=== PATIENT | female | born 1955 | race Caucasian/White ===

== ENCOUNTER → 2017-03-17 | Outpatient (CLI) | payer MEDICARE, OTHER ==
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
[2017-03-17 09:22] LABS: Anisocytosis Slight; Basophils # (A) 0.1 k/uL (0-0.2); Basophils % (A) 1 %; CH 19.3; CHCM 28.2; Eosinophils # (A) 0.1 k/uL (0-0.7); Eosinophils % (A) 2 %; HCT 33.2 % (34.0-46.0); HGB 9.3 gm/dL (11.4-16.0); Hypochromasia Marked; Luc # (Auto) 0.11; Luc % (Auto) 2; Lymphocytes # (A) 1.3 k/uL (1.0-4.8); Lymphocytes % (A) 22 %; MCH 19.2 pg (25.0-35.0); MCV 68.9 fL (80.0-100.0); Mean Platelet Volume 6.2; Microcytosis Marked; Monocytes # (A) 0.2 k/uL (0-1.0); Monocytes % (A) 4 %; Neutrophils # (A) 3.8 k/uL (1.3-7.7); Neutrophils % (A) 68 %; Poikilocytosis Slight; RBC 4.82 m/uL (3.80-5.40); RDW 17.9 % (11.5-15.5); WBC 5.6 k/uL (3.8-10.6); WBC (Perox) 5.96
[2017-03-17 09:33] LABS: MCHC 27.8 g/dL (31.0-37.0)
[2017-03-17 10:23] LABS: ALT 35 U/L (9-52); AST 24 U/L (14-36); Alkaline Phosphatase 91 U/L (38-126); Anion Gap 10 mmol/L; Blood Urea Nitrogen 25 mg/dL (7-17); Calcium 9.4 mg/dL (8.4-10.2); Carbon Dioxide 28 mmol/L (22-30); Chloride 103 mmol/L (98-107); Cholesterol 229 mg/dL (<200); Glucose 145 mg/dL (74-99); HDL Cholesterol 56 mg/dL (40-60); Non-African American GFR(MDRD) >60 (>60 ml/min/1.73 sqM); Potassium 4.2 mmol/L (3.5-5.1); Sodium 141 mmol/L (137-145); Total Bilirubin 0.6 mg/dL (0.2-1.3); Total Protein 7.5 g/dL (6.3-8.2); Triglycerides 254 mg/dL (<150)
[2017-03-17 11:11] LABS: Hepatitis C Virus IgG Index 0.11
[2017-03-17 11:20] LABS: Hepatitis C Virus IgG Ab Negative (Negative)
[2017-03-20 22:28] LABS: % Iron Saturation 4.9 % (20-50)
== END | disposition home or self-care (01) ==
LOC: RADXRMAIN 08:26
PROVIDERS: ATTEND Internal Medicine
DX: Z12.31 Encounter for screening mammogram for malignant neoplasm of breast (principal); R07.81 Pleurodynia; E55.9 Vitamin D deficiency, unspecified; Z13.9 Encounter for screening, unspecified
CPT/HCPCS: 80053; 80061; 82306; 83540; 83550; 84443; 85025; 86803

== ENCOUNTER → 2017-04-10 | Outpatient (CLI) | payer MEDICARE, OTHER ==
--- NOTE | 2017-04-14 11:47 | MM ---
Reason for exam: screening (asymptomatic). Last mammogram was performed 2 years and 2 months ago. History: Patient is postmenopausal. Benign excisional biopsy of the left breast. Physical Findings: A clinical breast exam by your physician is recommended on an annual basis and results should be correlated with mammographic findings. MG Screening Mammo w CAD Bilateral CC and MLO view(s) were taken. Prior study comparison: January 29, 2015, bilateral MG screening mammo w CAD. January 11, 2014, bilateral digital screening mammo w/CAD. October 13, 2012, bilateral digital screening mammo w/CAD. There are scattered fibroglandular densities. Finding: There are typically benign vascular, round calcifications in the left breast. There is a chronic nodularity in the left breast. There is no discrete abnormality. Left axillary pacemaker. ASSESSMENT: Benign, BI-RAD 2 RECOMMENDATION: Routine screening mammogram of both breasts in 1 year. Manage on a clinical basis with regard to itching symptoms.
== END | disposition home or self-care (01) ==
LOC: RADMAMWWP 08:52
PROVIDERS: ATTEND Internal Medicine
DX: Z12.31 Encounter for screening mammogram for malignant neoplasm of breast (principal)

== ENCOUNTER → 2017-09-24 | Outpatient (CLI) | payer MEDICARE, OTHER ==
[2017-09-24 16:10] LABS: Calcium 9.7 mg/dL (8.4-10.2); Digoxin 0.9 ng/mL; Potassium 4.3 mmol/L (3.5-5.1)
== END ==
LOC: LABWHC1 15:34
PROVIDERS: ATTEND Internal Medicine Interventional Cardiology
DX: I42.9 Cardiomyopathy, unspecified (principal)
CPT/HCPCS: 36415; 80048; 80162

== ENCOUNTER → 2018-06-07 | Outpatient (CLI) | payer MEDICARE, OTHER ==
[2018-06-07 10:16] LABS: Appearance,Urine Clear (Clear); Bilirubin,Urine Negative (Negative); Blood,Urine Negative (Negative); Color,Urine Light Yellow; Glucose,Urine (UA) Negative (Negative); Ketones,Urine Negative (Negative); Leukocyte Esterase,Urine Negative (Negative); Nitrite,Urine Negative (Negative); PH, Urine 6.5 (5.0-8.0); Protein,Urine Negative (Negative); Specific Gravity,Urine 1.006 (1.001-1.035); Urobilinogen,Urine <2.0 mg/dL (<2.0)
[2018-06-07 10:28] LABS: Anisocytosis Slight; Basophils % (A) 1 %; Eosinophils # (A) 0.2 k/uL (0-0.7); Eosinophils % (A) 3 %; Hypochromasia Marked; Lymphocytes # (A) 1.5 k/uL (1.0-4.8); Lymphocytes % (A) 24 %; MCH 20.6 pg (25.0-35.0); MCHC 30.4 g/dL (31.0-37.0); MCV 67.6 fL (80.0-100.0); Mean Platelet Volume 6.6; Microcytosis Marked; Monocytes # (A) 0.3 k/uL (0-1.0); Monocytes % (A) 5 %; Neutrophils # (A) 4.2 k/uL (1.3-7.7); Neutrophils % (A) 66 %; Platelet Count 312 k/uL (150-450); Poikilocytosis Slight; RBC 4.88 m/uL (3.80-5.40); RDW 17.6 % (11.5-15.5); WBC 6.3 k/uL (3.8-10.6)
[2018-06-07 10:30] LABS: ALT 27 U/L (9-52); AST 23 U/L (14-36); Alkaline Phosphatase 112 U/L (38-126); Anion Gap 8 mmol/L; Blood Urea Nitrogen 26 mg/dL (7-17); Calcium 10.2 mg/dL (8.4-10.2); Carbon Dioxide 33 mmol/L (22-30); Chloride 98 mmol/L (98-107); Cholesterol 156 mg/dL (<200); Glucose 91 mg/dL (74-99); HDL Cholesterol 53 mg/dL (40-60); LDL Cholesterol,Calculated 72 mg/dL (0-99); Potassium 3.7 mmol/L (3.5-5.1); Sodium 139 mmol/L (137-145); Total Bilirubin 0.3 mg/dL (0.2-1.3); Total Protein 7.1 g/dL (6.3-8.2); Triglycerides 153 mg/dL (<150)
[2018-06-07 10:45] LABS: T4, Free (Free Thyroxine) 1.87 ng/dL (0.78-2.19)
== END | disposition home or self-care (01) ==
LOC: LABWHC1 09:21
PROVIDERS: ATTEND Internal Medicine
DX: E03.9 Hypothyroidism, unspecified (principal); I10 Essential (primary) hypertension
CPT/HCPCS: 36415; 80053; 80061; 81003; 84439; 84443; 84481; 85025

== ENCOUNTER 2018-06-11 17:14 | Emergency (ER) | payer OTHER, MEDICARE ==
[2018-06-11] MEDS ORDERED: SODIUM CHLORIDE 0.9% 1,000 ML IV STA ×2 (17:45)
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
[2018-06-11 18:20] LABS: Anisocytosis Slight; Basophils % (A) 0 %; Eosinophils # (A) 0.1 k/uL (0-0.7); Eosinophils % (A) 1 %; HCT 32.4 % (34.0-46.0); HGB 9.4 gm/dL (11.4-16.0); Hypochromasia Marked; Lymphocytes # (A) 1.1 k/uL (1.0-4.8); Lymphocytes % (A) 15 %; MCH 19.3 pg (25.0-35.0); MCV 66.4 fL (80.0-100.0); Microcytosis Marked; Monocytes # (A) 0.3 k/uL (0-1.0); Monocytes % (A) 4 %; Neutrophils # (A) 5.5 k/uL (1.3-7.7); Neutrophils % (A) 77 %; Platelet Count 299 k/uL (150-450); Poikilocytosis Slight; RBC 4.89 m/uL (3.80-5.40); RDW 17.3 % (11.5-15.5); WBC 7.1 k/uL (3.8-10.6)
[2018-06-11 18:22] LABS: ALT 26 U/L (9-52); AST 24 U/L (14-36); Albumin 3.8 g/dL (3.5-5.0); Alcohol <10 mg/dL; Alkaline Phosphatase 108 U/L (38-126); Anion Gap 11 mmol/L; Blood Urea Nitrogen 24 mg/dL (7-17); Calcium 9.6 mg/dL (8.4-10.2); Carbon Dioxide 27 mmol/L (22-30); Chloride 96 mmol/L (98-107); Glucose 192 mg/dL (74-99); Potassium 3.3 mmol/L (3.5-5.1); Sodium 134 mmol/L (137-145); Total Bilirubin 0.3 mg/dL (0.2-1.3); Total Protein 6.8 g/dL (6.3-8.2)
--- NOTE | 2018-06-11 18:22 | XR ---
EXAMINATION TYPE: XR chest 1V portable DATE OF EXAM: 06/11/2018 COMPARISON: 03/17/2017 HISTORY: Chest pain TECHNIQUE: Single frontal view of the chest is obtained. FINDINGS: Heart and mediastinum are normal. Lungs are clear. Costophrenic angles are clear. There is left axillary pacemaker with the lead tips in the right ventricle. Bony thorax is intact. IMPRESSION: No active cardiopulmonary disease. No definite change compared to old exam.
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
[2018-06-11 18:26] LABS: Creatine Kinase 56 U/L (30-135)
[2018-06-11 18:32] LABS: INR 1.8 (<1.2); Partial Thromboplastin Time 23.9 sec (22.0-30.0); Prothrombin Time 16.2 sec (9.0-12.0)
[2018-06-11 18:39] LABS: Creatine Kinase MB 0.5 ng/mL (0.0-2.4); Troponin I <0.012 ng/mL (0.000-0.034)
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
[2018-06-11 19:51] VITALS: BP 110/55; PULSE 90; RESP 18; TEMP 98
== END 2018-06-11 19:25 | disposition home or self-care (01) ==
LOC: EC 17:14
DX: R07.9 Chest pain, unspecified (principal); I48.91 Unspecified atrial fibrillation; E11.40 Type 2 diabetes mellitus with diabetic neuropathy, unspecified; F32.9 Major depressive disorder, single episode, unspecified; F17.200 Nicotine dependence, unspecified, uncomplicated; Z79.4 Long term (current) use of insulin; Z79.82 Long term (current) use of aspirin; Z79.01 Long term (current) use of anticoagulants; Z79.899 Other long term (current) drug therapy; Z88.0 Allergy status to penicillin; Z95.818 Presence of other cardiac implants and grafts; Z95.810 Presence of automatic (implantable) cardiac defibrillator; V43.52XA Car driver injured in collision with other type car in traffic accident, initial encounter; Y92.410 Unspecified street and highway as the place of occurrence of the external cause
CPT/HCPCS: 36415; 93005; 86900; 86901; 80053; 82550; 82553; 84484; 85025; 85610; 85730; 86850; 80320; 72170; 71045; 72125; 70450; 71260; 74177; 99285; 96360; Q9967

== ENCOUNTER 2018-06-17 11:36 | Emergency (ER) | payer MEDICARE, OTHER ==
[2018-06-17 11:42] VITALS: TEMP 97.9
[2018-06-17] MEDS ORDERED: LIDOCAINE 5% PATCH TOPICAL STA (12:00)
[2018-06-17 12:37] LABS: ALT 25 U/L (9-52); AST 17 U/L (14-36); Albumin 3.7 g/dL (3.5-5.0); Alkaline Phosphatase 95 U/L (38-126); Anion Gap 9 mmol/L; Blood Urea Nitrogen 16 mg/dL (7-17); Calcium 9.9 mg/dL (8.4-10.2); Carbon Dioxide 30 mmol/L (22-30); Chloride 99 mmol/L (98-107); Glucose 111 mg/dL (74-99); Sodium 138 mmol/L (137-145); Total Bilirubin 0.3 mg/dL (0.2-1.3); Total Protein 6.5 g/dL (6.3-8.2)
[2018-06-17 12:39] LABS: Partial Thromboplastin Time 30.9 sec (22.0-30.0); Prothrombin Time 17.7 sec (9.0-12.0)
[2018-06-17 12:42] LABS: Anisocytosis Slight; Basophils % (A) 0 %; Eosinophils # (A) 0.1 k/uL (0-0.7); Eosinophils % (A) 3 %; HGB 9.3 gm/dL (11.4-16.0); Hypochromasia Marked; Lymphocytes # (A) 1.4 k/uL (1.0-4.8); Lymphocytes % (A) 25 %; MCH 20.6 pg (25.0-35.0); MCHC 30.1 g/dL (31.0-37.0); MCV 68.3 fL (80.0-100.0); Mean Platelet Volume 6.3; Microcytosis Marked; Monocytes # (A) 0.2 k/uL (0-1.0); Monocytes % (A) 4 %; Neutrophils # (A) 3.7 k/uL (1.3-7.7); Neutrophils % (A) 67 %; Platelet Count 283 k/uL (150-450); Poikilocytosis Slight; RBC 4.54 m/uL (3.80-5.40); RDW 17.2 % (11.5-15.5); WBC 5.6 k/uL (3.8-10.6)
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
[2018-06-17 14:25] LABS: Amorphous Sediment,Urine Rare /hpf; Appearance,Urine Clear (Clear); Bacteria,Urine Few /hpf; Bilirubin,Urine Negative (Negative); Blood,Urine Negative (Negative); Color,Urine Yellow; Glucose,Urine (UA) Negative (Negative); Ketones,Urine Negative (Negative); Leukocyte Esterase,Urine Small (Negative); Mucus,Urine Rare /hpf; Nitrite,Urine Negative (Negative); PH, Urine 6.5 (5.0-8.0); Protein,Urine Negative (Negative); RBC,Urine <1 /hpf (0-5); Specific Gravity,Urine 1.043 (1.001-1.035); Squamous Epithelial Cell,Urine 1 /hpf (0-4); Urobilinogen,Urine <2.0 mg/dL (<2.0); WBC,Urine 5 /hpf (0-5)
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
[2018-06-17 15:25] VITALS: BP 142/74; PULSE 78; RESP 18
== END 2018-06-17 15:24 | disposition home or self-care (01) ==
LOC: EC 11:36
DX: S22.32XA Fracture of one rib, left side, initial encounter for closed fracture (principal); D35.01 Benign neoplasm of right adrenal gland; I48.91 Unspecified atrial fibrillation; E11.40 Type 2 diabetes mellitus with diabetic neuropathy, unspecified; F17.200 Nicotine dependence, unspecified, uncomplicated; Z79.01 Long term (current) use of anticoagulants; Z79.4 Long term (current) use of insulin; Z79.82 Long term (current) use of aspirin; Z79.899 Other long term (current) drug therapy; Z88.0 Allergy status to penicillin; Z95.0 Presence of cardiac pacemaker; V49.60XA Unspecified car occupant injured in collision with unspecified motor vehicles in traffic accident, initial encounter; Y92.410 Unspecified street and highway as the place of occurrence of the external cause
CPT/HCPCS: 36415; 80053; 85025; 85610; 85730; 81001; 72170; 71260; 74177; 99285; Q9967

== ENCOUNTER 2018-12-24 11:35 | Emergency (ER) | payer MEDICARE, OTHER ==
[2018-12-24 11:41] VITALS: TEMP 97.6
--- NOTE | 2018-12-24 11:48 | ED ---
Chest Pain HPI - General Chief Complaint: Chest Pain Stated Complaint: Chest pressure Time Seen by Provider: 12/24/18 11:46 Source: patient Mode of arrival: ambulatory Limitations: no limitations - History of Present Illness MD Complaint: chest pain (pressure) -: days(s) Onset: during rest Pain Location: substernal, left chest Pain Radiation: none Severity: mild Severity scale (1-10): 3 Quality: heaviness Consistency: constant Improves With: nothing Worsens With: nothing Treatments Prior to Arrival: none - Related Data Home Medications Medication Instructions Recorded Confirmed Aspirin EC [Ecotrin] 81 mg PO HS 05/15/15 12/24/18 Furosemide [Lasix] 80 mg PO PC-SUPPER PRN 05/15/15 12/24/18 Levothyroxine Sodium [Synthroid] 25 mcg PO HS 05/15/15 12/24/18 Omeprazole [PriLOSEC] 40 mg PO HS 05/15/15 12/24/18 Simvastatin [Zocor] 40 mg PO HS 05/15/15 12/24/18 Spironolactone 50 mg PO HS 05/15/15 12/24/18 metFORMIN HCL [Glucophage] 500 mg PO BID 05/15/15 12/24/18 Insulin Lispro [humaLOG Kwikpen] 40 unit SQ AC-TID 06/05/16 12/24/18 Montelukast [Singulair] 10 mg PO DAILY 06/05/16 12/24/18 Warfarin [Coumadin] 7.5 mg PO MOTUWETHFRSA 06/05/16 12/24/18 Ergocalciferol (Vitamin D2) 50,000 unit PO Q7D 06/11/18 12/24/18 [Vitamin D2] Insulin Degludec [Tresiba 40 unit SQ BID 06/11/18 12/24/18 Flextouch U-100] Lisinopril [Prinivil] 10 mg PO DAILY 06/11/18 12/24/18 Metolazone [Zaroxolyn] 2.5 mg PO MOWEFR 06/11/18 12/24/18 Metoprolol Tartrate [Lopressor] 100 mg PO BID 06/11/18 12/24/18 Potassium Chloride ER [K-Dur 20] 20 meq PO MOWEFR 06/11/18 12/24/18 Warfarin Sodium [Coumadin] 5 mg PO GARZA 06/11/18 12/24/18 Allergies Allergy/AdvReac Type Severity Reaction Status Date / Time Penicillins Allergy Unknown Dyspnea Verified 12/24/18 12:05 Review of Systems ROS Statement: Those systems with pertinent positive or pertinent negative responses have been documented in the HPI. ROS Other: All systems not noted in ROS Statement are negative. 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 History of Any Multi-Drug Resistant Organisms: None Reported Past Surgical History: AICD, Heart Catheterization, Tonsillectomy Additional Past Surgical History / Comment(s): KIDNEY SURG A CHILD(X-TRA URETERS), D & C, DEFIBRILLATOR 2004 AND REPLACED 12/2011. Past Anesthesia/Blood Transfusion Reactions: No Reported Reaction Type of Cardiac Device: AICD Device Placement Date:: 12/2011 Past Psychological History: Depression Smoking Status: Current every day smoker Past Alcohol Use History: None Reported Past Drug Use History: None Reported - Past Family History Sister(s) Family Medical History: Cancer Mother Family Medical History: No Reported History General Exam Limitations: no limitations General appearance: alert, in no apparent distress Head exam: Present: atraumatic, normocephalic, normal inspection Eye exam: Present: normal appearance, PERRL, EOMI. Absent: scleral icterus, conjunctival injection, periorbital swelling ENT exam: Present: normal exam, mucous membranes moist Neck exam: Present: normal inspection. Absent: tenderness, meningismus, lymphadenopathy Respiratory exam: Present: normal lung sounds bilaterally. Absent: respiratory distress, wheezes, rales, rhonchi, stridor Cardiovascular Exam: Present: regular rate, normal rhythm, normal heart sounds. Absent: systolic murmur, diastolic murmur, rubs, gallop, clicks GI/Abdominal exam: Present: soft, normal bowel sounds. Absent: distended, tenderness, guarding, rebound, rigid Extremities exam: Present: normal inspection, full ROM, normal capillary refill. Absent: tenderness, pedal edema, joint swelling, calf tenderness Back exam: Present: normal inspection Neurological exam: Present: alert, oriented X3, CN II-XII intact Psychiatric exam: Present: normal affect, normal mood Skin exam: Present: warm, dry, intact, normal color. Absent: rash Course Vital Signs 12/24/18 11:38 Temperature 97.6 F Pulse Rate 80 Respiratory 20 Rate Blood Pressure 115/69 O2 Sat by Pulse 99 Oximetry Disposition Clinical Impression: Chest pain, Atypical chest pain, Anxiety Disposition: HOME SELF-CARE Condition: Good Instructions (If sedation given, give patient instructions): Chest Pain (ED) Is patient prescribed a controlled substance at d/c from ED?: No Referrals: Julio Cesar Vasquez MD [Primary Care Provider] - 1-2 days
[2018-12-24 12:43] LABS: Anisocytosis Slight; Basophils % (A) 0 %; Eosinophils # (A) 0.2 k/uL (0-0.7); Eosinophils % (A) 2 %; HCT 31.6 % (34.0-46.0); HGB 9.3 gm/dL (11.4-16.0); Hypochromasia Marked; Lymphocytes % (A) 14 %; MCH 18.7 pg (25.0-35.0); MCHC 29.5 g/dL (31.0-37.0); MCV 63.5 fL (80.0-100.0); Mean Platelet Volume 6.9; Microcytosis Marked; Monocytes # (A) 0.3 k/uL (0-1.0); Monocytes % (A) 5 %; Neutrophils # (A) 5.7 k/uL (1.3-7.7); Neutrophils % (A) 78 %; Platelet Count 321 k/uL (150-450); Poikilocytosis Slight; RBC 4.98 m/uL (3.80-5.40); RDW 18.7 % (11.5-15.5); WBC 7.3 k/uL (3.8-10.6)
--- NOTE | 2018-12-24 12:50 | XR ---
EXAMINATION TYPE: XR chest 2V DATE OF EXAM: 12/24/2018 COMPARISON: Chest x-ray June 11, 2018 HISTORY: Chest pain. TECHNIQUE: Frontal and lateral views of the chest are obtained. FINDINGS: There is lateral right basilar linear atelectasis. Left lung is clear. No pleural effusion or pneumothorax is seen bilaterally. The cardiac silhouette size remains mildly enlarged with dual l ead pacemaker/AICD. The osseous structures are intact. IMPRESSION: New lateral right basilar linear atelectasis. Stable mild cardiomegaly.
[2018-12-24 12:52] LABS: Partial Thromboplastin Time 39.9 sec (22.0-30.0); Prothrombin Time 29.3 sec (9.0-12.0)
[2018-12-24 12:56] LABS: Albumin 4.4 g/dL (3.5-5.0); Calcium 9.9 mg/dL (8.4-10.2); Magnesium 1.9 mg/dL (1.6-2.3); Potassium 3.4 mmol/L (3.5-5.1); Total Bilirubin 0.5 mg/dL (0.2-1.3); Total Protein 7.8 g/dL (6.3-8.2)
[2018-12-24 13:06] LABS: Creatine Kinase 60 U/L (30-135)
[2018-12-24 13:18] LABS: Creatine Kinase MB 0.5 ng/mL (0.0-2.4); Troponin I <0.012 ng/mL (0.000-0.034)
[2018-12-24 14:01] VITALS: BP 126/60; PULSE 74; RESP 18
== END 2018-12-24 14:25 | disposition home or self-care (01) ==
LOC: EC 11:35
DX: F41.9 Anxiety disorder, unspecified (principal); R07.89 Other chest pain; I48.91 Unspecified atrial fibrillation; E11.40 Type 2 diabetes mellitus with diabetic neuropathy, unspecified; F17.200 Nicotine dependence, unspecified, uncomplicated; Z88.0 Allergy status to penicillin; Z79.01 Long term (current) use of anticoagulants; Z79.4 Long term (current) use of insulin; Z79.82 Long term (current) use of aspirin; Z79.890 Hormone replacement therapy; Z79.899 Other long term (current) drug therapy; Z87.39 Personal history of other diseases of the musculoskeletal system and connective tissue; Z95.810 Presence of automatic (implantable) cardiac defibrillator; Z95.818 Presence of other cardiac implants and grafts
CPT/HCPCS: 36415; 71046; 80053; 82550; 82553; 83690; 83735; 83880; 84484; 85025; 85610; 85730; 93005; 99285

== ENCOUNTER → 2020-07-20 | Outpatient (CLI) | payer MEDICARE, OTHER ==
[2020-07-20 12:10] LABS: Anisocytosis Moderate; HCT 43.9 % (34.0-46.0); HGB 13.8 gm/dL (11.4-16.0); Hypochromasia Slight; MCH 25.2 pg (25.0-35.0); MCHC 31.5 g/dL (31.0-37.0); MCV 79.9 fL (80.0-100.0); Mean Platelet Volume 6.9; Microcytosis Moderate; Platelet Count 248 k/uL (150-450); RDW 23.5 % (11.5-15.5); WBC 5.1 k/uL (3.8-10.6)
[2020-07-20 12:21] LABS: Prothrombin Time 78.3 sec (9.0-12.0)
[2020-07-20 12:30] LABS: African American GFR (CKD) 58 (>60 ml/min/1.73 sqM); Anion Gap 11 mmol/L; Blood Urea Nitrogen 30 mg/dL (7-17); Calcium 10.2 mg/dL (8.4-10.2); Carbon Dioxide 32 mmol/L (22-30); Chloride 95 mmol/L (98-107); Glucose 146 mg/dL (74-99); Magnesium 1.7 mg/dL (1.6-2.3); Non-African American GFR(CKD) 50 (>60 ml/min/1.73 sqM); Potassium 3.1 mmol/L (3.5-5.1); Sodium 138 mmol/L (137-145)
[2020-07-20 12:33] LABS: INR 7.6 (<1.2)
== END | disposition home or self-care (01) ==
LOC: LABWHC1 10:10
PROVIDERS: ATTEND Nurse Practitioner
DX: R79.1 Abnormal coagulation profile (principal)
CPT/HCPCS: 36415; 80048; 83735; 85027; 85610

== ENCOUNTER 2021-06-25 08:30 | Inpatient (IN) | payer MEDICARE, OTHER ==
[2021-06-25] MEDS ORDERED: ACETAMINOPHEN TAB 500 MG TAB PO STA (08:52)
[2021-06-25] MEDS ORDERED: SODIUM CHLORIDE 0.9% 500 ML 500 ML IV STA (08:53)
--- NOTE | 2021-06-25 09:03 | ED ---
SOB HPI - General Chief Complaint: Shortness of Breath Stated Complaint: weakness, diarrhea Time Seen by Provider: 06/25/21 08:34 Source: patient, EMS Mode of arrival: EMS Limitations: no limitations - History of Present Illness Initial Comments: Patient is a 66-year-old female, with history of A. fib on Coumadin, presenting to the emergency department via EMS for increased shortness of breath and diarrhea that started 3 days ago. She states starting on Thursday started developing a sore throat, headache, body aches and a slight cough. Over the pa st few days as progressed to continue with body aches, diarrhea which has been improving. She admits to increasing shortness of breath especially with exertion. She does admit to history of COPD, no O2. She denies any chest pain or abdominal pain. She does have some nausea spells. She did try to take her medications this morning but shortly after, threw them up. She was having night sweats, was unaware if she had a fever or not. She does admit to a mild headache, mild sore throat but states those have been improving. She denies any dizziness or lightheadedness, her appetite has been lower than usual. She has not had a cold vaccine. She has no further complaints. Upon arrival to the ER, she is febrile 100.1, rest of vitals within normal limits. - Related Data Home Medications Medication Instructions Recorded Confirmed Aspirin EC [Ecotrin] 81 mg PO HS 05/15/15 12/24/18 Furosemide [Lasix] 80 mg PO PC-SUPPER PRN 05/15/15 12/24/18 Levothyroxine Sodium [Synthroid] 25 mcg PO HS 05/15/15 12/24/18 Omeprazole [PriLOSEC] 40 mg PO HS 05/15/15 12/24/18 Simvastatin [Zocor] 40 mg PO HS 05/15/15 12/24/18 Spironolactone 50 mg PO HS 05/15/15 12/24/18 metFORMIN HCL [Glucophage] 500 mg PO BID 05/15/15 12/24/18 Insulin Lispro [humaLOG Kwikpen] 40 unit SQ AC-TID 06/05/16 12/24/18 Montelukast [Singulair] 10 mg PO DAILY 06/05/16 12/24/18 Warfarin [Coumadin] 7.5 mg PO MOTUWETHFRSA 06/05/16 12/24/18 Ergocalciferol (Vitamin D2) 50,000 unit PO Q7D 06/11/18 12/24/18 [Vitamin D2] Insulin Degludec [Tresiba 40 unit SQ BID 06/11/18 12/24/18 Flextouch U-100] Lisinopril [Prinivil] 10 mg PO DAILY 06/11/18 12/24/18 Metoprolol Tartrate [Lopressor] 100 mg PO BID 06/11/18 12/24/18 Potassium Chloride ER [K-Dur 20] 20 meq PO MOWEFR 06/11/18 12/24/18 Warfarin Sodium [Coumadin] 5 mg PO GARZA 06/11/18 12/24/18 metOLazone [Zaroxolyn] 2.5 mg PO MOWEFR 06/11/18 12/24/18 Allergies Allergy/AdvReac Type Severity Reaction Status Date / Time Penicillins Allergy Unknown Dyspnea Verified 06/25/21 11:29 Review of Systems ROS Statement: Those systems with pertinent positive or pertinent negative responses have been documented in the HPI. ROS Other: All systems not noted in ROS Statement are negative. 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 History of Any Multi-Drug Resistant Organisms: None Reported Past Surgical History: AICD, Heart Catheterization, Tonsillectomy Additional Past Surgical History / Comment(s): KIDNEY SURG A CHILD(X-TRA URETERS), D & C, DEFIBRILLATOR 2004 AND REPLACED 12/2011. Past Anesthesia/Blood Transfusion Reactions: No Reported Reaction Type of Cardiac Device: AICD Device Placement Date:: 12/2011 Past Psychological History: Depression Past Alcohol Use History: None Reported Past Drug Use History: None Reported - Past Family History Sister(s) Family Medical History: Cancer Mother Family Medical History: No Reported History General Exam - General Exam Comments Initial Comments: GENERAL: Patient is well-developed and well-nourished. Patient is nontoxic and in no acute distress. HEAD: Atraumatic, normocephalic. EYES: Pupils equal round and reactive to light, extraocular movements intact, sclera anicteric, conjunctiva are normal. Eyelids were unremarkable. ENT: TMs normal, nares patent, oropharynx clear without exudates. Moist mucous membranes. NECK: Normal range of motion, supple without lymphadenopathy or JVD. LUNGS: Mildly labored respirations, increases when she moves around. Breath sounds clear to auscultation bilaterally and equal. No wheezes rales or rhonchi. HEART: Regular rate and rhythm without murmurs, rubs or gallops. ABDOMEN: Soft, nontender, normoactive bowel sounds. No guarding, no rebound. No masses appreciated. : Deferred MUSCULOSKELETAL: Normal extremities with adequate strength and normal range of motion, no pitting or edema. No clubbing or cyanosis. NEUROLOGICAL: Patient is alert and oriented x 3. Motor and sensory are also intact. Cranial nerves II through XII grossly intact. Symmetrical smile. Normal speech, normal gait. PSYCH: Normal mood, normal affect. SKIN: Warm, Dry, normal turgor, no rashes or lesions noted. Limitations: no limitations Course Vital Signs 06/25/21 06/25/21 06/25/21 08:32 09:45 10:03 Temperature 100.1 F H 101.5 F H Pulse Rate 74 66 Respiratory 22 22 20 Rate Blood Pressure 127/72 116/50 O2 Sat by Pulse 95 95 Oximetry Medical Decision Making - Medical Decision Making Patient is a 66-year-old female with history of A. fib, on Coumadin, presenting via EMS for increased shortness of breath over the past 3 days. She's had body aches, headaches, nausea, vomiting and diarrhea as well as shortness of breath and a cough over the past 3 days. No covid vaccine. Arrived febrile to 100.1, rest of vitals within normal limits. Denies Chest pain or abdominal pain today. Labs show a normal white count, creatinine is slightly elevated from baseline at 1.29 with BUN 32, lactic acid is 1.4. CRP is elevated, BNP is 7600. Urine is showing bacteria, WBC clumps, consistent with UTI. Chest x-ray showing right lower lobe pneumonia. Covid is negative. Blood cultures, urine culture, Legionella antigen are all pending at this time. Patient will be admitted for pneumonia, UTI. The patient started by Dr. Garcia. Patient will be started on Rocephin and azithromycin. Case discussed with Dr. Doyle. - Lab Data Result diagrams: 06/25/21 09:08 06/25/21 09:08 Lab Results 06/25/21 06/25/21 06/25/21 Range/Units 09:08 09:08 09:08 WBC 9.4 (3.8-10.6) k/uL RBC 4.06 (3.80-5.40) m/uL Hgb 13.7 (11.4-16.0) gm/dL Hct 38.9 (34.0-46.0) % MCV 95.8 (80.0-100.0) fL MCH 33.7 (25.0-35.0) pg MCHC 35.2 (31.0-37.0) g/dL RDW 13.4 (11.5-15.5) % Plt Count 144 L (150-450) k/uL MPV 7.9 Neutrophils % 90 % Lymphocytes % 4 % Monocytes % 5 % Eosinophils % 0 % Basophils % 0 % Neutrophils # 8.4 H (1.3-7.7) k/uL Lymphocytes # 0.4 L (1.0-4.8) k/uL Monocytes # 0.5 (0-1.0) k/uL Eosinophils # 0.0 (0-0.7) k/uL Basophils # 0.0 (0-0.2) k/uL PT 12.0 (9.0-12.0) sec INR 1.2 H (<1.2) APTT 24.1 (22.0-30.0) sec Sodium 136 L (137-145) mmol/L Potassium 3.8 (3.5-5.1) mmol/L Chloride 102 (98-107) mmol/L Carbon Dioxide 26 (22-30) mmol/L Anion Gap 8 mmol/L BUN 32 H (7-17) mg/dL Creatinine 1.29 H (0.52-1.04) mg/dL Est GFR (CKD-EPI)AfAm 49 (>60 ml/min/1.73 sqM) Est GFR (CKD-EPI)NonAf 43 (>60 ml/min/1.73 sqM) Glucose 148 H (74-99) mg/dL Plasma Lactic Acid Sunny (0.7-2.0) mmol/L Calcium 9.3 (8.4-10.2) mg/dL Magnesium 2.0 (1.6-2.3) mg/dL Total Bilirubin 1.1 (0.2-1.3) mg/dL AST 20 (14-36) U/L ALT 14 (4-34) U/L Alkaline Phosphatase 124 (38-126) U/L Lactate Dehydrogenase 580 (313-618) U/L Troponin I (0.000-0.034) ng/mL C-Reactive Protein 26.4 H (<1.0) mg/dL NT-Pro-B Natriuret Pep pg/mL Total Protein 6.2 L (6.3-8.2) g/dL Albumin 3.4 L (3.5-5.0) g/dL Urine Color Urine Appearance (Clear) Urine pH (5.0-8.0) Ur Specific Lillian (1.001-1.035) Urine Protein (Negative) Urine Glucose (UA) (Negative) Urine Ketones (Negative) Urine Blood (Negative) Urine Nitrite (Negative) Urine Bilirubin (Negative) Urine Urobilinogen (<2.0) mg/dL Ur Leukocyte Esterase (Negative) Urine RBC (0-5) /hpf Urine WBC (0-5) /hpf Urine WBC Clumps (None) /hpf Ur Squamous Epith Cells (0-4) /hpf Urine Bacteria (None) /hpf Urine Mucus (None) /hpf Coronavirus (PCR) (Not Detectd) 06/25/21 06/25/21 06/25/21 Range/Units 09:08 09:08 09:08 WBC (3.8-10.6) k/uL RBC (3.80-5.40) m/uL Hgb (11.4-16.0) gm/dL Hct (34.0-46.0) % MCV (80.0-100.0) fL MCH (25.0-35.0) pg MCHC (31.0-37.0) g/dL RDW (11.5-15.5) % Plt Count (150-450) k/uL MPV Neutrophils % % Lymphocytes % % Monocytes % % Eosinophils % % Basophils % % Neutrophils # (1.3-7.7) k/uL Lymphocytes # (1.0-4.8) k/uL Monocytes # (0-1.0) k/uL Eosinophils # (0-0.7) k/uL Basophils # (0-0.2) k/uL PT (9.0-12.0) sec INR (<1.2) APTT (22.0-30.0) sec Sodium (137-145) mmol/L Potassium (3.5-5.1) mmol/L Chloride (98-107) mmol/L Carbon Dioxide (22-30) mmol/L Anion Gap mmol/L BUN (7-17) mg/dL Creatinine (0.52-1.04) mg/dL Est GFR (CKD-EPI)AfAm (>60 ml/min/1.73 sqM) Est GFR (CKD-EPI)NonAf (>60 ml/min/1.73 sqM) Glucose (74-99) mg/dL Plasma Lactic Acid Sunny 1.4 (0.7-2.0) mmol/L Calcium (8.4-10.2) mg/dL Magnesium (1.6-2.3) mg/dL Total Bilirubin (0.2-1.3) mg/dL AST (14-36) U/L ALT (4-34) U/L Alkaline Phosphatase (38-126) U/L Lactate Dehydrogenase (313-618) U/L Troponin I 0.021 (0.000-0.034) ng/mL C-Reactive Protein (<1.0) mg/dL NT-Pro-B Natriuret Pep 7620 pg/mL Total Protein (6.3-8.2) g/dL Albumin (3.5-5.0) g/dL Urine Color Urine Appearance (Clear) Urine pH (5.0-8.0) Ur Specific Lillian (1.001-1.035) Urine Protein (Negative) Urine Glucose (UA) (Negative) Urine Ketones (Negative) Urine Blood (Negative) Urine Nitrite (Negative) Urine Bilirubin (Negative) Urine Urobilinogen (<2.0) mg/dL Ur Leukocyte Esterase (Negative) Urine RBC (0-5) /hpf Urine WBC (0-5) /hpf Urine WBC Clumps (None) /hpf Ur Squamous Epith Cells (0-4) /hpf Urine Bacteria (None) /hpf Urine Mucus (None) /hpf Coronavirus (PCR) (Not Detectd) 06/25/21 06/25/21 Range/Units 09:08 10:10 WBC (3.8-10.6) k/uL RBC (3.80-5.40) m/uL Hgb (11.4-16.0) gm/dL Hct (34.0-46.0) % MCV (80.0-100.0) fL MCH (25.0-35.0) pg MCHC (31.0-37.0) g/dL RDW (11.5-15.5) % Plt Count (150-450) k/uL MPV Neutrophils % % Lymphocytes % % Monocytes % % Eosinophils % % Basophils % % Neutrophils # (1.3-7.7) k/uL Lymphocytes # (1.0-4.8) k/uL Monocytes # (0-1.0) k/uL Eosinophils # (0-0.7) k/uL Basophils # (0-0.2) k/uL PT (9.0-12.0) sec INR (<1.2) APTT (22.0-30.0) sec Sodium (137-145) mmol/L Potassium (3.5-5.1) mmol/L Chloride (98-107) mmol/L Carbon Dioxide (22-30) mmol/L Anion Gap mmol/L BUN (7-17) mg/dL Creatinine (0.52-1.04) mg/dL Est GFR (CKD-EPI)AfAm (>60 ml/min/1.73 sqM) Est GFR (CKD-EPI)NonAf (>60 ml/min/1.73 sqM) Glucose (74-99) mg/dL Plasma Lactic Acid Sunny (0.7-2.0) mmol/L Calcium (8.4-10.2) mg/dL Magnesium (1.6-2.3) mg/dL Total Bilirubin (0.2-1.3) mg/dL AST (14-36) U/L ALT (4-34) U/L Alkaline Phosphatase (38-126) U/L Lactate Dehydrogenase (313-618) U/L Troponin I (0.000-0.034) ng/mL C-Reactive Protein (<1.0) mg/dL NT-Pro-B Natriuret Pep pg/mL Total Protein (6.3-8.2) g/dL Albumin (3.5-5.0) g/dL Urine Color Yellow Urine Appearance Turbid H (Clear) Urine pH 5.5 (5.0-8.0) Ur Specific Lillian 1.013 (1.001-1.035) Urine Protein 2+ H (Negative) Urine Glucose (UA) Negative (Negative) Urine Ketones Negative (Negative) Urine Blood Large H (Negative) Urine Nitrite Negative (Negative) Urine Bilirubin Negative (Negative) Urine Urobilinogen <2.0 (<2.0) mg/dL Ur Leukocyte Esterase Large H (Negative) Urine RBC 64 H (0-5) /hpf Urine WBC >182 H (0-5) /hpf Urine WBC Clumps Many H (None) /hpf Ur Squamous Epith Cells 4 (0-4) /hpf Urine Bacteria Many H (None) /hpf Urine Mucus Rare H (None) /hpf Coronavirus (PCR) Not Detected (Not Detectd) - EKG Data EKG Comments: Normal sinus rhythm, incomplete left BP, no signs of acute ST segment elevation. This is similar to her previous on 12/24/2018. Ventricular rate 72, MO interval 186, QT 446. Disposition Clinical Impression: Fever, UTI (urinary tract infection), Pneumonia, Dyspnea Disposition: ADMITTED IP TO THIS [facility] Condition: Stable Referrals: Jennifer Mendez MD [Primary Care Provider] - 1-2 days Decision Date: 06/25/21 Decision Time: 11:32
[2021-06-25 09:35] LABS: Basophils % (A) 0 %; Eosinophils % (A) 0 %; HCT 38.9 % (34.0-46.0); HGB 13.7 gm/dL (11.4-16.0); Lymphocytes # (A) 0.4 k/uL (1.0-4.8); Lymphocytes % (A) 4 %; MCH 33.7 pg (25.0-35.0); MCHC 35.2 g/dL (31.0-37.0); MCV 95.8 fL (80.0-100.0); Mean Platelet Volume 7.9; Monocytes # (A) 0.5 k/uL (0-1.0); Monocytes % (A) 5 %; Neutrophils # (A) 8.4 k/uL (1.3-7.7); Neutrophils % (A) 90 %; Platelet Count 144 k/uL (150-450); RBC 4.06 m/uL (3.80-5.40); RDW 13.4 % (11.5-15.5); WBC 9.4 k/uL (3.8-10.6)
[2021-06-25 09:41] LABS: INR 1.2 (<1.2); Partial Thromboplastin Time 24.1 sec (22.0-30.0)
--- NOTE | 2021-06-25 09:53 | XR ---
EXAMINATION TYPE: XR chest 1V portable DATE OF EXAM: 06/25/2021 COMPARISON: 12/24/2018 INDICATION: Suspected Covid TECHNIQUE: Single frontal view of the chest is obtained. FINDINGS: The heart size is enlarged. The pulmonary vasculature is normal. Mild diffuse right lower lobe infiltrate is present. This is nonspecific. Atypical pneumonia could be considered within the differential. Pacemaker overlies left chest IMPRESSION: 1. Mild right lower lobe infiltrate. This is nonspecific. Pneumonia and atypical pneumonia could be c onsidered.
[2021-06-25 10:26] LABS: Albumin 3.4 g/dL (3.5-5.0); Calcium 9.3 mg/dL (8.4-10.2); Potassium 3.8 mmol/L (3.5-5.1); Total Bilirubin 1.1 mg/dL (0.2-1.3); Total Protein 6.2 g/dL (6.3-8.2)
[2021-06-25 10:35] LABS: Appearance,Urine Turbid (Clear); Bacteria,Urine Many /hpf; Bilirubin,Urine Negative (Negative); Blood,Urine Large (Negative); Color,Urine Yellow; Glucose,Urine (UA) Negative (Negative); Ketones,Urine Negative (Negative); Leukocyte Esterase,Urine Large (Negative); Mucus,Urine Rare /hpf; Nitrite,Urine Negative (Negative); PH, Urine 5.5 (5.0-8.0); Protein,Urine 2+ (Negative); RBC,Urine 64 /hpf (0-5); Specific Gravity,Urine 1.013 (1.001-1.035); Squamous Epithelial Cell,Urine 4 /hpf (0-4); Urobilinogen,Urine <2.0 mg/dL (<2.0); WBC,Urine >182 /hpf (0-5)
[2021-06-25 10:37] LABS: C Reactive Protein 26.4 mg/dL (<1.0)
[2021-06-25] MEDS ORDERED: PNEUMONIA PROTOCOL UTILIZED 1 EACH MISC PO PRN (11:29)
[2021-06-25] MEDS ORDERED: ONDANSETRON 4 MG/2 ML VIAL IVP PRN (11:35)
[2021-06-25] MEDS ORDERED: NALOXONE 0.4 MG/ML 1 ML VIAL IV PRN ×2 (11:35→12:23)
[2021-06-25] MEDS ORDERED: IBUPROFEN 400 MG TAB PO PRN (11:35)
[2021-06-25] MEDS: SODIUM CHLORIDE 0.9% 1,000 ML IV SCH ×2 (11:56→22:14)
[2021-06-25] MEDS ORDERED: WARFARIN 5 MG TAB PO SCH (12:30)
[2021-06-25 12:58] LABS: Glucose,Whole Blood 152 mg/dL (75-99)
[2021-06-25] MEDS: INSULIN ASPART (NovoLOG) 100 UNIT/ML VIAL SQ SCH ×5 (13:01→21:51)
[2021-06-25 14:17] LABS: Glucose,Whole Blood 134 mg/dL (75-99)
--- NOTE | 2021-06-25 15:04 | P.HPIM ---
History of Present Illness H&P Date: 06/25/21 Chief Complaint: Dyspnea, weakness 66-year-old woman with medical history of nonischemic cardiomyopathy with reduced ejection fraction, atrial fibrillation, hypothyroidism, diabetes type 2, hypertension, asthma presented for fevers, weakness. Patient says that starting Thursday she started to feel generally weak and unsettled. Over the weekend, she started to develop increasing shortness of breath. She also noticed fevers and chills. Overall, she is noticed weight gain despite her diuretic use. She denies any symptoms of nausea, vomiting, chest pain, palpitations, syncope, presyncope, cough, abdominal pain, constipation. She has noticed diarrhea, up to 8 times per day, completely watery, no blood. She denies numbness/weakness of extremities, dysuria, hesitancy, nocturia, foul-smelling urine. In the emergency room, patient was febrile to 101.5, otherwise hemodynamically stable with a 2 L oxygen requirement to saturate 97%. Lab work was remarkable for acute kidney injury to 1.3 from baseline of 0.6. CRP was elevated to 26.4, BNP was elevated to 7620. UA was borderline contaminated, however, showed large blood, large leukocyte esterase, 64 red blood cells, greater than 182 white blood cells with many bacteria. Chest x-ray demonstrated right lower lobe pneumonia with overall increased pulmonary vascular congestion. EKG demonstrated normal sinus rhythm with incomplete left bundle block. Review of Systems All Systems reviewed and pertinent positives and negatives noted in HPI, all other symptoms are negative 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 History of Any Multi-Drug Resistant Organisms: None Reported Past Surgical History: AICD, Heart Catheterization, Tonsillectomy Additional Past Surgical History / Comment(s): KIDNEY SURG A CHILD(X-TRA UR ETERS), D & C, DEFIBRILLATOR 2004 AND REPLACED 12/2011. Past Anesthesia/Blood Transfusion Reactions: No Reported Reaction Type of Cardiac Device: AICD Device Placement Date:: 12/2011 Past Psychological History: Depression Past Alcohol Use History: None Reported Past Drug Use History: None Reported - Past Family History Sister(s) Family Medical History: Cancer Mother Family Medical History: No Reported History Medications and Allergies Home Medications Medication Instructions Recorded Confirmed Type Aspirin EC [Ecotrin] 81 mg PO HS 05/15/15 06/25/21 History Omeprazole [PriLOSEC] 40 mg PO HS 05/15/15 06/25/21 History Montelukast [Singulair] 10 mg PO DAILY 06/05/16 06/25/21 History Warfarin [Coumadin] 7.5 mg PO DIRECTED 06/05/16 06/25/21 History Insulin Degludec [Tresiba 30 unit SQ DAILY 06/11/18 06/25/21 History Flextouch U-100] Albuterol Inhaler [Ventolin Hfa 1 - 2 puff INHALATION RT-QID PRN 06/25/21 06/25/21 History Inhaler] Amiodarone [Cordarone] 200 mg PO DAILY 06/25/21 06/25/21 History Cetirizine HCl [Zyrtec] 10 mg PO DAILY 06/25/21 06/25/21 History Ferrous Sulfate [Slow Fe] 142 mg PO DAILY 06/25/21 06/25/21 History Fluticasone Nasal [place] [Flonase 1 spr EA NOSTRIL DAILY 06/25/21 06/25/21 History Nasal [place]] Fluticasone/Vilanterol [Breo 1 puff INHALATION RT-DAILY 06/25/21 06/25/21 History Ellipta 200-25 Mcg INH] HYDROcodone/APAP 7.5-325MG [[place] 1 tab PO Q6HR PRN 06/25/21 06/25/21 History 7.5-325] Insulin Aspart [NovoLOG Flexpen] 15 units SQ AC-TID 06/25/21 06/25/21 History Insulin Aspart [NovoLOG Flexpen] See Protocol SQ ACHS 06/25/21 06/25/21 History Levothyroxine Sodium [Synthroid] 50 mcg PO DAILY 06/25/21 06/25/21 History Metoprolol Tartrate [Lopressor] 50 mg PO TID 06/25/21 06/25/21 History Potassium Chloride 10 meq PO DAILY 06/25/21 06/25/21 History Allergies Allergy/AdvReac Type Severity Reaction Status Date / Time Penicillins Allergy Unknown Dyspnea Verified 06/25/21 11:29 Physical Exam Osteopathic Statement: *. No significant issues noted on an osteopathic structural exam other than those noted in the History and Physical/Consult. Vitals: Vital Signs Temp Pulse Resp BP Pulse Ox 06/25/21 13:10 59 L 18 121/69 99 06/25/21 12:01 98.7 F 58 L 18 110/52 97 06/25/21 10:03 101.5 F H 66 20 116/50 95 06/25/21 09:45 22 06/25/21 08:32 100.1 F H 74 22 127/72 95 Intake and Output 06/24/21 06/25/21 06/25/21 22:59 06:59 14:59 Other: Weight 103.873 kg Gen: awake, alert HEENT: normocephalic, atraumatic, good hearing acuity, moist mucous membranes Resp: good air exchange, breathing comfortably with no accessory muscle use, right lower lobe crackles, no wheezing CVS: good distal perfusion x 4, regular rhythm, regular rate, holosystolic murmur GI: soft, NTTP, ND, appropriate bowel sounds : Mild SPT, no CVAT, espinosa catheter not present MSK: no pitting edema, no clubbing Neuro: non-focal, moving all extremities Psych: cooperative, euthymic mood Results CBC & Chem 7: 06/25/21 09:08 06/25/21 09:08 Labs: Abnormal Lab Results - Last 24 Hours (Table) 06/25/21 06/25/21 06/25/21 Range/Units 09:08 09:08 09:08 Plt Count 144 L (150-450) k/uL Neutrophils # 8.4 H (1.3-7.7) k/uL Lymphocytes # 0.4 L (1.0-4.8) k/uL INR 1.2 H (<1.2) Sodium 136 L (137-145) mmol/L BUN 32 H (7-17) mg/dL Creatinine 1.29 H (0.52-1.04) mg/dL Glucose 148 H (74-99) mg/dL POC Glucose (mg/dL) (75-99) mg/dL C-Reactive Protein 26.4 H (<1.0) mg/dL Total Protein 6.2 L (6.3-8.2) g/dL Albumin 3.4 L (3.5-5.0) g/dL Urine Appearance (Clear) Urine Protein (Negative) Urine Blood (Negative) Ur Leukocyte Esterase (Negative) Urine RBC (0-5) /hpf Urine WBC (0-5) /hpf Urine WBC Clumps (None) /hpf Urine Bacteria (None) /hpf Urine Mucus (None) /hpf 06/25/21 06/25/21 06/25/21 Range/Units 10:10 12:56 14:16 Plt Count (150-450) k/uL Neutrophils # (1.3-7.7) k/uL Lymphocytes # (1.0-4.8) k/uL INR (<1.2) Sodium (137-145) mmol/L BUN (7-17) mg/dL Creatinine (0.52-1.04) mg/dL Glucose (74-99) mg/dL POC Glucose (mg/dL) 152 H 134 H (75-99) mg/dL C-Reactive Protein (<1.0) mg/dL Total Protein (6.3-8.2) g/dL Albumin (3.5-5.0) g/dL Urine Appearance Turbid H (Clear) Urine Protein 2+ H (Negative) Urine Blood Large H (Negative) Ur Leukocyte Esterase Large H (Negative) Urine RBC 64 H (0-5) /hpf Urine WBC >182 H (0-5) /hpf Urine WBC Clumps Many H (None) /hpf Urine Bacteria Many H (None) /hpf Urine Mucus Rare H (None) /hpf Assessment and Plan Assessment: Sepsis Community acquired pneumonia Complicated urinary tract infection -Admit inpatient, telemetry -Ceftriaxone, azithromycin -Follow up urine culture -Follow blood culture Acute kidney injury -Conservative fluid management by oral intake -Follow up BMP, magnesium daily Nonischemic cardiomyopathy with unknown ejection fraction, patient reported 20- 25% from years ago Paroxysmal atrial fibrillation, rate controlled -Strict I/os -Repeat echocardiogram -Conservative by mouth management of fluids -Continue amiodarone, metoprolol -Pharmacy dose Coumadin Hypertension Type 2 diabetes Asthma Iron deficiency -Home medications reviewed and reconciled -Continue metoprolol -Continue home long-acting insulin, pre-meal aspart, sliding scale aspart -Continue ferrous sulfate -Continue home cetirizine, montelukast, fluticasone, Breo DVT prophylaxis covered with Coumadin Patient is a full code
[2021-06-25] MEDS: ALBUTEROL HFA INHALER INHALATION PRN (15:45)
[2021-06-25] MEDS ORDERED: HEPARIN SODIUM,PORCINE/PF 5,000 UNIT/0.5 ML SYRINGE SQ SCH (16:00)
[2021-06-25 17:15] LABS: Glucose,Whole Blood 108 mg/dL (75-99)
[2021-06-25] MEDS: METOPROLOL TARTRATE 50 MG TAB PO SCH ×2 (17:38→21:50)
[2021-06-25] MEDS: ACETAMINOPHEN TAB 325 MG TAB PO PRN (17:38)
[2021-06-25] MEDS ORDERED: WARFARIN 7.5 MG TAB PO ONE (18:00)
[2021-06-25 21:20] LABS: Glucose,Whole Blood 271 mg/dL (75-99)
[2021-06-25] MEDS: PANTOPRAZOLE 40 MG TABLET PO SCH (21:50)
[2021-06-25] MEDS: ASPIRIN 81 MG PO SCH (21:51)
[2021-06-25] MEDS: HYDROcodone/APAP 7.5-325MG 1 EACH TAB PO PRN (22:14)
[2021-06-26] MEDS: ACETAMINOPHEN TAB 325 MG TAB PO PRN ×2 (01:58→16:59)
[2021-06-26] MEDS: LEVOTHYROXINE 50 MCG TAB PO SCH (05:48)
[2021-06-26] MEDS: HYDROcodone/APAP 7.5-325MG 1 EACH TAB PO PRN ×2 (05:50→21:25)
[2021-06-26 06:42] LABS: Glucose,Whole Blood 147 mg/dL (75-99)
[2021-06-26 06:51] LABS: Basophils % (A) 0 %; Eosinophils % (A) 0 %; HCT 36.3 % (34.0-46.0); HGB 12.1 gm/dL (11.4-16.0); Lymphocytes # (A) 0.5 k/uL (1.0-4.8); Lymphocytes % (A) 7 %; MCH 32.4 pg (25.0-35.0); MCHC 33.3 g/dL (31.0-37.0); MCV 97.5 fL (80.0-100.0); Mean Platelet Volume 8.3; Monocytes # (A) 0.4 k/uL (0-1.0); Monocytes % (A) 5 %; Neutrophils # (A) 7.1 k/uL (1.3-7.7); Neutrophils % (A) 86 %; Platelet Count 145 k/uL (150-450); RBC 3.72 m/uL (3.80-5.40); RDW 13.7 % (11.5-15.5); WBC 8.2 k/uL (3.8-10.6)
[2021-06-26 06:59] LABS: INR 1.2 (<1.2); Prothrombin Time 12.5 sec (9.0-12.0)
[2021-06-26 07:01] LABS: African American GFR (CKD) 36 (>60 ml/min/1.73 sqM); Anion Gap 9 mmol/L; Blood Urea Nitrogen 37 mg/dL (7-17); Carbon Dioxide 25 mmol/L (22-30); Chloride 100 mmol/L (98-107); Glucose 142 mg/dL (74-99); Magnesium 2.2 mg/dL (1.6-2.3); Non-African American GFR(CKD) 31 (>60 ml/min/1.73 sqM); Potassium 3.7 mmol/L (3.5-5.1); Sodium 134 mmol/L (137-145)
[2021-06-26] MEDS: INSULIN ASPART (NovoLOG) 100 UNIT/ML VIAL SQ SCH ×7 (07:53→21:26)
[2021-06-26] MEDS: SODIUM CHLORIDE 0.9% 1,000 ML IV SCH ×2 (07:53→10:25)
[2021-06-26] MEDS: METOPROLOL TARTRATE 50 MG TAB PO SCH ×3 (07:54→20:19)
[2021-06-26] MEDS: LORATADINE 10 MG TAB PO SCH (07:54)
[2021-06-26] MEDS: POTASSIUM CHLORIDE ER 10 MEQ TAB.ER.PRT PO SCH (07:54)
[2021-06-26] MEDS: FLUTICASONE 50MCG/SPRAY NASAL 16GM EA NOSTRIL SCH (07:54)
[2021-06-26] MEDS: AMIODARONE 200 MG TAB PO SCH (07:54)
[2021-06-26] MEDS: FERROUS SULFATE 325 MG TAB PO SCH (07:55)
[2021-06-26] MEDS: MONTELUKAST 10 MG TAB PO SCH (07:55)
--- NOTE | 2021-06-26 08:47 | XR ---
EXAMINATION TYPE: XR chest 2V DATE OF EXAM: 06/26/2021 COMPARISON: Chest x-ray 06/25/2021 HISTORY: Pneumonia TECHNIQUE: Frontal and lateral views of the chest are obtained. FINDINGS: Generator is present in the left pectoral region, there are leads in the right atrium and ventricle. Cardiac mediastinal silhouette shows a similar appearance. The aorta is dense. There is a bandlike area of increased attenuation at the right lung base. No evident pneumothorax. Patient is ro tated. IMPRESSION: Probable subsegmental basilar atelectatic change.
[2021-06-26] MEDS: ALBUTEROL HFA INHALER INHALATION PRN (08:53)
[2021-06-26] MEDS: SYMBICORT 160-4.5 MCG INHALER INHALATION SCH ×2 (08:53→20:59)
--- NOTE | 2021-06-26 08:53 | US ---
EXAMINATION TYPE: US renals and bladder DATE OF EXAM: 06/26/2021 COMPARISON: US 08/09/2020 CLINICAL HISTORY: MAYA, hydro. EXAM MEASUREMENTS: Right Kidney: 14.9 x 5.3 x 5.4 cm Left Kidney: 15.1 x 5.1 x 5.5 cm Right Kidney: No hydronephrosis or masses seen Left Kidney: No hydronephrosis or masses seen cortical medullary differentiation is maintained. Dupl icated systems are noted bilaterally. No evident mass or pathologic calcification. Bladder: Not distended, patient had just voided IMPRESSION: Renal sizes as described. No evident hydronephrosis.
[2021-06-26] MEDS ORDERED: INSULIN DETEMIR (LEVEMIR) 100 UNIT/ML SYR SQ SCH (09:00)
[2021-06-26] MEDS ORDERED: AZITHROMYCIN 500 MG TAB PO SCH (09:00)
[2021-06-26 11:39] LABS: Glucose,Whole Blood 92 mg/dL (75-99)
--- NOTE | 2021-06-26 13:31 | ECHOF ---
Referral Reason:NICM, unknown EF MEASUREMENTS -------- HEIGHT: 160.0 cm WEIGHT: 103.9 kg BP: 108/61 RVIDd: 3.4 cm (< 3.3) IVSd: 1.5 cm (0.6 - 1.1) LVIDd: 4.9 cm (3.9 - 5.3) LVPWd: 1.5 cm (0.6 - 1.1) IVSs: 1.6 cm LVIDs: 4.4 cm LVPWs: 2.0 cm LA Diam: 4.4 cm (2.7 - 3.8) LAESV Index (A-L): 30.52 ml/m Ao Diam: 3.5 cm (2.0 - 3.7) AV Cusp: 1.8 cm (1.5 - 2.6) MV EXCURSION: 13.275 mm (> 18.000) MV EF SLOPE: 125 mm/s (70 - 150) EPSS: 1.5 cm RAP: 15.00 mmHg RVSP: 45.66 mmHg FINDINGS -------- AICD This was a technically adequate study. The left ventricular size is normal. There is moderate concentric left ventricular hypertrophy. O verall left ventricular systolic function is severely impaired with, an EF < 20%. The right ventricle is mildly enlarged. LA is midly dilated 29-33ml/m2. The right atrium is normal in size. Aneurysmal Interatrial septum. Aortic valve is trileaflet and is mildly thickened. Mild mitral annular calcification present. Mild mitral regurgitation is present. Mild tricuspid regurgitation present. There is mild to moderate pulmonary hypertension. The right ventricular systolic pressure, as measured by Doppler, is 45.66mmHg. There is no pulmonic regurgitation present. The aortic root size is normal. The inferior vena cava is dilated with no significant inspiratory collapse which is consistent estima casie right atrial pressure of >15 mmHg. There is no pericardial effusion. CONCLUSIONS -------- 1. AICD 2. The left ventricular size is normal. 3. There is moderate concentric left ventricular hypertrophy. 4. Overall left ventricular systolic function is severely impaired with, an EF < 20%. 5. The right ventricle is mildly enlarged. 6. LA is midly dilated 29-33ml/m2. 7. Aneurysmal Interatrial septum. 8. Aortic valve is trileaflet and is mildly thickened. 9. Mild mitral annular calcification present. 10. Mild mitral regurgitation is present. 11. Mild tricuspid regurgitation present. 12. There is mild to moderate pulmonary hypertension. 13. The right ventricular systolic pressure, as measured by Doppler, is 45.66mmHg. 14. There is no pulmonic regurgitation present. 15. The inferior vena cava is dilated with no significant inspiratory collapse which is consistent es timated right atrial pressure of >15 mmHg. 16. There is no pericardial effusion. SURGICAL GARMENT FITTER: Ai Cox RDCS
--- NOTE | 2021-06-26 15:01 | CONS ---
CONSULTATION The patient is seen for renal failure. HISTORY OF PRESENT ILLNESS: Patient is a 66-year-old female with a past history of hypertension, hypothyroidism, diabetes. The patient was admitted to the hospital with increased weakness, fatigue. She also had nausea, vomiting and diarrhea and abdominal pain. The patient states that she has been told her kidney function has been weak, borderline but has not seen a mattress spring encaser previously. She has underlying history of cardiomyopathy and congestive heart failure as well. Currently the blood cultures are growing Escherichia coli. Urine culture is pending. Patient's blood pressure has been on the lower side with systolic around 108 mmHg. Patient is maintained on antibiotics. Serum creatinine was 1.29 mg/dL on June 25 and today it is 1.6. Previous creatinine as low as 1.3 and 1.4 in 2018 and 2019. Patient denies use of any nonsteroidal anti- inflammatory agents. She was not on any BESSIE inhibitors prior to admission. No trouble voiding. Currently maintained on IV fluids and antibiotics. PAST MEDICAL HISTORY: Type 2 diabetes, hypertension, neuropathy, CHF. PAST SURGICAL HISTORY: Surgery during childhood for extra ureters, according to the patient, details not available. Defibrillator placement and removal in the past. SOCIAL HISTORY: Positive for depression. No history of drug abuse or alcohol abuse. MEDICATIONS: Medications prior to admission included aspirin, Prilosec, Singulair, Coumadin, Cordarone, Zyrtec, iron, insulin, Synthroid, Lopressor, potassium. ALLERGIES: ALLERGIES include PENICILLIN, which causes shortness of breath. REVIEW OF SYSTEMS: As per HPI. Other systems negative. EXAMINATION: The patient is comfortable, awake, alert, oriented x3, not in any acute distress. Blood pressure was 114/67, heart rate 110 per minute. She is afebrile. Examination of the heart S1, S2. Examination of the lungs, bilateral breath sounds are heard. Abdomen is soft, obese, nontender. Examination of lower extremities shows trace edema bilaterally. [employer]OR [employer] exam grossly intact. LAB: Show sodium 134, potassium 3.7, chloride 100, BUN 27, creatinine 1.6, hemoglobin 12.1 g/dL. UA showed 2+ protein, WBCs more than 182, large blood. ASSESSMENT: 1. Acute kidney injury secondary to underlying infection and hypotension. The patient has not received any IV contrast. I do see Motrin on her current med list, which I will discontinue. We need to be cautious with fluids given her history of congestive heart failure. I will decrease it to 70 mL an hour and monitor her volume status closely. 2. Chronic kidney disease. Baseline creatinine appears to be around 1.3-1.1 mg/dL. Etiology likely nephrosclerosis versus diabetic kidney disease. Current UA has protein, but patient has underlying urinary tract infection as well. Previous UA was negative for protein in 2018, but has had on and off 1+ to trace proteinuria. We will check our office records. It is not clear if the patient sees us as outpatient. 3. Escherichia coli bacteremia from most likely urinary tract infection, maintained on antibiotics, currently receiving Rocephin. 4. Hypothyroidism. 5. Type 2 diabetes. 6. History of atrial fibrillation. PLAN: DC Motrin. Decrease IV fluids. Avoid any other nephrotoxic medications. Repeat labs in a.m. Will check our office records. Thank you for the consultation. Will continue to follow the patient with you during her hospitalization. MMODL / IJN: [id number] /
[2021-06-26 16:17] LABS: Glucose,Whole Blood 155 mg/dL (75-99)
--- NOTE | 2021-06-26 16:41 | P.PN ---
Subjective Progress Note Date: 06/26/21 (delayed charting seen at 0900) Principal diagnosis: weakness Patient is a 66-year-old female with a history of A. fib, diabetes, chronic kidney disease who presented to the emergency department with complaints of fevers and weakness. In the ER she underwent an extensive evaluation. She was febrile to a temperature of 101.5, lab work was remarkable for acute kidney injury a baseline of 1.3 up from 0.6, urinalysis appeared consistent with urinary tract infection. Chest x-ray demonstrated possible right lower lobe infiltrate with increased pulmonary vascular congestion. Patient seen and examined at bedside. She states she still feels terrible, weak. Denies any chest pain, shortness breath, cough. Her diarrhea has eased up. Just feeling drained overall. She states that she does not want cardiac resuscitation. General: Ill-appearing, moderate distress, appears at stated age Derm: warm, dry Head: atraumatic, normocephalic, symmetric Eyes: EOMI, no lid lag, anicteric sclera Mouth: no lip lesion, mucus membranes moist Cardiovascular: S1S2 reg, no murmur, positive posterior tibial pulse bilateral, Lungs: Decreased breath sounds bilateral, no rhonchi, no rales , no accessory muscle use Abdominal: soft, nontender to palpation, no guarding, no appreciable organomegaly Ext: no gross muscle atrophy, no edema, no contractures Neuro: CN II-XI grossly intact, no focal neuro deficits Psych: Alert, oriented, appropriate affect E. coli UTI with bacteremia with sepsis -Continue with ceftriaxone -Await final blood/urine cultures -Limit IV fluids with history of depressed ejection fraction Nonischemic cardiomyopathy, ejection fraction less than 20% Paroxysmal atrial fibrillation Moderate pulmonary hypertension -Continue with amiodarone, metoprolol -Patient continues to be on Coumadin and pharmacy will dose -Obtain records from cardiology associates to see if this EF is new vs old Diabetes mellitus type 2 -Continue with fixed dose, long-acting, and sliding scale insulin Acute kidney injury on chronic kidney disease -Suspect baseline creatinine 1.14 -Check renal ultrasound -Consult nephro recs appreciated, IV fluids decreased Pneumonia ruled out Chronic: Sinusitis COPD without exacerbation Anemia Hypothyroidism Objective - Vital Signs Vital signs: Vital Signs Temp 99.0 F 06/26/21 14:00 Pulse 63 06/26/21 14:00 Resp 20 06/26/21 14:00 BP 113/74 06/26/21 14:00 Pulse Ox 99 06/26/21 14:00 Intake & Output 06/25/21 06/26/21 06/26/21 18:59 06:59 18:59 Intake Total 1050 Balance 1050 Weight 103.873 kg Intake: Intake, IV Titration 1050 Amount Sodium Chloride 0.9% 1, 1000 000 ml @ 100 mls/hr IV . Q10H JEFF Rx#:[id number] cefTRIAXone 1 gm In 50 Sodium Chloride 0.9% 50 ml @ 100 mls/hr IVPB Q24HR JEFF Rx#:[id number] Other: Voiding Method Toilet Toilet # Voids 2 # Bowel Movements 0 0 - Labs CBC & Chem 7: 06/26/21 05:44 06/26/21 05:44 Labs: Abnormal Lab Results - Last 24 Hours (Table) 06/25/21 06/25/21 06/26/21 Range/Units 17:13 21:17 05:44 RBC 3.72 L (3.80-5.40) m/uL Plt Count 145 L (150-450) k/uL Lymphocytes # 0.5 L (1.0-4.8) k/uL PT (9.0-12.0) sec INR (<1.2) Sodium (137-145) mmol/L BUN (7-17) mg/dL Creatinine (0.52-1.04) mg/dL Glucose (74-99) mg/dL POC Glucose (mg/dL) 108 H 271 H (75-99) mg/dL 06/26/21 06/26/21 06/26/21 Range/Units 05:44 05:44 06:41 RBC (3.80-5.40) m/uL Plt Count (150-450) k/uL Lymphocytes # (1.0-4.8) k/uL PT 12.5 H (9.0-12.0) sec INR 1.2 H (<1.2) Sodium 134 L (137-145) mmol/L BUN 37 H (7-17) mg/dL Creatinine 1.66 H (0.52-1.04) mg/dL Glucose 142 H (74-99) mg/dL POC Glucose (mg/dL) 147 H (75-99) mg/dL 06/26/21 Range/Units 16:13 RBC (3.80-5.40) m/uL Plt Count (150-450) k/uL Lymphocytes # (1.0-4.8) k/uL PT (9.0-12.0) sec INR (<1.2) Sodium (137-145) mmol/L BUN (7-17) mg/dL Creatinine (0.52-1.04) mg/dL Glucose (74-99) mg/dL POC Glucose (mg/dL) 155 H (75-99) mg/dL Microbiology - Last 24 Hours (Table) 06/25/21 09:08 Blood Culture Gram Stain - Preliminary Blood Blood Culture - Preliminary Escherichia coli 06/25/21 09:20 Blood Culture Gram Stain - Preliminary Blood 06/25/21 09:20 Blood Culture - Final Blood 06/25/21 09:08 Blood Culture - Final Blood 06/25/21 10:10 Urine Culture - Preliminary Urine,Voided
[2021-06-26] MEDS ORDERED: WARFARIN 3 MG TAB PO ONE (18:00)
[2021-06-26 20:20] LABS: Glucose,Whole Blood 158 mg/dL (75-99)
[2021-06-26] MEDS: ASPIRIN 81 MG PO SCH (20:20)
[2021-06-26] MEDS: PANTOPRAZOLE 40 MG TABLET PO SCH (20:20)
[2021-06-27 05:32] LABS: HCT 34.3 % (34.0-46.0); HGB 11.7 gm/dL (11.4-16.0); MCH 33.1 pg (25.0-35.0); MCHC 34.1 g/dL (31.0-37.0); MCV 97.1 fL (80.0-100.0); Mean Platelet Volume 8.1; Platelet Count 147 k/uL (150-450); RBC 3.53 m/uL (3.80-5.40); RDW 13.6 % (11.5-15.5); WBC 6.5 k/uL (3.8-10.6)
[2021-06-27] MEDS: LEVOTHYROXINE 50 MCG TAB PO SCH (05:34)
[2021-06-27 05:37] LABS: INR 1.5 (<1.2); Prothrombin Time 14.7 sec (9.0-12.0)
[2021-06-27 05:43] LABS: African American GFR (CKD) 40 (>60 ml/min/1.73 sqM); Anion Gap 6 mmol/L; Blood Urea Nitrogen 39 mg/dL (7-17); Calcium 9.2 mg/dL (8.4-10.2); Carbon Dioxide 26 mmol/L (22-30); Chloride 100 mmol/L (98-107); Glucose 103 mg/dL (74-99); Non-African American GFR(CKD) 35 (>60 ml/min/1.73 sqM); Potassium 3.8 mmol/L (3.5-5.1); Sodium 132 mmol/L (137-145)
[2021-06-27] MEDS ORDERED: INSULIN DETEMIR (LEVEMIR) 100 UNIT/ML SYR SQ SCH (07:00)
[2021-06-27 07:19] LABS: Glucose,Whole Blood 103 mg/dL (75-99)
[2021-06-27] MEDS: INSULIN ASPART (NovoLOG) 100 UNIT/ML VIAL SQ SCH ×7 (07:21→20:51)
[2021-06-27] MEDS: SYMBICORT 160-4.5 MCG INHALER INHALATION SCH ×2 (07:26→20:13)
[2021-06-27] MEDS: LORATADINE 10 MG TAB PO SCH (07:32)
[2021-06-27] MEDS: HYDROcodone/APAP 7.5-325MG 1 EACH TAB PO PRN ×2 (07:32→21:25)
[2021-06-27] MEDS: BENZONATATE 100 MG CAP PO PRN (07:32)
[2021-06-27] MEDS: MONTELUKAST 10 MG TAB PO SCH (07:33)
[2021-06-27] MEDS: METOPROLOL TARTRATE 50 MG TAB PO SCH ×3 (07:33→21:26)
[2021-06-27] MEDS: POTASSIUM CHLORIDE ER 10 MEQ TAB.ER.PRT PO SCH (07:33)
[2021-06-27] MEDS: FERROUS SULFATE 325 MG TAB PO SCH (07:33)
[2021-06-27] MEDS: AMIODARONE 200 MG TAB PO SCH (07:33)
[2021-06-27] MEDS: FLUTICASONE 50MCG/SPRAY NASAL 16GM EA NOSTRIL SCH (07:35)
[2021-06-27] MEDS: SODIUM CHLORIDE 0.9% 1,000 ML IV SCH (07:36)
--- NOTE | 2021-06-27 11:23 | XR ---
EXAMINATION TYPE: XR chest 1V portable DATE OF EXAM: 06/27/2021 COMPARISON: 06/26/2021 HISTORY: Redness of breath TECHNIQUE: Single frontal view of the chest is obtained. FINDINGS: Heart size normal and there is a cardiac device with atherosclerotic change aorta. Diffuse osteopenia with arthropathy of the shoulders. Patchy right midlung and right upper lobe area of infi ltrate. IMPRESSION: 1. Patchy area of infiltrate right upper lobe and right midlung. There is improvement in the intersti tium suggestive of improving interstitial congestion or pneumonitis. Consolidative areas may be on th e basis of atelectasis, residual edema or developing infiltrate.
[2021-06-27 11:31] LABS: Glucose,Whole Blood 95 mg/dL (75-99)
--- NOTE | 2021-06-27 12:43 | CDI ---
Documentation Clarification Form Date: 06/27/2021 12:33:07 PM From: Betzy Verdin RN, CCDS Admit Date: 06/25/2021 10:59:00 AM Patient Name: Evelia Noel Visit Number: [id number] ATTENTION: The Clinical Documentation Specialists (CDI) and [facility] Coding Staff appreciate your assistance in clarifying documentation. Please respond to the clarification below the line at the bottom and electronically sign. The CDI & [facility] Coding staff will review the response and follow-up if needed. Please note: Queries are made part of the Legal Health Record. If you have any questions, please contact the author of this message via ITS. Dr. Faith Teixeira Your patient has the documented diagnosis of unspecified CHF in the 06/26 Nephrology Consult. Additional information regarding the type & acuity of CHF is requested. History/Risk Factors: CHF, Atrial Fib, MAYA on CKD, E.coli UTI with Sepsis, Nonischemic Cardiomyopathy, DM2, COPD Clinical Indicators: 06/26 Nephrology Consult: "HISTORY OF PRESENT ILLNESS: She has underlying history of cardiomyopathy and congestive heart failure as well. ASSESSMENT: We need to be cautious with fluids given her history of congestive heart failure." 06/25 08 Admission VS/Pulse OX: Temp 100.1, HR 74, RR 22, B/P 127/72, Spo2 95% RA 06/25 BNP: 7620 06/26 Echocardiogram Results: EF <20%, moderate concentric LVH, moderate pulmonary HTN 06/27 Chest X Ray: 1.Patchy area of infiltrate right upper lobe and right midlung. There is improvement in the interstitium, suggestive of improving interstitial congestion or pneumonitis. Consolidative areas may be on the basis of atelectasis, residual edema or developing infiltrate." Treatment: Lopressor 50 mg Po TID 06/25 1L 0.9% NS IVF Bolus followed by 100 cc/hr. then decreased to 70 cc/hr., D/C's 06/27 0736 In your professional opinion, can you please clarify the [acuity and type] of CHF if known? [ ] Acute Systolic Heart Failure (reduced EF) [ ] Chronic Systolic Heart Failure (reduced EF) [ ] Acute Systolic & Diastolic Heart Failure [ ] Chronic Systolic & Diastolic Heart Failure [ ] Acute on Chronic Heart Failure Systolic & Diastolic Heart Failure [ ] Other, please specify [ ] Unable to determine (Template Last Revised: December 2020) [ ] Chronic Systolic Heart Failure (reduced EF) MTDD
--- NOTE | 2021-06-27 12:48 | CDI ---
Documentation Clarification Form Date: 06/27/2021 12:08:00 PM From: Betzy Verdin RN, CCDS Admit Date: 06/25/2021 10:59:00 AM Patient Name: Evelia Noel Visit Number: [id number] ATTENTION: The Clinical Documentation Specialists (CDI) and [facility] Coding Staff appreciate your assistance in clarifying documentation. Please respond to the clarification below the line at the bottom and electronically sign. The CDI & [facility] Coding staff will review the response and follow-up if needed. Please note: Queries are made part of the Legal Health Record. If you have any questions, please contact the author of this message via ITS. Dr. Bueno Unspecified CKD is documented in the 06/26 Nephrology Consult, H&P and progress notes and requires additional clarification regarding the stage of CKD is requested. History/Risk Factors: Chronic Renal Failure, CHF, Atrial Fib, DM2, Neuropathy, Heart Cath, AICD, nonischemic Cardiomyopathy 07/20/20 Patients Historical BUN/CR/GFR: 30/1.14/50 Clinical Indicators: 06/26 Nephrology Consult: "2.Chronic kidney disease. Baseline creatinine appears to be around 1.3-1.1 mg/dL. Etiology likely nephrosclerosis versus diabetic kidney disease. Current UA has protein, but patient has underlying urinary tract infection as well." 06/26 Attending Progress Note: "Acute kidney injury on chronic kidney disease - Suspect baseline creatinine 1.14 -Check renal ultrasound -Consult nephro recs appreciated, IV fluids decreased." 06/25-06/27 Current BUN: 32/37/39 CR: 1.29/1.66/1.52 GFR:43/31/35 Treatment: Consults: Nephrology- see above Feosol 325 mg Po Daily Lopressor 50 mg Po TID 06/25 0.9% NS IVF bolus 1L followed by 100 cc/hr. then decreased to 70 cc/hr.- D/C's today at 0736 Please clarify the stage of the CKD, if known: [ ] CKD Stage 1 (GFR > 90) [ ] CKD Stage 2 (GFR 60-89) [ ] CKD Stage 3 (GFR 30-59) [ ] CKD Stage 3a (GFR 45-59) [ ] CKD Stage 3b (GFR 30-44) [ ] CKD Stage 4 (GFR 15-29) [ ] CKD Stage 5 (GFR <15) [ ] ESRD [ ] Other, please specify [ ] Unable to determine (Template Last revised: December 2020) CKD stage 3a MTDD
--- NOTE | 2021-06-27 13:20 | P.CRDCN ---
History of Present Illness Consult date: 06/27/21 History of present illness: HISTORY OF PRESENT ILLNESS: This is a 66-year-old female with a past medical history significant for nonischemic cardiomyopathy, nonobstructive coronary artery disease, diabetes, hypertension, hyperlipidemia, and previous AICD implantation. Patient follows in the office with Dr. Terrazas. We have been asked to see the patient in consultation for worsening ejection fraction. Patient examined at the bedside. Patient pre sented to the ER with a chief complaint of weakness. She was not eating for 2-3 days. Family member attempted to give her medications which she threw up so she came to the hospital for further evaluation. Patient states she still feels very weak. She denies chest pain or pressure. She reports shortness of breath when she tries to lay flat. Patient reports she has been taking her diuretics at home as prescribed. Patient is prescribed Lasix 120 mg in the morning and 80 mg in the evening. She is also prescribed spironolactone 50 mg daily. EKG reveals sinus mechanism with incomplete left bundle branch block Chest xray mild right lower lobe infiltrate. This is nonspecific. Pneumonia and atypical pneumonia could be considered. Laboratory data: WBC 6.5. Hemoglobin 11.7. Platelet count 147. INR 1.5. Sodium 132. Potassium 3.8. BUN 39. Creatinine 1.52. ProBNP 7620. Troponin 0.021. Current home cardiac medications include metoprolol tartrate 50mg 3 times a day, aspirin 81 mg daily, amiodarone 200 mg daily, and warfarin 7.5 mg daily Echocardiogram completed revealed ejection fraction less than 20%. Mild mitral regurgitation. Mild tricuspid regurgitation. [id number] pulmonary hypertension with RVSP of 45.66mmHg Previous echocardiogram completed in December 2018 reveals ejection fraction 35%. Akinesis in the basal and mid inferior wall septum is hypokinetic. Grade 3 reversible restrictive diastolic dysfunction. Echocardiogram in October 2016 revealed ejection fraction 40% Patient underwent stress test in September 2013 which revealed no clear-cut ischemia but revealed a dilated cardiomyopathy type picture with an ejection fraction 25-30% Patient underwent cardiac catheterization in July 2005 revealing ejection fraction 30-35%. No evidence of significant obstructive coronary artery disease. Nonischemic cardiomyopathy with elevated filling pressures. REVIEW OF SYSTEMS: At the time of my exam: CONSTITUTIONAL: Denies fever or chills. HEENT: Denies blurred vision, vision changes, or eye pain. Denies hemoptysis CARDIOVASCULAR: Denies chest pain. Denies orthopnea. Denies PND. Denies palpitations RESPIRATORY: Reports shortness of breath. GASTROINTESTINAL: Denies abdominal pain. Denies nausea or vomiting. HEMATOLOGIC: Denies bleeding disorders. GENITOURINARY: Denies any blood in urine. SKIN: Denies pruitis. Denies rash. PHYSICAL EXAM: VITAL SIGNS: Reviewed. GENERAL: Well-developed in no acute distress. HEENT: Head is normocephalic. Pupils are equal, round. Sclerae anicteric. Mucous membranes of the mouth are moist. Neck supple. No JVD or thyromegaly LUNGS: Respirations even and unlabored. Lungs diminished to auscultation bilaterally. HEART: Regular rate and rhythm. S1 and S2 heard. ABDOMEN: Soft. Nondistended. Nontender. EXTREMITIES: Normal range of motion. No clubbing or cyanosis. Peripheral pulses intact. 1+ bilateral lower extremity edema NEUROLOGIC: Awake and alert. Oriented x 3. ASSESSMENT: Urinary tract infection E coli bacteremia with sepsis Acute on chronic kidney disease History of nonischemic cardiomyopathy with previous AICD implantation Nonobstructive coronary artery disease per cardiac catheterization in 2004 Paroxysmal atrial fibrillation, on anticoagulation with Coumadin Diabetes COPD Hypothyroidism PLAN: 2D echo obtained and reviewed Continue anticoagulation with Coumadin. Monitor INR Continue current cardiac medications including aspirin 81 mg daily, amiodarone 200 mg daily, metoprolol tartrate 50 mg 3 times a day Patient may benefit from ACE1/ARB when acute kidney injury resolves Will begin hydralazine 25 mg 3 times a day and Isordil 10 mg 3 times a day. Pending patient's kidney function, may begin diuretic therapy tomorrow. Further recommendations pending patient course Patient to follow up outpatient with Dr. Terrazas Nurse practitioner note has been reviewed by physician. Signing provider agrees with the documented findings, assessment, and plan of care. 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 History of Any Multi-Drug Resistant Organisms: None Reported Past Surgical History: AICD, Heart Catheterization, Tonsillectomy Additional Past Surgical History / Comment(s): KIDNEY SURG A CHILD(X-TRA URETERS), D & C, DEFIBRILLATOR 2004 AND REPLACED 12/2011. Past Anesthesia/Blood Transfusion Reactions: No Reported Reaction Type of Cardiac Device: AICD Device Placement Date:: 12/2011 Past Psychological History: Depression Past Alcohol Use History: None Reported Past Drug Use History: None Reported - Past Family History Sister(s) Family Medical History: Cancer Mother Family Medical History: No Reported History Medications and Allergies Home Medications Medication Instructions Recorded Confirmed Type Aspirin EC [Ecotrin] 81 mg PO HS 05/15/15 06/25/21 History Omeprazole [PriLOSEC] 40 mg PO HS 05/15/15 06/25/21 History Montelukast [Singulair] 10 mg PO DAILY 06/05/16 06/25/21 History Warfarin [Coumadin] 7.5 mg PO DIRECTED 06/05/16 06/25/21 History Insulin Degludec [Tresiba 30 unit SQ DAILY 06/11/18 06/25/21 History Flextouch U-100] Albuterol Inhaler [Ventolin Hfa 1 - 2 puff INHALATION RT-QID PRN 06/25/21 06/25/21 History Inhaler] Amiodarone [Cordarone] 200 mg PO DAILY 06/25/21 06/25/21 History Cetirizine HCl [Zyrtec] 10 mg PO DAILY 06/25/21 06/25/21 History Ferrous Sulfate [Slow Fe] 142 mg PO DAILY 06/25/21 06/25/21 History Fluticasone Nasal [place] [Flonase 1 spr EA NOSTRIL DAILY 06/25/21 06/25/21 History Nasal [place]] Fluticasone/Vilanterol [Breo 1 puff INHALATION RT-DAILY 06/25/21 06/25/21 History Ellipta 200-25 Mcg INH] HYDROcodone/APAP 7.5-325MG [[place] 1 tab PO Q6HR PRN 06/25/21 06/25/21 History 7.5-325] Insulin Aspart [NovoLOG Flexpen] 15 units SQ AC-TID 06/25/21 06/25/21 History Insulin Aspart [NovoLOG Flexpen] See Protocol SQ ACHS 06/25/21 06/25/21 History Levothyroxine Sodium [Synthroid] 50 mcg PO DAILY 06/25/21 06/25/21 History Metoprolol Tartrate [Lopressor] 50 mg PO TID 06/25/21 06/25/21 History Potassium Chloride 10 meq PO DAILY 06/25/21 06/25/21 History Allergies Allergy/AdvReac Type Severity Reaction Status Date / Time Penicillins Allergy Unknown Dyspnea Verified 06/25/21 11:29 Physical Exam Vitals: Vital Signs Temp Pulse Resp BP Pulse Ox 06/27/21 07:52 98.6 F 60 18 136/62 92 L 06/27/21 07:15 18 06/27/21 02:35 98.6 F 51 L 18 124/74 94 L 06/26/21 20:00 50 L 18 06/26/21 19:33 98.2 F 50 L 18 121/72 92 L 06/26/21 14:00 99.0 F 63 20 113/74 99 Intake and Output 06/26/21 06/27/21 06/27/21 22:59 06:59 14:59 Intake Total 840 Balance 840 Intake: Intake, IV Titration 840 Amount Sodium Chloride 0.9% 1, 840 000 ml @ 70 mls/hr IV . [id number] [facility] Rx#:[id number] Other: Voiding Method Toilet Toilet # Voids 3 # Bowel Movements 0 Results 06/27/21 05:15 06/27/21 05:15 Coagulation 06/27/21 Range/Units 05:15 PT 14.7 H (9.0-12.0) sec CBC 06/27/21 Range/Units 05:15 WBC 6.5 (3.8-10.6) k/uL RBC 3.53 L (3.80-5.40) m/uL Hgb 11.7 (11.4-16.0) gm/dL Hct 34.3 (34.0-46.0) % Plt Count 147 L (150-450) k/uL Comprehensive Metabolic Panel 06/27/21 Range/Units 05:15 Sodium 132 L (137-145) mmol/L Potassium 3.8 (3.5-5.1) mmol/L Chloride 100 (98-107) mmol/L Carbon Dioxide 26 (22-30) mmol/L BUN 39 H (7-17) mg/dL Creatinine 1.52 H (0.52-1.04) mg/dL Glucose 103 H (74-99) mg/dL Calcium 9.2 (8.4-10.2) mg/dL Current Medications Generic Name Dose Route Start Last Admin Trade Name Freq PRN Reason Stop Dose Admin Acetaminophen 650 mg 06/25/21 11:35 06/26/21 16:59 Acetaminophen Tab 325 Mg Tab PO 650 mg Q6HR PRN Administration Mild Pain or Fever > 100.5 Hydrocodone Bitart/Acetaminophen 1 each 06/25/21 12:24 06/27/21 07:32 Hydrocodone/Apap 7.5-325mg 1 Each Tab PO 1 each Q6HR PRN Administration Pain Albuterol Sulfate 2 puff 06/25/21 12:24 06/26/21 08:53 Albuterol Hfa Inhaler INHALATION 2 puff RT-QID PRN Administration Shortness Of Breath Amiodarone HCl 200 mg 06/26/21 09:00 06/27/21 07:33 Amiodarone 200 Mg Tab PO 200 mg DAILY JEFF Administration Aspirin 81 mg 06/25/21 21:00 06/26/21 20:20 Aspirin 81 Mg PO 81 mg HS JEFF Administration Benzonatate 100 mg 06/26/21 18:11 06/27/21 07:32 Benzonatate 100 Mg Cap PO 100 mg TID PRN Administration Cough Budesonide/Formoterol Fumarate 2 puff 06/26/21 08:00 06/27/21 07:26 Symbicort 160-4.5 Mcg Inhaler INHALATION Not Given RT-BID JEFF Ferrous Sulfate 325 mg 06/26/21 09:00 06/27/21 07:33 Ferrous Sulfate 325 Mg Tab PO 325 mg DAILY JEFF Administration Fluticasone Propionate 1 spray 06/26/21 09:00 06/27/21 07:35 Fluticasone 50mcg/[place] Nasal 16gm EA NOSTRIL 1 spray DAILY JEFF Administration Ceftriaxone Sodium 1 gm/ 50 mls @ 100 mls/hr 06/26/21 09:00 06/27/21 07:35 Sodium Chloride IVPB 100 mls/hr Q24HR JEFF Administration Insulin Aspart 0 unit 06/25/21 21:45 06/27/21 07:21 Insulin Aspart (Novolog) 100 Unit/Ml Vial SQ Not Given ACHS [facility] Protocol Insulin Aspart 10 unit 06/26/21 17:30 06/27/21 07:31 Insulin Aspart (Novolog) 100 Unit/Ml Vial SQ Not Given AC-TID JEFF Insulin Detemir 25 unit 06/27/21 07:00 06/27/21 07:34 Insulin Detemir (Levemir) 100 Unit/Ml Syr SQ 25 unit DAILY@0700 JEFF Administration Levothyroxine Sodium 50 mcg 06/26/21 06:30 06/27/21 05:34 Levothyroxine 50 Mcg Tab PO 50 mcg DAILY@0630 JEFF Administration Loratadine 10 mg 06/26/21 09:00 06/27/21 07:32 Loratadine 10 Mg Tab PO 10 mg DAILY JEFF Administration Metoprolol Tartrate 50 mg 06/25/21 16:00 06/27/21 07:33 Metoprolol Tartrate 50 Mg Tab PO 50 mg TID JEFF Administration Miscellaneous Information 1 each 06/25/21 11:29 Pneumonia Protocol Utilized 1 Each Misc PO ONCE PRN Per Protocol Miscellaneous Information 1 each 06/25/21 12:26 Warfarin Per Pharmacy MISCELLANE DIRECTED PRN Per Protocol Protocol Montelukast Sodium 10 mg 06/26/21 09:00 06/27/21 07:33 Montelukast 10 Mg Tab PO 10 mg DAILY JEFF Administration Naloxone HCl 0.2 mg 06/25/21 12:23 Naloxone 0.4 Mg/Ml 1 Ml Vial IV Q2M PRN Opioid Reversal Ondansetron HCl 4 mg 06/25/21 11:35 06/25/21 17:37 Ondansetron 4 Mg/2 Ml Vial IVP 4 mg Q8HR PRN Administration Nausea And Vomiting Pantoprazole Sodium 40 mg 06/25/21 21:00 06/26/21 20:20 Pantoprazole 40 Mg Tablet PO 40 mg HS JEFF Administration Potassium Chloride 10 meq 06/26/21 09:00 06/27/21 07:33 Potassium Chloride Er 10 Meq Tab.Er.Prt PO 10 meq DAILY JEFF Administration Warfarin Sodium 9 mg 06/27/21 18:00 Warfarin 3 Mg Tab PO 06/27/21 18:01 ONCE@1800 ONE Intake and Output 06/26/21 06/27/21 06/27/21 22:59 06:59 14:59 Intake Total 840 Balance 840 Intake: Intake, IV Titration 840 Amount Sodium Chloride 0.9% 1, 840 000 ml @ 70 mls/hr IV . [id number] [facility] Rx#:[id number] Other: Voiding Method Toilet Toilet # Voids 3 # Bowel Movements 0 06/27/21 05:15 06/27/21 05:15
--- NOTE | 2021-06-27 14:01 | PN ---
PROGRESS NOTE Patient is seen for followup for acute kidney injury. Renal function is slightly better with creatinine down to 1.5 from 1.6 mg/dL the day before yesterday. The patient has E coli bacteremia and E coli urinary tract infection. She is maintained on antibiotics. She was maintained on IV fluids as well. Patient has underlying history of congestive heart failure and fluids were held last night as patient had some shortness of breath. PHYSICAL EXAMINATION: On examination today, blood pressure 136/62, heart rate 60 per minute, she is afebrile. Examination of the heart S1, S2. Examination of the lungs, bilateral breath sounds are heard. Abdomen is soft, nontender. Examination of lower extremities shows chronic skin changes trace edema bilaterally. [employer] exam grossly intact. LAB: Show sodium 132, potassium 3.8, chloride 100, BUN 39, creatinine 1.52, hemoglobin 11.7 g/dL. ASSESSMENT: 1. Acute kidney injury associated with underlying sepsis, currently improved. Check a bladder scan, rule out urine retention. The patient's blood pressure was also low. Motrin was present on her med list which is now discontinued. I am not sure if she has received any doses. 2. Chronic kidney disease. stage 3a. Previous creatinine 1.3-1.1. Etiology nephrosclerosis versus diabetic kidney disease. Current UA shows protein but patient has underlying urinary tract infection. 3. Escherichia coli bacteremia, most likely from underlying urinary tract infection. Urine culture is growing Gram-negative bacilli. 4. History of congestive heart failure. IV fluids will be decreased. Check chest x- ray. 5. Type 2 diabetes. PLAN: Decrease IV fluids. Check chest x-ray. Continue antibiotics. Repeat labs in a.m. No evidence of obstruction noted on ultrasound. MMODL / IJN: [id number] / AARON
[2021-06-27] MEDS: ISOSORBIDE DINITRATE 10 MG TAB PO SCH ×2 (15:24→21:27)
[2021-06-27] MEDS: hydrALAZINE HCL 25 MG TAB PO SCH ×2 (15:24→21:25)
[2021-06-27] MEDS: ALBUTEROL HFA INHALER INHALATION PRN (16:21)
[2021-06-27 16:31] LABS: Glucose,Whole Blood 172 mg/dL (75-99)
[2021-06-27] MEDS ORDERED: WARFARIN 3 MG TAB PO ONE (18:00)
--- NOTE | 2021-06-27 20:29 | P.PN ---
Subjective Progress Note Date: 06/27/21 (delayed charting seen at 1120) Principal diagnosis: weakness Patient is a 66-year-old female with a history of A. fib, diabetes, chronic kidney disease who presented to the emergency department with complaints of fevers and weakness. In the ER she underwent an extensive evaluation. She was febrile to a temperature of 101.5, lab work was remarkable for acute kidney injury a baseline of 1.3 up from 0.6, urinalysis appeared consistent with urinary tract infection. Chest x-ray demonstrated possible right lower lobe infiltrate with increased pulmonary vascular congestion. She was started on empiric antibiotics. Blood cultures came back positive for E. coli. She was seen by nephrology secondary to acute kidney injury and her IV fluids were decreased. Her diuretics have been held. She had a repeat echocardiogram obtained which showed an ejection fraction of less than 20% which is significantly worsened from patient's previous echocardiogram. Renal ultra sounds of no evidence of hydronephrosis. Cardiology was consulted and added Imdur and hydralazine. Patient seen and examined at bedside. Still feeling very tired and with back and abdominal pain. Feels better than yesterday. Hoping to go home soon. General: Ill-appearing, no acute distress, appears at stated age Derm: warm, dry Head: atraumatic, normocephalic, symmetric Eyes: EOMI, no lid lag, anicteric sclera Mouth: no lip lesion, mucus membranes moist Cardiovascular: S1S2 reg without murmur, positive posterior tibial pulse bilateral, Lungs: Decreased breath sounds bilateral, no rhonchi, no rales , no accessory muscle use Abdominal: soft, nontender to palpation, no guarding, no appreciable organomegaly Ext: no gross muscle atrophy, no edema, no contractures Neuro: CN II-XI grossly intact, no focal neuro deficits Psych: Alert, oriented, appropriate affect E. coli UTI with bacteremia with sepsis -Continue with ceftriaxone -Await final urine cultures. , IV fluids completed Nonischemic cardiomyopathy, ejection fraction less than 20% Paroxysmal atrial fibrillation Moderate pulmonary hypertension -Continue with amiodarone, metoprolol -Patient continues to be on Coumadin and pharmacy will dose -Cardiology recommendations appreciated: Imdur and hydralazine as patient is un able to have BESSIE inhibitor at this time Thrombocytopenia -Suspect reactive -No indication for transfusion at this time -Follow CBC Diabetes mellitus type 2 -Ambulatory slightly decreased and long-acting insulin decreased as well -Continue with fixed dose, long-acting, and sliding scale insulin Acute kidney injury on chronic kidney disease -Suspect baseline creatinine 1.14 -Check renal ultrasound -Consult nephro recs appreciated, IV fluids decreased Pneumonia ruled out Chronic: Sinusitis COPD without exacerbation Anemia Hypothyroidism Objective - Vital Signs Vital signs: Vital Signs Temp 98.1 F 06/27/21 19:19 Pulse 50 L 06/27/21 19:19 Resp 18 06/27/21 19:19 BP 137/63 06/27/21 19:19 Pulse Ox 97 06/27/21 19:19 Intake & Output 06/27/21 06/27/21 06/28/21 06:59 18:59 06:59 Intake Total 840 Balance 840 Intake: Intake, IV Titration 840 Amount Sodium Chloride 0.9% 1, 840 000 ml @ 70 mls/hr IV . [id number] [facility] Rx#:[id number] Other: Voiding Method Toilet Toilet Toilet # Voids 3 3 # Bowel Movements 0 - Labs CBC & Chem 7: 06/27/21 05:15 06/27/21 05:15 Labs: Abnormal Lab Results - Last 24 Hours (Table) 06/27/21 06/27/21 06/27/21 Range/Units 05:15 05:15 05:15 RBC 3.53 L (3.80-5.40) m/uL Plt Count 147 L (150-450) k/uL PT 14.7 H (9.0-12.0) sec INR 1.5 H (<1.2) Sodium 132 L (137-145) mmol/L BUN 39 H (7-17) mg/dL Creatinine 1.52 H (0.52-1.04) mg/dL Glucose 103 H (74-99) mg/dL POC Glucose (mg/dL) (75-99) mg/dL 06/27/21 06/27/21 Range/Units 07:15 16:29 RBC (3.80-5.40) m/uL Plt Count (150-450) k/uL PT (9.0-12.0) sec INR (<1.2) Sodium (137-145) mmol/L BUN (7-17) mg/dL Creatinine (0.52-1.04) mg/dL Glucose (74-99) mg/dL POC Glucose (mg/dL) 103 H 172 H (75-99) mg/dL Microbiology - Last 24 Hours (Table) 06/25/21 09:08 Blood Culture Gram Stain - Final Blood Blood Culture - Final Escherichia coli 06/25/21 10:10 Urine Culture - Preliminary Urine,Voided Gram Neg Bacilli
[2021-06-27 20:42] LABS: Glucose,Whole Blood 114 mg/dL (75-99)
[2021-06-27] MEDS: PANTOPRAZOLE 40 MG TABLET PO SCH (21:25)
[2021-06-27] MEDS: ASPIRIN 81 MG PO SCH (21:25)
[2021-06-28] MEDS: LEVOTHYROXINE 50 MCG TAB PO SCH (05:14)
[2021-06-28 05:28] LABS: HGB 10.9 gm/dL (11.4-16.0); MCH 32.7 pg (25.0-35.0); MCHC 33.9 g/dL (31.0-37.0); MCV 96.3 fL (80.0-100.0); Mean Platelet Volume 7.4; Platelet Count 163 k/uL (150-450); RBC 3.32 m/uL (3.80-5.40); RDW 13.9 % (11.5-15.5); WBC 4.3 k/uL (3.8-10.6)
[2021-06-28 05:32] LABS: Prothrombin Time 19.5 sec (9.0-12.0)
[2021-06-28 05:36] LABS: African American GFR (CKD) 55 (>60 ml/min/1.73 sqM); Anion Gap 5 mmol/L; Blood Urea Nitrogen 31 mg/dL (7-17); Calcium 9.2 mg/dL (8.4-10.2); Carbon Dioxide 26 mmol/L (22-30); Chloride 104 mmol/L (98-107); Glucose 80 mg/dL (74-99); Non-African American GFR(CKD) 48 (>60 ml/min/1.73 sqM); Potassium 3.8 mmol/L (3.5-5.1); Sodium 135 mmol/L (137-145)
[2021-06-28 07:07] LABS: Glucose,Whole Blood 88 mg/dL (75-99)
[2021-06-28] MEDS: MONTELUKAST 10 MG TAB PO SCH (07:15)
[2021-06-28] MEDS: LORATADINE 10 MG TAB PO SCH (07:16)
[2021-06-28] MEDS: POTASSIUM CHLORIDE ER 10 MEQ TAB.ER.PRT PO SCH (07:16)
[2021-06-28] MEDS: BENZONATATE 100 MG CAP PO PRN (07:16)
[2021-06-28] MEDS: METOPROLOL TARTRATE 50 MG TAB PO SCH ×3 (07:16→21:23)
[2021-06-28] MEDS: HYDROcodone/APAP 7.5-325MG 1 EACH TAB PO PRN ×2 (07:16→21:30)
[2021-06-28] MEDS: SYMBICORT 160-4.5 MCG INHALER INHALATION SCH ×2 (07:17→19:34)
[2021-06-28] MEDS: hydrALAZINE HCL 25 MG TAB PO SCH ×3 (07:17→21:23)
[2021-06-28] MEDS: FERROUS SULFATE 325 MG TAB PO SCH (07:17)
[2021-06-28] MEDS: AMIODARONE 200 MG TAB PO SCH (07:17)
[2021-06-28] MEDS: ALBUTEROL HFA INHALER INHALATION PRN ×4 (07:17→19:35)
[2021-06-28] MEDS: INSULIN ASPART (NovoLOG) 100 UNIT/ML VIAL SQ SCH ×5 (07:17→22:26)
[2021-06-28] MEDS: ISOSORBIDE DINITRATE 10 MG TAB PO SCH ×3 (07:18→21:23)
[2021-06-28] MEDS: FLUTICASONE 50MCG/SPRAY NASAL 16GM EA NOSTRIL SCH (07:19)
[2021-06-28] MEDS: INSULIN DETEMIR (LEVEMIR) 100 UNIT/ML SYR SQ SCH (07:19)
[2021-06-28] MEDS ORDERED: FUROSEMIDE 10 MG/ML 4 ML VIAL IV STA (10:04)
[2021-06-28 11:27] LABS: Glucose,Whole Blood 107 mg/dL (75-99)
--- NOTE | 2021-06-28 13:33 | P.PN ---
Subjective Progress Note Date: 06/28/21 HISTORY OF PRESENT ILLNESS: This is a 66-year-old female with a past medical history significant for nonischemic cardiomyopathy, nonobstructive coronary artery disease, diabetes, hypertension, hyperlipidemia, and previous AICD implantation. Patient follows in the office with Dr. Terrazas. We have been asked to see the patient in consultation for worsening ejection fraction. Patient examined at the bedside. Patient presented to the ER with a chief complaint of weakness. She was not eating for 2-3 days. Family member attempted to give her medications which she threw up so she came to the hospital for further evaluation. Patient states she still feels very weak. She denies chest pain or pressure. She reports shortness of breath when she tries to lay flat. Patient reports she has been taking her diuretics at home as prescribed. Patient is prescribed Lasix 120 mg in the morning and 80 mg in the evening. She is also prescribed spironolactone 50 mg daily. EKG reveals sinus mechanism with incomplete left bundle branch block Chest xray mild right lower lobe infiltrate. This is nonspecific. Pneumonia and atypical pneumonia could be considered. Laboratory data: WBC 6.5. Hemoglobin 11.7. Platelet count 147. INR 1.5. Sodium 132. Potassium 3.8. BUN 39. Creatinine 1.52. ProBNP 7620. Troponin 0.021. Current home cardiac medications include metoprolol tartrate 50mg 3 times a day, aspirin 81 mg daily, amiodarone 200 mg daily, and warfarin 7.5 mg daily Echocardiogram completed revealed ejection fraction less than 20%. Mild mitral regurgitation. Mild tricuspid regurgitation. [id number] pulmonary hypertension with RVSP of 45.66mmHg Previous echocardiogram completed in December 2018 reveals ejection fraction 35%. Akinesis in the basal and mid inferior wall septum is hypokinetic. Grade 3 reversible restrictive diastolic dysfunction. Echocardiogram in October 2016 revealed ejection fraction 40% Patient underwent stress test in September 2013 which revealed no clear-cut ischemia but revealed a dilated cardiomyopathy type picture with an ejection fr action 25-30% Patient underwent cardiac catheterization in July 2005 revealing ejection fraction 30-35%. No evidence of significant obstructive coronary artery disease. Nonischemic cardiomyopathy with elevated filling pressures. 06/28/2021 Patient examined at the bedside. Patient denies chest pain or pressure. She reports continued shortness of breath at times. She states that she was given an inhaler overnight which helped her breathing. She reports feeling more fatigue and weak today. Creatinine today 1.18, down from 1.52. INR 2.0. Blood pressure 135/74. Heart rate in the 50s. Patient has been started on IV Lasix per nephrology. PHYSICAL EXAM: VITAL SIGNS: Reviewed. GENERAL: Well-developed in no acute distress. HEENT: Head is normocephalic. Pupils are equal, round. Sclerae anicteric. Mucous membranes of the mouth are moist. Neck supple. No JVD or thyromegaly LUNGS: Respirations even and unlabored. Lungs diminished to auscultation bilaterally with a few crackles at the bilateral bases. HEART: Regular rate and rhythm. S1 and S2 heard. ABDOMEN: Soft. Nondistended. Nontender. EXTREMITIES: Normal range of motion. No clubbing or cyanosis. Peripheral pulses intact. 1+ bilateral lower extremity edema NEUROLOGIC: Awake and alert. Oriented x 3. ASSESSMENT: Urinary tract infection E coli bacteremia with sepsis Acute on chronic kidney disease History of nonischemic cardiomyopathy with previous AICD implantation Nonobstructive coronary artery disease per cardiac catheterization in 2004 Paroxysmal atrial fibrillation, on anticoagulation with Coumadin Diabetes COPD Hypothyroidism PLAN: Continue anticoagulation with Coumadin. Monitor INR Continue current cardiac medications including aspirin 81 mg daily, amiodarone 200 mg daily, metoprolol tartrate 50 mg 3 times a day Continue hydralazine and Isordil. Increase hydralazine back to 25 mg 3 times a day per Dr. Puentes Lisinopril started per internal medicine Further recommendations pending patient course Patient to follow up outpatient with Dr. Terrazas Nurse practitioner note has been reviewed by physician. Signing provider agrees with the documented findings, assessment, and plan of care. Objective - Vital Signs Vital signs: Vital Signs Temp 97.8 F 06/28/21 08:00 Pulse 54 L 06/28/21 08:00 Resp 22 06/28/21 08:00 BP 135/74 06/28/21 08:00 Pulse Ox 98 06/28/21 08:00 Intake & Output 06/27/21 06/28/21 06/28/21 18:59 06:59 18:59 Other: Voiding Method Toilet Toilet Toilet # Voids 3 1 - Labs CBC & Chem 7: 06/28/21 04:54 06/28/21 04:54 Labs: Abnormal Lab Results - Last 24 Hours (Table) 06/27/21 06/27/21 06/28/21 Range/Units 16:29 20:40 04:54 RBC 3.32 L (3.80-5.40) m/uL Hgb 10.9 L (11.4-16.0) gm/dL Hct 32.0 L (34.0-46.0) % PT (9.0-12.0) sec INR (<1.2) Sodium (137-145) mmol/L BUN (7-17) mg/dL Creatinine (0.52-1.04) mg/dL POC Glucose (mg/dL) 172 H 114 H (75-99) mg/dL 06/28/21 06/28/21 Range/Units 04:54 04:54 RBC (3.80-5.40) m/uL Hgb (11.4-16.0) gm/dL Hct (34.0-46.0) % PT 19.5 H (9.0-12.0) sec INR 2.0 H (<1.2) Sodium 135 L (137-145) mmol/L BUN 31 H (7-17) mg/dL Creatinine 1.18 H (0.52-1.04) mg/dL POC Glucose (mg/dL) (75-99) mg/dL Microbiology - Last 24 Hours (Table) 06/25/21 10:10 Urine Culture - Final Urine,Voided Escherichia coli 06/25/21 09:20 Blood Culture Gram Stain - Preliminary Blood Blood Culture - Preliminary Escherichia coli 06/25/21 09:08 Blood Culture Gram Stain - Final Blood Blood Culture - Final Escherichia coli
--- NOTE | 2021-06-28 14:37 | PN ---
PROGRESS NOTE Patient is seen for followup for acute kidney injury. Her renal function has improved, with creatinine down from 1.6 to 1.18 now. However, patient is complaining of shortness of breath. She has underlying history of CHF. PHYSICAL EXAMINATION: On examination today, blood pressure is 135/74, heart rate 54 per minute. She is afebrile. EXAMINATION OF THE HEART: S1 and S2. EXAMINATION OF LUNGS: Bilateral breath sounds are heard. Crackles are heard in the bases of the lungs. ABDOMEN: Soft, nontender. Abdomen is obese. LOWER EXTREMITIES: Examination of lower extremities shows edema 2+ bilaterally. 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 LABS: Labs show sodium 135, potassium 3.8, chloride 104, BUN 31, creatinine 1.18, hemoglobin 10.9 g/dL. ASSESSMENT: 1. Acute kidney injury ATN currently improved. 2. Volume overload. Will give one dose of IV Lasix. Repeat another dose today prior to discharge. 3. Chronic kidney disease, stage IIIA, with baseline creatinine about 1.3 to 1.1 secondary to nephrosclerosis and possible underlying diabetic kidney disease. 4. Escherichia coli bacteremia from urinary tract infection which is also growing Gram- negative bacilli, maintained on antibiotics. 5. History of congestive heart failure. Apparently patient was not taking her Lasix at home. We can resume about 60 mg b.i.d. at the time of discharge. 6. Type 2 diabetes. PLAN: Diurese patient, and she can go home on 60 mg of Lasix p.o. b.i.d. Follow up with Nephrology in 1-2 weeks. MMODL / IJN: [id number] /
--- NOTE | 2021-06-28 14:38 | P.PN ---
Subjective Progress Note Date: 06/28/21 Principal diagnosis: weakness Patient is a 66-year-old female with a history of A. fib, diabetes, chronic kidney disease who presented to the emergency department with complaints of fevers and weakness. In the ER she underwent an extensive evaluation. She was febrile to a temperature of 101.5, lab work was remarkable for acute kidney injury a baseline of 1.3 up from 0.6, urinalysis appeared consistent with urinary tract infection. Chest x-ray demonstrated possible right lower lobe infiltrate with increased pulmonary vascular congestion. She was started on empiric antibiotics. Blood cultures came back positive for E. coli. She was seen by nephrology secondary to acute kidney injury and her IV fluids were decreased. Her diuretics have been held. She had a repeat echocardiogram obtained which showed an ejection fraction of less than 20% which is signifi cantly worsened from patient's previous echocardiogram. Renal ultrasounds of no evidence of hydronephrosis. Cardiology was consulted and added Imdur and hydralazine. Patient seen and examined at bedside. She was significantly short of breath this morning and it improved somewhat with a breathing treatment. She still feels very fatigued and does not feel comfortable going home. She denies any overt nausea, vomiting, or diarrhea. She just feels very tired and slightly more short of breath today. General: Ill-appearing, no acute distress, appears at stated age Derm: warm, dry Head: atraumatic, normocephalic, symmetric Eyes: EOMI, no lid lag, anicteric sclera Mouth: no lip lesion, mucus membranes moist Cardiovascular: S1S2 reg without murmur, positive posterior tibial pulse bilateral, Lungs: Rhonchi bilateral bases, no accessory muscle use Abdominal: soft, nontender to palpation, no guarding, no appreciable organomegaly Ext: no gross muscle atrophy, trace edema, no contractures Neuro: CN II-XI grossly intact, no focal neuro deficits Psych: Alert, oriented, appropriate affect E. coli UTI with bacteremia with sepsis -Continue with ceftriaxone - Anticipate home to complete a two-week course of antibiotics, susceptible to all cephalosporins. Nonischemic cardiomyopathy, ejection fraction less than 20% Paroxysmal atrial fibrillation Moderate pulmonary hypertension -Mild fluid overload secondary to IV fluids necessary for sepsis. Lasix IV twice a day. Case discussed with nephrology. It appears patient has not had her oral Lasix filled spent March 2021 after her pharmacy was called. Plan on discharging home in a.m. on Lasix 60 twice a day with nephrology follow-up. -Continue with amiodarone, metoprolol -Patient continues to be on Coumadin and pharmacy will dose -Cardiology recommendations appreciated: Imdur - stop hydralazine, start lisinopril Thrombocytopenia -Suspect reactive -No indication for transfusion at this time -Follow CBC Diabetes mellitus type 2 -Continue with fixed long-acting, and sliding scale insulin - follow bs Acute kidney injury on chronic kidney disease -Suspect baseline creatinine 1.14 -renal US without hydrao -Consult nephro recs appreciated - lasix IV BID Pneumonia ruled out Chronic: Sinusitis COPD without exacerbation Anemia Hypothyroidism Objective - Vital Signs Vital signs: Vital Signs Temp 97.7 F 06/28/21 13:57 Pulse 53 L 06/28/21 13:57 Resp 20 06/28/21 13:57 BP 124/57 06/28/21 13:57 Pulse Ox 95 06/28/21 13:57 Intake & Output 06/27/21 06/28/21 06/28/21 18:59 06:59 18:59 Other: Voiding Method Toilet Toilet Toilet # Voids 3 1 - Labs CBC & Chem 7: 06/28/21 04:54 06/28/21 04:54 Labs: Abnormal Lab Results - Last 24 Hours (Table) 06/27/21 06/27/21 06/28/21 Range/Units 16:29 20:40 04:54 RBC 3.32 L (3.80-5.40) m/uL Hgb 10.9 L (11.4-16.0) gm/dL Hct 32.0 L (34.0-46.0) % PT (9.0-12.0) sec INR (<1.2) Sodium (137-145) mmol/L BUN (7-17) mg/dL Creatinine (0.52-1.04) mg/dL POC Glucose (mg/dL) 172 H 114 H (75-99) mg/dL 06/28/21 06/28/21 06/28/21 Range/Units 04:54 04:54 11:18 RBC (3.80-5.40) m/uL Hgb (11.4-16.0) gm/dL Hct (34.0-46.0) % PT 19.5 H (9.0-12.0) sec INR 2.0 H (<1.2) Sodium 135 L (137-145) mmol/L BUN 31 H (7-17) mg/dL Creatinine 1.18 H (0.52-1.04) mg/dL POC Glucose (mg/dL) 107 H (75-99) mg/dL Microbiology - Last 24 Hours (Table) 06/25/21 10:10 Urine Culture - Final Urine,Voided Escherichia coli 06/25/21 09:20 Blood Culture Gram Stain - Preliminary Blood Blood Culture - Preliminary Escherichia coli 06/25/21 09:08 Blood Culture Gram Stain - Final Blood Blood Culture - Final Escherichia coli
[2021-06-28] MEDS ORDERED: hydrALAZINE HCL 25 MG TAB PO SCH (16:00)
[2021-06-28 16:22] LABS: Glucose,Whole Blood 182 mg/dL (75-99)
[2021-06-28] MEDS ORDERED: WARFARIN 7.5 MG TAB PO ONE (18:00)
[2021-06-28] MEDS: ASPIRIN 81 MG PO SCH (21:23)
[2021-06-28] MEDS: PANTOPRAZOLE 40 MG TABLET PO SCH (21:23)
[2021-06-28] MEDS: FUROSEMIDE 10 MG/ML 4 ML VIAL IV SCH (21:23)
[2021-06-28 21:38] LABS: Glucose,Whole Blood 199 mg/dL (75-99)
[2021-06-29 05:50] LABS: INR 2.7 (<1.2); Prothrombin Time 26.2 sec (9.0-12.0)
[2021-06-29] MEDS: LEVOTHYROXINE 50 MCG TAB PO SCH (06:03)
[2021-06-29 06:58] LABS: Glucose,Whole Blood 99 mg/dL (75-99)
[2021-06-29 07:47] VITALS: BP 139/68; RESP 18; TEMP 97.9
[2021-06-29] MEDS: INSULIN ASPART (NovoLOG) 100 UNIT/ML VIAL SQ SCH ×2 (07:49→12:08)
[2021-06-29] MEDS: ALBUTEROL HFA INHALER INHALATION PRN ×2 (07:51→11:16)
[2021-06-29] MEDS: SYMBICORT 160-4.5 MCG INHALER INHALATION SCH (07:52)
[2021-06-29] MEDS: FERROUS SULFATE 325 MG TAB PO SCH (08:16)
[2021-06-29] MEDS: FUROSEMIDE 10 MG/ML 4 ML VIAL IV SCH (08:16)
[2021-06-29] MEDS: LORATADINE 10 MG TAB PO SCH (08:16)
[2021-06-29] MEDS: MONTELUKAST 10 MG TAB PO SCH (08:16)
[2021-06-29] MEDS: AMIODARONE 200 MG TAB PO SCH (08:16)
[2021-06-29] MEDS: hydrALAZINE HCL 25 MG TAB PO SCH (08:16)
[2021-06-29] MEDS: ISOSORBIDE DINITRATE 10 MG TAB PO SCH (08:16)
[2021-06-29] MEDS: METOPROLOL TARTRATE 50 MG TAB PO SCH (08:17)
[2021-06-29] MEDS: POTASSIUM CHLORIDE ER 10 MEQ TAB.ER.PRT PO SCH (08:17)
[2021-06-29] MEDS: INSULIN DETEMIR (LEVEMIR) 100 UNIT/ML SYR SQ SCH (08:17)
[2021-06-29] MEDS: FLUTICASONE 50MCG/SPRAY NASAL 16GM EA NOSTRIL SCH (08:19)
[2021-06-29 09:09] LABS: HCT 33.8 % (37.2-46.3); HGB 10.7 g/dL (12.0-15.0); MCH 31.2 pg (27.0-32.0); MCHC 31.7 g/dL (32.0-37.0); MCV 98.5 fL (80.0-97.0); Mean Platelet Volume 10.4 fL (9.5-12.2); Platelet Count 186 X 10*3/uL (140-440); RBC 3.43 X 10*6/uL (4.10-5.20); RDW 13.7 % (11.5-14.5); WBC 3.92 X 10*3/uL (4.50-10.00)
[2021-06-29 09:23] VITALS: PULSE 56
[2021-06-29 09:52] LABS: African American GFR (CKD) 53.8 (60.0-200.0); BUN/Creat Ratio 20.83 Ratio (12.00-20.00); Calcium 8.5 mg/dL (8.7-10.3); Magnesium 1.9 mg/dL (1.5-2.4); Non-African American GFR(CKD) 46.4 (60.0-200.0); Potassium 3.5 mmol/L (3.5-5.5)
[2021-06-29] MEDS ORDERED: POTASSIUM CHLORIDE ER 20 MEQ TAB.ER PO STA (10:08)
--- NOTE | 2021-06-29 10:09 | P.PN ---
Subjective Patient is seen in follow-up for acute kidney injury. Renal function is stable. On IV Lasix. Good urine output. No chest pain or shortness of breath. Vital signs are stable. General: The patient appeared well nourished and normally developed. HEENT: Head exam is unremarkable. Neck is without jugular venous distension. LUNGS: Breath sounds decreased. HEART: Rate and Rhythm are regular. ABDOMEN: Soft, no distention. EXTREMITITES: Trace edema. Objective - Vital Signs Vital signs: Vital Signs Temp 97.9 F 06/29/21 07:46 Pulse 56 L 06/29/21 09:22 Resp 18 06/29/21 07:46 BP 139/68 06/29/21 07:46 Pulse Ox 96 06/29/21 09:22 Intake & Output 06/28/21 06/29/21 06/29/21 18:59 06:59 18:59 Other: Voiding Method Toilet Toilet # Voids 2 1 # Bowel Movements 0 - Labs CBC & Chem 7: 06/29/21 05:25 06/29/21 05:25 Labs: Abnormal Lab Results - Last 24 Hours (Table) 06/28/21 06/28/21 06/28/21 Range/Units 11:18 16:20 21:18 WBC (4.50-10.00) X 10*3/uL RBC (4.10-5.20) X 10*6/uL Hgb (12.0-15.0) g/dL Hct (37.2-46.3) % MCV (80.0-97.0) fL MCHC (32.0-37.0) g/dL PT (9.0-12.0) sec INR (<1.2) Est GFR (CKD-EPI)AfAm (60.0-200.0) Est GFR (CKD-EPI)NonAf (60.0-200.0) BUN/Creatinine Ratio (12.00-20.00) Ratio POC Glucose (mg/dL) 107 H 182 H 199 H (75-99) mg/dL Calcium (8.7-10.3) mg/dL 06/29/21 06/29/21 06/29/21 Range/Units 05:25 05:25 05:25 WBC 3.92 L (4.50-10.00) X 10*3/uL RBC 3.43 L (4.10-5.20) X 10*6/uL Hgb 10.7 L (12.0-15.0) g/dL Hct 33.8 L (37.2-46.3) % MCV 98.5 H (80.0-97.0) fL MCHC 31.7 L (32.0-37.0) g/dL PT 26.2 H (9.0-12.0) sec INR 2.7 H (<1.2) Est GFR (CKD-EPI)AfAm 53.8 L (60.0-200.0) Est GFR (CKD-EPI)NonAf 46.4 L (60.0-200.0) BUN/Creatinine Ratio 20.83 H (12.00-20.00) Ratio POC Glucose (mg/dL) (75-99) mg/dL Calcium 8.5 L (8.7-10.3) mg/dL Microbiology - Last 24 Hours (Table) 06/25/21 10:10 Urine Culture - Final Urine,Voided Escherichia coli 06/25/21 09:20 Blood Culture Gram Stain - Preliminary Blood Blood Culture - Preliminary Escherichia coli Assessment and Plan Plan: Assessment: 1. Acute kidney injury mostly prerenal improved with IV duration. Now on IV Lasix. Creatinine stable at 1.2 today. 2. Chronic systolic CHF with ejection fraction of less than 20%. 3. E. coli bacteremia and UTI on antibiotics. 4. Volume overload. 5. Chronic kidney disease stage IIIa with baseline creatinine 1.1-1.3 secondary to nephrosclerosis and diabetic kidney disease. Plan: Maintain IV Lasix. Change to oral Lasix 60 mg twice a day upon discharge. Replace potassium and add maintenance potassium supplementation. Advised low salt diet and 1500 mL fluid restriction per day. Repeat BMP and magnesium level 2-3 days post discharge. Follow-up outpatient in 1 week.
--- NOTE | 2021-06-29 11:20 | P.DS ---
Providers Date of admission: 06/25/21 10:59 Expected date of discharge: 06/29/21 Attending physician: Kalani Garcia Consults: 06/26/21 08:01 Consult Physician Routine Consulting Provider: Maxime Henry Consult Reason/Comments: MAYA Do you want consulting provider notified?: Yes 06/26/21 18:15 Consult Physician Routine Consulting Provider: Anaya Terrazas Consult Reason/Comments: worsened EF Do you want consulting provider notified?: Yes Primary care physician: Jennifer Mendez MD Hospital Course: Discharge Diagnosis: E. coli UTI with bacteremia and sepsis Nonischemic cardiomyopathy with an ejection fraction of 20% Paroxysmal atrial fibrillation Moderate pulmonary hypertension Thrombocytopenia Diabetes mellitus type 2 Acute kidney injury on chronic kidney injury Pneumonia ruled out COPD without exacerbation Anemia hypothyroidism Hospital Course: Patient is a 66-year-old female with a history of A. fib, diabetes, chronic kidney disease who presented to the emergency department with complaints of fevers and weakness. In the ER she underwent an extensive evaluation. She was febrile to a temperature of 101.5, lab work was remarkable for acute kidney injury a baseline of 1.3 up from 0.6, urinalysis appeared consistent with urinary tract infection. Chest x-ray demonstrated possible right lower lobe infiltrate with increased pulmonary vascular congestion. She was started on empiric antibiotics. Blood cultures came back positive for E. coli. She was seen by nephrology secondary to acute kidney injury and her IV fluids were decreased. Her diuretics have been held. She had a repeat echocardiogram obtained which showed an ejection fraction of less than 20% which is significantly worsened from patient's previous echocardiogram. Renal ultrasounds of no evidence of hydronephrosis. Cardiology was consulted and added Imdur and hydralazine. Patient's Lasix was also restarted. Patient states that she was compliant with the Lasix at home. She states that she was taking one 20 mg in the daytime and 80 mg at bedtime. Patient was seen by nephrology who recommended 60 mg twice a day at discharge. Patient also seen by cardiology who recommended the same dose. Patient instructed to get a BMP and magnesium in 2-3 days post discharge and to follow cardiology in 1 week and also with nephrology. At the time of discharge patient reported that she was feeling better and she is looking for to going home. Patient started on hydralazine, Imdur, lisinopril and was given a prescription for Keflex for 10 more days to complete a 14 day antibiotic course. Patient's Lasix was decreased to 60 mg twice a day. Vital signs reviewed and stable. General: [non toxic], [no distress], [appears at stated age], appears chronically debilitated Derm: [warm], [dry] Head: [atraumatic], [normocephalic], [symmetric] Eyes: [EOMI], [no lid lag], [anicteric sclera] Mouth: [no lip lesion], [mucus membranes moist] Cardiovascular: [S1S2 reg], [no murmur], [positive posterior tibial pulse bilateral], Lungs: [CTA bilateral], [no rhonchi, no rales] , [no accessory muscle use] Abdominal: [soft], [ nontender to palpation], [no guarding], [no appreciable organomegaly] Ext: [no gross muscle atrophy], [no edema], [no contractures] Neuro: [ CN II-XI grossly intact], [no focal neuro deficits] Psych: [Alert], [oriented], [appropriate affect] A total of [32] minutes of time were spent preparing this complex discharge summary Patient Condition at Discharge: Stable Plan - Discharge Summary Discharge Rx Participant: Yes New Discharge Prescriptions: New hydrALAZINE HCL [Apresoline] 25 mg PO TID #90 tab Potassium Chloride ER [K-Dur 20] 20 meq PO DAILY #14 tab.er.prt Cephalexin [Keflex] 500 mg PO Q12HR 10 Days #20 cap lisinopriL [Zestril] 2.5 mg PO DAILY #30 tab Isosorbide Dinitrate [Isordil] 10 mg PO TID #90 tab Furosemide [Lasix] 60 mg PO BID 14 Days tab Continue Aspirin EC [Ecotrin Low Dose] 81 mg PO HS Omeprazole [PriLOSEC] 40 mg PO HS Warfarin [Coumadin] 7.5 mg PO DIRECTED Montelukast [Singulair] 10 mg PO DAILY Insulin Degludec [Tresiba Flextouch U-100] 30 unit SQ DAILY Levothyroxine Sodium [Synthroid] 50 mcg PO DAILY Metoprolol Tartrate [Lopressor] 50 mg PO TID Cetirizine HCl [Zyrtec] 10 mg PO DAILY Amiodarone [Cordarone] 200 mg PO DAILY Fluticasone Nasal [place] [Flonase Nasal [place]] 1 spr EA NOSTRIL DAILY Albuterol Inhaler [Ventolin Hfa Inhaler] 1 - 2 puff INHALATION RT-QID PRN PRN Reason: Shortness Of Breath HYDROcodone/APAP 7.5-325MG [[place] 7.5-325] 1 tab PO Q6HR PRN PRN Reason: Pain Ferrous Sulfate [Slow Fe] 142 mg PO DAILY Insulin Aspart [NovoLOG Flexpen] 15 units SQ AC-TID Fluticasone/Vilanterol [Breo Ellipta 200-25 Mcg INH] 1 puff INHALATION RT-DA JULIA Discontinued Furosemide [Lasix] 120 mg PO BID Potassium Chloride 10 meq PO DAILY Insulin Aspart [NovoLOG Flexpen] See Protocol SQ ACHS Discharge Medication List Aspirin EC [Ecotrin Low Dose] 81 mg PO HS 05/15/15 [History] Omeprazole [PriLOSEC] 40 mg PO HS 05/15/15 [History] Montelukast [Singulair] 10 mg PO DAILY 06/05/16 [History] Warfarin [Coumadin] 7.5 mg PO DIRECTED 06/05/16 [History] Insulin Degludec [Tresiba Flextouch U-100] 30 unit SQ DAILY 06/11/18 [History] Albuterol Inhaler [Ventolin Hfa Inhaler] 1 - 2 puff INHALATION RT-QID PRN 06/25/21 [History] Amiodarone [Cordarone] 200 mg PO DAILY 06/25/21 [History] Cetirizine HCl [Zyrtec] 10 mg PO DAILY 06/25/21 [History] Ferrous Sulfate [Slow Fe] 142 mg PO DAILY 06/25/21 [History] Fluticasone Nasal [place] [Flonase Nasal [place]] 1 spr EA NOSTRIL DAILY 06/25/21 [History] Fluticasone/Vilanterol [Breo Ellipta 200-25 Mcg INH] 1 puff INHALATION RT-DAILY 06/25/21 [History] HYDROcodone/APAP 7.5-325MG [[place] 7.5-325] 1 tab PO Q6HR PRN 06/25/21 [History] Insulin Aspart [NovoLOG Flexpen] 15 units SQ AC-TID 06/25/21 [History] Levothyroxine Sodium [Synthroid] 50 mcg PO DAILY 06/25/21 [History] Metoprolol Tartrate [Lopressor] 50 mg PO TID 06/25/21 [History] Cephalexin [Keflex] 500 mg PO Q12HR 10 Days #20 cap 06/29/21 [Rx] Furosemide [Lasix] 60 mg PO BID 14 Days tab 06/29/21 [Rx] Isosorbide Dinitrate [Isordil] 10 mg PO TID #90 tab 06/29/21 [Rx] Potassium Chloride ER [K-Dur 20] 20 meq PO DAILY #14 tab.er.prt 06/29/21 [Rx] hydrALAZINE HCL [Apresoline] 25 mg PO TID #90 tab 06/29/21 [Rx] lisinopriL [Zestril] 2.5 mg PO DAILY #30 tab 06/29/21 [Rx] Follow up Appointment(s)/Referral(s): Anaya Terrazas MD [STAFF PHYSICIAN] - 1 Week Jennifer Mendez MD [Primary Care Provider] - 1 Week Discharge Disposition: HOME SELF-CARE Plan of Treatment: Please get BMP and Mg in 2-3 days after discharge and follow up with your ux engineer in one week
[2021-06-29 11:27] LABS: Glucose,Whole Blood 109 mg/dL (75-99)
[2021-06-29] MEDS ORDERED: WARFARIN 3 MG TAB PO ONE (18:00)
[2021-06-30] MEDS ORDERED: POTASSIUM CHLORIDE ER 20 MEQ TAB.ER PO SCH (09:00)
== END 2021-06-29 13:48 | disposition home or self-care (01) | DRG 871 ==
LOC: EC 08:30 → 4SSUR 10:59
PROVIDERS: ADMIT Internal Medicine; ATTEND Internal Medicine
DX: A41.51 Sepsis due to Escherichia coli [E. coli] (principal); N17.0 Acute kidney failure with tubular necrosis; I13.0 Hypertensive heart and chronic kidney disease with heart failure and stage 1 through stage 4 chronic kidney disease, or unspecified chronic kidney disease; I42.8 Other cardiomyopathies; I50.22 Chronic systolic (congestive) heart failure; J44.0 Chronic obstructive pulmonary disease with (acute) lower respiratory infection; N39.0 Urinary tract infection, site not specified; I27.20 Pulmonary hypertension, unspecified; D69.6 Thrombocytopenia, unspecified; E11.22 Type 2 diabetes mellitus with diabetic chronic kidney disease; E11.40 Type 2 diabetes mellitus with diabetic neuropathy, unspecified; N18.31 Chronic kidney disease, stage 3a; I48.0 Paroxysmal atrial fibrillation; Z79.4 Long term (current) use of insulin; Z20.822 Contact with and (suspected) exposure to COVID-19; I95.9 Hypotension, unspecified; E61.1 Iron deficiency; D64.9 Anemia, unspecified; E78.5 Hyperlipidemia, unspecified; I25.10 Atherosclerotic heart disease of native coronary artery without angina pectoris; E03.9 Hypothyroidism, unspecified; I44.7 Left bundle-branch block, unspecified; J32.9 Chronic sinusitis, unspecified; I83.90 Asymptomatic varicose veins of unspecified lower extremity; Z95.810 Presence of automatic (implantable) cardiac defibrillator; Z90.89 Acquired absence of other organs; Z86.59 Personal history of other mental and behavioral disorders; Z80.9 Family history of malignant neoplasm, unspecified; Z79.82 Long term (current) use of aspirin; Z79.01 Long term (current) use of anticoagulants; Z79.890 Hormone replacement therapy; Z79.51 Long term (current) use of inhaled steroids; Z79.899 Other long term (current) drug therapy; Z88.0 Allergy status to penicillin
CPT/HCPCS: 36415; 71045; 71046; 76770; 80048; 80053; 81001; 83605; 83615; 83735; 83880; 84484; 85025; 85027; 85610; 85730; 86140; 87040; 87077; 87086; 87186; 87449; 87635; 93005; 93306; 94640; 94760; 96360; 96361; 99285

== ENCOUNTER → 2021-07-03 | Outpatient (CLI) | payer MEDICARE, OTHER ==
[2021-07-04 04:03] LABS: African American GFR (CKD) 48.8 (60.0-200.0); Anion Gap 12.3 mmol/L (4.00-12.00); BUN/Creat Ratio 13.85 Ratio (12.00-20.00); Calcium 9.9 mg/dL (8.7-10.3); Carbon Dioxide 30.7 mmol/L (21.6-31.8); Non-African American GFR(CKD) 42.1 (60.0-200.0); Potassium 3.7 mmol/L (3.5-5.5)
== END | disposition home or self-care (01) ==
LOC: LABWHC1 16:20
PROVIDERS: ATTEND Internal Medicine Interventional Cardiology
DX: I50.9 Heart failure, unspecified (principal)
CPT/HCPCS: 36415; 80048; 83735

== ENCOUNTER 2021-10-30 17:51 | Inpatient (IN) | payer MEDICARE, OTHER ==
[2021-10-30 18:39] LABS: Basophils % (A) 0 %; Eosinophils % (A) 0 %; HCT 46.1 % (34.0-46.0); HGB 15.3 gm/dL (11.4-16.0); Lymphocytes # (A) 0.3 k/uL (1.0-4.8); Lymphocytes % (A) 5 %; MCH 31.5 pg (25.0-35.0); MCHC 33.1 g/dL (31.0-37.0); Mean Platelet Volume 8.7; Monocytes # (A) 0.2 k/uL (0-1.0); Monocytes % (A) 3 %; Neutrophils # (A) 5.1 k/uL (1.3-7.7); Neutrophils % (A) 90 %; Platelet Count 167 k/uL (150-450); Poikilocytosis Slight; RBC 4.85 m/uL (3.80-5.40); RDW 14.1 % (11.5-15.5); WBC 5.7 k/uL (3.8-10.6)
--- NOTE | 2021-10-30 18:49 | XR ---
EXAMINATION TYPE: XR chest 2V DATE OF EXAM: 10/30/2021 COMPARISON: 06/27/2021 HISTORY: Difficulty breathing. TECHNIQUE: Frontal and lateral views of the chest are obtained. FINDINGS: There are bilateral diffuse airspace opacities. No pleural effusion, or pneumothorax seen. The cardiac silhouette size is mildly enlarged. Left AICD seen. The osseous structures are intact . IMPRESSION: Diffuse airspace disease may represent edema with superimposed infiltrates.
[2021-10-30 18:54] LABS: Albumin 3.4 g/dL (3.5-5.0); Calcium 9.4 mg/dL (8.4-10.2); Magnesium 2.3 mg/dL (1.6-2.3); Potassium 4.7 mmol/L (3.5-5.1); Total Bilirubin 0.8 mg/dL (0.2-1.3); Total Protein 6.8 g/dL (6.3-8.2)
[2021-10-30 19:07] LABS: Prothrombin Time 129.6 sec (9.0-12.0)
[2021-10-30 19:21] LABS: INR >10.0 (<1.2); Partial Thromboplastin Time 68.2 sec (22.0-30.0)
--- NOTE | 2021-10-30 19:34 | ED ---
SOB HPI - General Chief Complaint: Shortness of Breath Stated Complaint: SOB Source: EMS Mode of arrival: EMS Limitations: physical limitation - History of Present Illness Initial Comments: Patient is a 66-year-old female past medical history of A. fib on Coumadin, COPD, diabetes, congestive heart failure with AICD placement and an EF of 20% who presents to emergency room with shortness of breath. States that for the past week she has been short of breath. She's her primary care doctor who placed her on antibiotics. She has currently taken 7 days worth of the medication and has 1 day left to take. She hasn't had any improvement in her symptoms. Denies that she is on any steroids. Normally does not wear any oxygen at home. Admits to mild chest pain. No history of coronary artery disease. Denies any sick contacts. She hasn't had any fevers. Denies productive cough. Patient was struggling to breathe today and therefore her granddaughter called EMS. They were unable to obtain and oxygenation on her. She was placed into room 8 and original oxygenation was 56%. She is not vaccinated against Covid. States that she has been unable to eat or drink anything today due to feeling bad. No other alleviating, precipitating modifying factors - Related Data Home Medications Medication Instructions Recorded Confirmed Aspirin EC [Ecotrin Low Dose] 81 mg PO HS 05/15/15 10/30/21 Omeprazole [PriLOSEC] 40 mg PO HS 05/15/15 10/30/21 Montelukast [Singulair] 10 mg PO DAILY 06/05/16 10/30/21 Warfarin [Coumadin] 2.5 - 5 mg PO DIRECTED 06/05/16 10/31/21 Insulin Degludec [Tresiba 25 unit SQ DAILY 06/11/18 10/30/21 Flextouch U-100 Pen] Albuterol Inhaler [Ventolin Hfa 1 - 2 puff INHALATION RT-QID PRN 06/25/21 Inhaler] Amiodarone [Cordarone] 200 mg PO DAILY 06/25/21 10/30/21 Cetirizine HCl [Zyrtec] 10 mg PO DAILY 06/25/21 10/30/21 Ferrous Sulfate [Slow Fe] 142 mg PO DAILY 06/25/21 10/30/21 Fluticasone Nasal [place] [Flonase 1 spr EA NOSTRIL DAILY PRN 06/25/21 10/30/21 Nasal [place]] Fluticasone/Vilanterol [Breo 1 puff INHALATION RT-DAILY 06/25/21 10/30/21 Ellipta 200-25 Mcg Inhaler] HYDROcodone/APAP 7.5-325MG [[place] 1 tab PO Q6HR PRN 06/25/21 10/30/21 7.5-325] Insulin Aspart [NovoLOG Flexpen] See Protocol SQ AC-TID 06/25/21 10/30/21 Levothyroxine Sodium [Synthroid] 50 mcg PO DAILY 06/25/21 10/30/21 Metoprolol Tartrate [Lopressor] 50 mg PO TID 06/25/21 10/30/21 Ascorbic Acid [Vitamin C] 1,000 mg PO DAILY 10/30/21 10/30/21 Cholecalciferol (Vitamin D3) 125 mcg PO DAILY 10/30/21 10/30/21 [Vitamin D3 (125 MCG = 5,000 IU)] Furosemide [Lasix] 80 mg PO TID 10/30/21 10/30/21 Ipratropium-Albuterol Nebulize 3 ml INHALATION RT-QID PRN 10/30/21 10/30/21 [Duoneb 0.5 mg-3 mg/3 ml Soln] Levofloxacin [Levaquin] 750 mg PO DAILY 10/30/21 10/30/21 Potassium Chloride ER [K-Dur 10] 10 meq PO DAILY 10/30/21 10/30/21 Vitamin B Complex 1 tab PO DAILY 10/30/21 10/30/21 Vitamin E 400 unit PO DAILY 10/30/21 10/30/21 hydrALAZINE HCL [Apresoline] 25 mg PO TID PRN 10/30/21 10/30/21 Allergies Allergy/AdvReac Type Severity Reaction Status Date / Time Penicillins Allergy Unknown Dyspnea Verified 10/30/21 20:43 Review of Systems ROS Statement: Those systems with pertinent positive or pertinent negative responses have been documented in the HPI. ROS Other: All systems not noted in ROS Statement are negative. 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 History of Any Multi-Drug Resistant Organisms: None Reported Past Surgical History: AICD, Heart Catheterization, Tonsillectomy Additional Past Surgical History / Comment(s): KIDNEY SURG A CHILD(X-TRA URETERS), D & C, DEFIBRILLATOR 2004 AND REPLACED 12/2011. Past Anesthesia/Blood Transfusion Reactions: No Reported Reaction Type of Cardiac Device: AICD Device Placement Date:: 12/2011 Past Psychological History: Depression Smoking Status: Former smoker Past Alcohol Use History: None Reported Past Drug Use History: None Reported - Past Family History Sister(s) Family Medical History: Cancer Mother Family Medical History: No Reported History Father History Unknown: Yes General Exam Limitations: physical limitation General appearance: alert, in distress Head exam: Present: atraumatic, normocephalic, normal inspection Eye exam: Present: normal appearance, PERRL, EOMI. Absent: scleral icterus, conjunctival injection, periorbital swelling ENT exam: Present: normal exam, mucous membranes dry Neck exam: Present: normal inspection. Absent: tenderness, meningismus, l ymphadenopathy Respiratory exam: Present: respiratory distress, accessory muscle use, decreased breath sounds, other (tachypnia). Absent: wheezes, rales, rhonchi, stridor Cardiovascular Exam: Present: regular rate, normal rhythm, normal heart sounds. Absent: systolic murmur, diastolic murmur, rubs, gallop, clicks GI/Abdominal exam: Present: soft, normal bowel sounds. Absent: distended, tenderness, guarding, rebound, rigid Extremities exam: Present: normal inspection, full ROM, normal capillary refill. Absent: tenderness, pedal edema, joint swelling, calf tenderness Back exam: Present: normal inspection Neurological exam: Present: alert, oriented X3, CN II-XII intact Psychiatric exam: Present: normal affect, normal mood Skin exam: Present: warm, dry, intact, normal color. Absent: rash Course Vital Signs 10/30/21 10/30/21 10/30/21 17:53 18:07 19:33 Temperature 97.8 F Pulse Rate 65 60 94 Respiratory 28 H 28 H 24 Rate Blood Pressure 122/99 91/55 O2 Sat by Pulse 54 L 89 L 90 L Oximetry 1210/30/21 10/30/21 20:00 20:15 20:48 Temperature Pulse Rate 72 62 Respiratory 26 H 24 26 H Rate Blood Pressure 79/47 92/60 125/76 O2 Sat by Pulse 91 L 91 L 88 L Oximetry 10/30/21 10/30/21 10/30/21 21:31 22:17 23:14 Temperature 97.7 F Pulse Rate 88 66 74 Respiratory 24 28 H 40 H Rate Blood Pressure 138/80 126/77 143/89 O2 Sat by Pulse 89 L 88 L 84 L Oximetry 10/30/21 10/30/21 10/31/21 23:37 23:40 00:17 Temperature Pulse Rate 68 Respiratory 28 H Rate Blood Pressure 130/85 O2 Sat by Pulse 87 L 90 L 90 L Oximetry 10/31/21 10/31/21 10/31/21 01:24 02:18 03:43 Temperature Pulse Rate 68 69 76 Respiratory 38 H 32 H 38 H Rate Blood Pressure 122/77 130/98 146/111 O2 Sat by Pulse 90 L 93 L 90 L Oximetry 10/31/21 10/31/21 10/31/21 05:00 05:49 06:02 Temperature Pulse Rate 106 H 69 69 Respiratory 42 H 30 H 30 H Rate Blood Pressure 161/89 145/90 140/96 O2 Sat by Pulse 77 L 94 L 95 Oximetry 10/31/21 10/31/21 10/31/21 07:32 08:57 09:55 Temperature Pulse Rate 66 72 57 L Respiratory 32 H 18 18 Rate Blood Pressure 143/78 140/84 116/88 O2 Sat by Pulse 95 94 L 95 Oximetry 10/31/21 10/31/21 10/31/21 11:15 12:54 13:43 Temperature Pulse Rate 56 L 56 L 52 L Respiratory 32 H 34 H 18 Rate Blood Pressure 136/76 124/79 116/84 O2 Sat by Pulse 97 97 97 Oximetry 10/31/21 10/31/21 10/31/21 15:00 16:24 17:00 Temperature Pulse Rate 54 L 55 L 55 L Respiratory 28 H 31 H 18 Rate Blood Pressure 135/71 134/76 132/77 O2 Sat by Pulse 98 94 L 95 Oximetry 10/31/21 10/31/21 10/31/21 18:00 18:10 18:20 Temperature Pulse Rate 53 L 56 L 55 L Respiratory 28 H 32 H 25 H Rate Blood Pressure 132/77 130/78 130/78 O2 Sat by Pulse 97 96 97 Oximetry 10/31/21 10/31/21 10/31/21 18:30 18:40 18:50 Temperature Pulse Rate 55 L 54 L 55 L Respiratory 35 H 32 H 32 H Rate Blood Pressure 130/78 130/78 130/78 O2 Sat by Pulse 96 98 97 Oximetry 10/31/21 10/31/21 10/31/21 19:00 19:03 19:10 Temperature 98.1 F 97.5 F L Pulse Rate 55 L 56 L 55 L Respiratory 29 H 30 H 30 H Rate Blood Pressure 130/78 130/85 130/85 O2 Sat by Pulse 98 96 98 Oximetry 10/31/21 10/31/21 10/31/21 19:20 19:30 19:40 Temperature Pulse Rate 57 L 55 L 56 L Respiratory 31 H 31 H 27 H Rate Blood Pressure 130/85 130/85 130/85 O2 Sat by Pulse 96 96 98 Oximetry 10/31/21 10/31/21 10/31/21 19:50 20:00 20:10 Temperature 98.1 F Pulse Rate 68 57 L 56 L Respiratory 17 32 H 30 H Rate Blood Pressure 130/85 130/85 140/81 O2 Sat by Pulse 91 L 94 L 95 Oximetry 10/31/21 10/31/21 10/31/21 20:20 20:30 20:40 Temperature Pulse Rate 56 L 56 L 56 L Respiratory 26 H 35 H 38 H Rate Blood Pressure 140/81 140/81 140/81 O2 Sat by Pulse 95 95 96 Oximetry 10/31/21 10/31/21 10/31/21 20:50 21:00 21:10 Temperature Pulse Rate 55 L 56 L 60 Respiratory 33 H 30 H 35 H Rate Blood Pressure 140/81 140/81 136/80 O2 Sat by Pulse 96 96 96 Oximetry 10/31/21 10/31/21 10/31/21 21:20 21:30 21:40 Temperature Pulse Rate 59 L 56 L 57 L Respiratory 33 H 35 H 31 H Rate Blood Pressure 136/80 136/80 136/80 O2 Sat by Pulse 98 97 98 Oximetry 10/31/21 10/31/21 10/31/21 21:50 22:00 22:10 Temperature Pulse Rate 57 L 57 L 57 L Respiratory 31 H 32 H 30 H Rate Blood Pressure 136/80 136/80 138/81 O2 Sat by Pulse 99 98 97 Oximetry 10/31/21 10/31/21 10/31/21 22:20 22:30 22:40 Temperature Pulse Rate 72 67 73 Respiratory 35 H 18 31 H Rate Blood Pressure 138/81 138/81 138/81 O2 Sat by Pulse 82 L Oximetry 10/31/21 10/31/21 10/31/21 22:50 23:00 23:05 Temperature 97.9 F Pulse Rate 76 66 67 Respiratory 41 H 36 H 36 H Rate Blood Pressure 138/81 138/81 146/89 O2 Sat by Pulse 83 L 94 L 95 Oximetry 10/31/21 10/31/21 10/31/21 23:10 23:20 23:30 Temperature Pulse Rate 63 64 63 Respiratory 36 H 33 H 21 Rate Blood Pressure 146/89 146/89 146/89 O2 Sat by Pulse 96 95 96 Oximetry 10/31/21 10/31/21 11/01/21 23:40 23:50 00:00 Temperature 97.9 F Pulse Rate 64 63 61 Respiratory 31 H 37 H 45 H Rate Blood Pressure 146/89 146/89 146/89 O2 Sat by Pulse 95 95 96 Oximetry 11/01/21 11/01/21 11/01/21 00:10 00:20 00:30 Temperature Pulse Rate 58 L 55 L 56 L Respiratory 23 14 19 Rate Blood Pressure 136/78 136/78 136/78 O2 Sat by Pulse 96 96 96 Oximetry 11/01/21 11/01/21 11/01/21 00:40 00:50 01:00 Temperature Pulse Rate 55 L 63 64 Respiratory 22 19 37 H Rate Blood Pressure 136/78 136/78 136/78 O2 Sat by Pulse 97 98 97 Oximetry 11/01/21 11/01/21 11/01/21 01:08 01:10 01:20 Temperature 98.1 F Pulse Rate 63 61 60 Respiratory 28 H 34 H 27 H Rate Blood Pressure 136/82 136/82 136/82 O2 Sat by Pulse 97 97 97 Oximetry 11/01/21 01:30 Temperature Pulse Rate Respiratory Rate Blood Pressure 136/82 O2 Sat by Pulse Oximetry Medical Decision Making - Medical Decision Making Upon arrival patient is placed into room 8. She is placed on a nonrebreather does have improvement of her oxygenation up to 92%. IV is established and laboratory studies were conducted. Patient has multiple lab abnormality is to include an INR greater than 10. Patient is given 5 mg of oral vitamin K. Creatinine is 2.3. Patient's normal baseline sits around 1.3-1.5. She is started on very gentle fluid hydration. Leukocyst 540. Insulin drip initiated as we are unable to use fluids. Lactic acid 4.8. Troponin 0.052. Covid is detected. Chest x-ray demonstrates diffuse airspace disease. Results are discussed the patient. She does maintain oxidation 92% with decreased work of breathing on a nonrebreather. Informed her that she needs to be admitted to the hospital to the intensive care unit at this time. Patient agreed to this. Updated family. She would like to remain a full code at this time. I spoke with Dr. Craven and Dr. Costa in regards to the patient's ICU admission. Patient remained in stable condition with a guarded prognosis awaiting a bed on the floor - Lab Data Result diagrams: 11/06/21 04:40 11/06/21 06:00 Lab Results 10/30/21 10/30/21 10/30/21 Range/Units 18:21 18:21 18:21 WBC 5.7 (3.8-10.6) k/uL RBC 4.85 (3.80-5.40) m/uL Hgb 15.3 (11.4-16.0) gm/dL Hct 46.1 H (34.0-46.0) % MCV 95.0 (80.0-100.0) fL MCH 31.5 (25.0-35.0) pg MCHC 33.1 (31.0-37.0) g/dL RDW 14.1 (11.5-15.5) % Plt Count 167 (150-450) k/uL MPV 8.7 Neutrophils % 90 % Lymphocytes % 5 % Monocytes % 3 % Eosinophils % 0 % Basophils % 0 % Neutrophils # 5.1 (1.3-7.7) k/uL Lymphocytes # 0.3 L (1.0-4.8) k/uL Monocytes # 0.2 (0-1.0) k/uL Eosinophils # 0.0 (0-0.7) k/uL Basophils # 0.0 (0-0.2) k/uL Poikilocytosis Slight PT 129.6 H (9.0-12.0) sec INR >10.0 H* (<1.2) APTT 68.2 H (22.0-30.0) sec Sodium 129 L (137-145) mmol/L Potassium 4.7 (3.5-5.1) mmol/L Chloride 92 L (98-107) mmol/L Carbon Dioxide 19 L (22-30) mmol/L Anion Gap 18 mmol/L BUN 81 H (7-17) mg/dL Creatinine 2.37 H (0.52-1.04) mg/dL Est GFR (CKD-EPI)AfAm 24 (>60 ml/min/1.73 sqM) Est GFR (CKD-EPI)NonAf 20 (>60 ml/min/1.73 sqM) Glucose 540 H* (74-99) mg/dL Lactic Ac Sepsis Rflx Plasma Lactic Acid Sunny (0.7-2.0) mmol/L Calcium 9.4 (8.4-10.2) mg/dL Magnesium 2.3 (1.6-2.3) mg/dL Total Bilirubin 0.8 (0.2-1.3) mg/dL AST 71 H (14-36) U/L ALT 22 (4-34) U/L Alkaline Phosphatase 109 (38-126) U/L Troponin I (0.000-0.034) ng/mL NT-Pro-B Natriuret Pep pg/mL Total Protein 6.8 (6.3-8.2) g/dL Albumin 3.4 L (3.5-5.0) g/dL Coronavirus (PCR) (Not Detectd) 10/30/21 10/30/21 10/30/21 Range/Units 18:21 18:21 18:21 WBC (3.8-10.6) k/uL RBC (3.80-5.40) m/uL Hgb (11.4-16.0) gm/dL Hct (34.0-46.0) % MCV (80.0-100.0) fL MCH (25.0-35.0) pg MCHC (31.0-37.0) g/dL RDW (11.5-15.5) % Plt Count (150-450) k/uL MPV Neutrophils % % Lymphocytes % % Monocytes % % Eosinophils % % Basophils % % Neutrophils # (1.3-7.7) k/uL Lymphocytes # (1.0-4.8) k/uL Monocytes # (0-1.0) k/uL Eosinophils # (0-0.7) k/uL Basophils # (0-0.2) k/uL Poikilocytosis PT (9.0-12.0) sec INR (<1.2) APTT (22.0-30.0) sec Sodium (137-145) mmol/L Potassium (3.5-5.1) mmol/L Chloride (98-107) mmol/L Carbon Dioxide (22-30) mmol/L Anion Gap mmol/L BUN (7-17) mg/dL Creatinine (0.52-1.04) mg/dL Est GFR (CKD-EPI)AfAm (>60 ml/min/1.73 sqM) Est GFR (CKD-EPI)NonAf (>60 ml/min/1.73 sqM) Glucose (74-99) mg/dL Lactic Ac Sepsis Rflx Plasma Lactic Acid Sunny 4.8 H* (0.7-2.0) mmol/L Calcium (8.4-10.2) mg/dL Magnesium (1.6-2.3) mg/dL Total Bilirubin (0.2-1.3) mg/dL AST (14-36) U/L ALT (4-34) U/L Alkaline Phosphatase (38-126) U/L Troponin I 0.052 H* (0.000-0.034) ng/mL NT-Pro-B Natriuret Pep 8540 pg/mL Total Protein (6.3-8.2) g/dL Albumin (3.5-5.0) g/dL Coronavirus (PCR) (Not Detectd) 10/30/21 10/30/21 Range/Units 18:21 19:22 WBC (3.8-10.6) k/uL RBC (3.80-5.40) m/uL Hgb (11.4-16.0) gm/dL Hct (34.0-46.0) % MCV (80.0-100.0) fL MCH (25.0-35.0) pg MCHC (31.0-37.0) g/dL RDW (11.5-15.5) % Plt Count (150-450) k/uL MPV Neutrophils % % Lymphocytes % % Monocytes % % Eosinophils % % Basophils % % Neutrophils # (1.3-7.7) k/uL Lymphocytes # (1.0-4.8) k/uL Monocytes # (0-1.0) k/uL Eosinophils # (0-0.7) k/uL Basophils # (0-0.2) k/uL Poikilocytosis PT (9.0-12.0) sec INR (<1.2) APTT (22.0-30.0) sec Sodium (137-145) mmol/L Potassium (3.5-5.1) mmol/L Chloride (98-107) mmol/L Carbon Dioxide (22-30) mmol/L Anion Gap mmol/L BUN (7-17) mg/dL Creatinine (0.52-1.04) mg/dL Est GFR (CKD-EPI)AfAm (>60 ml/min/1.73 sqM) Est GFR (CKD-EPI)NonAf (>60 ml/min/1.73 sqM) Glucose (74-99) mg/dL Lactic Ac Sepsis Rflx Y Plasma Lactic Acid Sunny (0.7-2.0) mmol/L Calcium (8.4-10.2) mg/dL Magnesium (1.6-2.3) mg/dL Total Bilirubin (0.2-1.3) mg/dL AST (14-36) U/L ALT (4-34) U/L Alkaline Phosphatase (38-126) U/L Troponin I (0.000-0.034) ng/mL NT-Pro-B Natriuret Pep pg/mL Total Protein (6.3-8.2) g/dL Albumin (3.5-5.0) g/dL Coronavirus (PCR) Detected A (Not Detectd) - EKG Data EKG Comments: EKG demonstrates significant baseline artifact. A flutter with a slow ventricular rate of 59. WI interval 206 QRS 128. QTC of 512. Critical Care Time Critical Care Time: Yes Critical Care Time: 35 minutes Disposition Clinical Impression: Supratherapeutic INR, Hypoxia, COVID-19, Lactic acidosis, Hyperglycemia, MAYA (acute kidney injury) Disposition: ADMITTED IP TO THIS HOSP Is patient prescribed a controlled substance at d/c from ED?: No Decision to Admit Reason: Admit from EC Decision Date: 10/30/21 Decision Time: 20:02
[2021-10-30] MEDS ORDERED: PHYTONADIONE ORAL 5 MG/5 ML ORAL.SYRG PO STA (19:49)
[2021-10-30] MEDS: DEXAMETHASONE SOD PHOSPHATE 10 MG/ML 1 ML VIAL IVP SCH (20:04)
[2021-10-30] MEDS ORDERED: ACETAMINOPHEN TAB 325 MG TAB PO PRN (20:04)
[2021-10-30] MEDS ORDERED: NALOXONE 0.4 MG/ML 1 ML VIAL IV PRN (20:04)
[2021-10-30] MEDS: SODIUM CHLORIDE 0.9% 1,000 ML IV SCH (20:04)
[2021-10-30 20:06] LABS: Glucose,Whole Blood 555 mg/dL (75-99)
[2021-10-30] MEDS: INSULIN REGULAR 100 UNIT in SODIUM CHLORIDE 0.9% 100 ML IV SCH (20:13)
[2021-10-30 20:49] LABS: Appearance,Urine Cloudy (Clear); Bilirubin,Urine Negative (Negative); Blood,Urine Trace (Negative); Color,Urine Yellow; Glucose,Urine (UA) 1+ (Negative); Hyaline Casts,Urine 3 /lpf (0-2); Ketones,Urine Negative (Negative); Leukocyte Esterase,Urine Negative (Negative); Nitrite,Urine Negative (Negative); Protein,Urine 2+ (Negative); RBC,Urine 1 /hpf (0-5); Specific Gravity,Urine 1.018 (1.001-1.035); Squamous Epithelial Cell,Urine <1 /hpf (0-4); WBC,Urine 3 /hpf (0-5)
[2021-10-30 21:01] LABS: Glucose,Whole Blood 515 mg/dL (75-99)
[2021-10-30 21:49] LABS: Glucose,Whole Blood 477 mg/dL (75-99)
[2021-10-30 22:30] LABS: Glucose,Whole Blood 304 mg/dL (75-99)
[2021-10-30 23:40] LABS: Glucose,Whole Blood 193 mg/dL (75-99)
[2021-10-31 00:13] LABS: Glucose,Whole Blood 178 mg/dL (75-99)
[2021-10-31] MEDS ORDERED: MELATONIN 5 MG TABLET PO PRN (00:27)
[2021-10-31] MEDS ORDERED: hydrALAZINE HCL 25 MG TAB PO PRN (00:28)
[2021-10-31] MEDS ORDERED: ALBUTEROL HFA INHALER INHALATION PRN (00:28)
--- NOTE | 2021-10-31 00:32 | P.HPIM ---
History of Present Illness H&P Date: 10/30/21 Patient is a 66-year-old female with an extensive PMH including systolic CHF, A. fib on Coumadin, type II DM, hypertension, hyperlipidemia, COPD who presents to the emergency room with complaints of shortness of breath. The patient notes that over the past 1 week, she has noticed a new nonproductive cough along with myalgias and gradually worsening shortness of breath. She denied decrease oral intake, urinary complaints, chest pain, abdominal pain, nausea, vomiting, focal weakness, headaches, numbness, tingling. She reports checking her blood glucose daily and states that it has been running in the 400-500s over the past few days. In the emergency room, the patient was severely hypoxic upon presentation with SpO2 of 54% on room air with respiratory rate 28, BP 122/99, and temperature 97.8F. Chest x-ray revealed findings consistent with edema superimposed with infiltrates. Endotracheal evaluation was remarkable for COVID 19 PCR positive, INR greater than 10, BUN 81, creatinine 2.37, glucose 540, anion gap 18, lactic acid 4.8, and troponin 0.052. EKG revealed sinus bradycardia at 59 bpm with poor R-wave progression and a poor baseline. Review of systems: Pertinent positives and negatives as discussed in HPI, a complete review of systems was performed and all other systems are negative. Physical examination: General: non toxic, no distress, appears at stated age, obese Derm: no unusual rashes/lesions no unusual ecchymoses, warm, dry Head: atraumatic, normocephalic, symmetric Eyes: EOMI, no lid lag, anicteric sclera, pupils equal round reactive to light ENT: Nose and ears atraumatic, no thrush, no pharyngeal erythema Neck: No thyromegaly, no cervical lymphadenopathy, trachea midline, supple Mouth: no lip lesion, mucus membranes moist Cardiovascular: S1S2 reg, no murmur, positive posterior tibial pulse bilateral, no edema, capillary refill less than 2 seconds Lungs: Diffuse rhonchi and rales, no wheezing, no accessory muscle use Abdominal: soft, nontender to palpation, no guarding, no appreciable organomegaly, normal bowel sounds Ext: no gross muscle atrophy, muscle strength 4 out of 5 in all 4 extremities grossly, no contractures, Neuro: CN II-XI grossly intact, light touch intact all 4 extremities, finger to nose within normal limits, Psych: Alert, oriented, appropriate affect Assessment/plan COVID-19 pneumonia with acute hypoxic respiratory failure -Continue Decadron -Zinc, vitamin C, vitamin D, melatonin -Pulmonary consult -Obtain pro-calcitonin level Diabetic ketoacidosis -Continue with insulin infusion for now -Monitor blood glucose q 30 minutes -Monitor electrolytes -Check A1C -Judicious use of IVFs due to significant hx of CHF Acute on chronic kidney disease -Likely due to ongoing DKA and COVID Pneumonia -Judicious use of IV fluids Troponin elevation, likely demand ischemia -Trend troponin -Cardiac monitoring Supratherapeutic INR -S/p 5 mg PO Vit K -Monitor for now Chronic conditions: COPD, HTN, HLD -C/w home meds DVT prophylaxis -Coumadin The patient is admitted with an anticipated greater than 2 midnight stay for ev aluation of COVID CODE STATUS: Full Code (Discussed the patient's goals of care. 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 History of Any Multi-Drug Resistant Organisms: None Reported Past Surgical History: AICD, Heart Catheterization, Tonsillectomy Additional Past Surgical History / Comment(s): KIDNEY SURG A CHILD(X-TRA URETERS), D & C, DEFIBRILLATOR 2004 AND REPLACED 12/2011. Past Anesthesia/Blood Transfusion Reactions: No Reported Reaction Type of Cardiac Device: AICD Device Placement Date:: 12/2011 Past Psychological History: Depression Smoking Status: Former smoker Past Alcohol Use History: None Reported Past Drug Use History: None Reported - Past Family History Sister(s) Family Medical History: Cancer Mother Family Medical History: COPD Medications and Allergies Home Medications Medication Instructions Recorded Confirmed Type Aspirin EC [Ecotrin Low Dose] 81 mg PO HS 05/15/15 10/30/21 History Omeprazole [PriLOSEC] 40 mg PO HS 05/15/15 10/30/21 History Montelukast [Singulair] 10 mg PO DAILY 06/05/16 10/30/21 History Warfarin [Coumadin] 7.5 mg PO DIRECTED 06/05/16 10/30/21 History Insulin Degludec [Tresiba 25 unit SQ DAILY 06/11/18 10/30/21 History Flextouch U-100 Pen] Albuterol Inhaler [Ventolin Hfa 1 - 2 puff INHALATION RT-QID PRN 06/25/21 10/30/21 History Inhaler] Amiodarone [Cordarone] 200 mg PO DAILY 06/25/21 10/30/21 History Cetirizine HCl [Zyrtec] 10 mg PO DAILY 06/25/21 10/30/21 History Ferrous Sulfate [Slow Fe] 142 mg PO DAILY 06/25/21 10/30/21 History Fluticasone Nasal [place] [Flonase 1 spr EA NOSTRIL DAILY PRN 06/25/21 10/30/21 History Nasal [place]] Fluticasone/Vilanterol [Breo 1 puff INHALATION RT-DAILY 06/25/21 10/30/21 History Ellipta 200-25 Mcg Inhaler] HYDROcodone/APAP 7.5-325MG [[place] 1 tab PO Q6HR PRN 06/25/21 10/30/21 History 7.5-325] Insulin Aspart [NovoLOG Flexpen] See Protocol SQ AC-TID 06/25/21 10/30/21 History Levothyroxine Sodium [Synthroid] 50 mcg PO DAILY 06/25/21 10/30/21 History Metoprolol Tartrate [Lopressor] 50 mg PO TID 06/25/21 10/30/21 History Ascorbic Acid [Vitamin C] 1,000 mg PO DAILY 10/30/21 10/30/21 History Cholecalciferol (Vitamin D3) 125 mcg PO DAILY 10/30/21 10/30/21 History [Vitamin D3 (125 MCG = 5,000 IU)] Furosemide [Lasix] 80 mg PO TID 10/30/21 10/30/21 History Ipratropium-Albuterol Nebulize 3 ml INHALATION RT-QID PRN 10/30/21 10/30/21 History [Duoneb 0.5 mg-3 mg/3 ml Soln] Levofloxacin [Levaquin] 750 mg PO DAILY 10/30/21 10/30/21 History Potassium Chloride ER [K-Dur 10] 10 meq PO DAILY 10/30/21 10/30/21 History Vitamin B Complex 1 tab PO DAILY 10/30/21 10/30/21 History Vitamin E 400 unit PO DAILY 10/30/21 10/30/21 History hydrALAZINE HCL [Apresoline] 25 mg PO TID PRN 10/30/21 10/30/21 History Allergies Allergy/AdvReac Type Severity Reaction Status Date / Time Penicillins Allergy Unknown Dyspnea Verified 10/30/21 20:43 Physical Exam Vitals: Vital Signs Temp Pulse Resp BP Pulse Ox 10/30/21 20:15 24 92/60 91 L 10/30/21 20:00 72 26 H 79/47 91 L 10/30/21 19:33 94 24 91/55 90 L 10/30/21 18:07 60 28 H 89 L 10/30/21 17:53 97.8 F 65 28 H 122/99 54 L Intake and Output 10/30/21 10/30/21 10/30/21 06:59 14:59 22:59 Other: Weight 90.718 kg Results CBC & Chem 7: 10/30/21 18:21 10/31/21 00:34 Labs: Abnormal Lab Results - Last 24 Hours (Table) 10/30/21 10/30/21 10/30/21 Range/Units 18:21 18:21 18:21 Hct 46.1 H (34.0-46.0) % Lymphocytes # 0.3 L (1.0-4.8) k/uL PT 129.6 H (9.0-12.0) sec INR >10.0 H* (<1.2) APTT 68.2 H (22.0-30.0) sec Sodium 129 L (137-145) mmol/L Chloride 92 L (98-107) mmol/L Carbon Dioxide 19 L (22-30) mmol/L BUN 81 H (7-17) mg/dL Creatinine 2.37 H (0.52-1.04) mg/dL Glucose 540 H* (74-99) mg/dL POC Glucose (mg/dL) (75-99) mg/dL Plasma Lactic Acid Sunny (0.7-2.0) mmol/L AST 71 H (14-36) U/L Troponin I (0.000-0.034) ng/mL Albumin 3.4 L (3.5-5.0) g/dL Coronavirus (PCR) (Not Detectd) 10/30/21 10/30/21 10/30/21 Range/Units 18:21 18:21 18:21 Hct (34.0-46.0) % Lymphocytes # (1.0-4.8) k/uL PT (9.0-12.0) sec INR (<1.2) APTT (22.0-30.0) sec Sodium (137-145) mmol/L Chloride (98-107) mmol/L Carbon Dioxide (22-30) mmol/L BUN (7-17) mg/dL Creatinine (0.52-1.04) mg/dL Glucose (74-99) mg/dL POC Glucose (mg/dL) (75-99) mg/dL Plasma Lactic Acid Sunny 4.8 H* (0.7-2.0) mmol/L AST (14-36) U/L Troponin I 0.052 H* (0.000-0.034) ng/mL Albumin (3.5-5.0) g/dL Coronavirus (PCR) Detected A (Not Detectd) 10/30/21 Range/Units 20:04 Hct (34.0-46.0) % Lymphocytes # (1.0-4.8) k/uL PT (9.0-12.0) sec INR (<1.2) APTT (22.0-30.0) sec Sodium (137-145) mmol/L Chloride (98-107) mmol/L Carbon Dioxide (22-30) mmol/L BUN (7-17) mg/dL Creatinine (0.52-1.04) mg/dL Glucose (74-99) mg/dL POC Glucose (mg/dL) 555 H (75-99) mg/dL Plasma Lactic Acid Sunny (0.7-2.0) mmol/L AST (14-36) U/L Troponin I (0.000-0.034) ng/mL Albumin (3.5-5.0) g/dL Coronavirus (PCR) (Not Detectd)
[2021-10-31 01:17] LABS: Calcium 9.5 mg/dL (8.4-10.2); Potassium 4.7 mmol/L (3.5-5.1)
[2021-10-31 01:24] LABS: Glucose,Whole Blood 211 mg/dL (75-99)
[2021-10-31] MEDS ORDERED: INSULIN DETEMIR (LEVEMIR) 100 UNIT/ML SYR SQ SCH ×2 (01:42→07:00)
[2021-10-31] MEDS: HYDROcodone/APAP 7.5-325MG 1 EACH TAB PO PRN ×2 (03:10→11:10)
[2021-10-31 04:17] LABS: Basophils % (A) 0 %; Eosinophils % (A) 0 %; HCT 42.1 % (34.0-46.0); HGB 14.1 gm/dL (11.4-16.0); Lymphocytes # (A) 0.2 k/uL (1.0-4.8); Lymphocytes % (A) 3 %; MCH 31.6 pg (25.0-35.0); MCHC 33.5 g/dL (31.0-37.0); MCV 94.4 fL (80.0-100.0); Mean Platelet Volume 8.4; Monocytes # (A) 0.2 k/uL (0-1.0); Monocytes % (A) 3 %; Neutrophils # (A) 6.1 k/uL (1.3-7.7); Neutrophils % (A) 92 %; Platelet Count 179 k/uL (150-450); Poikilocytosis Slight; RBC 4.46 m/uL (3.80-5.40); WBC 6.6 k/uL (3.8-10.6)
[2021-10-31 04:35] LABS: Calcium 9.3 mg/dL (8.4-10.2); Potassium 4.9 mmol/L (3.5-5.1)
[2021-10-31 04:39] LABS: Prothrombin Time 94.2 sec (9.0-12.0)
[2021-10-31 05:05] LABS: INR 9.6 (<1.2)
[2021-10-31] MEDS ORDERED: INSULIN ASPART (NovoLOG) 100 UNIT/ML VIAL SQ SCH (07:30)
[2021-10-31 07:40] LABS: Glucose,Whole Blood 355 mg/dL (75-99)
[2021-10-31] MEDS: CHOLECALCIFEROL 25 MCG (1000 IU) TABLET PO SCH (08:45)
[2021-10-31] MEDS: POTASSIUM CHLORIDE ER 10 MEQ TAB.ER.PRT PO SCH (08:45)
[2021-10-31] MEDS: ZINC SULFATE 220 MG CAP PO SCH (08:45)
[2021-10-31] MEDS: MONTELUKAST 10 MG TAB PO SCH (08:45)
[2021-10-31] MEDS: METOPROLOL TARTRATE 50 MG TAB PO SCH ×3 (08:46→22:16)
[2021-10-31] MEDS: AMIODARONE 200 MG TAB PO SCH (08:46)
[2021-10-31] MEDS: ASCORBIC ACID 500 MG TAB PO SCH (08:46)
[2021-10-31] MEDS: LEVOTHYROXINE 50 MCG TAB PO SCH (08:46)
[2021-10-31 09:02] LABS: Glucose,Whole Blood 373 mg/dL (75-99)
--- NOTE | 2021-10-31 09:06 | P.CNPUL ---
History of Present Illness Consult date: 10/31/21 Requesting physician: Eunice Craven Reason for consult: dyspnea, COPD, hypoxemia, pneumonia, abnormal CXR/CT Chief complaint: Shortness of breath. History of present illness: Pulmonary/critical care consultation dated 10/31/2021. 66-year-old female, seen down in the emergency room, room 8. Currently, she is on BiPAP at 12/6 and 100%. She's getting saline at 50 mL an hour. We are resuming the insulin drip because of elevated blood sugars. This is a 66 yo unvaccinated female who comes into the emergency department complaining of at least a week and maybe longer complaints of shortness of breath. She is also very weak. Poor oral intake. Not a very good historian. The patient apparent ly has a history of atrial fibrillation, CHF, diabetes, COPD, status post AICD placement, and cardiomyopathy with an ejection fraction of about 20%. White count is 6.6, he will been 14.1, hematocrit 42.1, platelet count is 179,000. PTT was 94.2 with a INR of 9.6. Sodium 133, potassium 4.9, chlorides 98, CO2 24, anion gap 11, BUN 84, with a creatinine of 2.18. Troponin was 0.031. Lactic acid 1.6. Chest x-ray shows diffuse bilateral infiltrates, which might be consistent with coronavirus associated pneumonia and/or fluid overload. Review of Systems REVIEW OF SYSTEMS: CONSTITUTIONAL: Weakness and fatigue. NEUROLOGIC: [ Negative.] HEENT: [ Negative.] CARDIAC: [Negative.] PULMONARY: Shortness of breath. GI: Poor oral intake and dehydration. : [Negative.] RHEUMATOLOGIC: [ Negative.] IMMUNOLOGIC: [ Negative.] ENDOCRINE: [Negative. 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 History of Any Multi-Drug Resistant Organisms: None Reported Past Surgical History: AICD, Heart Catheterization, Tonsillectomy Additional Past Surgical History / Comment(s): KIDNEY SURG A CHILD(X-TRA URETERS), D & C, DEFIBRILLATOR 2004 AND REPLACED 12/2011. Past Anesthesia/Blood Transfusion Reactions: No Reported Reaction Type of Cardiac Device: AICD Device Placement Date:: 12/2011 Past Psychological History: Depression Smoking Status: Former smoker Past Alcohol Use History: None Reported Past Drug Use History: None Reported - Past Family History Sister(s) Family Medical History: Cancer Mother Family Medical History: COPD Medications and Allergies Home Medications Medication Instructions Recorded Confirmed Type Aspirin EC [Ecotrin Low Dose] 81 mg PO HS 05/15/15 10/30/21 History Omeprazole [PriLOSEC] 40 mg PO HS 05/15/15 10/30/21 History Montelukast [Singulair] 10 mg PO DAILY 06/05/16 10/30/21 History Warfarin [Coumadin] 7.5 mg PO DIRECTED 06/05/16 10/30/21 History Insulin Degludec [Tresiba 25 unit SQ DAILY 06/11/18 10/30/21 History Flextouch U-100 Pen] Albuterol Inhaler [Ventolin Hfa 1 - 2 puff INHALATION RT-QID PRN 06/25/21 10/30/21 History Inhaler] Amiodarone [Cordarone] 200 mg PO DAILY 06/25/21 10/30/21 History Cetirizine HCl [Zyrtec] 10 mg PO DAILY 06/25/21 10/30/21 History Ferrous Sulfate [Slow Fe] 142 mg PO DAILY 06/25/21 10/30/21 History Fluticasone Nasal [place] [Flonase 1 spr EA NOSTRIL DAILY PRN 06/25/21 10/30/21 History Nasal [place]] Fluticasone/Vilanterol [Breo 1 puff INHALATION RT-DAILY 06/25/21 10/30/21 History Ellipta 200-25 Mcg Inhaler] HYDROcodone/APAP 7.5-325MG [[place] 1 tab PO Q6HR PRN 06/25/21 10/30/21 History 7.5-325] Insulin Aspart [NovoLOG Flexpen] See Protocol SQ AC-TID 06/25/21 10/30/21 History Levothyroxine Sodium [Synthroid] 50 mcg PO DAILY 06/25/21 10/30/21 History Metoprolol Tartrate [Lopressor] 50 mg PO TID 06/25/21 10/30/21 History Ascorbic Acid [Vitamin C] 1,000 mg PO DAILY 10/30/21 10/30/21 History Cholecalciferol (Vitamin D3) 125 mcg PO DAILY 10/30/21 10/30/21 History [Vitamin D3 (125 MCG = 5,000 IU)] Furosemide [Lasix] 80 mg PO TID 10/30/21 10/30/21 History Ipratropium-Albuterol Nebulize 3 ml INHALATION RT-QID PRN 10/30/21 10/30/21 History [Duoneb 0.5 mg-3 mg/3 ml Soln] Levofloxacin [Levaquin] 750 mg PO DAILY 10/30/21 10/30/21 History Potassium Chloride ER [K-Dur 10] 10 meq PO DAILY 10/30/21 10/30/21 History Vitamin B Complex 1 tab PO DAILY 10/30/21 10/30/21 History Vitamin E 400 unit PO DAILY 10/30/21 10/30/21 History hydrALAZINE HCL [Apresoline] 25 mg PO TID PRN 10/30/21 10/30/21 History Allergies Allergy/AdvReac Type Severity Reaction Status Date / Time Penicillins Allergy Unknown Dyspnea Verified 10/30/21 20:43 Physical Exam Osteopathic Statement: *. No significant issues noted on an osteopathic structural exam other than those noted in the History and Physical/Consult. Vitals: Vital Signs Temp Pulse Resp BP Pulse Ox 10/31/21 07:32 66 32 H 143/78 95 10/31/21 06:02 69 30 H 140/96 95 10/31/21 05:49 69 30 H 145/90 94 L 10/31/21 05:00 106 H 42 H 161/89 77 L 10/31/21 03:43 76 38 H 146/111 90 L 10/31/21 02:18 69 32 H 130/98 93 L 10/31/21 01:24 68 38 H 122/77 90 L 10/31/21 00:17 68 28 H 130/85 90 L 10/30/21 23:40 90 L 10/30/21 23:37 87 L 10/30/21 23:14 97.7 F 74 40 H 143/89 84 L 10/30/21 22:17 66 28 H 126/77 88 L 10/30/21 21:31 88 24 138/80 89 L 12/15/21 20:48 62 26 H 125/76 88 L 10/30/21 20:15 24 92/60 91 L 10/30/21 20:00 72 26 H 79/47 91 L 10/30/21 19:33 94 24 91/55 90 L 10/30/21 18:07 60 28 H 89 L 10/30/21 17:53 97.8 F 65 28 H 122/99 54 L Intake and Output 10/30/21 10/31/21 10/31/21 22:59 06:59 14:59 Intake Total 22.5 8.55 15.567 Balance 22.5 8.55 15.567 Intake: Intake, IV Titration 22.5 8.55 15.567 Amount Insulin Regular 100 unit 22.5 8.55 15.567 In Sodium Chloride 0.9% 100 ml @ Per Protocol IV .Q0M [facility], [facility]–1983 Rx#:[id number] Other: Weight 90.718 kg A bit somnolent, does arouse, BiPAP mask in place. The patient is a very poor historian. Saturations are 94%. HEENT examination is grossly unremarkable. Neck supple. Full range of motion. No adenopathy thyromegaly or neck vein distention. Cardiovascular examination reveals regular rhythm rate. S1-S2 normal. No S3 or S4. No discernible murmur noted. Heart rate 72 bpm. Lungs reveal scattered bilateral rhonchi. No wheezes or crackles. Breath soun ds equal bilaterally. She does not deep breaths. Abdomen soft bowel sounds are heard. No masses or tenderness. Extremities are intact. No cyanosis clubbing or edema. Skin is without rash or lesion. Neurologic examination is brief but nonfocal. Results - Laboratory Findings CBC and BMP: 10/31/21 03:56 10/31/21 03:56 PT/INR, D-dimer PT 94.2 sec (9.0-12.0) H 10/31/21 03:56 INR 9.6 (<1.2) H* 10/31/21 03:56 Abnormal lab findings: Abnormal Labs 10/30/21 10/30/21 10/30/21 18:21 18:21 18:21 Hct 46.1 H Lymphocytes # 0.3 L PT 129.6 H INR >10.0 H* APTT 68.2 H Sodium 129 L Chloride 92 L Carbon Dioxide 19 L BUN 81 H Creatinine 2.37 H Glucose 540 H* POC Glucose (mg/dL) Plasma Lactic Acid Sunny AST 71 H Troponin I Albumin 3.4 L Urine Appearance Urine Protein Urine Glucose (UA) Urine Blood Hyaline Casts Coronavirus (PCR) 10/30/21 10/30/21 10/30/21 18:21 18:21 18:21 Hct Lymphocytes # PT INR APTT Sodium Chloride Carbon Dioxide BUN Creatinine Glucose POC Glucose (mg/dL) Plasma Lactic Acid Sunny 4.8 H* AST Troponin I 0.052 H* Albumin Urine Appearance Urine Protein Urine Glucose (UA) Urine Blood Hyaline Casts Coronavirus (PCR) Detected A 10/30/21 10/30/21 10/30/21 20:04 20:29 20:49 Hct Lymphocytes # PT INR APTT Sodium Chloride Carbon Dioxide BUN Creatinine Glucose POC Glucose (mg/dL) 555 H 515 H Plasma Lactic Acid Sunny AST Troponin I Albumin Urine Appearance Cloudy H Urine Protein 2+ H Urine Glucose (UA) 1+ H Urine Blood Trace H Hyaline Casts 3 H Coronavirus (PCR) 10/30/21 10/30/21 10/30/21 21:29 21:49 22:20 Hct Lymphocytes # PT INR APTT Sodium Chloride Carbon Dioxide BUN Creatinine Glucose POC Glucose (mg/dL) 477 H 304 H Plasma Lactic Acid Sunny 2.5 H* AST Troponin I Albumin Urine Appearance Urine Protein Urine Glucose (UA) Urine Blood Hyaline Casts Coronavirus (PCR) 10/30/21 10/31/21 10/31/21 23:22 00:10 00:34 Hct Lymphocytes # PT INR APTT Sodium 132 L Chloride 97 L Carbon Dioxide BUN 87 H Creatinine 2.24 H Glucose 172 H POC Glucose (mg/dL) 193 H 178 H Plasma Lactic Acid Sunny AST Troponin I Albumin Urine Appearance Urine Protein Urine Glucose (UA) Urine Blood Hyaline Casts Coronavirus (PCR) 10/31/21 10/31/21 10/31/21 01:22 03:56 03:56 Hct Lymphocytes # 0.2 L PT INR APTT Sodium 133 L Chloride Carbon Dioxide BUN 84 H Creatinine 2.18 H Glucose 305 H POC Glucose (mg/dL) 211 H Plasma Lactic Acid Sunny AST Troponin I Albumin Urine Appearance Urine Protein Urine Glucose (UA) Urine Blood Hyaline Casts Coronavirus (PCR) 10/31/21 10/31/21 03:56 07:30 Hct Lymphocytes # PT 94.2 H INR 9.6 H* APTT Sodium Chloride Carbon Dioxide BUN Creatinine Glucose POC Glucose (mg/dL) 355 H Plasma Lactic Acid Sunny AST Troponin I Albumin Urine Appearance Urine Protein Urine Glucose (UA) Urine Blood Hyaline Casts Coronavirus (PCR) - Diagnostic Findings Chest x-ray: image reviewed Assessment and Plan Assessment: Acute hypoxemic respiratory failure, likely on the basis of coronavirus associated pneumonia. There may also be a component of fluid overload. History of atrial fibrillation. History of CHF. History of cardiomyopathy with an ejection fraction 20%. History of COPD from heavy tobacco use. Status post AICD. History of diabetes with diabetic neuropathy. Plan: Plan dated 10/31/2021. The patient's N-terminal proBNP was elevated 8540. The patient will have a pro- calcitonin level done as well. Currently, the patient is an albuterol inhaler, Decadron, and should be on vitamin C, vitamin D3, and zinc. The patient's also getting Symbicort. We will continue to follow make recommendations were appropriate. Prognosis is guarded. Initially, I did give the patient a bed in the intensive care unit. She may be down in the emergency room long enough, that she may not need an ICU bed after all. We will continue to follow. Prognosis is very guarded. Chest x-ray shows diffuse infiltrates. Insulin drip is resumed because of hyperglycemia. The patient has been seen by the primary service. Time with Patient: Greater than 30
[2021-10-31] MEDS: ALBUTEROL HFA INHALER INHALATION SCH ×4 (09:43→19:11)
[2021-10-31] MEDS: SYMBICORT 160-4.5 MCG INHALER INHALATION SCH ×2 (09:43→19:11)
[2021-10-31 10:01] LABS: Glucose,Whole Blood 323 mg/dL (75-99)
[2021-10-31] MEDS: DEXAMETHASONE SOD PHOSPHATE 10 MG/ML 1 ML VIAL IVP SCH (10:21)
[2021-10-31] MEDS: SODIUM CHLORIDE 0.9% 1,000 ML IV SCH ×2 (10:21→19:05)
[2021-10-31 11:03] LABS: Glucose,Whole Blood 260 mg/dL (75-99)
--- NOTE | 2021-10-31 11:03 | P.PN ---
Subjective Progress Note Date: 10/31/21 Patient is still on BiPAP no much history has been able to get Patient appears to have episodes of tachypnea Sleepy No much history Psych sleepy Chest no respiratory message apparent usage as this time although episodes of tachypnea Abdomen no upper and distention Generalized weakness mostly skeletal Heart Neuro generalized weakness OVID-19 pneumonia with acute hypoxic respiratory failure -Continue Decadron -Zinc, vitamin C, vitamin D, melatonin -Pulmonary consult -Obtain pro-calcitonin level Diabetic ketoacidosis -Continue with insulin infusion for now -Monitor blood glucose q 30 minutes -Monitor electrolytes -Check A1C -Judicious use of IVFs due to significant hx of CHF Acute on chronic kidney disease -Likely due to ongoing DKA and COVID Pneumonia -Judicious use of IV fluids Troponin elevation, likely demand ischemia -Trend troponin -Cardiac monitoring Supratherapeutic INR -S/p 5 mg PO Vit K -Monitor for now Patient continued to be tachypneic and having hypoxia continue patient on BiPAP awaiting ICU bed Chronic conditions: COPD, HTN, HLD -C/w home meds DVT prophylaxis Objective - Vital Signs Vital signs: Vital Signs Temp 97.7 F 10/30/21 23:14 Pulse 57 L 10/31/21 09:55 Resp 18 10/31/21 09:55 BP 116/88 10/31/21 09:55 Pulse Ox 95 10/31/21 09:55 Intake & Output 10/30/21 10/31/21 10/31/21 18:59 06:59 18:59 Intake Total 31.05 26.784 Output Total 350 Balance 31.05 -323.216 Weight 90.718 kg Intake: Intake, IV Titration 31.05 26.784 Amount Insulin Regular 100 unit 31.05 26.784 In Sodium Chloride 0.9% 100 ml @ Per Protocol IV .Q0M [facility] Rx#:[id number] Output: Urine 350 - Labs CBC & Chem 7: 10/31/21 03:56 10/31/21 03:56 Labs: Abnormal Lab Results - Last 24 Hours (Table) 10/30/21 10/30/21 10/30/21 Range/Units 18:21 18:21 18:21 Hct 46.1 H (34.0-46.0) % Lymphocytes # 0.3 L (1.0-4.8) k/uL PT 129.6 H (9.0-12.0) sec INR >10.0 H* (<1.2) APTT 68.2 H (22.0-30.0) sec Sodium 129 L (137-145) mmol/L Chloride 92 L (98-107) mmol/L Carbon Dioxide 19 L (22-30) mmol/L BUN 81 H (7-17) mg/dL Creatinine 2.37 H (0.52-1.04) mg/dL Glucose 540 H* (74-99) mg/dL POC Glucose (mg/dL) (75-99) mg/dL Plasma Lactic Acid Sunny (0.7-2.0) mmol/L AST 71 H (14-36) U/L Troponin I (0.000-0.034) ng/mL Albumin 3.4 L (3.5-5.0) g/dL Urine Appearance (Clear) Urine Protein (Negative) Urine Glucose (UA) (Negative) Urine Blood (Negative) Hyaline Casts (0-2) /lpf Coronavirus (PCR) (Not Detectd) 10/30/21 10/30/21 10/30/21 Range/Units 18:21 18:21 18:21 Hct (34.0-46.0) % Lymphocytes # (1.0-4.8) k/uL PT (9.0-12.0) sec INR (<1.2) APTT (22.0-30.0) sec Sodium (137-145) mmol/L Chloride (98-107) mmol/L Carbon Dioxide (22-30) mmol/L BUN (7-17) mg/dL Creatinine (0.52-1.04) mg/dL Glucose (74-99) mg/dL POC Glucose (mg/dL) (75-99) mg/dL Plasma Lactic Acid Sunny 4.8 H* (0.7-2.0) mmol/L AST (14-36) U/L Troponin I 0.052 H* (0.000-0.034) ng/mL Albumin (3.5-5.0) g/dL Urine Appearance (Clear) Urine Protein (Negative) Urine Glucose (UA) (Negative) Urine Blood (Negative) Hyaline Casts (0-2) /lpf Coronavirus (PCR) Detected A (Not Detectd) 10/30/21 10/30/21 10/30/21 Range/Units 20:04 20:29 20:49 Hct (34.0-46.0) % Lymphocytes # (1.0-4.8) k/uL PT (9.0-12.0) sec INR (<1.2) APTT (22.0-30.0) sec Sodium (137-145) mmol/L Chloride (98-107) mmol/L Carbon Dioxide (22-30) mmol/L BUN (7-17) mg/dL Creatinine (0.52-1.04) mg/dL Glucose (74-99) mg/dL POC Glucose (mg/dL) 555 H 515 H (75-99) mg/dL Plasma Lactic Acid Sunny (0.7-2.0) mmol/L AST (14-36) U/L Troponin I (0.000-0.034) ng/mL Albumin (3.5-5.0) g/dL Urine Appearance Cloudy H (Clear) Urine Protein 2+ H (Negative) Urine Glucose (UA) 1+ H (Negative) Urine Blood Trace H (Negative) Hyaline Casts 3 H (0-2) /lpf Coronavirus (PCR) (Not Detectd) 10/30/21 10/30/21 10/30/21 Range/Units 21:29 21:49 22:20 Hct (34.0-46.0) % Lymphocytes # (1.0-4.8) k/uL PT (9.0-12.0) sec INR (<1.2) APTT (22.0-30.0) sec Sodium (137-145) mmol/L Chloride (98-107) mmol/L Carbon Dioxide (22-30) mmol/L BUN (7-17) mg/dL Creatinine (0.52-1.04) mg/dL Glucose (74-99) mg/dL POC Glucose (mg/dL) 477 H 304 H (75-99) mg/dL Plasma Lactic Acid Sunny 2.5 H* (0.7-2.0) mmol/L AST (14-36) U/L Troponin I (0.000-0.034) ng/mL Albumin (3.5-5.0) g/dL Urine Appearance (Clear) Urine Protein (Negative) Urine Glucose (UA) (Negative) Urine Blood (Negative) Hyaline Casts (0-2) /lpf Coronavirus (PCR) (Not Detectd) 10/30/21 10/31/21 10/31/21 Range/Units 23:22 00:10 00:34 Hct (34.0-46.0) % Lymphocytes # (1.0-4.8) k/uL PT (9.0-12.0) sec INR (<1.2) APTT (22.0-30.0) sec Sodium 132 L (137-145) mmol/L Chloride 97 L (98-107) mmol/L Carbon Dioxide (22-30) mmol/L BUN 87 H (7-17) mg/dL Creatinine 2.24 H (0.52-1.04) mg/dL Glucose 172 H (74-99) mg/dL POC Glucose (mg/dL) 193 H 178 H (75-99) mg/dL Plasma Lactic Acid Sunny (0.7-2.0) mmol/L AST (14-36) U/L Troponin I (0.000-0.034) ng/mL Albumin (3.5-5.0) g/dL Urine Appearance (Clear) Urine Protein (Negative) Urine Glucose (UA) (Negative) Urine Blood (Negative) Hyaline Casts (0-2) /lpf Coronavirus (PCR) (Not Detectd) 10/31/21 10/31/21 10/31/21 Range/Units 01:22 03:56 03:56 Hct (34.0-46.0) % Lymphocytes # 0.2 L (1.0-4.8) k/uL PT (9.0-12.0) sec INR (<1.2) APTT (22.0-30.0) sec Sodium 133 L (137-145) mmol/L Chloride (98-107) mmol/L Carbon Dioxide (22-30) mmol/L BUN 84 H (7-17) mg/dL Creatinine 2.18 H (0.52-1.04) mg/dL Glucose 305 H (74-99) mg/dL POC Glucose (mg/dL) 211 H (75-99) mg/dL Plasma Lactic Acid Sunny (0.7-2.0) mmol/L AST (14-36) U/L Troponin I (0.000-0.034) ng/mL Albumin (3.5-5.0) g/dL Urine Appearance (Clear) Urine Protein (Negative) Urine Glucose (UA) (Negative) Urine Blood (Negative) Hyaline Casts (0-2) /lpf Coronavirus (PCR) (Not Detectd) 10/31/21 10/31/21 10/31/21 Range/Units 03:56 07:30 09:01 Hct (34.0-46.0) % Lymphocytes # (1.0-4.8) k/uL PT 94.2 H (9.0-12.0) sec INR 9.6 H* (<1.2) APTT (22.0-30.0) sec Sodium (137-145) mmol/L Chloride (98-107) mmol/L Carbon Dioxide (22-30) mmol/L BUN (7-17) mg/dL Creatinine (0.52-1.04) mg/dL Glucose (74-99) mg/dL POC Glucose (mg/dL) 355 H 373 H (75-99) mg/dL Plasma Lactic Acid Sunny (0.7-2.0) mmol/L AST (14-36) U/L Troponin I (0.000-0.034) ng/mL Albumin (3.5-5.0) g/dL Urine Appearance (Clear) Urine Protein (Negative) Urine Glucose (UA) (Negative) Urine Blood (Negative) Hyaline Casts (0-2) /lpf Coronavirus (PCR) (Not Detectd) 10/31/21 Range/Units 09:53 Hct (34.0-46.0) % Lymphocytes # (1.0-4.8) k/uL PT (9.0-12.0) sec INR (<1.2) APTT (22.0-30.0) sec Sodium (137-145) mmol/L Chloride (98-107) mmol/L Carbon Dioxide (22-30) mmol/L BUN (7-17) mg/dL Creatinine (0.52-1.04) mg/dL Glucose (74-99) mg/dL POC Glucose (mg/dL) 323 H (75-99) mg/dL Plasma Lactic Acid Sunny (0.7-2.0) mmol/L AST (14-36) U/L Troponin I (0.000-0.034) ng/mL Albumin (3.5-5.0) g/dL Urine Appearance (Clear) Urine Protein (Negative) Urine Glucose (UA) (Negative) Urine Blood (Negative) Hyaline Casts (0-2) /lpf Coronavirus (PCR) (Not Detectd)
[2021-10-31 12:00] LABS: Glucose,Whole Blood 199 mg/dL (75-99)
[2021-10-31 12:57] LABS: Glucose,Whole Blood 166 mg/dL (75-99)
[2021-10-31 14:22] LABS: Glucose,Whole Blood 158 mg/dL (75-99)
[2021-10-31 15:12] LABS: Glucose,Whole Blood 173 mg/dL (75-99)
[2021-10-31 16:23] LABS: Glucose,Whole Blood 180 mg/dL (75-99)
[2021-10-31 17:11] LABS: Glucose,Whole Blood 213 mg/dL (75-99)
[2021-10-31 18:32] LABS: Glucose,Whole Blood 162 mg/dL (75-99)
[2021-10-31 19:09] LABS: Glucose,Whole Blood 169 mg/dL (75-99)
[2021-10-31 20:24] LABS: Glucose,Whole Blood 187 mg/dL (75-99)
[2021-10-31 21:30] LABS: Glucose,Whole Blood 196 mg/dL (75-99)
[2021-10-31] MEDS: INSULIN REGULAR 100 UNIT in SODIUM CHLORIDE 0.9% 100 ML IV SCH (22:13)
[2021-10-31] MEDS: ASPIRIN 81 MG PO SCH (22:16)
[2021-10-31 22:22] LABS: Glucose,Whole Blood 202 mg/dL (75-99)
[2021-10-31 23:20] LABS: Glucose,Whole Blood 188 mg/dL (75-99)
[2021-11-01 00:31] LABS: Glucose,Whole Blood 163 mg/dL (75-99)
[2021-11-01 01:05] LABS: Glucose,Whole Blood 143 mg/dL (75-99)
[2021-11-01 01:54] LABS: Glucose,Whole Blood 135 mg/dL (75-99)
[2021-11-01 03:02] LABS: Glucose,Whole Blood 144 mg/dL (75-99)
[2021-11-01 03:56] LABS: Basophils # (A) 0.1 k/uL (0-0.2); Basophils % (A) 1 %; Eosinophils % (A) 0 %; HCT 42.3 % (34.0-46.0); HGB 13.8 gm/dL (11.4-16.0); Lymphocytes # (A) 0.2 k/uL (1.0-4.8); Lymphocytes % (A) 3 %; MCH 31.4 pg (25.0-35.0); MCHC 32.7 g/dL (31.0-37.0); MCV 95.9 fL (80.0-100.0); Mean Platelet Volume 8.3; Monocytes # (A) 0.2 k/uL (0-1.0); Monocytes % (A) 2 %; Neutrophils # (A) 6.6 k/uL (1.3-7.7); Neutrophils % (A) 92 %; Platelet Count 183 k/uL (150-450); RBC 4.41 m/uL (3.80-5.40); RDW 14.2 % (11.5-15.5); WBC 7.2 k/uL (3.8-10.6)
[2021-11-01 04:04] LABS: Glucose,Whole Blood 158 mg/dL (75-99)
[2021-11-01 04:14] LABS: INR 3.3 (<1.2); Prothrombin Time 31.6 sec (9.0-12.0)
[2021-11-01 04:26] LABS: Calcium 9.6 mg/dL (8.4-10.2); Potassium 4.7 mmol/L (3.5-5.1); Total Bilirubin 0.6 mg/dL (0.2-1.3); Total Protein 6.3 g/dL (6.3-8.2)
[2021-11-01 05:14] LABS: Glucose,Whole Blood 154 mg/dL (75-99)
[2021-11-01 05:14] LABS: Glucose,Whole Blood 54 mg/dL (75-99)
[2021-11-01 06:01] LABS: Glucose,Whole Blood 161 mg/dL (75-99)
[2021-11-01] MEDS: LEVOTHYROXINE 50 MCG TAB PO SCH (06:09)
[2021-11-01] MEDS: HYDROcodone/APAP 7.5-325MG 1 EACH TAB PO PRN ×2 (06:09→16:45)
--- NOTE | 2021-11-01 06:14 | XR ---
EXAMINATION TYPE: XR chest 1V DATE OF EXAM: 11/01/2021 CLINICAL HISTORY: Difficulty breathing progress study. TECHNIQUE: Single AP portable upright view of the chest is obtained. COMPARISON: Chest x-ray from 2 days earlier and older studies. FINDINGS: Bilateral multifocal increased opacities more prominent in the right lung redemonstrated. Stable cardiomegaly with dual-lead pacemaker/defibrillator. Osseous structures are intact. IMPRESSION: Right greater than left bilateral multifocal opacities consistent with covid-19 infection are redemonstrated. No significant change from most recent x-ray.
[2021-11-01 07:03] LABS: Glucose,Whole Blood 177 mg/dL (75-99)
[2021-11-01] MEDS: ALBUTEROL HFA INHALER INHALATION SCH ×4 (07:45→19:27)
[2021-11-01] MEDS: SYMBICORT 160-4.5 MCG INHALER INHALATION SCH ×2 (07:46→19:27)
[2021-11-01 08:23] LABS: Glucose,Whole Blood 165 mg/dL (75-99)
[2021-11-01 09:14] LABS: Glucose,Whole Blood 172 mg/dL (75-99)
[2021-11-01] MEDS: ASCORBIC ACID 500 MG TAB PO SCH (09:32)
[2021-11-01] MEDS: CHOLECALCIFEROL 25 MCG (1000 IU) TABLET PO SCH (09:32)
[2021-11-01] MEDS: AMIODARONE 200 MG TAB PO SCH (09:32)
[2021-11-01] MEDS: ZINC SULFATE 220 MG CAP PO SCH (09:32)
[2021-11-01] MEDS: METOPROLOL TARTRATE 50 MG TAB PO SCH ×3 (09:32→21:07)
[2021-11-01] MEDS: POTASSIUM CHLORIDE ER 10 MEQ TAB.ER.PRT PO SCH (09:33)
[2021-11-01] MEDS: DEXAMETHASONE SOD PHOSPHATE 10 MG/ML 1 ML VIAL IVP SCH (09:33)
[2021-11-01] MEDS: MONTELUKAST 10 MG TAB PO SCH (09:33)
--- NOTE | 2021-11-01 10:06 | P.PN ---
Subjective Progress Note Date: 11/01/21 Principal diagnosis: Respiratory failure. Pulmonary/critical care consultation dated 10/31/2021. 66-year-old female, seen down in the emergency room, room 8. Currently, she is on BiPAP at 12/6 and 100%. She's getting saline at 50 mL an hour. We are resuming the insulin drip because of elevated blood sugars. This is a 66 yo unvaccinated female who comes into the emergency department complaining of at least a week and maybe longer complaints of shortness of breath. She is also very weak. Poor oral intake. Not a very good historian. The patient apparently has a history of atrial fibrillation, CHF, diabetes, COPD, status post AICD placement, and cardiomyopathy with an ejection fraction of about 20%. White count is 6.6, he will been 14.1, hematocrit 42.1, platelet count is 179,000. PTT was 94.2 with a INR of 9.6. Sodium 133, potassium 4.9, chlorides 98, CO2 24, anion gap 11, BUN 84, with a creatinine of 2.18. Troponin was 0.031. Lactic acid 1.6. Chest x-ray shows diffuse bilateral infiltrates, which might be consistent with coronavirus associated pneumonia and/or fluid overload. Progress note dated 11/01/2021. 66-year-old female, seen yesterday in consultation, in the emergency room. Currently, the patient is in the intensive care unit, in room 265. She remains on BiPAP, with settings of IPAP 12, EPAP 6, and 90% FiO2. The patient's getting saline at 50 mL an hour, and she is on an insulin drip at 1.5 units an hour, for hyperglycemia. White count of 7.2, hemoglobin 13.8, hematocrit 42.3, and platelet count 183,000. The patient's PTT is 31.6 with an INR 3.3. Sodium 139, potassium 4.7, chlorides 15, CO2 24, anion gap 10, BUN 84, and creatinine 1.55. Chest x-ray shows bilateral, right greater than left, multifocal opacities consistent with coronavirus associated pneumonia. The patient is on albuterol inhaler, Symbicort, vitamin C, vitamin D3, zinc, Decadron, and was previously on Coumadin. Objective - Vital Signs Vital signs: Vital Signs Temp 98.1 F 11/01/21 08:00 Pulse 57 L 11/01/21 09:00 Resp 25 H 11/01/21 09:00 BP 115/76 11/01/21 09:00 Pulse Ox 95 11/01/21 09:00 Intake & Output 10/31/21 11/01/21 11/01/21 18:59 06:59 18:59 Intake Total 54.584 474.458 58.358 Output Total 550 2025 125 Balance -495.416 -1550.542 -66.642 Weight 90.718 kg 112.2 kg Intake: IV 250 50 Sodium Chloride 0.9% 1, 250 50 000 ml @ 50 mls/hr IV . Q20H JEFF Rx#:[id number] Intake, IV Titration 54.584 24.458 8.358 Amount Insulin Regular 100 unit 54.584 24.458 8.358 In Sodium Chloride 0.9% 100 ml @ Per Protocol IV .Q0M JEFF Rx#:[id number] Oral 200 Output: Urine 550 2025 125 Other: Voiding Method Indwelling Catheter Indwelling Catheter - Exam The patient is much more awake today, and is able to respond appropriately. She remains on BiPAP as mentioned above. She appears not to have much in the way of respiratory distress. HEENT examination is grossly unremarkable. Neck supple. Full range of motion. No adenopathy thyromegaly or neck vein distention. Cardiovascular examination reveals regular rhythm rate. S1-S2 normal. No S3 or S4. No discernible murmur noted. Heart rate 57 bpm. Lungs reveal scattered bilateral rhonchi. No wheezes or crackles. Breath sounds equal bilaterally. She does not deep breaths. Saturations are 95%. Abdomen soft bowel sounds are heard. No masses or tenderness. Extremities are intact. No cyanosis clubbing or edema. Skin is without rash or lesion. Neurologic examination is brief but nonfocal. - Labs CBC & Chem 7: 11/01/21 03:27 11/01/21 03:27 Labs: Abnormal Lab Results - Last 24 Hours (Table) 10/31/21 10/31/21 10/31/21 Range/Units 00:34 09:53 11:01 Lymphocytes # (1.0-4.8) k/uL PT (9.0-12.0) sec INR (<1.2) BUN (7-17) mg/dL Creatinine (0.52-1.04) mg/dL Glucose (74-99) mg/dL POC Glucose (mg/dL) 323 H 260 H (75-99) mg/dL AST (14-36) U/L Alkaline Phosphatase (38-126) U/L Albumin (3.5-5.0) g/dL Procalcitonin 0.38 H (0.02-0.09) ng/mL 10/31/21 10/31/21 10/31/21 Range/Units 11:54 12:53 14:15 Lymphocytes # (1.0-4.8) k/uL PT (9.0-12.0) sec INR (<1.2) BUN (7-17) mg/dL Creatinine (0.52-1.04) mg/dL Glucose (74-99) mg/dL POC Glucose (mg/dL) 199 H 166 H 158 H (75-99) mg/dL AST (14-36) U/L Alkaline Phosphatase (38-126) U/L Albumin (3.5-5.0) g/dL Procalcitonin (0.02-0.09) ng/mL 10/31/21 10/31/21 10/31/21 Range/Units 15:02 16:18 17:02 Lymphocytes # (1.0-4.8) k/uL PT (9.0-12.0) sec INR (<1.2) BUN (7-17) mg/dL Creatinine (0.52-1.04) mg/dL Glucose (74-99) mg/dL POC Glucose (mg/dL) 173 H 180 H 213 H (75-99) mg/dL AST (14-36) U/L Alkaline Phosphatase (38-126) U/L Albumin (3.5-5.0) g/dL Procalcitonin (0.02-0.09) ng/mL 10/31/21 10/31/21 10/31/21 Range/Units 18:22 18:58 20:22 Lymphocytes # (1.0-4.8) k/uL PT (9.0-12.0) sec INR (<1.2) BUN (7-17) mg/dL Creatinine (0.52-1.04) mg/dL Glucose (74-99) mg/dL POC Glucose (mg/dL) 162 H 169 H 187 H (75-99) mg/dL AST (14-36) U/L Alkaline Phosphatase (38-126) U/L Albumin (3.5-5.0) g/dL Procalcitonin (0.02-0.09) ng/mL 10/31/21 10/31/21 10/31/21 Range/Units 21:18 22:11 23:00 Lymphocytes # (1.0-4.8) k/uL PT (9.0-12.0) sec INR (<1.2) BUN (7-17) mg/dL Creatinine (0.52-1.04) mg/dL Glucose (74-99) mg/dL POC Glucose (mg/dL) 196 H 202 H 188 H (75-99) mg/dL AST (14-36) U/L Alkaline Phosphatase (38-126) U/L Albumin (3.5-5.0) g/dL Procalcitonin (0.02-0.09) ng/mL 11/01/21 11/01/21 11/01/21 Range/Units 00:20 01:03 01:52 Lymphocytes # (1.0-4.8) k/uL PT (9.0-12.0) sec INR (<1.2) BUN (7-17) mg/dL Creatinine (0.52-1.04) mg/dL Glucose (74-99) mg/dL POC Glucose (mg/dL) 163 H 143 H 135 H (75-99) mg/dL AST (14-36) U/L Alkaline Phosphatase (38-126) U/L Albumin (3.5-5.0) g/dL Procalcitonin (0.02-0.09) ng/mL 11/01/21 11/01/21 11/01/21 Range/Units 03:00 03:27 03:27 Lymphocytes # 0.2 L (1.0-4.8) k/uL PT (9.0-12.0) sec INR (<1.2) BUN 84 H (7-17) mg/dL Creatinine 1.55 H (0.52-1.04) mg/dL Glucose 148 H (74-99) mg/dL POC Glucose (mg/dL) 144 H (75-99) mg/dL AST 115 H (14-36) U/L Alkaline Phosphatase 130 H (38-126) U/L Albumin 3.0 L (3.5-5.0) g/dL Procalcitonin (0.02-0.09) ng/mL 11/01/21 11/01/21 11/01/21 Range/Units 03:27 04:01 05:00 Lymphocytes # (1.0-4.8) k/uL PT 31.6 H (9.0-12.0) sec INR 3.3 H (<1.2) BUN (7-17) mg/dL Creatinine (0.52-1.04) mg/dL Glucose (74-99) mg/dL POC Glucose (mg/dL) 158 H 54 L (75-99) mg/dL AST (14-36) U/L Alkaline Phosphatase (38-126) U/L Albumin (3.5-5.0) g/dL Procalcitonin (0.02-0.09) ng/mL 11/01/21 11/01/21 11/01/21 Range/Units 05:03 06:00 07:01 Lymphocytes # (1.0-4.8) k/uL PT (9.0-12.0) sec INR (<1.2) BUN (7-17) mg/dL Creatinine (0.52-1.04) mg/dL Glucose (74-99) mg/dL POC Glucose (mg/dL) 154 H 161 H 177 H (75-99) mg/dL AST (14-36) U/L Alkaline Phosphatase (38-126) U/L Albumin (3.5-5.0) g/dL Procalcitonin (0.02-0.09) ng/mL 11/01/21 11/01/21 Range/Units 08:20 09:13 Lymphocytes # (1.0-4.8) k/uL PT (9.0-12.0) sec INR (<1.2) BUN (7-17) mg/dL Creatinine (0.52-1.04) mg/dL Glucose (74-99) mg/dL POC Glucose (mg/dL) 165 H 172 H (75-99) mg/dL AST (14-36) U/L Alkaline Phosphatase (38-126) U/L Albumin (3.5-5.0) g/dL Procalcitonin (0.02-0.09) ng/mL Assessment and Plan Assessment: Acute hypoxemic respiratory failure, likely on the basis of coronavirus associated pneumonia. There may also be a component of fluid overload. History of atrial fibrillation. Coumadin induced coagulopathy, improved. History of CHF. History of cardiomyopathy with an ejection fraction 20%. History of COPD from heavy tobacco use. Status post AICD. History of diabetes with diabetic neuropathy. Plan: Plan dated 10/31/2021. The patient's N-terminal proBNP was elevated 8540. The patient will have a pro- calcitonin level done as well. Currently, the patient is an albuterol inhaler, Decadron, and should be on vitamin C, vitamin D3, and zinc. The patient's also getting Symbicort. We will continue to follow make recommendations were appropriate. Prognosis is guarded. Initially, I did give the patient a bed in the intensive care unit. She may be down in the emergency room long enough, that she may not need an ICU bed after all. We will continue to follow. Prognosis is very guarded. Chest x-ray shows diffuse infiltrates. Insulin drip is resumed because of hyperglycemia. The patient has been seen by the primary service. Plan dated 11/01/2021. The patient is currently on Decadron, and vitamins. The patient's also on albuterol, and Symbicort. We will continue to follow make recommendations where appropriate. The patient has not been dosed with Coumadin, because she came in with the Coumadin induced coagulopathy. She is almost therapeutic at this time. We will continue to follow make recommendations where appropriate. The patient was finally transferred up to the ICU. She remains on BiPAP at 12/6 and 90%. She's also getting insulin at 1.5 units an hour. Additional recommendations and suggestions are forthcoming. Prognosis is guarded. Time with Patient: Greater than 30
[2021-11-01 10:12] LABS: Glucose,Whole Blood 161 mg/dL (75-99)
--- NOTE | 2021-11-01 10:36 | P.PN ---
Subjective Progress Note Date: 11/01/21 Principal diagnosis: Patient is still on BiPAP no much history has been able to get Overall appears to be better less episodes of tachypnea More awake today no shortness of breath No much history Psych sleepy Chest no respiratory message apparent usage as this time although episodes of tachypnea Abdomen no upper and distention Generalized weakness mostly skeletal Heart Neuro generalized weakness OVID-19 pneumonia with acute hypoxic respiratory failure -Continue Decadron -Zinc, vitamin C, vitamin D, melatonin -Pulmonary consult -Obtain pro-calcitonin level Diabetic ketoacidosis -Continue with insulin infusion for now -Monitor blood glucose q 30 minutes -Monitor electrolytes -Check A1C -Judicious use of IVFs due to significant hx of CHF Acute on chronic kidney disease -Likely due to ongoing DKA and COVID Pneumonia -Judicious use of IV fluids Troponin elevation, likely demand ischemia -Trend troponin -Cardiac monitoring Supratherapeutic INR -S/p 5 mg PO Vit K -Monitor for now Patient continued to be tachypneic and having hypoxia continue patient on BiPAP awaiting ICU bed Chronic conditions: COPD, HTN, HLD -C/w home meds Overall improving continue a shunt on BiPAP continue management as per ICU team DVT prophylaxis Objective - Vital Signs Vital signs: Vital Signs Temp 98.1 F 11/01/21 08:00 Pulse 57 L 11/01/21 09:00 Resp 25 H 11/01/21 09:00 BP 115/76 11/01/21 09:00 Pulse Ox 95 11/01/21 09:00 Intake & Output 10/31/21 11/01/21 11/01/21 18:59 06:59 18:59 Intake Total 54.584 474.458 58.358 Output Total 550 2024 125 Balance -495.416 -1550.542 -66.642 Weight 90.718 kg 112.2 kg Intake: IV 250 50 Sodium Chloride 0.9% 1, 250 50 000 ml @ 50 mls/hr IV . Q20H [facility] Rx#:[id number] Intake, IV Titration 54.584 24.458 8.358 Amount Insulin Regular 100 unit 54.584 24.458 8.358 In Sodium Chloride 0.9% 100 ml @ Per Protocol IV .Q0M JEFF Rx#:[id number] Oral 200 Output: Urine 550 2024 125 Other: Voiding Method Indwelling Catheter Indwelling Catheter - Labs CBC & Chem 7: 11/01/21 03:27 11/01/21 03:27 Labs: Abnormal Lab Results - Last 24 Hours (Table) 10/31/21 10/31/21 10/31/21 Range/Units 00:34 11:01 11:54 Lymphocytes # (1.0-4.8) k/uL PT (9.0-12.0) sec INR (<1.2) BUN (7-17) mg/dL Creatinine (0.52-1.04) mg/dL Glucose (74-99) mg/dL POC Glucose (mg/dL) 260 H 199 H (75-99) mg/dL AST (14-36) U/L Alkaline Phosphatase (38-126) U/L Albumin (3.5-5.0) g/dL Procalcitonin 0.38 H (0.02-0.09) ng/mL 10/31/21 10/31/21 10/31/21 Range/Units 12:53 14:15 15:02 Lymphocytes # (1.0-4.8) k/uL PT (9.0-12.0) sec INR (<1.2) BUN (7-17) mg/dL Creatinine (0.52-1.04) mg/dL Glucose (74-99) mg/dL POC Glucose (mg/dL) 166 H 158 H 173 H (75-99) mg/dL AST (14-36) U/L Alkaline Phosphatase (38-126) U/L Albumin (3.5-5.0) g/dL Procalcitonin (0.02-0.09) ng/mL 10/31/21 10/31/21 10/31/21 Range/Units 16:18 17:02 18:22 Lymphocytes # (1.0-4.8) k/uL PT (9.0-12.0) sec INR (<1.2) BUN (7-17) mg/dL Creatinine (0.52-1.04) mg/dL Glucose (74-99) mg/dL POC Glucose (mg/dL) 180 H 213 H 162 H (75-99) mg/dL AST (14-36) U/L Alkaline Phosphatase (38-126) U/L Albumin (3.5-5.0) g/dL Procalcitonin (0.02-0.09) ng/mL 10/31/21 10/31/21 10/31/21 Range/Units 18:58 20:22 21:18 Lymphocytes # (1.0-4.8) k/uL PT (9.0-12.0) sec INR (<1.2) BUN (7-17) mg/dL Creatinine (0.52-1.04) mg/dL Glucose (74-99) mg/dL POC Glucose (mg/dL) 169 H 187 H 196 H (75-99) mg/dL AST (14-36) U/L Alkaline Phosphatase (38-126) U/L Albumin (3.5-5.0) g/dL Procalcitonin (0.02-0.09) ng/mL 10/31/21 10/31/21 11/01/21 Range/Units 22:11 23:00 00:20 Lymphocytes # (1.0-4.8) k/uL PT (9.0-12.0) sec INR (<1.2) BUN (7-17) mg/dL Creatinine (0.52-1.04) mg/dL Glucose (74-99) mg/dL POC Glucose (mg/dL) 202 H 188 H 163 H (75-99) mg/dL AST (14-36) U/L Alkaline Phosphatase (38-126) U/L Albumin (3.5-5.0) g/dL Procalcitonin (0.02-0.09) ng/mL 11/01/21 11/01/21 11/01/21 Range/Units 01:03 01:52 03:00 Lymphocytes # (1.0-4.8) k/uL PT (9.0-12.0) sec INR (<1.2) BUN (7-17) mg/dL Creatinine (0.52-1.04) mg/dL Glucose (74-99) mg/dL POC Glucose (mg/dL) 143 H 135 H 144 H (75-99) mg/dL AST (14-36) U/L Alkaline Phosphatase (38-126) U/L Albumin (3.5-5.0) g/dL Procalcitonin (0.02-0.09) ng/mL 11/01/21 11/01/2121 Range/Units 03:27 03:27 03:27 Lymphocytes # 0.2 L (1.0-4.8) k/uL PT 31.6 H (9.0-12.0) sec INR 3.3 H (<1.2) BUN 84 H (7-17) mg/dL Creatinine 1.55 H (0.52-1.04) mg/dL Glucose 148 H (74-99) mg/dL POC Glucose (mg/dL) (75-99) mg/dL AST 115 H (14-36) U/L Alkaline Phosphatase 130 H (38-126) U/L Albumin 3.0 L (3.5-5.0) g/dL Procalcitonin (0.02-0.09) ng/mL 11/01/21 11/01/21 11/01/21 Range/Units 04:01 05:00 05:03 Lymphocytes # (1.0-4.8) k/uL PT (9.0-12.0) sec INR (<1.2) BUN (7-17) mg/dL Creatinine (0.52-1.04) mg/dL Glucose (74-99) mg/dL POC Glucose (mg/dL) 158 H 54 L 154 H (75-99) mg/dL AST (14-36) U/L Alkaline Phosphatase (38-126) U/L Albumin (3.5-5.0) g/dL Procalcitonin (0.02-0.09) ng/mL 11/01/21 11/01/21 11/01/21 Range/Units 06:00 07:01 08:20 Lymphocytes # (1.0-4.8) k/uL PT (9.0-12.0) sec INR (<1.2) BUN (7-17) mg/dL Creatinine (0.52-1.04) mg/dL Glucose (74-99) mg/dL POC Glucose (mg/dL) 161 H 177 H 165 H (75-99) mg/dL AST (14-36) U/L Alkaline Phosphatase (38-126) U/L Albumin (3.5-5.0) g/dL Procalcitonin (0.02-0.09) ng/mL 11/01/21 11/01/21 Range/Units 09:13 10:10 Lymphocytes # (1.0-4.8) k/uL PT (9.0-12.0) sec INR (<1.2) BUN (7-17) mg/dL Creatinine (0.52-1.04) mg/dL Glucose (74-99) mg/dL POC Glucose (mg/dL) 172 H 161 H (75-99) mg/dL AST (14-36) U/L Alkaline Phosphatase (38-126) U/L Albumin (3.5-5.0) g/dL Procalcitonin (0.02-0.09) ng/mL
[2021-11-01 11:13] LABS: Glucose,Whole Blood 167 mg/dL (75-99)
[2021-11-01 12:10] LABS: Glucose,Whole Blood 189 mg/dL (75-99)
[2021-11-01 13:12] LABS: Glucose,Whole Blood 175 mg/dL (75-99)
[2021-11-01 14:08] LABS: Glucose,Whole Blood 185 mg/dL (75-99)
[2021-11-01 15:00] LABS: Glucose,Whole Blood 180 mg/dL (75-99)
[2021-11-01 16:18] LABS: Glucose,Whole Blood 160 mg/dL (75-99)
[2021-11-01 17:03] LABS: Glucose,Whole Blood 167 mg/dL (75-99)
[2021-11-01 18:16] LABS: Glucose,Whole Blood 172 mg/dL (75-99)
[2021-11-01 18:58] LABS: Glucose,Whole Blood 177 mg/dL (75-99)
[2021-11-01 20:00] LABS: Glucose,Whole Blood 164 mg/dL (75-99)
[2021-11-01 20:58] LABS: Glucose,Whole Blood 171 mg/dL (75-99)
[2021-11-01] MEDS: ASPIRIN 81 MG PO SCH (21:07)
[2021-11-01 22:01] LABS: Glucose,Whole Blood 157 mg/dL (75-99)
[2021-11-01 22:58] LABS: Glucose,Whole Blood 150 mg/dL (75-99)
[2021-11-02 00:01] LABS: Glucose,Whole Blood 141 mg/dL (75-99)
[2021-11-02 01:00] LABS: Glucose,Whole Blood 161 mg/dL (75-99)
[2021-11-02] MEDS: SODIUM CHLORIDE 0.9% 1,000 ML IV SCH (01:25)
[2021-11-02 02:11] LABS: Glucose,Whole Blood 163 mg/dL (75-99)
[2021-11-02 02:59] LABS: Glucose,Whole Blood 150 mg/dL (75-99)
[2021-11-02] MEDS: HYDROcodone/APAP 7.5-325MG 1 EACH TAB PO PRN (03:27)
[2021-11-02 03:44] LABS: Basophils # (A) 0.1 k/uL (0-0.2); Basophils % (A) 1 %; Eosinophils % (A) 0 %; HCT 44.7 % (34.0-46.0); HGB 14.7 gm/dL (11.4-16.0); Lymphocytes # (A) 0.1 k/uL (1.0-4.8); Lymphocytes % (A) 2 %; MCH 31.9 pg (25.0-35.0); MCHC 32.9 g/dL (31.0-37.0); Mean Platelet Volume 7.7; Monocytes # (A) 0.2 k/uL (0-1.0); Monocytes % (A) 2 %; Neutrophils # (A) 8.7 k/uL (1.3-7.7); Neutrophils % (A) 93 %; Platelet Count 128 k/uL (150-450); RBC 4.61 m/uL (3.80-5.40); RDW 14.9 % (11.5-15.5); WBC 9.3 k/uL (3.8-10.6)
[2021-11-02 04:08] LABS: Calcium 10.1 mg/dL (8.4-10.2); Magnesium 2.9 mg/dL (1.6-2.3); Potassium 4.9 mmol/L (3.5-5.1); Total Bilirubin 1.1 mg/dL (0.2-1.3); Total Protein 6.4 g/dL (6.3-8.2)
[2021-11-02 04:56] LABS: Glucose,Whole Blood 156 mg/dL (75-99)
[2021-11-02 06:02] LABS: Glucose,Whole Blood 148 mg/dL (75-99)
[2021-11-02] MEDS: LEVOTHYROXINE 50 MCG TAB PO SCH (06:23)
[2021-11-02 06:58] LABS: Glucose,Whole Blood 152 mg/dL (75-99)
[2021-11-02 08:02] LABS: Glucose,Whole Blood 173 mg/dL (75-99)
[2021-11-02 08:53] LABS: ABG Base Excess 3.5 mmol/L; ABG HCO3 29 mmol/L (21-25); ABG Oxygen Saturation 87.5 % (94-97); ABG PCO2 51 mmHg (35-45); ABG PH 7.36 (7.35-7.45); ABG TCO2 31 mmol/L (19-24); Allen Test Performed? Yes
--- NOTE | 2021-11-02 08:53 | P.PN ---
Subjective Progress Note Date: 11/02/21 atezra is still on BiPAP Patient complains of more shortness of breath this morning also does have episod es of tachypnea Overall appears to be better less episodes of tachypnea More awake today no shortness of breath No much history Psych (10 3 Alert oriented 3 Extremities edema bilaterally Chest no respiratory message apparent usage as this time although episodes of tachypnea Abdomen no upper and distention Generalized weakness mostly skeletal Heart Neuro generalized weakness OVID-19 pneumonia with acute hypoxic respiratory failure -Continue Decadron -Zinc, vitamin C, vitamin D, melatonin -Pulmonary consult -Obtain pro-calcitonin level Diabetic ketoacidosis -Continue with insulin infusion for now -Monitor blood glucose q 30 minutes -Monitor electrolytes -Check A1C -Judicious use of IVFs due to significant hx of CHF Acute on chronic kidney disease -Likely due to ongoing DKA and COVID Pneumonia -Judicious use of IV fluids Troponin elevation, likely demand ischemia -Trend troponin -Cardiac monitoring Supratherapeutic INR -S/p 5 mg PO Vit K -Monitor for now Patient continued to be tachypneic and having hypoxia continue patient on BiPAP awaiting ICU bed Chronic conditions: COPD, HTN, HLD -C/w home meds Patient appears to be more tachypneic today on BiPAP continue management as be tter ICU team DVT prophylaxis Objective - Vital Signs Vital signs: Vital Signs Temp 98.2 F 11/02/21 04:00 Pulse 65 11/02/21 07:00 Resp 35 H 11/02/21 07:00 BP 132/68 11/02/21 07:00 Pulse Ox 93 L 11/02/21 07:00 Intake & Output 11/01/21 11/02/21 11/02/21 18:59 06:59 18:59 Intake Total 929.242 781.058 Output Total 1250 725 Balance -320.758 56.058 Weight 112.2 kg 113 kg Intake: IV 600 650 Sodium Chloride 0.9% 1, 600 650 000 ml @ 50 mls/hr IV . Q20H JE[facility] Rx#:[id number] Intake, IV Titration 29.242 31.058 Amount Insulin Regular 100 unit 29.242 31.058 In Sodium Chloride 0.9% 100 ml @ Per Protocol IV .Q0M JEFF Rx#:[id number] Oral 300 100 Output: Urine 1250 725 Other: Voiding Method Indwelling Catheter Indwelling Catheter - Labs CBC & Chem 7: 11/02/21 03:18 11/02/21 03:18 Labs: Abnormal Lab Results - Last 24 Hours (Table) 11/01/21 11/01/21 11/01/21 Range/Units 09:13 10:10 11:12 Plt Count (150-450) k/uL Neutrophils # (1.3-7.7) k/uL Lymphocytes # (1.0-4.8) k/uL Sodium (137-145) mmol/L Chloride (98-107) mmol/L BUN (7-17) mg/dL Creatinine (0.52-1.04) mg/dL Glucose (74-99) mg/dL POC Glucose (mg/dL) 172 H 161 H 167 H (75-99) mg/dL Magnesium (1.6-2.3) mg/dL AST (14-36) U/L Alkaline Phosphatase (38-126) U/L Albumin (3.5-5.0) g/dL 11/01/21 11/01/21 11/01/21 Range/Units 12:09 13:10 14:06 Plt Count (150-450) k/uL Neutrophils # (1.3-7.7) k/uL Lymphocytes # (1.0-4.8) k/uL Sodium (137-145) mmol/L Chloride (98-107) mmol/L BUN (7-17) mg/dL Creatinine (0.52-1.04) mg/dL Glucose (74-99) mg/dL POC Glucose (mg/dL) 189 H 175 H 185 H (75-99) mg/dL Magnesium (1.6-2.3) mg/dL AST (14-36) U/L Alkaline Phosphatase (38-126) U/L Albumin (3.5-5.0) g/dL 11/01/21 11/01/21 11/01/21 Range/Units 14:58 16:17 17:01 Plt Count (150-450) k/uL Neutrophils # (1.3-7.7) k/uL Lymphocytes # (1.0-4.8) k/uL Sodium (137-145) mmol/L Chloride (98-107) mmol/L BUN (7-17) mg/dL Creatinine (0.52-1.04) mg/dL Glucose (74-99) mg/dL POC Glucose (mg/dL) 180 H 160 H 167 H (75-99) mg/dL Magnesium (1.6-2.3) mg/dL AST (14-36) U/L Alkaline Phosphatase (38-126) U/L Albumin (3.5-5.0) g/dL 11/01/21 11/01/21 11/01/21 Range/Units 18:14 18:56 19:58 Plt Count (150-450) k/uL Neutrophils # (1.3-7.7) k/uL Lymphocytes # (1.0-4.8) k/uL Sodium (137-145) mmol/L Chloride (98-107) mmol/L BUN (7-17) mg/dL Creatinine (0.52-1.04) mg/dL Glucose (74-99) mg/dL POC Glucose (mg/dL) 172 H 177 H 164 H (75-99) mg/dL Magnesium (1.6-2.3) mg/dL AST (14-36) U/L Alkaline Phosphatase (38-126) U/L Albumin (3.5-5.0) g/dL 11/01/21 11/01/21 11/01/21 Range/Units 20:56 22:00 22:56 Plt Count (150-450) k/uL Neutrophils # (1.3-7.7) k/uL Lymphocytes # (1.0-4.8) k/uL Sodium (137-145) mmol/L Chloride (98-107) mmol/L BUN (7-17) mg/dL Creatinine (0.52-1.04) mg/dL Glucose (74-99) mg/dL POC Glucose (mg/dL) 171 H 157 H 150 H (75-99) mg/dL Magnesium (1.6-2.3) mg/dL AST (14-36) U/L Alkaline Phosphatase (38-126) U/L Albumin (3.5-5.0) g/dL 11/01/21 11/02/21 11/02/21 Range/Units 23:59 00:57 02:09 Plt Count (150-450) k/uL Neutrophils # (1.3-7.7) k/uL Lymphocytes # (1.0-4.8) k/uL Sodium (137-145) mmol/L Chloride (98-107) mmol/L BUN (7-17) mg/dL Creatinine (0.52-1.04) mg/dL Glucose (74-99) mg/dL POC Glucose (mg/dL) 141 H 161 H 163 H (75-99) mg/dL Magnesium (1.6-2.3) mg/dL AST (14-36) U/L Alkaline Phosphatase (38-126) U/L Albumin (3.5-5.0) g/dL 11/02/21 11/02/21 11/02/21 Range/Units 02:57 03:18 03:18 Plt Count 128 L (150-450) k/uL Neutrophils # 8.7 H (1.3-7.7) k/uL Lymphocytes # 0.1 L (1.0-4.8) k/uL Sodium 146 H (137-145) mmol/L Chloride 112 H (98-107) mmol/L BUN 71 H (7-17) mg/dL Creatinine 1.25 H (0.52-1.04) mg/dL Glucose 150 H (74-99) mg/dL POC Glucose (mg/dL) 150 H (75-99) mg/dL Magnesium 2.9 H (1.6-2.3) mg/dL AST 116 H (14-36) U/L Alkaline Phosphatase 159 H (38-126) U/L Albumin 3.0 L (3.5-5.0) g/dL 11/02/21 11/02/21 11/02/21 Range/Units 04:54 06:00 06:56 Plt Count (150-450) k/uL Neutrophils # (1.3-7.7) k/uL Lymphocytes # (1.0-4.8) k/uL Sodium (137-145) mmol/L Chloride (98-107) mmol/L BUN (7-17) mg/dL Creatinine (0.52-1.04) mg/dL Glucose (74-99) mg/dL POC Glucose (mg/dL) 156 H 148 H 152 H (75-99) mg/dL Magnesium (1.6-2.3) mg/dL AST (14-36) U/L Alkaline Phosphatase (38-126) U/L Albumin (3.5-5.0) g/dL 11/02/21 Range/Units 08:00 Plt Count (150-450) k/uL Neutrophils # (1.3-7.7) k/uL Lymphocytes # (1.0-4.8) k/uL Sodium (137-145) mmol/L Chloride (98-107) mmol/L BUN (7-17) mg/dL Creatinine (0.52-1.04) mg/dL Glucose (74-99) mg/dL POC Glucose (mg/dL) 173 H (75-99) mg/dL Magnesium (1.6-2.3) mg/dL AST (14-36) U/L Alkaline Phosphatase (38-126) U/L Albumin (3.5-5.0) g/dL
[2021-11-02 08:59] LABS: ABG PO2 54 mmHg (83-108)
[2021-11-02] MEDS: AMIODARONE 200 MG TAB PO SCH ×2 (09:21→09:36)
[2021-11-02] MEDS: METOPROLOL TARTRATE 50 MG TAB PO SCH ×4 (09:21→17:10)
[2021-11-02] MEDS: MONTELUKAST 10 MG TAB PO SCH (09:22)
[2021-11-02] MEDS: ASCORBIC ACID 500 MG TAB PO SCH (09:22)
[2021-11-02] MEDS: CHOLECALCIFEROL 25 MCG (1000 IU) TABLET PO SCH (09:22)
[2021-11-02] MEDS: POTASSIUM CHLORIDE ER 10 MEQ TAB.ER.PRT PO SCH (09:22)
[2021-11-02] MEDS: ZINC SULFATE 220 MG CAP PO SCH (09:23)
[2021-11-02] MEDS: DEXAMETHASONE SOD PHOSPHATE 10 MG/ML 1 ML VIAL IVP SCH (09:23)
[2021-11-02] MEDS: ALBUTEROL HFA INHALER INHALATION SCH ×4 (09:41→22:03)
[2021-11-02] MEDS: SYMBICORT 160-4.5 MCG INHALER INHALATION SCH ×2 (09:41→22:03)
[2021-11-02 10:06] LABS: Glucose,Whole Blood 191 mg/dL (75-99)
--- NOTE | 2021-11-02 10:12 | P.PN ---
Subjective Progress Note Date: 11/02/21 Principal diagnosis: Acute hypoxemic respiratory failure secondary to COVID-19 pneumonia 66-year-old female, seen down in the emergency room, room 8. Currently, she is on BiPAP at 12/6 and 100%. She's getting saline at 50 mL an hour. We are resuming the insulin drip because of elevated blood sugars. This is a 66 yo unvaccinated female who comes into the emergency department complaining of at least a week and maybe longer complaints of shortness of breath. She is also v frantz weak. Poor oral intake. Not a very good historian. The patient apparently has a history of atrial fibrillation, CHF, diabetes, COPD, status post AICD placement, and cardiomyopathy with an ejection fraction of about 20%. White count is 6.6, he will been 14.1, hematocrit 42.1, platelet count is 179,000. PTT was 94.2 with a INR of 9.6. Sodium 133, potassium 4.9, chlorides 98, CO2 24, anion gap 11, BUN 84, with a creatinine of 2.18. Troponin was 0.031. Lactic acid 1.6. Chest x-ray shows diffuse bilateral infiltrates, which might be consistent with coronavirus associated pneumonia and/or fluid overload. Progress note dated 11/01/2021. 66-year-old female, seen yesterday in consultation, in the emergency room. Currently, the patient is in the intensive care unit, in room 265. She remains on BiPAP, with settings of IPAP 12, EPAP 6, and 90% FiO2. The patient's getting saline at 50 mL an hour, and she is on an insulin drip at 1.5 units an hour, for hyperglycemia. White count of 7.2, hemoglobin 13.8, hematocrit 42.3, and platelet count 183,000. The patient's PTT is 31.6 with an INR 3.3. Sodium 139, potassium 4.7, chlorides 15, CO2 24, anion gap 10, BUN 84, and creatinine 1.55. Chest x-ray shows bilateral, right greater than left, multifocal opacities consistent with coronavirus associated pneumonia. The patient is on albuterol inhaler, Symbicort, vitamin C, vitamin D3, zinc, Decadron, and was previously on Coumadin. The patient is seen today 11/02/2021 in follow-up in the intensive care unit. She remains on BiPAP 12/6 and 75% FiO2. She is quite restless. Pulling at her mask. Arterial blood gases revealed a pO2 of 54, pCO2 51, pH 7.36 on 75% FiO2. White count 9.3. Hemoglobin 14.7. Platelets 128,000. Sodium 146. Potassium 4.9. Creatinine 1.25. Glucose 173. AST 116. ALT 27. Alk phos 159. FiO2 was increased to 100%. She's on a insulin drip at 2 units per hour. 9 normal saline at 50 MLS per hour. Continued on Symbicort, albuterol, Decadron. Warfarin currently on hold. Objective - Vital Signs Vital signs: Vital Signs Temp 98.2 F 11/02/21 04:00 Pulse 65 11/02/21 07:00 Resp 35 H 11/02/21 07:00 BP 132/68 11/02/21 07:00 Pulse Ox 93 L 11/02/21 07:00 Intake & Output 11/01/21 11/02/21 11/02/21 18:59 06:59 18:59 Intake Total 929.242 781.058 Output Total 1250 725 Balance -320.758 56.058 Weight 112.2 kg 113 kg Intake: IV 600 650 Sodium Chloride 0.9% 1, 600 650 000 ml @ 50 mls/hr IV . Q20H [facility] Rx#:[id number] Intake, IV Titration 29.242 31.058 Amount Insulin Regular 100 unit 29.242 31.058 In Sodium Chloride 0.9% 100 ml @ Per Protocol IV .Q0M [facility] Rx#:[id number] Oral 300 100 Output: Urine 1250 725 Other: Voiding Method Indwelling Catheter Indwelling Catheter - Exam GENERAL EXAM: Alert, restless, 66-year-old female, on BiPAP 12/6 and 100% FiO2 comfortable in no apparent distress. HEAD: Normocephalic. EYES: Normal reaction of pupils, equal size. NOSE: Clear with pink turbinates. THROAT: No erythema or exudates. NECK: No masses, no JVD. CHEST: No chest wall deformity. LUNGS: Equal air entry with crackles in the bilateral posterior bases. CVS: S1 and S2 normal with no audible murmur, regular rhythm. ABDOMEN: No hepatosplenomegaly, normal bowel sounds, no guarding or rigidity. SPINE: No scoliosis or deformity SKIN: No rashes CENTRAL NERVOUS SYSTEM: No focal deficits, tone is normal in all 4 extremities. EXTREMITIES: There is no peripheral edema. No clubbing, no cyanosis. Peripheral pulses are intact. - Labs CBC & Chem 7: 11/02/21 03:18 11/02/21 03:18 Labs: Abnormal Lab Results - Last 24 Hours (Table) 11/01/21 11/01/21 11/01/21 Range/Units 10:10 11:12 12:09 Plt Count (150-450) k/uL Neutrophils # (1.3-7.7) k/uL Lymphocytes # (1.0-4.8) k/uL ABG pCO2 (35-45) mmHg ABG pO2 (83-108) mmHg ABG HCO3 (21-25) mmol/L ABG Total CO2 (19-24) mmol/L ABG O2 Saturation (94-97) % Sodium (137-145) mmol/L Chloride (98-107) mmol/L BUN (7-17) mg/dL Creatinine (0.52-1.04) mg/dL Glucose (74-99) mg/dL POC Glucose (mg/dL) 161 H 167 H 189 H (75-99) mg/dL Magnesium (1.6-2.3) mg/dL AST (14-36) U/L Alkaline Phosphatase (38-126) U/L Albumin (3.5-5.0) g/dL 11/01/21 11/01/21 11/01/21 Range/Units 13:10 14:06 14:58 Plt Count (150-450) k/uL Neutrophils # (1.3-7.7) k/uL Lymphocytes # (1.0-4.8) k/uL ABG pCO2 (35-45) mmHg ABG pO2 (83-108) mmHg ABG HCO3 (21-25) mmol/L ABG Total CO2 (19-24) mmol/L ABG O2 Saturation (94-97) % Sodium (137-145) mmol/L Chloride (98-107) mmol/L BUN (7-17) mg/dL Creatinine (0.52-1.04) mg/dL Glucose (74-99) mg/dL POC Glucose (mg/dL) 175 H 185 H 180 H (75-99) mg/dL Magnesium (1.6-2.3) mg/dL AST (14-36) U/L Alkaline Phosphatase (38-126) U/L Albumin (3.5-5.0) g/dL 11/01/21 11/01/21 11/01/21 Range/Units 16:17 17:01 18:14 Plt Count (150-450) k/uL Neutrophils # (1.3-7.7) k/uL Lymphocytes # (1.0-4.8) k/uL ABG pCO2 (35-45) mmHg ABG pO2 (83-108) mmHg ABG HCO3 (21-25) mmol/L ABG Total CO2 (19-24) mmol/L ABG O2 Saturation (94-97) % Sodium (137-145) mmol/L Chloride (98-107) mmol/L BUN (7-17) mg/dL Creatinine (0.52-1.04) mg/dL Glucose (74-99) mg/dL POC Glucose (mg/dL) 160 H 167 H 172 H (75-99) mg/dL Magnesium (1.6-2.3) mg/dL AST (14-36) U/L Alkaline Phosphatase (38-126) U/L Albumin (3.5-5.0) g/dL 11/01/21 11/01/21 11/01/21 Range/Units 18:56 19:58 20:56 Plt Count (150-450) k/uL Neutrophils # (1.3-7.7) k/uL Lymphocytes # (1.0-4.8) k/uL ABG pCO2 (35-45) mmHg ABG pO2 (83-108) mmHg ABG HCO3 (21-25) mmol/L ABG Total CO2 (19-24) mmol/L ABG O2 Saturation (94-97) % Sodium (137-145) mmol/L Chloride (98-107) mmol/L BUN (7-17) mg/dL Creatinine (0.52-1.04) mg/dL Glucose (74-99) mg/dL POC Glucose (mg/dL) 177 H 164 H 171 H (75-99) mg/dL Magnesium (1.6-2.3) mg/dL AST (14-36) U/L Alkaline Phosphatase (38-126) U/L Albumin (3.5-5.0) g/dL 11/01/21 11/01/21 11/01/21 Range/Units 22:00 22:56 23:59 Plt Count (150-450) k/uL Neutrophils # (1.3-7.7) k/uL Lymphocytes # (1.0-4.8) k/uL ABG pCO2 (35-45) mmHg ABG pO2 (83-108) mmHg ABG HCO3 (21-25) mmol/L ABG Total CO2 (19-24) mmol/L ABG O2 Saturation (94-97) % Sodium (137-145) mmol/L Chloride (98-107) mmol/L BUN (7-17) mg/dL Creatinine (0.52-1.04) mg/dL Glucose (74-99) mg/dL POC Glucose (mg/dL) 157 H 150 H 141 H (75-99) mg/dL Magnesium (1.6-2.3) mg/dL AST (14-36) U/L Alkaline Phosphatase (38-126) U/L Albumin (3.5-5.0) g/dL 11/02/21 11/02/21 11/02/21 Range/Units 00:57 02:09 02:57 Plt Count (150-450) k/uL Neutrophils # (1.3-7.7) k/uL Lymphocytes # (1.0-4.8) k/uL ABG pCO2 (35-45) mmHg ABG pO2 (83-108) mmHg ABG HCO3 (21-25) mmol/L ABG Total CO2 (19-24) mmol/L ABG O2 Saturation (94-97) % Sodium (137-145) mmol/L Chloride (98-107) mmol/L BUN (7-17) mg/dL Creatinine (0.52-1.04) mg/dL Glucose (74-99) mg/dL POC Glucose (mg/dL) 161 H 163 H 150 H (75-99) mg/dL Magnesium (1.6-2.3) mg/dL AST (14-36) U/L Alkaline Phosphatase (38-126) U/L Albumin (3.5-5.0) g/dL 11/02/21 11/02/21 11/02/21 Range/Units 03:18 03:18 04:54 Plt Count 128 L (150-450) k/uL Neutrophils # 8.7 H (1.3-7.7) k/uL Lymphocytes # 0.1 L (1.0-4.8) k/uL ABG pCO2 (35-45) mmHg ABG pO2 (83-108) mmHg ABG HCO3 (21-25) mmol/L ABG Total CO2 (19-24) mmol/L ABG O2 Saturation (94-97) % Sodium 146 H (137-145) mmol/L Chloride 112 H (98-107) mmol/L BUN 71 H (7-17) mg/dL Creatinine 1.25 H (0.52-1.04) mg/dL Glucose 150 H (74-99) mg/dL POC Glucose (mg/dL) 156 H (75-99) mg/dL Magnesium 2.9 H (1.6-2.3) mg/dL AST 116 H (14-36) U/L Alkaline Phosphatase 159 H (38-126) U/L Albumin 3.0 L (3.5-5.0) g/dL 11/02/21 11/02/21 11/02/21 Range/Units 06:00 06:56 08:00 Plt Count (150-450) k/uL Neutrophils # (1.3-7.7) k/uL Lymphocytes # (1.0-4.8) k/uL ABG pCO2 (35-45) mmHg ABG pO2 (83-108) mmHg ABG HCO3 (21-25) mmol/L ABG Total CO2 (19-24) mmol/L ABG O2 Saturation (94-97) % Sodium (137-145) mmol/L Chloride (98-107) mmol/L BUN (7-17) mg/dL Creatinine (0.52-1.04) mg/dL Glucose (74-99) mg/dL POC Glucose (mg/dL) 148 H 152 H 173 H (75-99) mg/dL Magnesium (1.6-2.3) mg/dL AST (14-36) U/L Alkaline Phosphatase (38-126) U/L Albumin (3.5-5.0) g/dL 11/02/21 Range/Units 08:46 Plt Count (150-450) k/uL Neutrophils # (1.3-7.7) k/uL Lymphocytes # (1.0-4.8) k/uL ABG pCO2 51 H (35-45) mmHg ABG pO2 54 L* (83-108) mmHg ABG HCO3 29 H (21-25) mmol/L ABG Total CO2 31 H (19-24) mmol/L ABG O2 Saturation 87.5 L (94-97) % Sodium (137-145) mmol/L Chloride (98-107) mmol/L BUN (7-17) mg/dL Creatinine (0.52-1.04) mg/dL Glucose (74-99) mg/dL POC Glucose (mg/dL) (75-99) mg/dL Magnesium (1.6-2.3) mg/dL AST (14-36) U/L Alkaline Phosphatase (38-126) U/L Albumin (3.5-5.0) g/dL Assessment and Plan Assessment: 1 Acute hypoxemic respiratory failure, likely on the basis of coronavirus associated pneumonia. There may also be a component of fluid overload. Currently on BiPAP 12/6 and 100% FiO2. Baricitinib initiated today 11/02/2021 2 History of atrial fibrillation. 3 Coumadin induced coagulopathy, improved. 4 History of CHF. 5 History of cardiomyopathy with an ejection fraction 20%. 6 History of COPD from heavy tobacco use. 7 Status post AICD. 8 History of diabetes with diabetic neuropathy. Currently on insulin drip at 2 units per hour 9 Acute renal failure improving with current creatinine 1.25 Plan: The patient was seen and evaluated Labs and ABGs reviewed Currently on BiPAP 12/6 and 100% FiO2 She is quite restless and anxious We will initiate Precedex Started on Baricitinib Continue bronchodilators, Decadron, vitamin supplements INR pending today Prognosis is guarded May end up requiring intubation and mechanical ventilatory support Critical care time 36 minutes I, the cosigning physician, performed a history & physical examination of the patient. Lungs sounds with coarse crackles in the bilateral bases. Maintaining O2 saturations in the 90s on BiPAP 12/6 and 100% FiO2. I discussed the assessment and plan of care with my nurse practitioner, Steph Joseph. I attest to the above note as dictated by her.
[2021-11-02] MEDS: DEXMEDETOMIDINE/0.9% NACL(PMX) 400 MCG in EMPTY BAG 1 BAG IV SCH ×2 (10:53→23:35)
[2021-11-02] MEDS ORDERED: BARICITINIB 2 MG TABLET PO SCH (11:00)
[2021-11-02 11:56] LABS: Glucose,Whole Blood 211 mg/dL (75-99)
[2021-11-02 14:40] LABS: Glucose,Whole Blood 196 mg/dL (75-99)
[2021-11-02 14:50] LABS: Prothrombin Time 55.2 sec (9.0-12.0)
[2021-11-02 14:57] LABS: INR 5.7 (<1.2)
[2021-11-02 15:45] LABS: Glucose,Whole Blood 162 mg/dL (75-99)
[2021-11-02] MEDS: INSULIN REGULAR 100 UNIT in SODIUM CHLORIDE 0.9% 100 ML IV SCH (15:58)
[2021-11-02] MEDS: BARICITINIB 2 MG TABLET PO SCH ×2 (16:57→17:10)
[2021-11-02 17:30] LABS: Glucose,Whole Blood 142 mg/dL (75-99)
--- NOTE | 2021-11-02 18:15 | US ---
EXAMINATION TYPE: US venous doppler duplex LE DATE OF EXAM: 11/02/2021 5:22 PM COMPARISON: NONE CLINICAL HISTORY: elevated d-dimer, r/o DVT . SIDE PERFORMED: Bilateral TECHNIQUE: The lower extremity deep venous system is examined utilizing real time linear array sonog radha with graded compression, doppler sonography and color-flow sonography. VESSELS IMAGED: Common Femoral Vein Deep Femoral Vein Greater Saphenous Vein * Femoral Vein Popliteal Vein Small Saphenous Vein * Proximal Calf Veins (* superficial vessels) Right Leg: Appears negative for DVT Left Leg: Appears negative for DVT IMPRESSION: No evidence of deep vein thrombosis in both legs.
[2021-11-02 18:16] LABS: Glucose,Whole Blood 142 mg/dL (75-99)
[2021-11-02 19:03] LABS: Glucose,Whole Blood 132 mg/dL (75-99)
[2021-11-02 22:15] LABS: Glucose,Whole Blood 213 mg/dL (75-99)
[2021-11-03] MEDS: DEXMEDETOMIDINE/0.9% NACL(PMX) 400 MCG in EMPTY BAG 1 BAG IV SCH (00:45)
[2021-11-03 01:43] LABS: Glucose,Whole Blood 262 mg/dL (75-99)
[2021-11-03] MEDS: INSULIN ASPART (NovoLOG) 100 UNIT/ML VIAL SQ SCH ×4 (01:52→21:34)
--- NOTE | 2021-11-03 04:36 | XR ---
EXAMINATION TYPE: XR chest 1V portable DATE OF EXAM: 11/03/2021 COMPARISON: 11/01/2021 HISTORY: Tube placement TECHNIQUE: Single view FINDINGS: Endotracheal tube is 3.5 cm from the corona. There is nasogastric tube in the stomach. Ther e is pulmonary patchy airspace edema. There is left axillary pacemaker. There is no pneumothorax. IMPRESSION: Pulmonary edema that is not significantly different than exam 2 days ago. Tubing in good position.
[2021-11-03 05:02] LABS: ABG Base Excess -1.4 mmol/L; ABG HCO3 26 mmol/L (21-25); ABG Oxygen Saturation 99.2 % (94-97); ABG PCO2 62 mmHg (35-45); ABG PH 7.23 (7.35-7.45); ABG PO2 167 mmHg (83-108); ABG TCO2 28 mmol/L (19-24); Allen Test Performed? Yes
[2021-11-03] MEDS: METOPROLOL TARTRATE 50 MG TAB PO SCH ×3 (05:40→16:06)
[2021-11-03] MEDS: SODIUM CHLORIDE 0.9% 1,000 ML IV SCH ×2 (05:42→17:37)
[2021-11-03] MEDS ORDERED: SODIUM CHLORIDE 0.9% 2,000 ML IV ONE (06:06)
[2021-11-03] MEDS: LEVOTHYROXINE 50 MCG TAB PO SCH (07:32)
[2021-11-03] MEDS: ASPIRIN 81 MG PO SCH ×2 (07:32→21:16)
[2021-11-03 07:42] VITALS: RESP 30
[2021-11-03 07:57] LABS: Glucose,Whole Blood 208 mg/dL (75-99)
[2021-11-03] MEDS ORDERED: HYDROmorphone 1 MG/ML 1 ML SYRINGE IVP PRN (09:08)
[2021-11-03] MEDS: ALBUTEROL HFA INHALER INHALATION SCH ×4 (09:14→19:32)
[2021-11-03] MEDS: SYMBICORT 160-4.5 MCG INHALER INHALATION SCH ×2 (09:14→19:32)
[2021-11-03] MEDS ORDERED: DEXTROSE 5% IN WATER 100 ML with AMIODARONE 150 MG IV ONE (09:15)
[2021-11-03] MEDS: NOREPINEPHRINE 8 MG in SODIUM CHLORIDE 0.9% 250 ML IV SCH ×2 (09:20→13:40)
[2021-11-03] MEDS ORDERED: SODIUM CHLORIDE 0.9% 1,000 ML IV ONE (09:30)
[2021-11-03] MEDS ORDERED: AMIODARONE 360 MG in DEXTROSE 5% IN WATER 200 ML IV ONE ×2 (09:30)
[2021-11-03] MEDS ORDERED: CISATRACURIUM 2 MG/ML 5 ML VIAL IV ONE ×2 (09:31→09:32)
--- NOTE | 2021-11-03 10:04 | P.PN ---
Subjective Progress Note Date: 11/03/21 Patient is intubated Constitutional: No acute distress, conversant, pleasant Eyes: Anicteric sclerae, moist conjunctiva, no lid-lag PERRLA ENMT: Neck: Sedated intubated Lungs: C, no accessory muscle use Cardiovascular: Heart regular in rate and rhythm, No murmurs, gallops, or rubs No peripheral edema Abdominal: No o distention Skin: N Extremities: No digital cyanosis No clubbing Pedal pulses intact and symmetrical Radial pulses intact and symmetrical Normal gait and station No calf tenderness Psychiatric sedated intubated Neuro: Generalized weakness pneumonia with acute hypoxic respiratory failure -Patient went into more respiratory distress last night and has to be to Diabetic ketoacidosis - Acute on chronic kidney disease -Likely due to ongoing DKA and COVID Pneumonia -Judicious use of IV fluids Troponin elevation, likely demand ischemia -Trend troponin -Cardiac monitoring Supratherapeutic INR -S/p 5 mg PO Vit K -Monitor for now Chronic conditions: COPD, HTN, HLD -C/w home meds Patient was intubated Multiple attempts to contact family Overall management as per ICU team Objective - Vital Signs Vital signs: Vital Signs Temp 97.9 F 11/03/21 04:00 Pulse 114 H 11/03/21 07:40 Resp 30 H 11/03/21 07:40 BP 78/52 11/03/21 07:40 Pulse Ox 95 11/03/21 07:40 Intake & Output 11/02/21 11/03/21 11/03/21 18:59 06:59 18:59 Intake Total 585.467 626.166 7846 Output Total 435 670 10 Balance 150.467 41.381 1989 Intake: IV 630 902 0082 Sodium Chloride 0.9% 1, 550 600 000 ml @ 50 mls/hr IV . Q20H [facility] Rx#:[id number] Sodium Chloride 0.9% 2, 2000 000 ml @ 999 mls/hr IV . Q2H1M [facility] Rx#:[id number] Intake, IV Titration 35.467 111.381 Amount Dexmedetomidine/0.9% NaCl 86.257 (Pmx) 400 mcg In Empty Bag 1 bag @ 0.2 MCG/KG/HR 5.65 mls/hr IV .[id number] [facility] Rx#:[id number] Insulin Regular 100 unit 35.467 4.783 In Sodium Chloride 0.9% 100 ml @ Per Protocol IV .Q0M [facility] Rx#:[id number] propofoL 1,000 mg In 20.341 Empty Bag 1 bag @ Titrate IV .Q0M [facility] Rx#: [id number] Output: Urine 435 670 10 Other: Voiding Method Indwelling Catheter Indwelling Catheter - Labs CBC & Chem 7: 11/02/21 03:18 11/02/21 03:18 Labs: Abnormal Lab Results - Last 24 Hours (Table) 11/02/21 11/02/21 11/02/21 Range/Units 10:05 11:54 14:07 PT 55.2 H (9.0-12.0) sec INR 5.7 H* (<1.2) D-Dimer >34.10 H (<0.60) mg/L FEU ABG pH (7.35-7.45) ABG pCO2 (35-45) mmHg ABG pO2 (83-108) mmHg ABG HCO3 (21-25) mmol/L ABG Total CO2 (19-24) mmol/L ABG O2 Saturation (94-97) % POC Glucose (mg/dL) 191 H 211 H (75-99) mg/dL 11/02/21 11/02/21 11/02/21 Range/Units 14:28 15:44 17:29 PT (9.0-12.0) sec INR (<1.2) D-Dimer (<0.60) mg/L FEU ABG pH (7.35-7.45) ABG pCO2 (35-45) mmHg ABG pO2 (83-108) mmHg ABG HCO3 (21-25) mmol/L ABG Total CO2 (19-24) mmol/L ABG O2 Saturation (94-97) % POC Glucose (mg/dL) 196 H 162 H 142 H (75-99) mg/dL 11/02/21 11/02/21 11/02/21 Range/Units 18:15 19:01 22:11 PT (9.0-12.0) sec INR (<1.2) D-Dimer (<0.60) mg/L FEU ABG pH (7.35-7.45) ABG pCO2 (35-45) mmHg ABG pO2 (83-108) mmHg ABG HCO3 (21-25) mmol/L ABG Total CO2 (19-24) mmol/L ABG O2 Saturation (94-97) % POC Glucose (mg/dL) 142 H 132 H 213 H (75-99) mg/dL 11/03/21 11/03/21 11/03/21 Range/Units 01:41 04:52 07:54 PT (9.0-12.0) sec INR (<1.2) D-Dimer (<0.60) mg/L FEU ABG pH 7.23 L (7.35-7.45) ABG pCO2 62 H (35-45) mmHg ABG pO2 167 H (83-108) mmHg ABG HCO3 26 H (21-25) mmol/L ABG Total CO2 28 H (19-24) mmol/L ABG O2 Saturation 99.2 H (94-97) % POC Glucose (mg/dL) 262 H 208 H (75-99) mg/dL
[2021-11-03] MEDS: MONTELUKAST 10 MG TAB PO SCH (10:13)
[2021-11-03] MEDS: CHLORHEXIDINE GLUCONATE 15 ML CUP MUCOUS MEM SCH ×2 (10:13→21:16)
[2021-11-03] MEDS: CHOLECALCIFEROL 25 MCG (1000 IU) TABLET PO SCH (10:13)
[2021-11-03] MEDS: ASCORBIC ACID 500 MG TAB PO SCH (10:14)
[2021-11-03] MEDS: DEXAMETHASONE SOD PHOSPHATE 10 MG/ML 1 ML VIAL IVP SCH (10:14)
[2021-11-03] MEDS: ZINC SULFATE 220 MG CAP PO SCH (10:14)
[2021-11-03 10:15] LABS: ABG Base Excess -3.3 mmol/L; ABG HCO3 25 mmol/L (21-25); ABG Oxygen Saturation 95.2 % (94-97); ABG PCO2 63 mmHg (35-45); ABG PO2 83 mmHg (83-108); ABG TCO2 27 mmol/L (19-24)
[2021-11-03] MEDS ORDERED: AMIODARONE IN DEXTROSE,ISO-OSM 360 MG/200 ML PLAST..BAG IV ONE ×2 (10:15→13:00)
[2021-11-03] MEDS ORDERED: AMIODARONE IN DEXTROSE,ISO-OSM 150 MG/100 ML PLAST..BAG IV ONE (10:15)
[2021-11-03] MEDS: CISATRACURIUM 200 MG in SODIUM CHLORIDE 0.9% 180 ML IV SCH (10:25)
--- NOTE | 2021-11-03 10:29 | XR ---
EXAMINATION TYPE: XR chest 1V confirm line [facility] DATE OF EXAM: 11/03/2021 10:03 AM COMPARISON:Chest radiograph same day. CLINICAL INDICATION:Female, 66 years old with history of line placement ; TECHNIQUE: Frontal view of the chest. FINDINGS: Lungs/Pleura: Improved aeration of the right lung with persistent multifocal airspace opacities. No e vidence of pneumothorax a small left pleural effusion. Pulmonary vascularity: Unremarkable. Heart/mediastinum: Cardiomediastinal silhouette is unremarkable. Musculoskeletal: No acute osseous pathology. Other findings: Two lead cardiac conduction device overlying the left hemithorax with lead tips projecting over the r ight ventricle and right atrium. Lines/Tubes: Endotracheal tube with distal tip 5.0 cm above the corona Nasogastric tube with its distal tip and side-port projecting under the diaphragm. Left internal jugular central venous catheter with distal tip at the cavoatrial junction. IMPRESSION: 1. Interval placement of left central venous catheter with tip at the superior cavoatrial junction. 2. Improved aeration of the right lung opacities with persistent multifocal pneumonia. 3. Stable support lines and tubes.
--- NOTE | 2021-11-03 11:24 | CONS ---
CONSULTATION Mrs. Noel is a 66-year-old female who presented to the hospital on 10/30 with symptoms of progressive dyspnea, was diagnosed was COVID-19 pneumonia. Cardiology consultation was requested because of atrial fibrillation. Patient has a known history of severe nonischemic cardiomyopathy with an ejection fraction of less than 20%, status post ICD implantation, followed on a regular basis by Dr. Terrazas, and has a history of paroxysmal atrial fibrillation. She has deteriorated and required mechanical ventilation earlier this morning and converted to atrial fibrillation with rapid ventricular response. She is intubated and sedated at this point. Patient is unvaccinated. Reviewing the old records, she had a prior ICD implantation and underwent cardiac catheterization in 2004. She underwent echocardiogram in June of this year that revealed a severely impaired left ventricular systolic function. Patient also has a history of chronic kidney disease. On presentation, her NT proBNP was elevated, but she had a prior elevation of the NT proBNP in June. She had elevation in one troponin sample, subsequently came back normal. Patient has a history of diabetes and has been maintained at home on Cordarone 200 mg daily, Coumadin, Lasix 80 mg 3 times a day, metoprolol tartrate 50 mg 3 times a day, insulin. Review of systems could not be obtained. Her blood pressure at this time is running in the 70s to 100s with a heart rate in the 120s to 130s. No physical examination was done to limit the exposure. Her lab data from yesterday revealed BUN and creatinine of 71 and 1.25, her potassium 4.9. Her INR is 5.7. Her pH is 7.23, pCO2 of 62, and PO2 of 167. Her chest x-ray is consistent with bilateral infiltrate and evidence of COVID-19 pneumonia. Her initial EKG on presentation revealed sinus mechanism, rate of 59 with borderline intraventricular conduction delay. IMPRESSION: 1. COVID-19 pneumonia with respiratory failure requiring mechanical ventilation. 2. Atrial fibrillation, paroxysmal. Patient is in atrial fibrillation at this time; most likely went into atrial fibrillation with the stress of her respiratory status. 3. Severe nonischemic cardiomyopathy. 4. Status post ICD implantation. 5. Coagulopathy. Patient has been on Coumadin. 6. Acute renal injury. 7. History of diabetes. 8. History of chronic obstructive lung disease. RECOMMENDATIONS: From the cardiac standpoint, I agree with your plan of initiating IV amiodarone treatment. Will continue on her beta odette to help control her ventricular response. Her Coumadin is on hold at this time. The prognosis remains poor at this time. There is no indication to repeat the echocardiogram. Will follow her renal function and her ventricular response and depending on that, further recommendations will be made. Thank you for this consult. Will follow with you. KENNY / MACKN: [id number] /
--- NOTE | 2021-11-03 11:39 | PCN ---
PROCEDURE NOTE FIRST PROCEDURE: PLACEMENT OF RIGHT RADIAL ARTERIAL LINE: PREOPERATIVE DIAGNOSIS: Frequent blood draws and blood gas monitoring. POSTOPERATIVE DIAGNOSIS: Frequent blood draws and blood gas monitoring. OPERATORS: 1. Dr. Costa. 2. Dr. Asif. PROCEDURE DESCRIPTION: There was informed consent and universal timeout was completed verifying correct patient, procedure, site, positioning, and implant(s) or special equipment if applicable. Crow's test was performed to ensure adequate perfusion. The patient's right wrist was prepped and draped in sterile fashion. 1% Lidocaine was used to anesthetize the area. An 18G Arrow arterial line was introduced into the right radial artery. The catheter was threaded over the guide wire and the needle was removed with appropriate pulsatile blood return. There was good blood return and waveform. Blood loss was minimal. The catheter was then sutured in place to the skin and a sterile dressing applied by the nurse. Perfusion to the extremity distal to the point of catheter insertion was checked and found to be adequate. The patient tolerated the procedure well and there were no immediate complications. SECOND PROCEDURE: PLACEMENT OF LEFT INTERNAL JUGULAR TRIPLE-LUMEN CATHETER: PREOPERATIVE DIAGNOSIS: Administration of fluids and pressors. POSTOPERATIVE DIAGNOSIS: Administration of fluids and pressors. OPERATORS: 1. Dr. Costa. 2. Dr. Asif. PROCEDURE DESCRIPTION: There was informed consent and universal time-out was completed verifying correct patient, procedure, site, positioning, and implant(s) or special equipment if applicable. The patient was placed in a dependent position appropriate for triple lumen catheter placement based on the vein to be cannulated. The patient's left neck was prepped and draped in sterile fashion for posterior approach. The 1% Lidocaine was used to anesthetize the surrounding skin area. A triple lumen 9F Cordis catheter was introduced into the left internal jugular vein using Seldinger technique. The catheter was threaded smoothly over the guide wire and appropriate blood return was obtained. There was good blood return from all 3 ports. Each lumen of the catheter was evacuated of air and flushed with sterile saline. The catheter was then sutured in place to the skin and a sterile dressing applied by the nurse. Perfusion to the extremity distal to the point of catheter insertion was checked and found to be adequate. The patient tolerated the procedure well. A chest x-ray was ordered to check placement and rule out pneumothorax. There was no immediate complication. MMODL / IJN: [id number] /
[2021-11-03 11:41] LABS: Glucose,Whole Blood 253 mg/dL (75-99)
--- NOTE | 2021-11-03 12:42 | P.PN ---
Subjective Progress Note Date: 11/03/21 Principal diagnosis: COVID-19 pneumonia On 11/03/2021 patient seen in follow-up in the intensive care unit, patient was admitted to the hospital on 10/30/2021 with a diagnosis of COVID-19 pneumonia and acute hypoxic respiratory failure, she has failed BiPAP support and was itz gently transferred to the intensive care unit and intubated early this morning. She is currently on assist control mode of ventilation with a rate of 36, tidal volume is 400, FiO2 of 80% and PEEP of 10. Her blood gas from 4:00 this morning showed pO2 of 167, pCO2 of 62, and pH of 7.23 and this was done on the 100% FiO2 and FiO2 has been cut back to 80%, she is currently on Diprivan at 40 mics per kilo per minute, 0.9 normal saline at a rate of 150 ML per hour, she received 2 L in the IV fluid boluses, however he urine output is still quite marginal and she is hypotensive with a blood pressure in the 70s over 40s, she is in A. fib with RVR she is normally on oral amiodarone which will be switched over to IV amiodarone. Cardiology has been consulted. She will be given additional liter bolus and norepinephrine drip will be started, lying's were placed with the left IJ central venous catheter, and right radial art line. Her pro-calcitonin level was negative at 0.38. She remains on Decadron 6 mg daily, she is on COVID-19 multivitamins, she was started on Baricitinib yesterday however her daughter is refusing it, and we will discontinue it off tomorrow per family's request. Objective - Vital Signs Vital signs: Vital Signs Temp 97.9 F 11/03/21 04:00 Pulse 125 H 11/03/21 11:40 Resp 30 H 11/03/21 11:40 BP 82/38 11/03/21 09:20 Pulse Ox 95 11/03/21 11:40 Intake & Output 11/02/21 11/03/21 11/03/21 18:59 06:59 18:59 Intake Total 585.467 979.338 6029.659 Output Total 435 670 130 Balance 150.467 41.381 3249.659 Intake: IV 090 045 7698 Sodium Chloride 0.9% 1, 550 600 300 000 ml @ 75 mls/hr IV . [id number] [facility] Rx#:[id number] Sodium Chloride 0.9% 1, 1000 000 ml @ 999 mls/hr IV . Q1H1M [facility] Rx#:[id number] Sodium Chloride 0.9% 2, 2000 000 ml @ 999 mls/hr IV . Q2H1M [facility] Rx#:[id number] Intake, IV Titration 35.467 111.381 79.659 Amount Dexmedetomidine/0.9% NaCl 86.257 (Pmx) 400 mcg In Empty Bag 1 bag @ 0.2 MCG/KG/HR 5.65 mls/hr IV .[id number] [facility] Rx#:[id number] Insulin Regular 100 unit 35.467 4.783 In Sodium Chloride 0.9% 100 ml @ Per Protocol IV .Q0M [facility] Rx#:[id number] propofoL 1,000 mg In 20.341 79.659 Empty Bag 1 bag @ Titrate IV .Q0M [facility] Rx#: [id number] Output: Urine 435 670 130 Other: Voiding Method Indwelling Catheter Indwelling Catheter ABP, PAP, CO, CI - Last Documented Arterial Blood Pressure 86/52 - Exam GENERAL EXAM: Intubated and sedated, 66-year-old obese white female on assist- control mode of ventilation with a rate of 36, tidal volume is 400, FiO2 of 80% and PEEP of 10. comfortable in no apparent distress. HEAD: Normocephalic/atraumatic. EYES: Normal reaction of pupils, equal size. Conjunctiva pink, sclera white. NOSE: Clear with pink turbinates. THROAT: No erythema or exudates. NECK: No masses, no JVD, no thyroid enlargement, no adenopathy. CHEST: No chest wall deformity. Symmetrical expansion. LUNGS: Equal air entry with no crackles, wheeze, rhonchi or dullness. CVS: Irregular rate and rhythm, normal S1 and S2, no gallops, no murmurs, no rubs ABDOMEN: Soft, nontender. No hepatosplenomegaly, normal bowel sounds, no guard ing or rigidity. EXTREMITIES: No clubbing, no edema, no cyanosis, 2+ pulses and upper and lower extremities. MUSCULOSKELETAL: Muscle strength and tone normal. SPINE: No scoliosis or deformity SKIN: No rashes CENTRAL NERVOUS SYSTEM: No focal deficits, tone is normal in all 4 extremities. - Labs CBC & Chem 7: 11/02/21 03:18 11/02/21 03:18 Labs: Abnormal Lab Results - Last 24 Hours (Table) 11/02/21 11/02/21 11/02/21 Range/Units 14:07 14:28 15:44 PT 55.2 H (9.0-12.0) sec INR 5.7 H* (<1.2) D-Dimer >34.10 H (<0.60) mg/L FEU ABG pH (7.35-7.45) ABG pCO2 (35-45) mmHg ABG pO2 (83-108) mmHg ABG HCO3 (21-25) mmol/L ABG Total CO2 (19-24) mmol/L ABG O2 Saturation (94-97) % POC Glucose (mg/dL) 196 H 162 H (75-99) mg/dL 11/02/21 11/02/21 11/02/21 Range/Units 17:29 18:15 19:01 PT (9.0-12.0) sec INR (<1.2) D-Dimer (<0.60) mg/L FEU ABG pH (7.35-7.45) ABG pCO2 (35-45) mmHg ABG pO2 (83-108) mmHg ABG HCO3 (21-25) mmol/L ABG Total CO2 (19-24) mmol/L ABG O2 Saturation (94-97) % POC Glucose (mg/dL) 142 H 142 H 132 H (75-99) mg/dL 11/02/21 11/03/21 11/03/21 Range/Units 22:11 01:41 04:52 PT (9.0-12.0) sec INR (<1.2) D-Dimer (<0.60) mg/L FEU ABG pH 7.23 L (7.35-7.45) ABG pCO2 62 H (35-45) mmHg ABG pO2 167 H (83-108) mmHg ABG HCO3 26 H (21-25) mmol/L ABG Total CO2 28 H (19-24) mmol/L ABG O2 Saturation 99.2 H (94-97) % POC Glucose (mg/dL) 213 H 262 H (75-99) mg/dL 11/03/21 11/03/21 11/03/21 Range/Units 07:54 10:10 11:40 PT (9.0-12.0) sec INR (<1.2) D-Dimer (<0.60) mg/L FEU ABG pH 7.20 L (7.35-7.45) ABG pCO2 63 H (35-45) mmHg ABG pO2 (83-108) mmHg ABG HCO3 (21-25) mmol/L ABG Total CO2 27 H (19-24) mmol/L ABG O2 Saturation (94-97) % POC Glucose (mg/dL) 208 H 253 H (75-99) mg/dL Microbiology - Last 24 Hours (Table) 11/03/21 04:18 Sputum Culture - Preliminary Sputum Assessment and Plan Plan: Assessment: #1. Acute hypoxic respiratory failure related to COVID-19 pneumonia and a component of acute exacerbation of systolic CHF. Patient was admitted on 10/30/2021, she was placed on BiPAP, and she was started on Baricitinib on 11/02/2021, transfer to the intensive care unit on 11/03/2021 and intubated and placed on mechanical ventilator #2. A. fib with RVR, on amiodarone drip, and patient is already on Coumadin, to day's INR is pending, yesterday's INR was 5.7 #3. Acute kidney injury, was improving #4. History of atrial fibrillation on Coumadin and oral amiodarone at home #5. History of severe nonischemic cardiomyopathy with EF of 20%, status post AICD placement #6. History of COPD from heavy tobacco use #7. History of diabetes mellitus with diabetic neuropathy #8. Coumadin induced coagulopathy #9. Hypertension #10. Hyperlipidemia Plan: Repeat blood gas has been obtained, we will increase PEEP up to 12, Fio2 is currently at 80% Weaning FiO2 to maintain O2 saturations at or above 90% We'll switch oral amiodarone to IV amiodarone bolus of 150 mg and drip per protocol Awaiting today's INR Cardiology has been consulted We'll give the patient additional dose of IV fluids 1 L, increased maintenance IV fluids to 75 ML per hour Continue Diprivan and and Nimbex for sedation and paralysis Start norepinephrine to maintain map of 60-65 mmHg Discontinue Baricitinib per patient's daughter's request Continue dexamethasone, continue COVID-19 vitamins Blood sugar checks and glucose control Start nutritional support with tube feedings When more hemodynamically stable and A. fib is better controlled, place the patient in prone position for 12-16 hours Daily labs CBC, CMP daily chest x-ray and blood gases and daily PT/INR Inflammatory markers Overall prognosis is extremely guarded I performed a history & physical examination of the patient and discussed their management with my nurse practitioner, Ami Asif. I reviewed the nurse practitioner's note and agree with the documented findings and plan of care. Lung sounds are positive for dim breath sounds throughout the lung laird. The findings and the impression was discussed with the patient. I attest to the documentation by the nurse practitioner. Time with Patient: Greater than 30
[2021-11-03 12:48] LABS: Prothrombin Time 67.5 sec (9.0-12.0)
[2021-11-03 12:56] LABS: INR 6.9 (<1.2)
[2021-11-03 13:23] LABS: Glucose,Whole Blood 289 mg/dL (75-99)
[2021-11-03 13:24] LABS: Calcium 9.7 mg/dL (8.4-10.2); Magnesium 2.9 mg/dL (1.6-2.3)
[2021-11-03 13:36] LABS: Basophils # (A) 0.3 k/uL (0-0.2); Basophils % (A) 1 %; Eosinophils % (A) 0 %; HCT 46.7 % (34.0-46.0); HGB 14.6 gm/dL (11.4-16.0); Hypochromasia Moderate; Lymphocytes # (A) 0.3 k/uL (1.0-4.8); Lymphocytes % (A) 1 %; MCH 31.2 pg (25.0-35.0); MCHC 31.2 g/dL (31.0-37.0); MCV 100.1 fL (80.0-100.0); Macrocytosis Slight; Mean Platelet Volume 9.1; Monocytes # (A) 0.6 k/uL (0-1.0); Monocytes % (A) 3 %; Neutrophils # (A) 23.2 k/uL (1.3-7.7); Neutrophils % (A) 93 %; Platelet Count 107 k/uL (150-450); Poikilocytosis Slight; RBC 4.66 m/uL (3.80-5.40); RDW 15.7 % (11.5-15.5)
[2021-11-03 13:36] LABS: Potassium 6.5 mmol/L (3.5-5.1)
[2021-11-03] MEDS ORDERED: SODIUM BICARB 8.4% 50 ML SYR (1 MEQ/ML) IV STA ×2 (13:46→18:45)
[2021-11-03] MEDS ORDERED: DEXTROSE 50% SYRINGE 50 ML IVP STA ×2 (13:47→18:46)
[2021-11-03] MEDS ORDERED: CALCIUM GLUCONATE 1 GM in SODIUM CHLORIDE 0.9% 100 ML IVPB ONE ×2 (14:00→19:30)
[2021-11-03] MEDS ORDERED: INSULIN REGULAR 100 UNIT/ML VIAL (IV) IV ONE ×2 (14:00→19:15)
[2021-11-03] MEDS ORDERED: SODIUM ZIRCONIUM CYCLOSILICATE 10 GM PACKET PO ONE (14:30)
[2021-11-03] MEDS ORDERED: AMIODARONE 450 MG in DEXTROSE 5% IN WATER 250 ML IV SCH ×2 (15:30)
[2021-11-03 17:29] LABS: Glucose,Whole Blood 342 mg/dL (75-99)
[2021-11-03] MEDS: AMIODARONE 360 MG in DEXTROSE 5% IN WATER 200 ML IV SCH ×2 (17:38)
[2021-11-03 18:30] LABS: ALT 153 U/L (4-34); AST 495 U/L (14-36); African American GFR (CKD) 19 (>60 ml/min/1.73 sqM); Albumin 2.7 g/dL (3.5-5.0); Alkaline Phosphatase 144 U/L (38-126); Anion Gap 9 mmol/L; Calcium 9.4 mg/dL (8.4-10.2); Carbon Dioxide 23 mmol/L (22-30); Chloride 113 mmol/L (98-107); Glucose 336 mg/dL (74-99); Non-African American GFR(CKD) 17 (>60 ml/min/1.73 sqM); Sodium 145 mmol/L (137-145); Total Protein 6.3 g/dL (6.3-8.2)
[2021-11-03 18:35] LABS: Blood Urea Nitrogen 109 mg/dL (7-17); Potassium 6.2 mmol/L (3.5-5.1)
[2021-11-03] MEDS: AMIODARONE 200 MG TAB PO SCH (20:50)
[2021-11-03] MEDS: POTASSIUM CHLORIDE ER 10 MEQ TAB.ER.PRT PO SCH (20:50)
--- NOTE | 2021-11-03 21:12 | PCN ---
PROCEDURE NOTE PREOPERATIVE DIAGNOSIS: Acute on chronic renal failure, COVID positive, intubated. POSTOPERATIVE DIAGNOSIS: Acute on chronic renal failure, COVID positive, intubated. PROCEDURE PERFORMED: Ultrasound-guided dialysis catheter placement via right femoral approach. PROCEDURE DESCRIPTION: Patient was seen in the intensive care unit. Right groin was prepped and draped in sterile manner. Ultrasound-guided micropuncture was introduced into right femoral vein. Micropuncture guidewire was passed. Then 4-Kyrgyz dilator was passed on the top of the guidewire. Then we passed a regular guidewire without any resistance. The dilator was advanced on top of the guidewire. Then we placed dialysis catheter on the top of the guidewire, flushed with heparin saline and hep-locked, secured with 3-0 nylon. Dressing applied. Patient tolerated the procedure well. MMRAQUEL / MACKN: [id number] /
[2021-11-03 21:28] LABS: Glucose,Whole Blood 245 mg/dL (75-99)
[2021-11-03 23:39] LABS: Glucose,Whole Blood 163 mg/dL (75-99)
[2021-11-04] MEDS: METOPROLOL TARTRATE 50 MG TAB PO SCH ×2 (00:11→10:45)
[2021-11-04] MEDS ORDERED: ARTIFICIAL TEARS-HYPROMELLOSE DROPS 15 ML BTL BOTH EYES PRN (00:13)
[2021-11-04] MEDS: INSULIN ASPART (NovoLOG) 100 UNIT/ML VIAL SQ SCH ×4 (00:22→18:36)
[2021-11-04] MEDS: AMIODARONE 360 MG in DEXTROSE 5% IN WATER 200 ML IV SCH ×8 (00:23→17:27)
[2021-11-04] MEDS: NOREPINEPHRINE 8 MG in SODIUM CHLORIDE 0.9% 250 ML IV SCH ×3 (00:48→19:21)
[2021-11-04 04:32] LABS: Albumin 2.6 g/dL (3.5-5.0); Calcium 8.8 mg/dL (8.4-10.2); Total Bilirubin 1.2 mg/dL (0.2-1.3)
[2021-11-04 04:34] LABS: Basophils # (A) 0.2 k/uL (0-0.2); Basophils % (A) 1 %; Eosinophils % (A) 0 %; HCT 43.1 % (34.0-46.0); HGB 13.9 gm/dL (11.4-16.0); Hypochromasia Slight; Lymphocytes # (A) 0.3 k/uL (1.0-4.8); Lymphocytes % (A) 1 %; MCH 32.3 pg (25.0-35.0); MCHC 32.2 g/dL (31.0-37.0); MCV 100.4 fL (80.0-100.0); Macrocytosis Slight; Mean Platelet Volume 8.7; Monocytes # (A) 0.4 k/uL (0-1.0); Monocytes % (A) 2 %; Neutrophils # (A) 18.8 k/uL (1.3-7.7); Neutrophils % (A) 92 %; Platelet Count 103 k/uL (150-450); Poikilocytosis Slight; RBC 4.29 m/uL (3.80-5.40); RDW 15.9 % (11.5-15.5); WBC 20.4 k/uL (3.8-10.6)
[2021-11-04 04:59] LABS: C Reactive Protein 21.1 mg/dL (<1.0)
[2021-11-04 05:50] LABS: ABG Base Excess -0.5 mmol/L; ABG HCO3 27 mmol/L (21-25); ABG Oxygen Saturation 99.2 % (94-97); ABG PCO2 64 mmHg (35-45); ABG PH 7.24 (7.35-7.45); ABG PO2 132 mmHg (83-108); ABG TCO2 29 mmol/L (19-24); Allen Test Performed? Yes
[2021-11-04 06:07] LABS: Glucose,Whole Blood 187 mg/dL (75-99)
[2021-11-04] MEDS: LEVOTHYROXINE 50 MCG TAB PO SCH (06:33)
[2021-11-04] MEDS: SODIUM CHLORIDE 0.9% 1,000 ML IV SCH ×2 (06:36→22:34)
[2021-11-04] MEDS: AMIODARONE 450 MG in DEXTROSE 5% IN WATER 250 ML IV SCH ×2 (07:09)
[2021-11-04] MEDS: CHOLECALCIFEROL 25 MCG (1000 IU) TABLET PO SCH (08:04)
[2021-11-04] MEDS: ASCORBIC ACID 500 MG TAB PO SCH (08:04)
[2021-11-04] MEDS: ZINC SULFATE 220 MG CAP PO SCH (08:04)
[2021-11-04] MEDS: DEXAMETHASONE SOD PHOSPHATE 10 MG/ML 1 ML VIAL IVP SCH (08:06)
[2021-11-04] MEDS: CHLORHEXIDINE GLUCONATE 15 ML CUP MUCOUS MEM SCH ×2 (08:14→20:30)
[2021-11-04] MEDS: ALBUTEROL HFA INHALER INHALATION SCH ×4 (08:18→20:32)
[2021-11-04] MEDS: SYMBICORT 160-4.5 MCG INHALER INHALATION SCH ×2 (08:18→20:32)
--- NOTE | 2021-11-04 08:52 | P.NPCON ---
History of Present Illness - Reason for Consult acute renal failure, hyperkalemia - History of Present Illness Reason for consultation: Acute kidney injury and hyperkalemia History of present illness: Patient is a 66-year-old female seen in renal consultation for acute kidney injury and hyperkalemia. Patient presented to the hospital on 10/30/2021 with shortness of breath. Patient tested positive for coronavirus. She also wanted A. fib with RVR and is currently maintained on amiodarone drip. She is also on Levophed. Creatinine on admission was 2.37 and it did improve to 1.25 as of 11/02/2021. Renal function is now worsening again and creatinine was 12.8 yesterday and potassium level was 6.5. Hyperkalemia was medically treated and repeat potassium level 6.2. She had to be cardioverted. Patient was urgently dialyzed last night. Potassium level this morning is 5.0. She is oliguric. Cu rrently not receiving tube feeding. She is on normal saline running at 75 mL an hour. Patient does have history of systolic CHF with ejection fraction of 20% and has an AICD. She does have diabetes. Vital signs - in A. fib. On vasopressor support. HEENT: Intubated. LUNGS: Breath sounds decreased. HEART: Irregular rate and rhythm. ABDOMEN: Soft, no distention. EXTREMITITES: 1+ edema. 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 Past Anesthesia/Blood Transfusion Reactions: No Reported Reaction Type of Cardiac Device: AICD Device Placement Date:: 2004 device/gen change 2011 Smoking Status: Current some day smoker - Past Family History Sister(s) Family Medical History: Cancer Father History Unknown: Yes Mother Family Medical History: COPD Medications and Allergies Home Medications Medication Instructions Recorded Confirmed Type Aspirin EC [Ecotrin Low Dose] 81 mg PO HS 05/15/15 10/30/21 History Omeprazole [PriLOSEC] 40 mg PO HS 05/15/15 10/30/21 History Montelukast [Singulair] 10 mg PO DAILY 06/05/16 10/30/21 History Warfarin [Coumadin] 2.5 - 5 mg PO DIRECTED 06/05/16 10/31/21 History Insulin Degludec [Tresiba 25 unit SQ DAILY 06/11/18 10/30/21 History Flextouch U-100 Pen] Albuterol Inhaler [Ventolin Hfa 1 - 2 puff INHALATION RT-QID PRN 06/25/21 10/30/21 History Inhaler] Amiodarone [Cordarone] 200 mg PO DAILY 06/25/21 10/30/21 History Cetirizine HCl [Zyrtec] 10 mg PO DAILY 06/25/21 10/30/21 History Ferrous Sulfate [Slow Fe] 142 mg PO DAILY 06/25/21 10/30/21 History Fluticasone Nasal Nitro [Flonase 1 spr EA NOSTRIL DAILY PRN 06/25/21 10/30/21 History Nasal Nitro] Fluticasone/Vilanterol [Breo 1 puff INHALATION RT-DAILY 06/25/21 10/30/21 History Ellipta 200-25 Mcg Inhaler] HYDROcodone/APAP 7.5-325MG [[place] 1 tab PO Q6HR PRN 06/25/21 10/30/21 History 7.5-325] Insulin Aspart [NovoLOG Flexpen] See Protocol SQ AC-TID 06/25/21 10/30/21 History Levothyroxine Sodium [Synthroid] 50 mcg PO DAILY 06/25/21 10/30/21 History Metoprolol Tartrate [Lopressor] 50 mg PO TID 06/25/21 10/30/21 History Ascorbic Acid [Vitamin C] 1,000 mg PO DAILY 10/30/21 10/30/21 History Cholecalciferol (Vitamin D3) 125 mcg PO DAILY 10/30/21 10/30/21 History [Vitamin D3 (125 MCG = 5,000 IU)] Furosemide [Lasix] 80 mg PO TID 10/30/21 10/30/21 History Ipratropium-Albuterol Nebulize 3 ml INHALATION RT-QID PRN 10/30/21 10/30/21 History [Duoneb 0.5 mg-3 mg/3 ml Soln] Levofloxacin [Levaquin] 750 mg PO DAILY 10/30/21 10/30/21 History Potassium Chloride ER [K-Dur 10] 10 meq PO DAILY 10/30/21 10/30/21 History Vitamin B Complex 1 tab PO DAILY 10/30/21 10/30/21 History Vitamin E 400 unit PO DAILY 10/30/21 10/30/21 History hydrALAZINE HCL [Apresoline] 25 mg PO TID PRN 10/30/21 10/30/21 History Allergies Allergy/AdvReac Type Severity Reaction Status Date / Time Penicillins Allergy Unknown Dyspnea Verified 10/30/21 20:43 Physical Exam Vitals: Vital Signs Temp Pulse Pulse Resp BP BP Pulse Ox 11/04/21 08:30 125 H 30 H 97 11/04/21 08:15 98.7 F 118 H 30 H 98 11/04/21 08:00 124 H 30 H 98 11/04/21 07:45 126 H 30 H 98 11/04/21 07:30 130 H 30 H 98 11/04/21 07:00 123 H 30 H 98 11/04/21 06:45 121 H 30 H 98 11/04/21 06:30 124 H 30 H 98 11/04/21 06:15 122 H 30 H 98 11/04/21 06:00 116 H 30 H 98 11/04/21 05:45 109 H 30 H 98 11/04/21 05:30 125 H 30 H 98 11/04/21 05:15 110 H 30 H 97 11/04/21 05:00 112 H 30 H 96 11/04/21 04:45 130 H 30 H 100 11/04/21 04:30 121 H 30 H 99 11/04/21 04:15 125 H 30 H 100 11/04/21 04:00 99.3 F 121 H 30 H 100 11/04/21 03:45 120 H 30 H 100 11/04/21 03:30 122 H 30 H 99 11/04/21 03:15 120 H 30 H 100 11/04/21 03:00 109 H 30 H 98 11/04/21 02:45 120 H 30 H 100 11/04/21 02:30 112 H 30 H 100 11/04/21 02:15 108 H 30 H 100 11/04/21 02:00 108 H 30 H 100 11/04/21 01:45 130 H 30 H 100 11/04/21 01:30 87 30 H 100 11/04/21 01:15 87 30 H 100 11/04/21 01:00 86 30 H 100 11/04/21 00:45 58 L 30 H 100 11/04/21 00:30 58 L 30 H 99 11/04/21 00:15 58 L 30 H 100 11/04/21 00:00 98.1 F 58 L 30 H 100 11/03/21 23:45 60 30 H 99 11/03/21 23:30 60 30 H 99 11/03/21 23:22 97.8 F 64 30 H 107/68 11/03/21 23:15 63 30 H 99 11/03/21 23:00 63 30 H 100 11/03/21 22:45 64 30 H 100 11/03/21 22:30 65 30 H 100 11/03/21 22:15 65 30 H 100 11/03/21 22:00 63 30 H 100 11/03/21 21:45 61 30 H 100 11/03/21 21:30 60 30 H 100 11/03/21 21:15 60 30 H 100 11/03/21 21:00 60 30 H 98 11/03/21 20:45 61 30 H 99 11/03/21 20:30 61 30 H 99 11/03/21 20:15 62 30 H 98 11/03/21 20:00 61 31 H 100 11/03/21 19:45 63 30 H 99 11/03/21 19:30 63 30 H 99 11/03/21 19:15 56 L 30 H 98 11/03/21 19:00 55 L 30 H 98 11/03/21 18:45 56 L 30 H 98 19 18:30 56 L 30 H 97 11/03/21 18:25 57 L 30 H 97 11/03/21 18:20 57 L 30 H 97 11/03/21 18:15 57 L 30 H 97 11/03/21 18:10 57 L 30 H 97 11/03/21 18:05 57 L 30 H 97 11/03/21 18:00 83 30 H 97 11/03/21 17:55 83 30 H 97 11/03/21 17:50 54 L 30 H 96 11/03/21 17:45 133 H 30 H 96 11/03/21 17:40 133 H 30 H 95 11/03/21 17:35 142 H 30 H 95 11/03/21 17:30 118 H 30 H 95 11/03/21 17:25 135 H 30 H 95 11/03/21 17:20 141 H 30 H 95 11/03/21 17:00 131 H 30 H 95 11/03/21 16:40 133 H 30 H 96 11/03/21 16:20 101.9 F H 129 H 30 H 96 11/03/21 16:00 126 H 30 H 97 11/03/21 15:40 137 H 30 H 96 11/03/21 15:20 137 H 30 H 97 11/03/21 15:00 121 H 30 H 96 11/03/21 14:40 108 H 30 H 95 11/03/21 14:20 123 H 30 H 96 11/03/21 14:00 125 H 30 H 96 11/03/21 13:40 121 H 30 H 96 11/03/21 13:20 123 H 30 H 96 11/03/21 13:00 112 H 30 H 96 11/03/21 12:40 128 H 30 H 95 11/03/21 12:20 120 H 30 H 96 11/03/21 12:00 100.4 F H 107 H 30 H 96 11/03/21 11:40 125 H 30 H 95 11/03/21 11:20 128 H 30 H 95 11/03/21 11:00 117 H 32 H 93 L 11/03/21 10:40 124 H 30 H 93 L 11/03/21 10:20 121 H 30 H 93 L 11/03/21 10:12 30 H 11/03/21 10:00 137 H 33 H 93 L 11/03/21 09:40 122 H 34 H 88 L 11/03/21 09:20 118 H 41 H 82/38 93 L 11/03/21 09:00 114 H 33 H 113/92 93 L Intake and Output 11/03/21 11/04/21 11/04/21 22:59 06:59 14:59 Intake Total 1158.276 772.212 298.332 Output Total 140 125 30 Balance 1018.276 647.212 268.332 Intake: IV 700 600 125 Calcium gluconate 100 Sodium Chloride 0.9% 1, 600 600 125 000 ml @ 75 mls/hr IV . [id number] Rx#:[id number] Intake, IV Titration 458.276 172.212 173.332 Amount Amiodarone 360 mg In 17.222 0 173.332 Dextrose 5% in Water 200 ml @ 1 MG/MIN 33.333 mls/ hr IV .Q6H [facility] Rx#: [id number] Norepinephrine 8 mg In 241.054 Sodium Chloride 0.9% 250 ml @ 0.05 MCG/KG/MIN 10. 933 mls/hr IV .[id number] [facility] Rx#:[id number] propofoL 1,000 mg In 200 172.212 Empty Bag 1 bag @ Titrate IV .Q0M [facility] Rx#: [id number] Hemodialysis 0 Output: Urine 140 125 30 Hemodialysis 0 Other: Voiding Method Indwelling Catheter Indwelling Catheter Weight 112.4 kg ABP, PAP, CO, CI - Last 8 Hours Arterial Blood Pressure 124/65 Arterial Blood Pressure 113/65 Arterial Blood Pressure 131/66 Arterial Blood Pressure 130/62 Arterial Blood Pressure 134/71 Arterial Blood Pressure 115/65 Arterial Blood Pressure 120/68 Arterial Blood Pressure 101/63 Arterial Blood Pressure 111/68 Arterial Blood Pressure 109/67 Arterial Blood Pressure 121/66 Arterial Blood Pressure 115/66 Arterial Blood Pressure 117/65 Arterial Blood Pressure 126/74 Arterial Blood Pressure 115/66 Arterial Blood Pressure 126/67 Arterial Blood Pressure 120/67 Arterial Blood Pressure 135/78 Arterial Blood Pressure 113/70 Arterial Blood Pressure 123/71 Arterial Blood Pressure 119/67 Arterial Blood Pressure 117/70 Arterial Blood Pressure 121/66 Arterial Blood Pressure 121/71 Arterial Blood Pressure 120/71 Arterial Blood Pressure 131/66 Arterial Blood Pressure 124/65 Arterial Blood Pressure 146/57 Arterial Blood Pressure 144/56 Arterial Blood Pressure 145/56 Arterial Blood Pressure 101/52 Results - Lab Results Most recent lab results ABG pH 7.24 (7.35-7.45) L 11/04/21 05:45 ABG pCO2 64 mmHg (35-45) H 11/04/21 05:45 ABG pO2 132 mmHg (83-108) H 11/04/21 05:45 ABG HCO3 27 mmol/L (21-25) H 11/04/21 05:45 ABG O2 Saturation 99.2 % (94-97) H 11/04/21 05:45 Calcium 8.8 mg/dL (8.4-10.2) 11/04/21 03:30 Magnesium 2.9 mg/dL (1.6-2.3) H 11/03/21 12:34 11/04/21 03:30 11/04/21 03:30 Assessment and Plan Plan: Assessment: 1. Acute kidney injury secondary to ATN secondary to septic shock. Creatinine peaked at 2.8 on this admission on 11/03/2021. Oliguric. Started on hemodialysis 11/03/2021. 2. Septic shock secondary to COVID-19 infection. On Levophed. 3. A. fib with RVR maintain on amiodarone drip. 4. Hyperkalemia secondary to acute kidney injury. No significant improvement with medical management. Improved postdialysis. 5. Chronic systolic CHF with ejection fraction of 20% with AICD placement. 6. Coagulopathy. Plan: Decrease rate of normal saline to 50 mL an hour. Wean FiO2 and vasopressors. Second treatment of hemodialysis today. Continue to assess on a daily basis. Check phosphorus level.
[2021-11-04] MEDS ORDERED: AMIODARONE IN DEXTROSE,ISO-OSM 360 MG/200 ML PLAST..BAG IV ONE (09:16)
[2021-11-04] MEDS: CISATRACURIUM 200 MG in SODIUM CHLORIDE 0.9% 180 ML IV SCH (09:18)
--- NOTE | 2021-11-04 09:20 | XR ---
EXAMINATION TYPE: XR chest 1V portable DATE OF EXAM: 11/04/2021 Comparison: 11/03/2021 Clinical History: 66-year-old female Tube placement Findings: ET tube and NG tube satisfactory. Left CVC tip within the right atrium. Heart borderline enlarged. Di ffuse groundglass opacities, right greater than left without significant change. Left anterior chest wall ICD generator with right atrial and right ventricular leads. Impression: Continued right greater than left groundglass opacities.
--- NOTE | 2021-11-04 09:37 | P.PN ---
Subjective Progress Note Date: 11/04/21 This is a 66 yo unvaccinated female who comes into the emergency department complaining of at least a week and maybe longer complaints of shortness of breath. She is also very weak. Poor oral intake. Not a very good historian. The patient apparently has a history of atrial fibrillation, CHF, diabetes, COPD, status post AICD placement, and cardiomyopathy with an ejection fraction of about 20%. Chest x-ray shows diffuse bilateral infiltrates, which might be consistent with coronavirus associated pneumonia and/or fluid overload. The patient's condition progressively decompensated and the patient was transferred to the intensive care unit and intubated early on 11/03/2021. The patient was also noted to develop hypotension, A. fib RVR, acute leukocytosis and acute kidney injury with secondary hyperkalemia. On 11/04/2021, the patient remains intubated on a mechanical ventilator. The patient remains sedated with propofol which is running at 40 mg/kg per minute. She is also on Nimbex at 1 mcg/kg per minute for paralysis. She is quite sensitive to mechanical ventilator. For now, the patient is currently on assist control mode of ventilation with a rate of 30, tidal volume is 400, FiO2 of 80% and PEEP of 12. The peak airway pressure currently is at 36. The chest x-ray from today is showing bilateral pulmonary infiltrates with possibly some interval worsening of the right lower lobe consolidation. There is also upper lobe and perihilar infiltration. The patient has an AICD in place. ET tube is in a good location. The blood gases from today shows a pH of 7.24 with a pCO2 of 64 and pO2 132 and this was on FiO2 of 80%. The patient is currently being treated with Decadron at a dose of 6 mg IV every 24 hours. Apparently, the family was against any other immunosuppressive agents such as Baricitinib and this was honored. The patient currently has inflammatory markers that are showing an LDH level of 4009, CRP level of 21,. Note that the white cell count is currently down to 20.4 with hemoglobin 13.9. Meanwhile, she had developed an acute kidney injury, creatinine is at 2.4 with a BUN of 80 and the rest of the electrodes are normal. She has has been hypotensive and the patient is currently on norepinephrine running at 0.18 mcg/kg per minute. Pro-calcitonin level at time of admission was low at the follow-up levels from 11/03/2021 showed a level of 0.47. She is currently on no antibiotics. Her cardiac rhythm is chronic atrial fibrillation and the rate is tachycardic at this point in time. She remains on a amiodarone drip at 1 mg per minute and her anticoagulation is in the form of warfarin. Note that the Coumadin currently on hold knowing that the patient's INR was 6.9 from yesterday. No signs of any acute bleeding. D-dimer was quite elevated on this patient at about 34. On her blood work also, there is signs of chemical hyperthyroidism with a low TSH and an elevated free T4. The free T4 level was at 3.26 and the TSH level was less than 0.01. Objective - Vital Signs Vital signs: Vital Signs Temp 98.7 F 11/04/21 08:15 Pulse 125 H 11/04/21 08:30 Resp 30 H 11/04/21 08:30 BP 107/68 11/03/21 23:22 Pulse Ox 97 11/04/21 08:30 Intake & Output 11/03/21 11/04/21 11/04/21 18:59 06:59 18:59 Intake Total 4265.100 1513.266 298.332 Output Total 180 225 30 Balance 4085.100 1288.266 268.332 Weight 112.4 kg Intake: IV 3900 1000 125 Calcium gluconate 100 Sodium Chloride 0.9% 1, 825 900 125 000 ml @ 75 mls/hr IV . [id number] [facility] Rx#:[id number] Sodium Chloride 0.9% 1, 1075 000 ml @ 999 mls/hr IV . Q1H1M [facility] Rx#:[id number] Sodium Chloride 0.9% 2, 2000 000 ml @ 999 mls/hr IV . Q2H1M [facility] Rx#:[id number] Intake, IV Titration 365.100 513.266 173.332 Amount Amiodarone 360 mg In 17.222 0 173.332 Dextrose 5% in Water 200 ml @ 1 MG/MIN 33.333 mls/ hr IV .Q6H [facility] Rx#: [id number] Norepinephrine 8 mg In 84.147 241.054 Sodium Chloride 0.9% 250 ml @ 0.05 MCG/KG/MIN 10. 933 mls/hr IV .[id number] [facility] Rx#:[id number] propofoL 1,000 mg In 263.731 272.212 Empty Bag 1 bag @ Titrate IV .Q0M [facility] Rx#: [id number] Hemodialysis 0 Output: Urine 180 225 30 Hemodialysis 0 Other: Voiding Method Indwelling Catheter Indwelling Catheter ABP, PAP, CO, CI - Last Documented Arterial Blood Pressure 124/65 - Exam GENERAL EXAM: Intubated and sedated, 66-year-old obese white female on assist- control mode of ventilation with a rate of 36, tidal volume is 400, FiO2 of 80% and PEEP of 12. comfortable in no apparent distress. HEAD: Normocephalic/atraumatic. EYES: Normal reaction of pupils, equal size. Conjunctiva pink, sclera white. NOSE: Clear with pink turbinates. THROAT: No erythema or exudates. NECK: No masses, no JVD, no thyroid enlargement, no adenopathy. CHEST: No chest wall deformity. Symmetrical expansion. LUNGS: Equal air entry with no crackles, wheeze, rhonchi or dullness. CVS: Irregular rate and rhythm, normal S1 and S2, no gallops, no murmurs, no rubs ABDOMEN: Soft, nontender. No hepatosplenomegaly, normal bowel sounds, no guarding or rigidity. EXTREMITIES: No clubbing, no edema, no cyanosis, 2+ pulses and upper and lower extremities. MUSCULOSKELETAL: Muscle strength and tone normal. SPINE: No scoliosis or deformity SKIN: No rashes CENTRAL NERVOUS SYSTEM: No focal deficits, tone is normal in all 4 extremities. - Labs CBC & Chem 7: 11/04/21 03:30 11/04/21 03:30 Labs: Abnormal Lab Results - Last 24 Hours (Table) 11/03/21 11/03/21 11/03/21 Range/Units 10:10 11:40 12:34 WBC (3.8-10.6) k/uL Hct (34.0-46.0) % MCV (80.0-100.0) fL RDW (11.5-15.5) % Plt Count (150-450) k/uL Neutrophils # (1.3-7.7) k/uL Lymphocytes # (1.0-4.8) k/uL Basophils # (0-0.2) k/uL PT 67.5 H (9.0-12.0) sec INR 6.9 H* (<1.2) ABG pH 7.20 L (7.35-7.45) ABG pCO2 63 H (35-45) mmHg ABG pO2 (83-108) mmHg ABG HCO3 (21-25) mmol/L ABG Total CO2 27 H (19-24) mmol/L ABG O2 Saturation (94-97) % Sodium (137-145) mmol/L Potassium (3.5-5.1) mmol/L Chloride (98-107) mmol/L BUN (7-17) mg/dL Creatinine (0.52-1.04) mg/dL Glucose (74-99) mg/dL POC Glucose (mg/dL) 253 H (75-99) mg/dL Magnesium (1.6-2.3) mg/dL AST (14-36) U/L ALT (4-34) U/L Alkaline Phosphatase (38-126) U/L Lactate Dehydrogenase (313-618) U/L C-Reactive Protein (<1.0) mg/dL Total Protein (6.3-8.2) g/dL Albumin (3.5-5.0) g/dL Procalcitonin (0.02-0.09) ng/mL TSH (0.465-4.680) mIU/L Free T4 (0.78-2.19) ng/dL 11/03/21 11/03/21 11/03/21 Range/Units 12:34 13:01 13:01 WBC 25.0 H (3.8-10.6) k/uL Hct 46.7 H (34.0-46.0) % MCV 100.1 H (80.0-100.0) fL RDW 15.7 H (11.5-15.5) % Plt Count 107 L (150-450) k/uL Neutrophils # 23.2 H (1.3-7.7) k/uL Lymphocytes # 0.3 L (1.0-4.8) k/uL Basophils # 0.3 H (0-0.2) k/uL PT (9.0-12.0) sec INR (<1.2) ABG pH (7.35-7.45) ABG pCO2 (35-45) mmHg ABG pO2 (83-108) mmHg ABG HCO3 (21-25) mmol/L ABG Total CO2 (19-24) mmol/L ABG O2 Saturation (94-97) % Sodium 147 H (137-145) mmol/L Potassium 6.5 H* (3.5-5.1) mmol/L Chloride 117 H (98-107) mmol/L BUN 104 H* (7-17) mg/dL Creatinine 2.52 H (0.52-1.04) mg/dL Glucose 302 H (74-99) mg/dL POC Glucose (mg/dL) (75-99) mg/dL Magnesium 2.9 H (1.6-2.3) mg/dL AST (14-36) U/L ALT (4-34) U/L Alkaline Phosphatase (38-126) U/L Lactate Dehydrogenase (313-618) U/L C-Reactive Protein (<1.0) mg/dL Total Protein (6.3-8.2) g/dL Albumin (3.5-5.0) g/dL Procalcitonin 0.47 H (0.02-0.09) ng/mL TSH (0.465-4.680) mIU/L Free T4 (0.78-2.19) ng/dL 11/03/21 11/03/21 11/03/21 Range/Units 13:21 17:13 17:13 WBC (3.8-10.6) k/uL Hct (34.0-46.0) % MCV (80.0-100.0) fL RDW (11.5-15.5) % Plt Count (150-450) k/uL Neutrophils # (1.3-7.7) k/uL Lymphocytes # (1.0-4.8) k/uL Basophils # (0-0.2) k/uL PT (9.0-12.0) sec INR (<1.2) ABG pH (7.35-7.45) ABG pCO2 (35-45) mmHg ABG pO2 (83-108) mmHg ABG HCO3 (21-25) mmol/L ABG Total CO2 (19-24) mmol/L ABG O2 Saturation (94-97) % Sodium (137-145) mmol/L Potassium 6.2 H* (3.5-5.1) mmol/L Chloride 113 H (98-107) mmol/L BUN 109 H* (7-17) mg/dL Creatinine 2.81 H (0.52-1.04) mg/dL Glucose 336 H (74-99) mg/dL POC Glucose (mg/dL) 289 H (75-99) mg/dL Magnesium (1.6-2.3) mg/dL AST 495 H (14-36) U/L ALT 153 H (4-34) U/L Alkaline Phosphatase 144 H (38-126) U/L Lactate Dehydrogenase (313-618) U/L C-Reactive Protein (<1.0) mg/dL Total Protein (6.3-8.2) g/dL Albumin 2.7 L (3.5-5.0) g/dL Procalcitonin (0.02-0.09) ng/mL TSH <0.015 L (0.465-4.680) mIU/L Free T4 3.26 H (0.78-2.19) ng/dL 11/03/21 11/03/21 11/03/21 Range/Units 17:27 21:26 23:38 WBC (3.8-10.6) k/uL Hct (34.0-46.0) % MCV (80.0-100.0) fL RDW (11.5-15.5) % Plt Count (150-450) k/uL Neutrophils # (1.3-7.7) k/uL Lymphocytes # (1.0-4.8) k/uL Basophils # (0-0.2) k/uL PT (9.0-12.0) sec INR (<1.2) ABG pH (7.35-7.45) ABG pCO2 (35-45) mmHg ABG pO2 (83-108) mmHg ABG HCO3 (21-25) mmol/L ABG Total CO2 (19-24) mmol/L ABG O2 Saturation (94-97) % Sodium (137-145) mmol/L Potassium (3.5-5.1) mmol/L Chloride (98-107) mmol/L BUN (7-17) mg/dL Creatinine (0.52-1.04) mg/dL Glucose (74-99) mg/dL POC Glucose (mg/dL) 342 H 245 H 163 H (75-99) mg/dL Magnesium (1.6-2.3) mg/dL AST (14-36) U/L ALT (4-34) U/L Alkaline Phosphatase (38-126) U/L Lactate Dehydrogenase (313-618) U/L C-Reactive Protein (<1.0) mg/dL Total Protein (6.3-8.2) g/dL Albumin (3.5-5.0) g/dL Procalcitonin (0.02-0.09) ng/mL TSH (0.465-4.680) mIU/L Free T4 (0.78-2.19) ng/dL 11/04/21 11/04/21 11/04/21 Range/Units 03:30 03:30 05:45 WBC 20.4 H (3.8-10.6) k/uL Hct (34.0-46.0) % MCV 100.4 H (80.0-100.0) fL RDW 15.9 H (11.5-15.5) % Plt Count 103 L (150-450) k/uL Neutrophils # 18.8 H (1.3-7.7) k/uL Lymphocytes # 0.3 L (1.0-4.8) k/uL Basophils # (0-0.2) k/uL PT (9.0-12.0) sec INR (<1.2) ABG pH 7.24 L (7.35-7.45) ABG pCO2 64 H (35-45) mmHg ABG pO2 132 H (83-108) mmHg ABG HCO3 27 H (21-25) mmol/L ABG Total CO2 29 H (19-24) mmol/L ABG O2 Saturation 99.2 H (94-97) % Sodium (137-145) mmol/L Potassium (3.5-5.1) mmol/L Chloride (98-107) mmol/L BUN 80 H (7-17) mg/dL Creatinine 2.41 H (0.52-1.04) mg/dL Glucose 190 H (74-99) mg/dL POC Glucose (mg/dL) (75-99) mg/dL Magnesium (1.6-2.3) mg/dL AST 500 H (14-36) U/L ALT 181 H (4-34) U/L Alkaline Phosphatase (38-126) U/L Lactate Dehydrogenase 4009 H (313-618) U/L C-Reactive Protein 21.1 H (<1.0) mg/dL Total Protein 6.0 L (6.3-8.2) g/dL Albumin 2.6 L (3.5-5.0) g/dL Procalcitonin (0.02-0.09) ng/mL TSH (0.465-4.680) mIU/L Free T4 (0.78-2.19) ng/dL 11/04/21 Range/Units 06:06 WBC (3.8-10.6) k/uL Hct (34.0-46.0) % MCV (80.0-100.0) fL RDW (11.5-15.5) % Plt Count (150-450) k/uL Neutrophils # (1.3-7.7) k/uL Lymphocytes # (1.0-4.8) k/uL Basophils # (0-0.2) k/uL PT (9.0-12.0) sec INR (<1.2) ABG pH (7.35-7.45) ABG pCO2 (35-45) mmHg ABG pO2 (83-108) mmHg ABG HCO3 (21-25) mmol/L ABG Total CO2 (19-24) mmol/L ABG O2 Saturation (94-97) % Sodium (137-145) mmol/L Potassium (3.5-5.1) mmol/L Chloride (98-107) mmol/L BUN (7-17) mg/dL Creatinine (0.52-1.04) mg/dL Glucose (74-99) mg/dL POC Glucose (mg/dL) 187 H (75-99) mg/dL Magnesium (1.6-2.3) mg/dL AST (14-36) U/L ALT (4-34) U/L Alkaline Phosphatase (38-126) U/L Lactate Dehydrogenase (313-618) U/L C-Reactive Protein (<1.0) mg/dL Total Protein (6.3-8.2) g/dL Albumin (3.5-5.0) g/dL Procalcitonin (0.02-0.09) ng/mL TSH (0.465-4.680) mIU/L Free T4 (0.78-2.19) ng/dL Microbiology - Last 24 Hours (Table) 11/03/21 12:00 Gram Stain - Preliminary Sputum Sputum Culture - Preliminary 11/03/21 17:13 Urine Culture - Preliminary Urine,Catheterized 11/03/21 04:18 Gram Stain - Preliminary Sputum Sputum Culture - Preliminary Assessment and Plan Plan: #1. Acute hypoxic respiratory failure related to COVID-19 pneumonia and a component of acute exacerbation of systolic CHF. Patient was admitted on 10/30/2021, she was placed on BiPAP, and she was started on Baricitinib on 11/02/2021, transfer to the intensive care unit on 11/03/2021 and intubated and placed on mechanical ventilator this morning, the patient is sedated with propofol and the patient is paralyzed with Nimbex. Chest x-ray showing worsening in the bilateral pulmonary infiltrates. The patient developed some leukocytosis. The patient is currently on Decadron. The blood gas shows adequate oxygenation on the above-mentioned ventilator setting. Note that the patient remains on Decadron. The patient was taken off Baricitinib per family's request. Focused on his level is mildly elevated. Suggest covering this patient with empiric antibiotic coverage also in the form of IV cefepime. The patient is on anticoagulants with warfarin. She was toxic and I her INR and this needs to be rechecked and treated accordingly. No signs of any bleeding at this point in time. Inflammatory markers are elevated including #2. A. fib with RVR, on amiodarone drip, and patient is already on Coumadin, today's INR is pending, yesterday's INR was 6.9 #3. Acute kidney injury, was improving LDH and d-dimer is., Stable and the patient is receiving IV fluids at the rate of 50 mL an hour. She is also on pressors. Unfortunately, the patient's urine output is up considerably, dialysis catheter inserted in preparation for hemodialysis. #4. History of atrial fibrillation on Coumadin and oral amiodarone at home #5. History of severe nonischemic cardiomyopathy with EF of 20%, status post AICD placement #6. History of COPD from heavy tobacco use #7. History of diabetes mellitus with diabetic neuropathy, currently on insulin sliding scale coverage. #8. Coumadin induced coagulopathy #9. Hypertension #10. Hyperlipidemia #11, hypotension, multifactorial. The patient has severe nonischemic cardiomyopathy in addition to that there may be a component of sepsis and the patient is currently on norepinephrine infusion running at 0.18 mcg/kg per minute. #12 chemical hyperthyroidism, currently on Synthroid on outpatient basis. She does have an underlying history of hypothyroidism. Plan: Repeat blood gas has been obtained, we will increase PEEP up to 12, Fio2 can be weaned off to maintain a saturation above 90% Weaning FiO2 to maintain O2 saturations at or above 90% Keep the patient sedated with propofol Keep the patient paralyzed for now Continue Decadron DC Baricitinib Obtain sputum Gram stain and culture and blood culture put the patient IV cefepime Recheck INR and treat accordingly specially there is ongoing toxicity Continue pressors for hemodynamic support Continue IV amiodarone 1 mg per minute per cardiology recommendation as at the lower doses, the patient was going into a A. fib RVR and she had a run of V. tach. Start nutritional support with tube feedings When more hemodynamically stable and A. fib is better controlled, place the patient in prone position for 12-16 hours Inflammatory markers Abdominal the Synthroid dose to 25 g a daily basis as the patient has some chemical hyperthyroidism which probably is contributing to her atrial fibrillation and RVR Possible hemodialysis today Overall prognosis is extremely guarded, very poor prognosis based on the above- mentioned comorbidities. This is a critically care evaluation if was done and morning 30 minutes. CODE STATUS is full for now. Time with Patient: Greater than 30
[2021-11-04 10:09] LABS: Prothrombin Time >130.0 sec (9.0-12.0)
[2021-11-04 10:11] LABS: INR >10.0 (<1.2)
[2021-11-04] MEDS ORDERED: PHYTONADIONE 10 MG in SODIUM CHLORIDE 0.9% 50 ML IVPB STA (10:12)
--- NOTE | 2021-11-04 10:25 | P.PN ---
Subjective Progress Note Date: 11/04/21 Principal diagnosis: Overall is still intubated did have 50 sodium A. fib last night and also V. tach but overall currently stable on vent Patient is intubated Constitutional: No acute distress, conversant, pleasant Eyes: Anicteric sclerae, moist conjunctiva, no lid-lag PERRLA ENMT: Neck: Sedated intubated Lungs: C, no accessory muscle use Cardiovascular: Heart regular in rate and rhythm, No murmurs, gallops, or rubs No peripheral edema Abdominal: No o distention Skin: N Extremities: No digital cyanosis No clubbing Pedal pulses intact and symmetrical Radial pulses intact and symmetrical Normal gait and station No calf tenderness Psychiatric sedated intubated Neuro: Generalized weakness - pneumonia with acute hypoxic respiratory failure -Patient went into more respiratory distress last night and has to be to Diabetic ketoacidosis - Acute on chronic kidney disease -Likely due to ongoing DKA and COVID Pneumonia -Judicious use of IV fluids Troponin elevation, likely demand ischemia -Trend troponin -Cardiac monitoring Supratherapeutic INR -S/p 5 mg PO Vit K -Monitor for now Chronic conditions: COPD, HTN, HLD -C/w home meds Patient was intubated Multiple attempts to contact family Overall management as per ICU team Continue management as per ICU and cardiology Objective - Vital Signs Vital signs: Vital Signs Temp 98.7 F 11/04/21 08:15 Pulse 126 H 11/04/21 09:00 Resp 30 H 11/04/21 09:00 BP 107/68 11/03/21 23:22 Pulse Ox 97 11/04/21 09:00 Intake & Output 11/03/21 11/04/21 11/04/21 18:59 06:59 18:59 Intake Total 4265.100 1513.266 503.481 Output Total 180 225 50 Balance 4085.100 1288.266 453.481 Weight 112.4 kg 112.4 kg Intake: IV 3900 1000 175 Calcium gluconate 100 Sodium Chloride 0.9% 1, 825 900 175 000 ml @ 50 mls/hr IV . Q20H [facility] Rx#:[id number] Sodium Chloride 0.9% 1, 1075 000 ml @ 999 mls/hr IV . Q1H1M [facility] Rx#:[id number] Sodium Chloride 0.9% 2, 2000 000 ml @ 999 mls/hr IV . Q2H1M [facility] Rx#:[id number] Intake, IV Titration 365.100 513.266 328.481 Amount Amiodarone 360 mg In 17.222 0 173.332 Dextrose 5% in Water 200 ml @ 1 MG/MIN 33.333 mls/ hr IV .Q6H [facility] Rx#: [id number] Cisatracurium 200 mg In 155.149 Sodium Chloride 0.9% 180 ml @ 1 MCG/KG/MIN 6.78 mls/hr IV .Q24H [facility] Rx#: [id number] Norepinephrine 8 mg In 84.147 241.054 Sodium Chloride 0.9% 250 ml @ 0.05 MCG/KG/MIN 10. 933 mls/hr IV .[id number] [facility] Rx#:[id number] propofoL 1,000 mg In 263.731 272.212 Empty Bag 1 bag @ Titrate IV .Q0M [facility] Rx#: [id number] Hemodialysis 0 Output: Urine 180 225 50 Hemodialysis 0 Other: Voiding Method Indwelling Catheter Indwelling Catheter Indwelling Catheter ABP, PAP, CO, CI - Last Documented Arterial Blood Pressure 130/68 - Labs CBC & Chem 7: 11/04/21 03:30 11/04/21 03:30 Labs: Abnormal Lab Results - Last 24 Hours (Table) 11/03/21 11/03/21 11/03/21 Range/Units 11:40 12:34 12:34 WBC (3.8-10.6) k/uL Hct (34.0-46.0) % MCV (80.0-100.0) fL RDW (11.5-15.5) % Plt Count (150-450) k/uL Neutrophils # (1.3-7.7) k/uL Lymphocytes # (1.0-4.8) k/uL Basophils # (0-0.2) k/uL PT 67.5 H (9.0-12.0) sec INR 6.9 H* (<1.2) ABG pH (7.35-7.45) ABG pCO2 (35-45) mmHg ABG pO2 (83-108) mmHg ABG HCO3 (21-25) mmol/L ABG Total CO2 (19-24) mmol/L ABG O2 Saturation (94-97) % Sodium 147 H (137-145) mmol/L Potassium 6.5 H* (3.5-5.1) mmol/L Chloride 117 H (98-107) mmol/L BUN 104 H* (7-17) mg/dL Creatinine 2.52 H (0.52-1.04) mg/dL Glucose 302 H (74-99) mg/dL POC Glucose (mg/dL) 253 H (75-99) mg/dL Magnesium 2.9 H (1.6-2.3) mg/dL AST (14-36) U/L ALT (4-34) U/L Alkaline Phosphatase (38-126) U/L Lactate Dehydrogenase (313-618) U/L C-Reactive Protein (<1.0) mg/dL Total Protein (6.3-8.2) g/dL Albumin (3.5-5.0) g/dL Procalcitonin (0.02-0.09) ng/mL TSH (0.465-4.680) mIU/L Free T4 (0.78-2.19) ng/dL 11/03/21 11/03/21 11/03/21 Range/Units 13:01 13:01 13:21 WBC 25.0 H (3.8-10.6) k/uL Hct 46.7 H (34.0-46.0) % MCV 100.1 H (80.0-100.0) fL RDW 15.7 H (11.5-15.5) % Plt Count 107 L (150-450) k/uL Neutrophils # 23.2 H (1.3-7.7) k/uL Lymphocytes # 0.3 L (1.0-4.8) k/uL Basophils # 0.3 H (0-0.2) k/uL PT (9.0-12.0) sec INR (<1.2) ABG pH (7.35-7.45) ABG pCO2 (35-45) mmHg ABG pO2 (83-108) mmHg ABG HCO3 (21-25) mmol/L ABG Total CO2 (19-24) mmol/L ABG O2 Saturation (94-97) % Sodium (137-145) mmol/L Potassium (3.5-5.1) mmol/L Chloride (98-107) mmol/L BUN (7-17) mg/dL Creatinine (0.52-1.04) mg/dL Glucose (74-99) mg/dL POC Glucose (mg/dL) 289 H (75-99) mg/dL Magnesium (1.6-2.3) mg/dL AST (14-36) U/L ALT (4-34) U/L Alkaline Phosphatase (38-126) U/L Lactate Dehydrogenase (313-618) U/L C-Reactive Protein (<1.0) mg/dL Total Protein (6.3-8.2) g/dL Albumin (3.5-5.0) g/dL Procalcitonin 0.47 H (0.02-0.09) ng/mL TSH (0.465-4.680) mIU/L Free T4 (0.78-2.19) ng/dL 11/03/21 11/03/21 11/03/21 Range/Units 17:13 17:13 17:27 WBC (3.8-10.6) k/uL Hct (34.0-46.0) % MCV (80.0-100.0) fL RDW (11.5-15.5) % Plt Count (150-450) k/uL Neutrophils # (1.3-7.7) k/uL Lymphocytes # (1.0-4.8) k/uL Basophils # (0-0.2) k/uL PT (9.0-12.0) sec INR (<1.2) ABG pH (7.35-7.45) ABG pCO2 (35-45) mmHg ABG pO2 (83-108) mmHg ABG HCO3 (21-25) mmol/L ABG Total CO2 (19-24) mmol/L ABG O2 Saturation (94-97) % Sodium (137-145) mmol/L Potassium 6.2 H* (3.5-5.1) mmol/L Chloride 113 H (98-107) mmol/L BUN 109 H* (7-17) mg/dL Creatinine 2.81 H (0.52-1.04) mg/dL Glucose 336 H (74-99) mg/dL POC Glucose (mg/dL) 342 H (75-99) mg/dL Magnesium (1.6-2.3) mg/dL AST 495 H (14-36) U/L ALT 153 H (4-34) U/L Alkaline Phosphatase 144 H (38-126) U/L Lactate Dehydrogenase (313-618) U/L C-Reactive Protein (<1.0) mg/dL Total Protein (6.3-8.2) g/dL Albumin 2.7 L (3.5-5.0) g/dL Procalcitonin (0.02-0.09) ng/mL TSH <0.015 L (0.465-4.680) mIU/L Free T4 3.26 H (0.78-2.19) ng/dL 11/03/21 11/03/21 11/04/21 Range/Units 21:26 23:38 03:30 WBC 20.4 H (3.8-10.6) k/uL Hct (34.0-46.0) % MCV 100.4 H (80.0-100.0) fL RDW 15.9 H (11.5-15.5) % Plt Count 103 L (150-450) k/uL Neutrophils # 18.8 H (1.3-7.7) k/uL Lymphocytes # 0.3 L (1.0-4.8) k/uL Basophils # (0-0.2) k/uL PT (9.0-12.0) sec INR (<1.2) ABG pH (7.35-7.45) ABG pCO2 (35-45) mmHg ABG pO2 (83-108) mmHg ABG HCO3 (21-25) mmol/L ABG Total CO2 (19-24) mmol/L ABG O2 Saturation (94-97) % Sodium (137-145) mmol/L Potassium (3.5-5.1) mmol/L Chloride (98-107) mmol/L BUN (7-17) mg/dL Creatinine (0.52-1.04) mg/dL Glucose (74-99) mg/dL POC Glucose (mg/dL) 245 H 163 H (75-99) mg/dL Magnesium (1.6-2.3) mg/dL AST (14-36) U/L ALT (4-34) U/L Alkaline Phosphatase (38-126) U/L Lactate Dehydrogenase (313-618) U/L C-Reactive Protein (<1.0) mg/dL Total Protein (6.3-8.2) g/dL Albumin (3.5-5.0) g/dL Procalcitonin (0.02-0.09) ng/mL TSH (0.465-4.680) mIU/L Free T4 (0.78-2.19) ng/dL 11/04/21 11/04/21 11/04/21 Range/Units 03:30 05:45 06:06 WBC (3.8-10.6) k/uL Hct (34.0-46.0) % MCV (80.0-100.0) fL RDW (11.5-15.5) % Plt Count (150-450) k/uL Neutrophils # (1.3-7.7) k/uL Lymphocytes # (1.0-4.8) k/uL Basophils # (0-0.2) k/uL PT (9.0-12.0) sec INR (<1.2) ABG pH 7.24 L (7.35-7.45) ABG pCO2 64 H (35-45) mmHg ABG pO2 132 H (83-108) mmHg ABG HCO3 27 H (21-25) mmol/L ABG Total CO2 29 H (19-24) mmol/L ABG O2 Saturation 99.2 H (94-97) % Sodium (137-145) mmol/L Potassium (3.5-5.1) mmol/L Chloride (98-107) mmol/L BUN 80 H (7-17) mg/dL Creatinine 2.41 H (0.52-1.04) mg/dL Glucose 190 H (74-99) mg/dL POC Glucose (mg/dL) 187 H (75-99) mg/dL Magnesium (1.6-2.3) mg/dL AST 500 H (14-36) U/L ALT 181 H (4-34) U/L Alkaline Phosphatase (38-126) U/L Lactate Dehydrogenase 4009 H (313-618) U/L C-Reactive Protein 21.1 H (<1.0) mg/dL Total Protein 6.0 L (6.3-8.2) g/dL Albumin 2.6 L (3.5-5.0) g/dL Procalcitonin (0.02-0.09) ng/mL TSH (0.465-4.680) mIU/L Free T4 (0.78-2.19) ng/dL 11/04/21 Range/Units 09:38 WBC (3.8-10.6) k/uL Hct (34.0-46.0) % MCV (80.0-100.0) fL RDW (11.5-15.5) % Plt Count (150-450) k/uL Neutrophils # (1.3-7.7) k/uL Lymphocytes # (1.0-4.8) k/uL Basophils # (0-0.2) k/uL PT >130.0 H (9.0-12.0) sec INR >10.0 H* (<1.2) ABG pH (7.35-7.45) ABG pCO2 (35-45) mmHg ABG pO2 (83-108) mmHg ABG HCO3 (21-25) mmol/L ABG Total CO2 (19-24) mmol/L ABG O2 Saturation (94-97) % Sodium (137-145) mmol/L Potassium (3.5-5.1) mmol/L Chloride (98-107) mmol/L BUN (7-17) mg/dL Creatinine (0.52-1.04) mg/dL Glucose (74-99) mg/dL POC Glucose (mg/dL) (75-99) mg/dL Magnesium (1.6-2.3) mg/dL AST (14-36) U/L ALT (4-34) U/L Alkaline Phosphatase (38-126) U/L Lactate Dehydrogenase (313-618) U/L C-Reactive Protein (<1.0) mg/dL Total Protein (6.3-8.2) g/dL Albumin (3.5-5.0) g/dL Procalcitonin (0.02-0.09) ng/mL TSH (0.465-4.680) mIU/L Free T4 (0.78-2.19) ng/dL Microbiology - Last 24 Hours (Table) 11/03/21 12:00 Gram Stain - Preliminary Sputum Sputum Culture - Preliminary 11/03/21 17:13 Urine Culture - Preliminary Urine,Catheterized 11/03/21 04:18 Gram Stain - Preliminary Sputum Sputum Culture - Preliminary
[2021-11-04 10:35] LABS: Hepatitis B Surface AB- Quant 3.5 mIU/mL; Hepatitis B Surface Antibody Nonreactive (Nonreactive); Hepatitis B Surface Antigen Nonreactive (Nonreactive)
--- NOTE | 2021-11-04 11:37 | CONS ---
DATE OF CONSULTATION: 11/04/2021 This is a 66-year-old female. I was consulted for placement of dialysis catheter. The patient is COVID positive, on ventilator, and also in acute renal failure. PAST HISTORY: Patient has a history of systolic congestive heart failure, atrial fibrillation, diabetes, type 2, hypertension, hyperlipidemia. Patient had an AICD placed in the past, heart catheterization, tonsillectomy, kidney surgery in childhood. PHYSICAL EXAMINATION: Patient was seen in the intensive care unit. Patient has been intubated. Neck is supple. Chest has crackles and rhonchi. Abdomen is soft, non-tender. VASCULAR EXAMINATION: Brachial and radial pulses are present. Femorals are 1+. Patient has marked swelling of both lower extremities. PLAN: Placement of dialysis catheter, ultrasound-guided. Risks and complications discussed. MMODL / IJN: [id number] / MTDD
[2021-11-04 11:58] LABS: Glucose,Whole Blood 243 mg/dL (75-99)
--- NOTE | 2021-11-04 12:22 | PN ---
PROGRESS NOTE FOLLOW-UP NOTE: Evelia is a 66-year-old lady who is admitted to hospital with COVID pneumonia, intubated on vent. We are involved in her care because of atrial fibrillation. Patient is currently on IV amiodarone. She is not on any anticoagulation, as she has coagulopathy with an INR of 10. We are giving her metoprolol for rate control. On exam this morning, heart rate is 126 beats per minute. Blood pressure is 130/68. Patient is currently on Levophed, metoprolol, amiodarone, aspirin. Labs show that the hemoglobin is 13.9, white cell count is 20, potassium is 5, BUN is 80, creatinine is 2.4. AST and ALT are elevated. ASSESSMENT: 1. Persistent atrial fibrillation with poorly controlled ventricular rate. 2. COVID pneumonia with respiratory failure. PLAN: Patient will continue current therapy. Prognosis guarded. MMODL / IJN: [id number] /
[2021-11-04 14:15] LABS: Prothrombin Time 48.6 sec (9.0-12.0)
[2021-11-04] MEDS: METOPROLOL TARTRATE 25 MG TAB PO SCH ×2 (17:32→22:58)
[2021-11-04 17:53] LABS: Glucose,Whole Blood 191 mg/dL (75-99)
[2021-11-04 18:01] LABS: Glucose,Whole Blood 236 mg/dL (75-99)
[2021-11-04] MEDS: ASPIRIN 81 MG PO SCH (20:30)
[2021-11-04] MEDS: CEFEPIME 1 GM in SODIUM CHLORIDE 0.9% 50 ML IVPB SCH (20:30)
[2021-11-04] MEDS: NOREPINEPHRINE 32 MG in SODIUM CHLORIDE 0.9% 218 ML IV SCH (23:00)
[2021-11-05 00:07] LABS: Glucose,Whole Blood 204 mg/dL (75-99)
[2021-11-05] MEDS: INSULIN ASPART (NovoLOG) 100 UNIT/ML VIAL SQ SCH ×4 (00:20→18:51)
[2021-11-05] MEDS ORDERED: AMIODARONE IN DEXTROSE,ISO-OSM 360 MG/200 ML PLAST..BAG IV ONE (01:00)
[2021-11-05] MEDS: AMIODARONE 360 MG in DEXTROSE 5% IN WATER 200 ML IV SCH ×8 (02:00→18:48)
[2021-11-05 05:50] LABS: Glucose,Whole Blood 238 mg/dL (75-99)
[2021-11-05] MEDS: AMIODARONE 450 MG in DEXTROSE 5% IN WATER 250 ML IV SCH ×2 (05:53)
[2021-11-05] MEDS: LEVOTHYROXINE 25 MCG TAB PO SCH (06:29)
[2021-11-05 06:32] LABS: Basophils # (A) 0.1 k/uL (0-0.2); Basophils % (A) 1 %; Eosinophils % (A) 0 %; HCT 37.7 % (34.0-46.0); HGB 12.6 gm/dL (11.4-16.0); Hypochromasia Slight; Lymphocytes # (A) 0.5 k/uL (1.0-4.8); Lymphocytes % (A) 2 %; MCH 32.6 pg (25.0-35.0); MCHC 33.4 g/dL (31.0-37.0); MCV 97.5 fL (80.0-100.0); Mean Platelet Volume 9.4; Monocytes # (A) 0.5 k/uL (0-1.0); Monocytes % (A) 2 %; Neutrophils # (A) 23.9 k/uL (1.3-7.7); Neutrophils % (A) 94 %; Platelet Count 107 k/uL (150-450); Poikilocytosis Slight; RBC 3.87 m/uL (3.80-5.40); RDW 15.4 % (11.5-15.5); WBC 25.4 k/uL (3.8-10.6)
[2021-11-05 06:49] LABS: INR 2.3 (<1.2); Prothrombin Time 22.4 sec (9.0-12.0)
[2021-11-05 07:25] LABS: HCT 38.8 % (34.0-46.0); Hypochromasia Slight; MCH 32.5 pg (25.0-35.0); MCHC 33.6 g/dL (31.0-37.0); MCV 96.7 fL (80.0-100.0); Mean Platelet Volume 8.8; Platelet Count 120 k/uL (150-450); Poikilocytosis Slight; RBC 4.01 m/uL (3.80-5.40); RDW 15.4 % (11.5-15.5); WBC 27.7 k/uL (3.8-10.6)
[2021-11-05 07:40] LABS: INR 1.7 (<1.2); Prothrombin Time 16.6 sec (9.0-12.0)
[2021-11-05 07:47] LABS: Albumin 2.5 g/dL (3.5-5.0); Calcium 8.8 mg/dL (8.4-10.2); Potassium 5.3 mmol/L (3.5-5.1); Total Bilirubin 1.5 mg/dL (0.2-1.3); Total Protein 5.9 g/dL (6.3-8.2)
[2021-11-05 07:50] LABS: ABG HCO3 26 mmol/L (21-25); ABG Oxygen Saturation 87.6 % (94-97); ABG PCO2 66 mmHg (35-45); ABG TCO2 28 mmol/L (19-24)
[2021-11-05 07:53] LABS: ABG PO2 57 mmHg (83-108); Allen Test Performed? no
[2021-11-05] MEDS: ZINC SULFATE 220 MG CAP PO SCH (08:08)
[2021-11-05] MEDS: CHLORHEXIDINE GLUCONATE 15 ML CUP MUCOUS MEM SCH ×2 (08:08→20:43)
[2021-11-05] MEDS: DEXAMETHASONE SOD PHOSPHATE 10 MG/ML 1 ML VIAL IVP SCH (08:08)
[2021-11-05] MEDS: ASCORBIC ACID 500 MG TAB PO SCH (08:10)
[2021-11-05] MEDS: CHOLECALCIFEROL 25 MCG (1000 IU) TABLET PO SCH (08:10)
[2021-11-05] MEDS: METOPROLOL TARTRATE 25 MG TAB PO SCH ×3 (08:13→22:00)
[2021-11-05] MEDS: SYMBICORT 160-4.5 MCG INHALER INHALATION SCH ×2 (08:18→19:49)
[2021-11-05] MEDS: ALBUTEROL HFA INHALER INHALATION SCH ×4 (08:18→19:49)
--- NOTE | 2021-11-05 08:29 | XR ---
EXAMINATION TYPE: XR chest 1V portable DATE OF EXAM: 11/05/2021 CLINICAL HISTORY: Difficulty breathing progress study. TECHNIQUE: Single AP portable semiupright view of the chest is obtained. COMPARISON: Chest x-ray from one day earlier and older studies. FINDINGS: Stable endotracheal and orogastric tubes. Stable left subclavian central venous catheter. Bilateral multifocal confluent increased opacities redemonstrated. Stable cardiomegaly with dual-marissa d pacemaker/defibrillator. Osseous structures are intact. IMPRESSION: Bilateral multifocal and confluent opacities consistent with covid-19 infection are redem onstrated. No significant change from one day earlier.
--- NOTE | 2021-11-05 08:49 | P.PN ---
Subjective Patient is seen in follow-up for acute kidney injury. Currently hemodialysis dependent. Requiring higher amount of Levophed. Oliguric. Receiving tube feeds. On amiodarone drip for A. fib. Vital signs are stable. On vasopressor support. In A. fib. HEENT: Intubated. LUNGS: Breath sounds decreased. HEART: Irregular rate and rhythm. ABDOMEN: Soft, no distention. EXTREMITITES: Trace edema. Objective - Vital Signs Vital signs: Vital Signs Temp 98.5 F 11/05/21 04:00 Pulse 121 H 11/05/21 04:45 Resp 30 H 11/05/21 04:45 BP 133/80 11/04/21 15:36 Pulse Ox 90 L 11/05/21 04:45 Intake & Output 11/04/21 11/05/21 11/05/21 18:59 06:59 18:59 Intake Total 2155.888 1337.264 315.944 Output Total 165 210 40 Balance 9611.913 6898.264 275.944 Weight 112.4 kg 117 kg Intake: IV 675 633 53 Phytonadione 10 mg In 50 Sodium Chloride 0.9% 50 ml @ 100 mls/hr IVPB ONCE STA Rx#:[id number] Sodium Chloride 0.9% 1, 625 600 50 000 ml @ 50 mls/hr IV . Q20H [facility] Rx#:[id number] pressure bag 33 3 Intake, IV Titration 1280.888 514.264 262.944 Amount Amiodarone 360 mg In 446.107 200 200 Dextrose 5% in Water 200 ml @ 1 MG/MIN 33.333 mls/ hr IV .Q6H [facility] Rx#: [id number] Cisatracurium 200 mg In 155.149 Sodium Chloride 0.9% 180 ml @ 1 MCG/KG/MIN 6.78 mls/hr IV .Q24H [facility] Rx#: [id number] Norepinephrine 32 mg In 3.6 Sodium Chloride 0.9% 218 ml @ 0.05 MCG/KG/MIN 2. 634 mls/hr IV .Q24H [facility] Rx#:[id number] Norepinephrine 8 mg In 405.336 110.664 Sodium Chloride 0.9% 250 ml @ 0.05 MCG/KG/MIN 10. 933 mls/hr IV .[id number] [facility] Rx#:[id number] propofoL 1,000 mg In 274.296 200 62.944 Empty Bag 1 bag @ Titrate IV .Q0M [facility] Rx#: [id number] Tube Feeding 140 190 Other 60 Output: Urine 165 210 40 Hemodialysis 0 Other: Voiding Method Indwelling Catheter Indwelling Catheter ABP, PAP, CO, CI - Last Documented Arterial Blood Pressure 107/63 - Labs CBC & Chem 7: 11/05/21 07:00 11/05/21 07:00 Labs: Abnormal Lab Results - Last 24 Hours (Table) 11/04/21 11/04/21 11/04/21 Range/Units 03:30 09:38 11:55 WBC (3.8-10.6) k/uL Plt Count (150-450) k/uL Neutrophils # (1.3-7.7) k/uL Lymphocytes # (1.0-4.8) k/uL PT >130.0 H (9.0-12.0) sec INR >10.0 H* (<1.2) ABG pH (7.35-7.45) ABG pCO2 (35-45) mmHg ABG pO2 (83-108) mmHg ABG HCO3 (21-25) mmol/L ABG Total CO2 (19-24) mmol/L ABG O2 Saturation (94-97) % Sodium (137-145) mmol/L Potassium (3.5-5.1) mmol/L BUN (7-17) mg/dL Creatinine (0.52-1.04) mg/dL Glucose (74-99) mg/dL POC Glucose (mg/dL) 243 H (75-99) mg/dL Phosphorus 5.0 H (2.5-4.5) mg/dL Total Bilirubin (0.2-1.3) mg/dL AST (14-36) U/L ALT (4-34) U/L Alkaline Phosphatase (38-126) U/L Lactate Dehydrogenase (313-618) U/L Total Protein (6.3-8.2) g/dL Albumin (3.5-5.0) g/dL 11/04/21 11/04/21 11/04/21 Range/Units 13:55 17:52 18:00 WBC (3.8-10.6) k/uL Plt Count (150-450) k/uL Neutrophils # (1.3-7.7) k/uL Lymphocytes # (1.0-4.8) k/uL PT 48.6 H (9.0-12.0) sec INR 5.0 H (<1.2) ABG pH (7.35-7.45) ABG pCO2 (35-45) mmHg ABG pO2 (83-108) mmHg ABG HCO3 (21-25) mmol/L ABG Total CO2 (19-24) mmol/L ABG O2 Saturation (94-97) % Sodium (137-145) mmol/L Potassium (3.5-5.1) mmol/L BUN (7-17) mg/dL Creatinine (0.52-1.04) mg/dL Glucose (74-99) mg/dL POC Glucose (mg/dL) 191 H 236 H (75-99) mg/dL Phosphorus (2.5-4.5) mg/dL Total Bilirubin (0.2-1.3) mg/dL AST (14-36) U/L ALT (4-34) U/L Alkaline Phosphatase (38-126) U/L Lactate Dehydrogenase (313-618) U/L Total Protein (6.3-8.2) g/dL Albumin (3.5-5.0) g/dL 11/05/21 11/05/21 11/05/21 Range/Units 00:05 04:40 04:40 WBC 25.4 H (3.8-10.6) k/uL Plt Count 107 L (150-450) k/uL Neutrophils # 23.9 H (1.3-7.7) k/uL Lymphocytes # 0.5 L (1.0-4.8) k/uL PT 22.4 H (9.0-12.0) sec INR 2.3 H (<1.2) ABG pH (7.35-7.45) ABG pCO2 (35-45) mmHg ABG pO2 (83-108) mmHg ABG HCO3 (21-25) mmol/L ABG Total CO2 (19-24) mmol/L ABG O2 Saturation (94-97) % Sodium (137-145) mmol/L Potassium (3.5-5.1) mmol/L BUN (7-17) mg/dL Creatinine (0.52-1.04) mg/dL Glucose (74-99) mg/dL POC Glucose (mg/dL) 204 H (75-99) mg/dL Phosphorus (2.5-4.5) mg/dL Total Bilirubin (0.2-1.3) mg/dL AST (14-36) U/L ALT (4-34) U/L Alkaline Phosphatase (38-126) U/L Lactate Dehydrogenase (313-618) U/L Total Protein (6.3-8.2) g/dL Albumin (3.5-5.0) g/dL 11/05/21 11/05/21 11/05/21 Range/Units 05:49 07:00 07:00 WBC 27.7 H (3.8-10.6) k/uL Plt Count 120 L (150-450) k/uL Neutrophils # (1.3-7.7) k/uL Lymphocytes # (1.0-4.8) k/uL PT 16.6 H (9.0-12.0) sec INR 1.7 H (<1.2) ABG pH (7.35-7.45) ABG pCO2 (35-45) mmHg ABG pO2 (83-108) mmHg ABG HCO3 (21-25) mmol/L ABG Total CO2 (19-24) mmol/L ABG O2 Saturation (94-97) % Sodium (137-145) mmol/L Potassium (3.5-5.1) mmol/L BUN (7-17) mg/dL Creatinine (0.52-1.04) mg/dL Glucose (74-99) mg/dL POC Glucose (mg/dL) 238 H (75-99) mg/dL Phosphorus (2.5-4.5) mg/dL Total Bilirubin (0.2-1.3) mg/dL AST (14-36) U/L ALT (4-34) U/L Alkaline Phosphatase (38-126) U/L Lactate Dehydrogenase (313-618) U/L Total Protein (6.3-8.2) g/dL Albumin (3.5-5.0) g/dL 11/05/21 11/05/21 Range/Units 07:00 07:48 WBC (3.8-10.6) k/uL Plt Count (150-450) k/uL Neutrophils # (1.3-7.7) k/uL Lymphocytes # (1.0-4.8) k/uL PT (9.0-12.0) sec INR (<1.2) ABG pH 7.20 L (7.35-7.45) ABG pCO2 66 H (35-45) mmHg ABG pO2 57 L* (83-108) mmHg ABG HCO3 26 H (21-25) mmol/L ABG Total CO2 28 H (19-24) mmol/L ABG O2 Saturation 87.6 L (94-97) % Sodium 135 L (137-145) mmol/L Potassium 5.3 H (3.5-5.1) mmol/L BUN 60 H (7-17) mg/dL Creatinine 2.53 H (0.52-1.04) mg/dL Glucose 284 H (74-99) mg/dL POC Glucose (mg/dL) (75-99) mg/dL Phosphorus (2.5-4.5) mg/dL Total Bilirubin 1.5 H (0.2-1.3) mg/dL AST 276 H (14-36) U/L ALT 180 H (4-34) U/L Alkaline Phosphatase 135 H (38-126) U/L Lactate Dehydrogenase 2922 H (313-618) U/L Total Protein 5.9 L (6.3-8.2) g/dL Albumin 2.5 L (3.5-5.0) g/dL Microbiology - Last 24 Hours (Table) 11/03/21 17:13 Urine Culture - Final Urine,Catheterized 11/03/21 13:14 Blood Culture Gram Stain - Preliminary Blood Blood Culture - Preliminary Staphylococcus epidermidis 11/03/21 13:01 Blood Culture - Preliminary Blood No Growth after 24 hours 11/03/21 13:14 Blood Culture - Final Blood 11/03/21 12:00 Gram Stain - Preliminary Sputum Sputum Culture - Preliminary Aspergillus species 11/03/21 04:18 Gram Stain - Preliminary Sputum Sputum Culture - Preliminary Aspergillus species Assessment and Plan Plan: Assessment: 1. Acute kidney injury secondary to ATN secondary to septic shock. Creatinine peaked at 2.8 on this admission on 11/03/2021. Urine output 10-20 mL an hour. Started on hemodialysis 11/03/2021. 2. Septic shock secondary to COVID-19 infection. On Levophed. 3. A. fib with RVR maintain on amiodarone drip. 4. Hyperkalemia secondary to acute kidney injury. No significant improvement with medical management. Improved postdialysis. 5. Chronic systolic CHF with ejection fraction of 20% with AICD placement. 6. Coagulopathy. Improved. Plan: Second treatment of hemodialysis today. Continue to assess on a daily basis. Receiving tube feeds. Hep-Lock IV fluids. Wean FiO2 and vasopressors. Phosphorus 5.0.
[2021-11-05 09:01] LABS: C Reactive Protein 21.8 mg/dL (<1.0)
--- NOTE | 2021-11-05 10:04 | P.PN ---
Subjective Progress Note Date: 11/05/21 This is a 66 yo unvaccinated female who comes into the emergency department complaining of at least a week and maybe longer complaints of shortness of breath. She is also very weak. Poor oral intake. Not a very good historian. The patient apparently has a history of atrial fibrillation, CHF, diabetes, COPD, status post AICD placement, and cardiomyopathy with an ejection fraction of about 20%. Chest x-ray shows diffuse bilateral infiltrates, which might be consistent with coronavirus associated pneumonia and/or fluid overload. The patient's condition progressively decompensated and the patient was transferred to the intensive care unit and intubated early on 11/03/2021. The patient was also noted to develop hypotension, A. fib RVR, acute leukocytosis and acute kidney injury with secondary hyperkalemia. On 11/04/2021, the patient remains intubated on a mechanical ventilator. The patient remains sedated with propofol which is running at 40 mg/kg per minute. She is also on Nimbex at 1 mcg/kg per minute for paralysis. She is quite sensitive to mechanical ventilator. For now, the patient is currently on assist control mode of ventilation with a rate of 30, tidal volume is 400, FiO2 of 80% and PEEP of 12. The peak airway pressure currently is at 36. The chest x-ray from today is showing bilateral pulmonary infiltrates with possibly some interval worsening of the right lower lobe consolidation. There is also upper lobe and perihilar infiltration. The patient has an AICD in place. ET tube is in a good location. The blood gases from today shows a pH of 7.24 with a pCO2 of 64 and pO2 132 and this was on FiO2 of 80%. The patient is currently being treated with Decadron at a dose of 6 mg IV every 24 hours. Apparently, the family was against any other immunosuppressive agents such as Baricitinib and this was honored. The patient currently has inflammatory markers that are showing an LDH level of 4009, CRP level of 21,. Note that the white cell count is currently down to 20.4 with hemoglobin 13.9. Meanwhile, she had developed an acute kidney injury, creatinine is at 2.4 with a BUN of 80 and the rest of the electrodes are normal. She has has been hypotensive and the patient is currently on norepinephrine running at 0.18 mcg/kg per minute. Pro-calcitonin level at time of admission was low at the follow-up levels from 11/03/2021 showed a level of 0.47. She is currently on no antibiotics. Her cardiac rhythm is chronic atrial fibrillation and the rate is tachycardic at this point in time. She remains on a amiodarone drip at 1 mg per minute and her anticoagulation is in the form of warfarin. Note that the Coumadin currently on hold knowing that the patient's INR was 6.9 from yesterday. No signs of any acute bleeding. D-dimer was quite elevated on this patient at about 34. On her blood work also, there is signs of chemical hyperthyroidism with a low TSH and an elevated free T4. The free T4 level was at 3.26 and the TSH level was less than 0.01. on today's evaluation of 11/05/2021 I'm seeing this patient for a follow-up. He is an elderly 66-year-old female patient with multiple medical problems and comorbidities including COPD and cardiomyopathy and she has a pacer/AICD in place and for now the active issue is COVID 19 related pneumonia with respiratory failure. patient also has been in acute kidney injury , A. fib RVR and she has shown signs of multisystem organ failure. she is post intubation for now and the patient is currently on propofol running at 40 mcg/kg per minute and she is also paralyzed with Nimbex at 1 mcg/kg per minute. She is adequately sedated and paralyzed for now. Ventilator is essentially the same and the patient is on assist control mode at the rate of 30 with a tidal volume of 400 and FiO2 of 60% with a PEEP of 12. the chest x-ray findings are essentially unchanged compared to yesterday and the patient has some Limited perihilar and lower lobe pulmonary infiltrates. ET tube is in an excellent location for now. the patient also has a device which is an AICD over the left anterior chest area. the airway pressures showing a peak airway pressure of 35 in the setting of a pressure of around 33. The blood gases from today showing a pH of 7.2 with a pCO2 of 66 and pO2 of 57. this was done and FiO2 of 50% and the pulse ox currently showing a saturation of 93% on a 60% FiO2. the patient is still on Decadron which is running at 6 mg IV every 24 hourss. The patient is not on Baricitinib. there are inflammatory markers from today show an LDH level of 2922 and this is essentially downtrending knowing that the level from yesterday was in the order of 4000. CRP level is 21 which is essentially unchanged compared to yesterday. the patient's rest of the blood work shows her white cell count of 27 with a hemoglobin of 13 and a platelet count of 120. The white cell count is slightly higher compared to yesterday. hemodynamically, the patient was on pressors yesterday for hypotension. The patient remains on pressors and norepinephrine is running at 0.37 mics are as per kilogram per minute. Urine output is in order of 20 he is an hour and the overall fluid balance over the past 24 hours has been in the order of +3.1 L and the patient was Castellanos into another +5.3 L 4 yesterday. IV fluids are currently running at KVO and the patient is covered with antibiotics suspecting sepsis. note that the patient's blood culture was showing gram-positive cocci and this is not to be staph epi dermidis. Urine cultures still pending. sputum analysis showed Aspergillus species. meanwhile, the patient was covered with IV cefepime a dose of 1 g abdomen the 12 hours. the pro-calcitonin level was 0.47. On a separate note, the patient continues to be in atrial fibrillation. She was found to be having some chemical hyperthyroidism. and appropriate adjustments on the thyroid hormone medication placed on was done and the patient is currently on Synthroid 25 g on a daily basis. she remains on amiodarone at 1 mg per minute for rate control. 60-70 somewhat tachycardic and the heart is somewhat between 120 beats per minute up to 1:30 sometimes. the patient was also on warfarin. She was t oxic on her Coumadin. INR was supratherapeutic. The patient was given 10 mg of vitamin K yesterday. INR currently is at 1.7. the patient also developed an acute kidney injury on top of her chronic kidney failure. Creatinine is stable at 2.53. The rest of the electrolytes are stable potassium as high at 5.3 although somewhat improved. she underwent dialysis yesterday and no ultrafiltration was done and she is going to have annother session of hemodialysis today. Objective - Vital Signs Vital signs: Vital Signs Temp 100.1 F H 11/05/21 08:30 Pulse 126 H 11/05/21 09:00 Resp 30 H 11/05/21 09:00 BP 133/80 11/04/21 15:36 Pulse Ox 93 L 11/05/21 09:00 Intake & Output 11/04/21 11/05/21 11/05/21 18:59 06:59 18:59 Intake Total 2155.888 1337.264 459.944 Output Total 165 210 90 Balance 6537.387 8260.264 369.944 Weight 112.4 kg 117 kg Intake: IV 675 633 99 Phytonadione 10 mg In 50 Sodium Chloride 0.9% 50 ml @ 100 mls/hr IVPB ONCE STA Rx#:[id number] Sodium Chloride 0.9% 1, 625 600 90 000 ml @ 50 mls/hr IV . Q20H [facility] Rx#:[id number] pressure bag 33 9 Intake, IV Titration 1280.888 514.264 262.944 Amount Amiodarone 360 mg In 446.107 200 200 Dextrose 5% in Water 200 ml @ 1 MG/MIN 33.333 mls/ hr IV .Q6H [facility] Rx#: [id number] Cisatracurium 200 mg In 155.149 Sodium Chloride 0.9% 180 ml @ 1 MCG/KG/MIN 6.78 mls/hr IV .Q24H [facility] Rx#: [id number] Norepinephrine 32 mg In 3.6 Sodium Chloride 0.9% 218 ml @ 0.05 MCG/KG/MIN 2. 634 mls/hr IV .Q24H [facility] Rx#:[id number] Norepinephrine 8 mg In 405.336 110.664 Sodium Chloride 0.9% 250 ml @ 0.05 MCG/KG/MIN 10. 933 mls/hr IV .[id number] [facility] Rx#:[id number] propofoL 1,000 mg In 274.296 200 62.944 Empty Bag 1 bag @ Titrate IV .Q0M [facility] Rx#: [id number] Tube Feeding 140 190 68 Other 60 30 Output: Urine 165 210 90 Hemodialysis 0 Other: Voiding Method Indwelling Catheter Indwelling Catheter Indwelling Catheter ABP, PAP, CO, CI - Last Documented Arterial Blood Pressure 106/62 - Exam GENERAL EXAM: Intubated and sedated, 66-year-old obese white female on assist- control mode of ventilation with a rate of 36, tidal volume is 400, FiO2 of 60% and PEEP of 12. comfortable in no apparent distress. HEAD: Normocephalic/atraumatic. EYES: Normal reaction of pupils, equal size. Conjunctiva pink, sclera white. NOSE: Clear with pink turbinates. THROAT: No erythema or exudates. NECK: No masses, no JVD, no thyroid enlargement, no adenopathy. CHEST: No chest wall deformity. Symmetrical expansion. LUNGS: Equal air entry with no crackles, wheeze, rhonchi or dullness. CVS: Irregular rate and rhythm, normal S1 and S2, no gallops, no murmurs, no rubs ABDOMEN: Soft, nontender. No hepatosplenomegaly, normal bowel sounds, no guarding or rigidity. EXTREMITIES: No clubbing, no edema, no cyanosis, 2+ pulses and upper and lower extremities. MUSCULOSKELETAL: Muscle strength and tone normal. SPINE: No scoliosis or deformity SKIN: No rashes CENTRAL NERVOUS SYSTEM: No focal deficits, tone is normal in all 4 extremities. - Labs CBC & Chem 7: 11/05/21 07:00 11/05/21 07:00 Labs: Abnormal Lab Results - Last 24 Hours (Table) 11/04/21 11/04/21 11/04/21 Range/Units 03:30 09:38 11:55 WBC (3.8-10.6) k/uL Plt Count (150-450) k/uL Neutrophils # (1.3-7.7) k/uL Lymphocytes # (1.0-4.8) k/uL PT >130.0 H (9.0-12.0) sec INR >10.0 H* (<1.2) ABG pH (7.35-7.45) ABG pCO2 (35-45) mmHg ABG pO2 (83-108) mmHg ABG HCO3 (21-25) mmol/L ABG Total CO2 (19-24) mmol/L ABG O2 Saturation (94-97) % Sodium (137-145) mmol/L Potassium (3.5-5.1) mmol/L BUN (7-17) mg/dL Creatinine (0.52-1.04) mg/dL Glucose (74-99) mg/dL POC Glucose (mg/dL) 243 H (75-99) mg/dL Phosphorus 5.0 H (2.5-4.5) mg/dL Total Bilirubin (0.2-1.3) mg/dL AST (14-36) U/L ALT (4-34) U/L Alkaline Phosphatase (38-126) U/L Lactate Dehydrogenase (313-618) U/L C-Reactive Protein (<1.0) mg/dL Total Protein (6.3-8.2) g/dL Albumin (3.5-5.0) g/dL 11/04/21 11/04/21 11/04/21 Range/Units 13:55 17:52 18:00 WBC (3.8-10.6) k/uL Plt Count (150-450) k/uL Neutrophils # (1.3-7.7) k/uL Lymphocytes # (1.0-4.8) k/uL PT 48.6 H (9.0-12.0) sec INR 5.0 H (<1.2) ABG pH (7.35-7.45) ABG pCO2 (35-45) mmHg ABG pO2 (83-108) mmHg ABG HCO3 (21-25) mmol/L ABG Total CO2 (19-24) mmol/L ABG O2 Saturation (94-97) % Sodium (137-145) mmol/L Potassium (3.5-5.1) mmol/L BUN (7-17) mg/dL Creatinine (0.52-1.04) mg/dL Glucose (74-99) mg/dL POC Glucose (mg/dL) 191 H 236 H (75-99) mg/dL Phosphorus (2.5-4.5) mg/dL Total Bilirubin (0.2-1.3) mg/dL AST (14-36) U/L ALT (4-34) U/L Alkaline Phosphatase (38-126) U/L Lactate Dehydrogenase (313-618) U/L C-Reactive Protein (<1.0) mg/dL Total Protein (6.3-8.2) g/dL Albumin (3.5-5.0) g/dL 11/05/21 11/05/21 11/05/21 Range/Units 00:05 04:40 04:40 WBC 25.4 H (3.8-10.6) k/uL Plt Count 107 L (150-450) k/uL Neutrophils # 23.9 H (1.3-7.7) k/uL Lymphocytes # 0.5 L (1.0-4.8) k/uL PT 22.4 H (9.0-12.0) sec INR 2.3 H (<1.2) ABG pH (7.35-7.45) ABG pCO2 (35-45) mmHg ABG pO2 (83-108) mmHg ABG HCO3 (21-25) mmol/L ABG Total CO2 (19-24) mmol/L ABG O2 Saturation (94-97) % Sodium (137-145) mmol/L Potassium (3.5-5.1) mmol/L BUN (7-17) mg/dL Creatinine (0.52-1.04) mg/dL Glucose (74-99) mg/dL POC Glucose (mg/dL) 204 H (75-99) mg/dL Phosphorus (2.5-4.5) mg/dL Total Bilirubin (0.2-1.3) mg/dL AST (14-36) U/L ALT (4-34) U/L Alkaline Phosphatase (38-126) U/L Lactate Dehydrogenase (313-618) U/L C-Reactive Protein (<1.0) mg/dL Total Protein (6.3-8.2) g/dL Albumin (3.5-5.0) g/dL 11/05/21 11/05/21 11/05/21 Range/Units 05:49 07:00 07:00 WBC 27.7 H (3.8-10.6) k/uL Plt Count 120 L (150-450) k/uL Neutrophils # (1.3-7.7) k/uL Lymphocytes # (1.0-4.8) k/uL PT 16.6 H (9.0-12.0) sec INR 1.7 H (<1.2) ABG pH (7.35-7.45) ABG pCO2 (35-45) mmHg ABG pO2 (83-108) mmHg ABG HCO3 (21-25) mmol/L ABG Total CO2 (19-24) mmol/L ABG O2 Saturation (94-97) % Sodium (137-145) mmol/L Potassium (3.5-5.1) mmol/L BUN (7-17) mg/dL Creatinine (0.52-1.04) mg/dL Glucose (74-99) mg/dL POC Glucose (mg/dL) 238 H (75-99) mg/dL Phosphorus (2.5-4.5) mg/dL Total Bilirubin (0.2-1.3) mg/dL AST (14-36) U/L ALT (4-34) U/L Alkaline Phosphatase (38-126) U/L Lactate Dehydrogenase (313-618) U/L C-Reactive Protein (<1.0) mg/dL Total Protein (6.3-8.2) g/dL Albumin (3.5-5.0) g/dL 11/05/21 11/05/21 Range/Units 07:00 07:48 WBC (3.8-10.6) k/uL Plt Count (150-450) k/uL Neutrophils # (1.3-7.7) k/uL Lymphocytes # (1.0-4.8) k/uL PT (9.0-12.0) sec INR (<1.2) ABG pH 7.20 L (7.35-7.45) ABG pCO2 66 H (35-45) mmHg ABG pO2 57 L* (83-108) mmHg ABG HCO3 26 H (21-25) mmol/L ABG Total CO2 28 H (19-24) mmol/L ABG O2 Saturation 87.6 L (94-97) % Sodium 135 L (137-145) mmol/L Potassium 5.3 H (3.5-5.1) mmol/L BUN 60 H (7-17) mg/dL Creatinine 2.53 H (0.52-1.04) mg/dL Glucose 284 H (74-99) mg/dL POC Glucose (mg/dL) (75-99) mg/dL Phosphorus (2.5-4.5) mg/dL Total Bilirubin 1.5 H (0.2-1.3) mg/dL AST 276 H (14-36) U/L ALT 180 H (4-34) U/L Alkaline Phosphatase 135 H (38-126) U/L Lactate Dehydrogenase 2922 H (313-618) U/L C-Reactive Protein 21.8 H (<1.0) mg/dL Total Protein 5.9 L (6.3-8.2) g/dL Albumin 2.5 L (3.5-5.0) g/dL Microbiology - Last 24 Hours (Table) 11/03/21 17:13 Urine Culture - Final Urine,Catheterized 11/03/21 13:14 Blood Culture Gram Stain - Preliminary Blood Blood Culture - Preliminary Staphylococcus epidermidis 11/03/21 13:01 Blood Culture - Preliminary Blood No Growth after 24 hours 11/03/21 13:14 Blood Culture - Final Blood 11/03/21 12:00 Gram Stain - Preliminary Sputum Sputum Culture - Preliminary Aspergillus species 11/03/21 04:18 Gram Stain - Preliminary Sputum Sputum Culture - Preliminary Aspergillus species Assessment and Plan Plan: #1. Acute hypoxic respiratory failure related to COVID-19 pneumonia and a component of acute exacerbation of systolic CHF. Patient was admitted on 10/30/2021, she was placed on BiPAP, and she was started on Baricitinib on 11/02/2021, transfer to the intensive care unit on 11/03/2021 and intubated and placed on mechanical ventilator this morning, the patient is sedated with propofol and the patient is paralyzed with Nimbex. Chest x-ray showing worsening in the bilateral pulmonary infiltrates. The patient developed some leukocytosis. The patient is currently on Decadron. The blood gas shows adequate oxygenation on the above-mentioned ventilator setting. Note that the patient remains on Decadron. The patient was taken off Baricitinib per family's request. for now, the patient is possibly septic shock. visiting combination with COVID 19 related pneumonia and respiratory failure and acute kidney injury requiring hemodialysis. the patient remains on mechanical ventilator. the patient is on De cadron. chest x-ray was noted. Blood gases was noted. there is no room for any further weaning at this point in time. Her condition is extremely critical. #2. A. fib with RVR, on amiodarone drip, and the patient was taken off the warfarin due to warfarin toxicity and INR is currently down to 1.7. she was also found to have some degree of hyperthyroidism and the appropriate Thyroid hormone medication adjustment was done. #3. Acute kidney injury, currently on hemodialysis and another session of hemodialysis to be done today with possibly some ultrafiltration as long as the patient's blood pressure allows. #4. History of atrial fibrillation #5. History of severe nonischemic cardiomyopathy with EF of 20%, status post AICD placement #6. History of COPD from heavy tobacco use #7. History of diabetes mellitus with diabetic neuropathy, currently on insulin sliding scale coverage. #8. Coumadin induced coagulopathy #9. Hypertension #10. Hyperlipidemia #11, hypotension, multifactorial. The patient has severe nonischemic cardiomyopathy in addition to that there may be a component of sepsis and the patient is currently on norepinephrine infusion running at 0.37 mcg/kg per minute. #12 chemical hyperthyroidism, currently on Synthroid on outpatient basis. She does have an underlying history of hypothyroidism. Plan: Repeat blood gas has been obtained, we will increase PEEP up to 12, Fio2 690% Weaning FiO2 to maintain O2 saturations at or above 90% Keep the patient sedated with propofol Keep the patient paralyzed for now Continue Decadron IV cefepime Recheck INR and treat accordingly specially there is ongoing toxicity Continue pressors for hemodynamic support Continue IV amiodarone 1 mg per minute NE for hemodynamic support nutritional support with tube feedings vital HP Synthroid dose to 25 g a daily basis as the patient has some chemical hyperthyroidism which probably is contributing to her atrial fibrillation and RVR hemodialysis today Overall prognosis is extremely guarded, very poor prognosis based on the above- mentioned comorbidities. This is a critically care evaluation if was done and morning 30 minutes. CODE STATUS is full for now. Time with Patient: Greater than 30
--- NOTE | 2021-11-05 10:38 | P.PN ---
Subjective Progress Note Date: 11/05/21 Still intubated Eyes: Anicteric sclerae, moist conjunctiva, no lid-lag PERRLA ENMT: Neck: Sedated intubated Lungs: C, no accessory muscle use Cardiovascular: Edema bilaterally Abdominal: No o distention Skin: N Extremities: No digital cyanosis No clubbing Pedal pulses intact and symmetrical Radial pulses intact and symmetrical Normal gait and station No calf tenderness Psychiatric sedated intubated Neuro: Generalized weakness OVID-19 pneumonia with acute hypoxic respiratory failure -Patient went into more respiratory distress last night and has to be to Diabetic ketoacidosis - Acute on chronic kidney disease -Likely due to ongoing DKA and COVID Pneumonia -Judicious use of IV fluids Troponin elevation, likely demand ischemia -Trend troponin -Cardiac monitoring Supratherapeutic INR -S/p 5 mg PO Vit K -Monitor for now Chronic conditions: COPD, HTN, HLD -C/w home meds Patient was intubated Multiple attempts to contact family Overall management as per ICU team Continue management as per ICU and cardiology Patient prepared to have dialysis Patient continued to be on vent support Objective - Vital Signs Vital signs: Vital Signs Temp 100.1 F H 11/05/21 08:30 Pulse 116 H 11/05/21 10:00 Resp 30 H 11/05/21 10:00 BP 133/80 11/04/21 15:36 Pulse Ox 93 L 11/05/21 10:00 Intake & Output 11/04/21 11/05/21 11/05/21 18:59 06:59 18:59 Intake Total 2155.888 1337.264 516.944 Output Total 165 210 100 Balance 3493.301 0580.264 416.944 Weight 112.4 kg 117 kg Intake: IV 675 633 122 Phytonadione 10 mg In 50 Sodium Chloride 0.9% 50 ml @ 100 mls/hr IVPB ONCE STA Rx#:[id number] Sodium Chloride 0.9% 1, 625 600 110 000 ml @ 50 mls/hr IV . Q20H [facility] Rx#:[id number] pressure bag 33 12 Intake, IV Titration 1280.888 514.264 262.944 Amount Amiodarone 360 mg In 446.107 200 200 Dextrose 5% in Water 200 ml @ 1 MG/MIN 33.333 mls/ hr IV .Q6H [facility] Rx#: [id number] Cisatracurium 200 mg In 155.149 Sodium Chloride 0.9% 180 ml @ 1 MCG/KG/MIN 6.78 mls/hr IV .Q24H [facility] Rx#: [id number] Norepinephrine 32 mg In 3.6 Sodium Chloride 0.9% 218 ml @ 0.05 MCG/KG/MIN 2. 634 mls/hr IV .Q24H [facility] Rx#:[id number] Norepinephrine 8 mg In 405.336 110.664 Sodium Chloride 0.9% 250 ml @ 0.05 MCG/KG/MIN 10. 933 mls/hr IV .[id number] [facility] Rx#:[id number] propofoL 1,000 mg In 274.296 200 62.944 Empty Bag 1 bag @ Titrate IV .Q0M [facility] Rx#: [id number] Tube Feeding 140 190 102 Other 60 30 Output: Urine 165 210 100 Hemodialysis 0 Other: Voiding Method Indwelling Catheter Indwelling Catheter Indwelling Catheter ABP, PAP, CO, CI - Last Documented Arterial Blood Pressure 116/65 - Labs CBC & Chem 7: 11/05/21 07:00 11/05/21 07:00 Labs: Abnormal Lab Results - Last 24 Hours (Table) 11/04/21 11/04/21 11/04/21 Range/Units 03:30 11:55 13:55 WBC (3.8-10.6) k/uL Plt Count (150-450) k/uL Neutrophils # (1.3-7.7) k/uL Lymphocytes # (1.0-4.8) k/uL PT 48.6 H (9.0-12.0) sec INR 5.0 H (<1.2) ABG pH (7.35-7.45) ABG pCO2 (35-45) mmHg ABG pO2 (83-108) mmHg ABG HCO3 (21-25) mmol/L ABG Total CO2 (19-24) mmol/L ABG O2 Saturation (94-97) % Sodium (137-145) mmol/L Potassium (3.5-5.1) mmol/L BUN (7-17) mg/dL Creatinine (0.52-1.04) mg/dL Glucose (74-99) mg/dL POC Glucose (mg/dL) 243 H (75-99) mg/dL Phosphorus 5.0 H (2.5-4.5) mg/dL Total Bilirubin (0.2-1.3) mg/dL AST (14-36) U/L ALT (4-34) U/L Alkaline Phosphatase (38-126) U/L Lactate Dehydrogenase (313-618) U/L C-Reactive Protein (<1.0) mg/dL Total Protein (6.3-8.2) g/dL Albumin (3.5-5.0) g/dL 11/04/21 11/04/21 11/05/21 Range/Units 17:52 18:00 00:05 WBC (3.8-10.6) k/uL Plt Count (150-450) k/uL Neutrophils # (1.3-7.7) k/uL Lymphocytes # (1.0-4.8) k/uL PT (9.0-12.0) sec INR (<1.2) ABG pH (7.35-7.45) ABG pCO2 (35-45) mmHg ABG pO2 (83-108) mmHg ABG HCO3 (21-25) mmol/L ABG Total CO2 (19-24) mmol/L ABG O2 Saturation (94-97) % Sodium (137-145) mmol/L Potassium (3.5-5.1) mmol/L BUN (7-17) mg/dL Creatinine (0.52-1.04) mg/dL Glucose (74-99) mg/dL POC Glucose (mg/dL) 191 H 236 H 204 H (75-99) mg/dL Phosphorus (2.5-4.5) mg/dL Total Bilirubin (0.2-1.3) mg/dL AST (14-36) U/L ALT (4-34) U/L Alkaline Phosphatase (38-126) U/L Lactate Dehydrogenase (313-618) U/L C-Reactive Protein (<1.0) mg/dL Total Protein (6.3-8.2) g/dL Albumin (3.5-5.0) g/dL 11/05/21 11/05/21 11/05/21 Range/Units 04:40 04:40 05:49 WBC 25.4 H (3.8-10.6) k/uL Plt Count 107 L (150-450) k/uL Neutrophils # 23.9 H (1.3-7.7) k/uL Lymphocytes # 0.5 L (1.0-4.8) k/uL PT 22.4 H (9.0-12.0) sec INR 2.3 H (<1.2) ABG pH (7.35-7.45) ABG pCO2 (35-45) mmHg ABG pO2 (83-108) mmHg ABG HCO3 (21-25) mmol/L ABG Total CO2 (19-24) mmol/L ABG O2 Saturation (94-97) % Sodium (137-145) mmol/L Potassium (3.5-5.1) mmol/L BUN (7-17) mg/dL Creatinine (0.52-1.04) mg/dL Glucose (74-99) mg/dL POC Glucose (mg/dL) 238 H (75-99) mg/dL Phosphorus (2.5-4.5) mg/dL Total Bilirubin (0.2-1.3) mg/dL AST (14-36) U/L ALT (4-34) U/L Alkaline Phosphatase (38-126) U/L Lactate Dehydrogenase (313-618) U/L C-Reactive Protein (<1.0) mg/dL Total Protein (6.3-8.2) g/dL Albumin (3.5-5.0) g/dL 11/05/21 11/05/21 11/05/21 Range/Units 07:00 07:00 07:00 WBC 27.7 H (3.8-10.6) k/uL Plt Count 120 L (150-450) k/uL Neutrophils # (1.3-7.7) k/uL Lymphocytes # (1.0-4.8) k/uL PT 16.6 H (9.0-12.0) sec INR 1.7 H (<1.2) ABG pH (7.35-7.45) ABG pCO2 (35-45) mmHg ABG pO2 (83-108) mmHg ABG HCO3 (21-25) mmol/L ABG Total CO2 (19-24) mmol/L ABG O2 Saturation (94-97) % Sodium 135 L (137-145) mmol/L Potassium 5.3 H (3.5-5.1) mmol/L BUN 60 H (7-17) mg/dL Creatinine 2.53 H (0.52-1.04) mg/dL Glucose 284 H (74-99) mg/dL POC Glucose (mg/dL) (75-99) mg/dL Phosphorus (2.5-4.5) mg/dL Total Bilirubin 1.5 H (0.2-1.3) mg/dL AST 276 H (14-36) U/L ALT 180 H (4-34) U/L Alkaline Phosphatase 135 H (38-126) U/L Lactate Dehydrogenase 2922 H (313-618) U/L C-Reactive Protein 21.8 H (<1.0) mg/dL Total Protein 5.9 L (6.3-8.2) g/dL Albumin 2.5 L (3.5-5.0) g/dL 11/05/21 Range/Units 07:48 WBC (3.8-10.6) k/uL Plt Count (150-450) k/uL Neutrophils # (1.3-7.7) k/uL Lymphocytes # (1.0-4.8) k/uL PT (9.0-12.0) sec INR (<1.2) ABG pH 7.20 L (7.35-7.45) ABG pCO2 66 H (35-45) mmHg ABG pO2 57 L* (83-108) mmHg ABG HCO3 26 H (21-25) mmol/L ABG Total CO2 28 H (19-24) mmol/L ABG O2 Saturation 87.6 L (94-97) % Sodium (137-145) mmol/L Potassium (3.5-5.1) mmol/L BUN (7-17) mg/dL Creatinine (0.52-1.04) mg/dL Glucose (74-99) mg/dL POC Glucose (mg/dL) (75-99) mg/dL Phosphorus (2.5-4.5) mg/dL Total Bilirubin (0.2-1.3) mg/dL AST (14-36) U/L ALT (4-34) U/L Alkaline Phosphatase (38-126) U/L Lactate Dehydrogenase (313-618) U/L C-Reactive Protein (<1.0) mg/dL Total Protein (6.3-8.2) g/dL Albumin (3.5-5.0) g/dL Microbiology - Last 24 Hours (Table) 11/03/21 17:13 Urine Culture - Final Urine,Catheterized 11/03/21 13:14 Blood Culture Gram Stain - Preliminary Blood Blood Culture - Preliminary Staphylococcus epidermidis 11/03/21 13:01 Blood Culture - Preliminary Blood No Growth after 24 hours 11/03/21 13:14 Blood Culture - Final Blood 11/03/21 12:00 Gram Stain - Preliminary Sputum Sputum Culture - Preliminary Aspergillus species 11/03/21 04:18 Gram Stain - Preliminary Sputum Sputum Culture - Preliminary Aspergillus species
[2021-11-05 11:16] LABS: Band Neutrophils % 4 %; Lymphocytes # (M) 1.66 k/uL (1.0-4.8); Neutrophils % (M) 90 %; Nucleated Red Blood Cells 0 /100 WBC (0-0); Total Cells Counted 100
[2021-11-05 11:18] LABS: Toxic Granulation Present
[2021-11-05] MEDS: CEFEPIME 1 GM in SODIUM CHLORIDE 0.9% 50 ML IVPB SCH ×2 (11:18→20:46)
[2021-11-05] MEDS: CISATRACURIUM 200 MG in SODIUM CHLORIDE 0.9% 180 ML IV SCH (11:19)
--- NOTE | 2021-11-05 11:34 | P.PN ---
Subjective Progress Note Date: 11/05/21 Patient is a 66-year-old female who was admitted to the hospital with Covid pneumonia and is mechanically intubated we continue to follow the patient for atrial fibrillation, with known severe nonischemic cardiomyopathy and ejection fraction of 20%. She was continued on levo for hypotension. IV amiodarone as needed for controlling atrial fibrillation. Continue with by mouth Lopressor 25 mg 3 times a day. Patient was started on Eliquis for anticoagulation, INR better controlled today at 1.7. Blood pressure is 116/65, heart rate 116, respirations 30, oxygen saturation 93% on mechanical ventilation. Hemoglobin is 13, INR 1.7 potassium 5.3, creatinine 2.5 to, AST 276, ALP 180. Objective - Vital Signs Vital signs: Vital Signs Temp 100.1 F H 11/05/21 08:30 Pulse 116 H 11/05/21 10:00 Resp 30 H 11/05/21 10:00 BP 133/80 11/04/21 15:36 Pulse Ox 93 L 11/05/21 10:00 Intake & Output 11/04/21 11/05/21 11/05/21 18:59 06:59 18:59 Intake Total 2155.888 1337.264 693.337 Output Total 165 210 100 Balance 9148.604 3746.264 593.337 Weight 112.4 kg 117 kg Intake: IV 675 633 122 Phytonadione 10 mg In 50 Sodium Chloride 0.9% 50 ml @ 100 mls/hr IVPB ONCE STA Rx#:[id number] Sodium Chloride 0.9% 1, 625 600 110 000 ml @ 50 mls/hr IV . Q20H [facility] Rx#:[id number] pressure bag 33 12 Intake, IV Titration 1280.888 514.264 439.337 Amount Amiodarone 360 mg In 446.107 200 200 Dextrose 5% in Water 200 ml @ 1 MG/MIN 33.333 mls/ hr IV .Q6H [facility] Rx#: [id number] Cisatracurium 200 mg In 155.149 176.393 Sodium Chloride 0.9% 180 ml @ 1 MCG/KG/MIN 6.78 mls/hr IV .Q24H [facility] Rx#: [id number] Norepinephrine 32 mg In 3.6 Sodium Chloride 0.9% 218 ml @ 0.05 MCG/KG/MIN 2. 634 mls/hr IV .Q24H [facility] Rx#:[id number] Norepinephrine 8 mg In 405.336 110.664 Sodium Chloride 0.9% 250 ml @ 0.05 MCG/KG/MIN 10. 933 mls/hr IV .[id number] [facility] Rx#:[id number] propofoL 1,000 mg In 274.296 200 62.944 Empty Bag 1 bag @ Titrate IV .Q0M [facility] Rx#: [id number] Tube Feeding 140 190 102 Other 60 30 Output: Urine 165 210 100 Hemodialysis 0 Other: Voiding Method Indwelling Catheter Indwelling Catheter Indwelling Catheter ABP, PAP, CO, CI - Last Documented Arterial Blood Pressure 116/65 - Exam Limited physical exam due to Covid pneumonia PHYSICAL EXAM: VITAL SIGNS: Reviewed. GENERAL: Well-developed in no acute distress. - Labs CBC & Chem 7: 11/05/21 07:00 11/05/21 07:00 Labs: Abnormal Lab Results - Last 24 Hours (Table) 11/04/21 11/04/21 11/04/21 Range/Units 03:30 11:55 13:55 WBC (3.8-10.6) k/uL Plt Count (150-450) k/uL Neutrophils # (1.3-7.7) k/uL Neutrophils # (Manual) (1.3-7.7) k/uL Lymphocytes # (1.0-4.8) k/uL PT 48.6 H (9.0-12.0) sec INR 5.0 H (<1.2) ABG pH (7.35-7.45) ABG pCO2 (35-45) mmHg ABG pO2 (83-108) mmHg ABG HCO3 (21-25) mmol/L ABG Total CO2 (19-24) mmol/L ABG O2 Saturation (94-97) % Sodium (137-145) mmol/L Potassium (3.5-5.1) mmol/L BUN (7-17) mg/dL Creatinine (0.52-1.04) mg/dL Glucose (74-99) mg/dL POC Glucose (mg/dL) 243 H (75-99) mg/dL Phosphorus 5.0 H (2.5-4.5) mg/dL Total Bilirubin (0.2-1.3) mg/dL AST (14-36) U/L ALT (4-34) U/L Alkaline Phosphatase (38-126) U/L Lactate Dehydrogenase (313-618) U/L C-Reactive Protein (<1.0) mg/dL Total Protein (6.3-8.2) g/dL Albumin (3.5-5.0) g/dL 11/04/21 11/04/21 11/05/21 Range/Units 17:52 18:00 00:05 WBC (3.8-10.6) k/uL Plt Count (150-450) k/uL Neutrophils # (1.3-7.7) k/uL Neutrophils # (Manual) (1.3-7.7) k/uL Lymphocytes # (1.0-4.8) k/uL PT (9.0-12.0) sec INR (<1.2) ABG pH (7.35-7.45) ABG pCO2 (35-45) mmHg ABG pO2 (83-108) mmHg ABG HCO3 (21-25) mmol/L ABG Total CO2 (19-24) mmol/L ABG O2 Saturation (94-97) % Sodium (137-145) mmol/L Potassium (3.5-5.1) mmol/L BUN (7-17) mg/dL Creatinine (0.52-1.04) mg/dL Glucose (74-99) mg/dL POC Glucose (mg/dL) 191 H 236 H 204 H (75-99) mg/dL Phosphorus (2.5-4.5) mg/dL Total Bilirubin (0.2-1.3) mg/dL AST (14-36) U/L ALT (4-34) U/L Alkaline Phosphatase (38-126) U/L Lactate Dehydrogenase (313-618) U/L C-Reactive Protein (<1.0) mg/dL Total Protein (6.3-8.2) g/dL Albumin (3.5-5.0) g/dL 11/05/21 11/05/21 11/05/21 Range/Units 04:40 04:40 05:49 WBC 25.4 H (3.8-10.6) k/uL Plt Count 107 L (150-450) k/uL Neutrophils # 23.9 H (1.3-7.7) k/uL Neutrophils # (Manual) (1.3-7.7) k/uL Lymphocytes # 0.5 L (1.0-4.8) k/uL PT 22.4 H (9.0-12.0) sec INR 2.3 H (<1.2) ABG pH (7.35-7.45) ABG pCO2 (35-45) mmHg ABG pO2 (83-108) mmHg ABG HCO3 (21-25) mmol/L ABG Total CO2 (19-24) mmol/L ABG O2 Saturation (94-97) % Sodium (137-145) mmol/L Potassium (3.5-5.1) mmol/L BUN (7-17) mg/dL Creatinine (0.52-1.04) mg/dL Glucose (74-99) mg/dL POC Glucose (mg/dL) 238 H (75-99) mg/dL Phosphorus (2.5-4.5) mg/dL Total Bilirubin (0.2-1.3) mg/dL AST (14-36) U/L ALT (4-34) U/L Alkaline Phosphatase (38-126) U/L Lactate Dehydrogenase (313-618) U/L C-Reactive Protein (<1.0) mg/dL Total Protein (6.3-8.2) g/dL Albumin (3.5-5.0) g/dL 11/05/21 11/05/21 11/05/21 Range/Units 07:00 07:00 07:00 WBC 27.7 H (3.8-10.6) k/uL Plt Count 120 L (150-450) k/uL Neutrophils # (1.3-7.7) k/uL Neutrophils # (Manual) 26.00 H (1.3-7.7) k/uL Lymphocytes # (1.0-4.8) k/uL PT 16.6 H (9.0-12.0) sec INR 1.7 H (<1.2) ABG pH (7.35-7.45) ABG pCO2 (35-45) mmHg ABG pO2 (83-108) mmHg ABG HCO3 (21-25) mmol/L ABG Total CO2 (19-24) mmol/L ABG O2 Saturation (94-97) % Sodium 135 L (137-145) mmol/L Potassium 5.3 H (3.5-5.1) mmol/L BUN 60 H (7-17) mg/dL Creatinine 2.53 H (0.52-1.04) mg/dL Glucose 284 H (74-99) mg/dL POC Glucose (mg/dL) (75-99) mg/dL Phosphorus (2.5-4.5) mg/dL Total Bilirubin 1.5 H (0.2-1.3) mg/dL AST 276 H (14-36) U/L ALT 180 H (4-34) U/L Alkaline Phosphatase 135 H (38-126) U/L Lactate Dehydrogenase 2922 H (313-618) U/L C-Reactive Protein 21.8 H (<1.0) mg/dL Total Protein 5.9 L (6.3-8.2) g/dL Albumin 2.5 L (3.5-5.0) g/dL 11/05/21 Range/Units 07:48 WBC (3.8-10.6) k/uL Plt Count (150-450) k/uL Neutrophils # (1.3-7.7) k/uL Neutrophils # (Manual) (1.3-7.7) k/uL Lymphocytes # (1.0-4.8) k/uL PT (9.0-12.0) sec INR (<1.2) ABG pH 7.20 L (7.35-7.45) ABG pCO2 66 H (35-45) mmHg ABG pO2 57 L* (83-108) mmHg ABG HCO3 26 H (21-25) mmol/L ABG Total CO2 28 H (19-24) mmol/L ABG O2 Saturation 87.6 L (94-97) % Sodium (137-145) mmol/L Potassium (3.5-5.1) mmol/L BUN (7-17) mg/dL Creatinine (0.52-1.04) mg/dL Glucose (74-99) mg/dL POC Glucose (mg/dL) (75-99) mg/dL Phosphorus (2.5-4.5) mg/dL Total Bilirubin (0.2-1.3) mg/dL AST (14-36) U/L ALT (4-34) U/L Alkaline Phosphatase (38-126) U/L Lactate Dehydrogenase (313-618) U/L C-Reactive Protein (<1.0) mg/dL Total Protein (6.3-8.2) g/dL Albumin (3.5-5.0) g/dL Microbiology - Last 24 Hours (Table) 11/03/21 04:18 Gram Stain - Final Sputum Sputum Culture - Final Aspergillus fumigatus 11/03/21 17:13 Urine Culture - Final Urine,Catheterized 11/03/21 13:14 Blood Culture Gram Stain - Preliminary Blood Blood Culture - Preliminary Staphylococcus epidermidis 11/03/21 13:01 Blood Culture - Preliminary Blood No Growth after 24 hours 11/03/21 13:14 Blood Culture - Final Blood 11/03/21 12:00 Gram Stain - Preliminary Sputum Sputum Culture - Preliminary Aspergillus species Assessment and Plan Assessment: Persistent atrial fibrillation with poorly controlled ventricle rate Covid pneumonia with respiratory failure Hypotension Plan: Continue with levo and titrate as tolerated Continue with ELiquis for anticoagulation Continue with Lopressor for rate control Continue with amiodarone is needed Continue with all other current cardiac medications as ordered Will continue to follow
[2021-11-05] MEDS: APIXABAN 2.5 MG TABLET PO SCH ×2 (13:00→20:43)
[2021-11-05] MEDS: ARTIFICIAL TEARS-HYPROMELLOSE DROPS 15 ML BTL BOTH EYES SCH ×3 (13:01→19:52)
[2021-11-05 13:24] LABS: Glucose,Whole Blood 276 mg/dL (75-99)
[2021-11-05] MEDS: NOREPINEPHRINE 32 MG in SODIUM CHLORIDE 0.9% 218 ML IV SCH ×2 (13:44→21:22)
[2021-11-05 17:39] LABS: Glucose,Whole Blood 329 mg/dL (75-99)
[2021-11-05 17:39] LABS: Glucose,Whole Blood 315 mg/dL (75-99)
[2021-11-05] MEDS: SODIUM CHLORIDE 0.9% 1,000 ML IV SCH (18:48)
[2021-11-05] MEDS: ASPIRIN 81 MG PO SCH (20:43)
[2021-11-05 22:55] LABS: Magnesium 2.2 mg/dL (1.6-2.3); Potassium 5.5 mmol/L (3.5-5.1)
[2021-11-05 23:56] LABS: Glucose,Whole Blood 376 mg/dL (75-99)
[2021-11-06] MEDS: AMIODARONE 360 MG in DEXTROSE 5% IN WATER 200 ML IV SCH ×4 (01:00→08:51)
[2021-11-06] MEDS: INSULIN ASPART (NovoLOG) 100 UNIT/ML VIAL SQ SCH ×2 (01:25→06:11)
[2021-11-06] MEDS: ARTIFICIAL TEARS-HYPROMELLOSE DROPS 15 ML BTL BOTH EYES SCH ×4 (01:26→12:29)
[2021-11-06 05:18] LABS: Glucose,Whole Blood 355 mg/dL (75-99)
[2021-11-06] MEDS: NOREPINEPHRINE 32 MG in SODIUM CHLORIDE 0.9% 218 ML IV SCH (05:31)
[2021-11-06] MEDS ORDERED: INSULIN DETEMIR (LEVEMIR) 100 UNIT/ML SYR SQ ONE (06:00)
[2021-11-06] MEDS: LEVOTHYROXINE 25 MCG TAB PO SCH (06:11)
[2021-11-06] MEDS ORDERED: VANCOMYCIN IV PER PHARMACY 1 EACH MISC MISCELLANE PRN (07:15)
[2021-11-06] MEDS ORDERED: SODIUM CHLORIDE 0.9% 50 ML with VASOPRESSIN 20 UNIT IVPB SCH ×2 (07:15)
--- NOTE | 2021-11-06 07:15 | P.PN ---
Subjective Progress Note Date: 11/06/21 This is a 66 yo unvaccinated female who comes into the emergency department complaining of at least a week and maybe longer complaints of shortness of breath. She is also very weak. Poor oral intake. Not a very good historian. The patient apparently has a history of atrial fibrillation, CHF, diabetes, COPD, status post AICD placement, and cardiomyopathy with an ejection fraction of about 20%. Chest x-ray shows diffuse bilateral infiltrates, which might be consistent with coronavirus associated pneumonia and/or fluid overload. The patient's condition progressively decompensated and the patient was transferred to the intensive care unit and intubated early on 11/03/2021. The patient was also noted to develop hypotension, A. fib RVR, acute leukocytosis and acute kidney injury with secondary hyperkalemia. On 11/04/2021, the patient remains intubated on a mechanical ventilator. The patient remains sedated with propofol which is running at 40 mg/kg per minute. She is also on Nimbex at 1 mcg/kg per minute for paralysis. She is quite sensitive to mechanical ventilator. For now, the patient is currently on assist control mode of ventilation with a rate of 30, tidal volume is 400, FiO2 of 80% and PEEP of 12. The peak airway pressure currently is at 36. The chest x-ray from today is showing bilateral pulmonary infiltrates with possibly some interval worsening of the right lower lobe consolidation. There is also upper lobe and perihilar infiltration. The patient has an AICD in place. ET tube is in a good location. The blood gases from today shows a pH of 7.24 with a pCO2 of 64 and pO2 132 and this was on FiO2 of 80%. The patient is currently being treated with Decadron at a dose of 6 mg IV every 24 hours. Apparently, the family was against any other immunosuppressive agents such as Baricitinib and this was honored. The patient currently has inflammatory markers that are showing an LDH level of 4009, CRP level of 21,. Note that the white cell count is currently down to 20.4 with hemoglobin 13.9. Meanwhile, she had developed an acute kidney injury, creatinine is at 2.4 with a BUN of 80 and the rest of the electrodes are normal. She has has been hypotensive and the patient is currently on norepinephrine running at 0.18 mcg/kg per minute. Pro-calcitonin level at time of admission was low at the follow-up levels from 11/03/2021 showed a level of 0.47. She is currently on no antibiotics. Her cardiac rhythm is chronic atrial fibrillation and the rate is tachycardic at this point in time. She remains on a amiodarone drip at 1 mg per minute and her anticoagulation is in the form of warfarin. Note that the Coumadin currently on hold knowing that the patient's INR was 6.9 from yesterday. No signs of any acute bleeding. D-dimer was quite elevated on this patient at about 34. On her blood work also, there is signs of chemical hyperthyroidism with a low TSH and an elevated free T4. The free T4 level was at 3.26 and the TSH level was less than 0.01. on today's evaluation of 11/05/2021 I'm seeing this patient for a follow-up. He is an elderly 66-year-old female patient with multiple medical problems and comorbidities including COPD and cardiomyopathy and she has a pacer/AICD in place and for now the active issue is COVID 19 related pneumonia with respiratory failure. patient also has been in acute kidney injury , A. fib RVR and she has shown signs of multisystem organ failure. she is post intubation for now and the patient is currently on propofol running at 40 mcg/kg per minute and she is also paralyzed with Nimbex at 1 mcg/kg per minute. She is adequately sedated and paralyzed for now. Ventilator is essentially the same and the patient is on assist control mode at the rate of 30 with a tidal volume of 400 and FiO2 of 60% with a PEEP of 12. the chest x-ray findings are essentially unchanged compared to yesterday and the patient has some Limited perihilar and lower lobe pulmonary infiltrates. ET tube is in an excellent location for now. the patient also has a device which is an AICD over the left anterior chest area. the airway pressures showing a peak airway pressure of 35 in the setting of a pressure of around 33. The blood gases from today showing a pH of 7.2 with a pCO2 of 66 and pO2 of 57. this was done and FiO2 of 50% and the pulse ox currently showing a saturation of 93% on a 60% FiO2. the patient is still on Decadron which is running at 6 mg IV every 24 hourss. The patient is not on Baricitinib. there are inflammatory markers from today show an LDH level of 2922 and this is essentially downtrending knowing that the level from yesterday was in the order of 4000. CRP level is 21 which is essentially unchanged compared to yesterday. the patient's rest of the blood work shows her white cell count of 27 with a hemoglobin of 13 and a platelet count of 120. The white cell count is slightly higher compared to yesterday. hemodynamically, the patient was on pressors yesterday for hypotension. The patient remains on pressors and norepinephrine is running at 0.37 mics are as per kilogram per minute. Urine output is in order of 20 he is an hour and the overall fluid balance over the past 24 hours has been in the order of +3.1 L and the patient was Castellanos into another +5.3 L 4 yesterday. IV fluids are currently running at KVO and the patient is covered with antibiotics suspecting sepsis. note that the patient's blood culture was showing gram-positive cocci and this is not to be staph epi dermidis. Urine cultures still pending. sputum analysis showed Aspergillus species. meanwhile, the patient was covered with IV cefepime a dose of 1 g abdomen the 12 hours. the pro-calcitonin level was 0.47. On a separate note, the patient continues to be in atrial fibrillation. She was found to be having some chemical hyperthyroidism. and appropriate adjustments on the thyroid hormone medication placed on was done and the patient is currently on Synthroid 25 g on a daily basis. she remains on amiodarone at 1 mg per minute for rate control. 60-70 somewhat tachycardic and the heart is somewhat between 120 beats per minute up to 1:30 sometimes. the patient was also on warfarin. She was t oxic on her Coumadin. INR was supratherapeutic. The patient was given 10 mg of vitamin K yesterday. INR currently is at 1.7. the patient also developed an acute kidney injury on top of her chronic kidney failure. Creatinine is stable at 2.53. The rest of the electrolytes are stable potassium as high at 5.3 although somewhat improved. she underwent dialysis yesterday and no ultrafiltration was done and she is going to have annother session of hemodialysis today. * On 11/06/2021, the patient is being seen for a follow-up. A critically ill female patient with multiple medical pounds and comorbidities and signs of multisystem organ failure post COVID 19 related pneumonia. Earlier this morning at around 4:00, the patient became progressively more hypotensive. The cardiac rhythm changed from 80 fibrillation into AV paced rhythm while the patient being on amiodarone 1 mg per minute. Subsequently, her blood pressure dropped and currently she is on norepinephrine running at 0.8 mcg/kg per minute. Urine output remains quite low in the order of 5 mL an hour. The patient underwent h emodialysis yesterday without any significant ultrafiltration. Earlier this morning, the patient remains sedated and paralyzed. The patient remains on propofol which is running at 35 mg/kg/m the Nimbex is running at 1 mcg/kg per minute. She is adequately sedated and paralyzed patient remains essentially on the same ventilator setting with a tidal volume of 400, rate of 30, FiO2 of 60% with a PEEP of 12. Peak airway pressure is 37. Chest x-ray showing diffuse bilateral pulmonary infiltrates and perihilar infiltrates a combination of COVID 19 related pneumonia and CHF. The patient is hemodynamically unstable, hypotensive, currently on pressors with norepinephrine running at 0.8 mcg/kg per minute. Blood culture was positive for staph epidermidis. Sputum culture was positive for Aspergillus species. The patient remains on IV cefepime. The blood gases still pending from this morning. Meanwhile, the labs are still pending. White cell count was on the rise from yesterday and the white cell count was up to 27. Repeated blood work is still pending from this morning. Blood sugar is also elevated with a level of 355 from this morning. The primary care team was involved and the patient was given Levemir insulin 10 units and the patient on a sliding scale coverage. Meanwhile, the patient is still on Decadron 6 mg IV every 24 hours. Active issue for now is her significant hy potension and ongoing renal failure. Labs are to follow. INR from yesterday was at 1.7, and the patient was switched Eliquis 2.5 mg twice a day orally. Enterofeeding is in the form of vital high protein at the rate of 34 mL an hour. Objective - Vital Signs Vital signs: Vital Signs Temp 101.5 F H 11/05/21 20:00 Pulse 115 H 11/06/21 04:00 Resp 30 H 11/06/21 04:00 BP 105/60 11/05/21 14:08 Pulse Ox 90 L 11/05/21 21:30 Intake & Output 11/05/21 11/06/21 11/06/21 18:59 06:59 18:59 Intake Total 2309.564 1332.427 Output Total 815 10 Balance 6820.495 1369.427 Weight 117 kg 121 kg Intake: IV 343.5 326 Cefepime 1 gm In Sodium 37.5 50 Chloride 0.9% 50 ml @ 12. 5 mls/hr IVPB Q12HR [facility] Rx#:[id number] Sodium Chloride 0.9% 1, 270 240 000 ml @ 20 mls/hr IV . Q24H [facility] Rx#:[id number] pressure bag 36 36 Intake, IV Titration 1212.064 972.427 Amount Amiodarone 360 mg In 552.774 200 Dextrose 5% in Water 200 ml @ 1 MG/MIN 33.333 mls/ hr IV .Q6H JE[facility] Rx#: [id number] Cisatracurium 200 mg In 176.393 Sodium Chloride 0.9% 180 ml @ 1 MCG/KG/MIN 6.78 mls/hr IV .Q24H [facility] Rx#: [id number] Norepinephrine 32 mg In 233.841 479.295 Sodium Chloride 0.9% 218 ml @ 0.05 MCG/KG/MIN 2. 634 mls/hr IV .Q24H [facility] Rx#:[id number] propofoL 1,000 mg In 249.056 293.132 Empty Bag 1 bag @ Titrate IV .Q0M JE[facility] Rx#: [id number] Tube Feeding 374 34 Hemodialysis 300 Other 80 Output: Urine 215 10 Hemodialysis 600 Other: Voiding Method Indwelling Catheter Indwelling Catheter ABP, PAP, CO, CI - Last Documented Arterial Blood Pressure 104/49 - Exam GENERAL EXAM: Intubated and sedated, 66-year-old obese white female on assist- control mode of ventilation with a rate of 36, tidal volume is 400, FiO2 of 60% and PEEP of 12. comfortable in no apparent distress. The patient is currently sedated and paralyzed. HEAD: Normocephalic/atraumatic. EYES: Normal reaction of pupils, equal size. Conjunctiva pink, sclera white. NOSE: Clear with pink turbinates. THROAT: No erythema or exudates. NECK: No masses, no JVD, no thyroid enlargement, no adenopathy. CHEST: No chest wall deformity. Symmetrical expansion. LUNGS: Equal air entry with no crackles, wheeze, rhonchi or dullness. CVS: Irregular rate and rhythm, normal S1 and S2, no gallops, no murmurs, no rubs ABDOMEN: Soft, nontender. No hepatosplenomegaly, normal bowel sounds, no guarding or rigidity. EXTREMITIES: No clubbing, worsening edema in all 4 extremities, no cyanosis, diminished pulses and upper and lower extremities. SPINE: No scoliosis or deformity SKIN: No rashes CENTRAL NERVOUS SYSTEM: Unable to do an adequate neurologic evaluation as the patient is sedated and paralyzed. - Labs CBC & Chem 7: 11/05/21 07:00 11/05/21 22:25 Labs: Abnormal Lab Results - Last 24 Hours (Table) 11/05/21 11/05/21 11/05/21 Range/Units 07:00 07:00 07:00 WBC 27.7 H (3.8-10.6) k/uL Plt Count 120 L (150-450) k/uL Neutrophils # (Manual) 26.00 H (1.3-7.7) k/uL PT 16.6 H (9.0-12.0) sec INR 1.7 H (<1.2) ABG pH (7.35-7.45) ABG pCO2 (35-45) mmHg ABG pO2 (83-108) mmHg ABG HCO3 (21-25) mmol/L ABG Total CO2 (19-24) mmol/L ABG O2 Saturation (94-97) % Sodium 135 L (137-145) mmol/L Potassium 5.3 H (3.5-5.1) mmol/L BUN 60 H (7-17) mg/dL Creatinine 2.53 H (0.52-1.04) mg/dL Glucose 284 H (74-99) mg/dL POC Glucose (mg/dL) (75-99) mg/dL Total Bilirubin 1.5 H (0.2-1.3) mg/dL AST 276 H (14-36) U/L ALT 180 H (4-34) U/L Alkaline Phosphatase 135 H (38-126) U/L Lactate Dehydrogenase 2922 H (313-618) U/L C-Reactive Protein 21.8 H (<1.0) mg/dL Total Protein 5.9 L (6.3-8.2) g/dL Albumin 2.5 L (3.5-5.0) g/dL 11/05/21 11/05/21 11/05/21 Range/Units 07:48 13:21 17:34 WBC (3.8-10.6) k/uL Plt Count (150-450) k/uL Neutrophils # (Manual) (1.3-7.7) k/uL PT (9.0-12.0) sec INR (<1.2) ABG pH 7.20 L (7.35-7.45) ABG pCO2 66 H (35-45) mmHg ABG pO2 57 L* (83-108) mmHg ABG HCO3 26 H (21-25) mmol/L ABG Total CO2 28 H (19-24) mmol/L ABG O2 Saturation 87.6 L (94-97) % Sodium (137-145) mmol/L Potassium (3.5-5.1) mmol/L BUN (7-17) mg/dL Creatinine (0.52-1.04) mg/dL Glucose (74-99) mg/dL POC Glucose (mg/dL) 276 H 329 H (75-99) mg/dL Total Bilirubin (0.2-1.3) mg/dL AST (14-36) U/L ALT (4-34) U/L Alkaline Phosphatase (38-126) U/L Lactate Dehydrogenase (313-618) U/L C-Reactive Protein (<1.0) mg/dL Total Protein (6.3-8.2) g/dL Albumin (3.5-5.0) g/dL 11/05/21 11/05/21 11/05/21 Range/Units 17:36 22:25 23:54 WBC (3.8-10.6) k/uL Plt Count (150-450) k/uL Neutrophils # (Manual) (1.3-7.7) k/uL PT (9.0-12.0) sec INR (<1.2) ABG pH (7.35-7.45) ABG pCO2 (35-45) mmHg ABG pO2 (83-108) mmHg ABG HCO3 (21-25) mmol/L ABG Total CO2 (19-24) mmol/L ABG O2 Saturation (94-97) % Sodium (137-145) mmol/L Potassium 5.5 H (3.5-5.1) mmol/L BUN (7-17) mg/dL Creatinine (0.52-1.04) mg/dL Glucose (74-99) mg/dL POC Glucose (mg/dL) 315 H 376 H (75-99) mg/dL Total Bilirubin (0.2-1.3) mg/dL AST (14-36) U/L ALT (4-34) U/L Alkaline Phosphatase (38-126) U/L Lactate Dehydrogenase (313-618) U/L C-Reactive Protein (<1.0) mg/dL Total Protein (6.3-8.2) g/dL Albumin (3.5-5.0) g/dL 11/06/21 Range/Units 05:16 WBC (3.8-10.6) k/uL Plt Count (150-450) k/uL Neutrophils # (Manual) (1.3-7.7) k/uL PT (9.0-12.0) sec INR (<1.2) ABG pH (7.35-7.45) ABG pCO2 (35-45) mmHg ABG pO2 (83-108) mmHg ABG HCO3 (21-25) mmol/L ABG Total CO2 (19-24) mmol/L ABG O2 Saturation (94-97) % Sodium (137-145) mmol/L Potassium (3.5-5.1) mmol/L BUN (7-17) mg/dL Creatinine (0.52-1.04) mg/dL Glucose (74-99) mg/dL POC Glucose (mg/dL) 355 H (75-99) mg/dL Total Bilirubin (0.2-1.3) mg/dL AST (14-36) U/L ALT (4-34) U/L Alkaline Phosphatase (38-126) U/L Lactate Dehydrogenase (313-618) U/L C-Reactive Protein (<1.0) mg/dL Total Protein (6.3-8.2) g/dL Albumin (3.5-5.0) g/dL Microbiology - Last 24 Hours (Table) 11/03/21 13:01 Blood Culture - Preliminary Blood No Growth after 48 hours 11/03/21 12:00 Gram Stain - Final Sputum Sputum Culture - Final Aspergillus fumigatus 11/03/21 04:18 Gram Stain - Final Sputum Sputum Culture - Final Aspergillus fumigatus Assessment and Plan Plan: #1. Acute hypoxic respiratory failure related to COVID-19 pneumonia and a component of acute exacerbation of systolic CHF. Patient was admitted on 10/30/2021, she was placed on BiPAP, and she was started on Baricitinib on 11/02/2021, transfer to the intensive care unit on 11/03/2021 and intubated and placed on mechanical ventilator this morning, the patient is sedated with propofol and the patient is paralyzed with Nimbex. Chest x-ray showing worsening in the bilateral pulmonary infiltrates. The patient developed some leukocytosis. The patient is currently on Decadron. The blood gas shows adequate oxygenation on the above-mentioned ventilator setting. Note that the patient remains on Decadron. The patient was taken off Baricitinib per family's request. Sacrum today is showing some interval worsening of the bilateral pulmonary infiltrates and consolidation of the right lower lobe. Meanwhile, the blood gases still pending. Hemodynamically the patient is worse. The patient's cardiac rhythm is changing to V paced rhythm and the patient became progressively hypotensive with high pressor requirements. Awaiting blood gases and awaiting blood work from today. Meanwhile the patient remains on Decadron. There is a possibility of an underlying septic shock as the patient was taken was higher compared to yesterday and the patient is currently on IV cefepime. Blood cultures showing staph epidermidis. #2. A. fib with RVR, on amiodarone drip, and the patient was taken off the warfarin due to warfarin toxicity and INR is currently down to 1.7. she was also found to have some degree of hyperthyroidism and the appropriate Thyroid hormone medication adjustment was done. The patient was taken off the Coumadin. The patient is currently on Eliquis 2.5 mg twice a day. The patient's cardiac rhythm is ventricular paced at the rate of 90. #3. Acute kidney injury, currently on hemodialysis and another session of hemodialysis to be done today with possibly some ultrafiltration as long as the patient's blood pressure allows. #4. History of atrial fibrillation #5. History of severe nonischemic cardiomyopathy with EF of 20%, status post AICD placement #6. History of COPD from heavy tobacco use #7. History of diabetes mellitus with diabetic neuropathy, currently on insulin sliding scale coverage. #8. Coumadin induced coagulopathy improved and INR was down to 1.7 #9. Hypertension #10. Hyperlipidemia #11, hypotension, multifactorial. The patient has severe nonischemic cardiomyopathy in addition to that there may be a component of sepsis and the tasneem mcbride is currently on norepinephrine infusion running at 0.8 mcg/kg per minute. #12 chemical hyperthyroidism, currently on Synthroid on outpatient basis. She does have an underlying history of hypothyroidism. Plan: Repeat blood gas has been obtained, we will increase PEEP up to 12, Fio2 60%, awaiting follow-up blood gases from today Keep the patient sedated with propofol Keep the patient paralyzed for now Continue Decadron IV cefepime and add vancomycin and repeat the blood cultures Stop amiodarone drip norepinephrine based on the blood pressure to keep a mean arterial pressure above 60 and add vasopressin physiologic dose Continue pressors for hemodynamic support nutritional support with tube feedings vital HP Synthroid dose to 25 g a daily basis as the patient has some chemical hyperthyroidism which probably is contributing to her atrial fibrillation and RVR hemodialysis today and is being done daily basis with a possibility of some ultrafiltration as long as the blood pressure allows. Overall prognosis is extremely guarded, very poor prognosis based on the above-mentioned comorbidities. This is a critically care evaluation if was done and morning 30 minutes. CODE STATUS is full for now. Time with Patient: Greater than 30
--- NOTE | 2021-11-06 07:27 | XR ---
EXAMINATION TYPE: XR chest 1V portable DATE OF EXAM: 11/06/2021 COMPARISON: 11/05/2021 HISTORY: Shortness of breath TECHNIQUE: Single frontal view of the chest is obtained. FINDINGS: Stable endotracheal and orogastric tubes. Stable left subclavian central venous catheter. Bilateral multifocal confluent increased opacities redemonstrated. Stable cardiomegaly with dual-lead pacemaker/defibrillator. Osseous structures are intact. IMPRESSION: Stable diffuse bilateral infiltrates.
[2021-11-06 07:34] LABS: Albumin 2.1 g/dL (3.5-5.0); Potassium 5.3 mmol/L (3.5-5.1); Total Bilirubin 1.6 mg/dL (0.2-1.3); Total Protein 5.2 g/dL (6.3-8.2)
[2021-11-06] MEDS ORDERED: VANCOMYCIN 2,000 MG in SODIUM CHLORIDE 0.9% 500 ML 500 ML IVPB ONE (08:00)
[2021-11-06 08:46] LABS: HCT 34.5 % (34.0-46.0); HGB 11.7 gm/dL (11.4-16.0); Hypochromasia Slight; MCH 33.7 pg (25.0-35.0); MCV 99.2 fL (80.0-100.0); Macrocytosis Slight; Mean Platelet Volume 10.6; Poikilocytosis Slight; RBC 3.48 m/uL (3.80-5.40); RDW 15.8 % (11.5-15.5)
[2021-11-06] MEDS: ZINC SULFATE 220 MG CAP PO SCH (08:46)
[2021-11-06] MEDS: CHLORHEXIDINE GLUCONATE 15 ML CUP MUCOUS MEM SCH (08:46)
[2021-11-06] MEDS: CEFEPIME 1 GM in SODIUM CHLORIDE 0.9% 50 ML IVPB SCH (08:46)
[2021-11-06] MEDS: ASCORBIC ACID 500 MG TAB PO SCH (08:46)
[2021-11-06] MEDS: DEXAMETHASONE SOD PHOSPHATE 10 MG/ML 1 ML VIAL IVP SCH (08:46)
[2021-11-06] MEDS: CHOLECALCIFEROL 25 MCG (1000 IU) TABLET PO SCH (08:46)
[2021-11-06] MEDS: APIXABAN 2.5 MG TABLET PO SCH (08:50)
[2021-11-06] MEDS: METOPROLOL TARTRATE 25 MG TAB PO SCH (08:51)
--- NOTE | 2021-11-06 08:52 | P.PN ---
Subjective Patient is seen in follow-up for acute kidney injury. Currently hemodialysis dependent. Currently on Levophed and vasopressin. Oliguric. Receiving tube feeds. On amiodarone drip for A. fib. Vital signs are stable. On vasopressor support. In A. fib. HEENT: Intubated. LUNGS: Breath sounds decreased. HEART: Irregular rate and rhythm. ABDOMEN: No distention noted. EXTREMITITES: Trace edema. Objective - Vital Signs Vital signs: Vital Signs Temp 101.5 F H 11/05/21 20:00 Pulse 115 H 11/06/21 04:00 Resp 30 H 11/06/21 04:00 BP 105/60 11/05/21 14:08 Pulse Ox 90 L 11/05/21 21:30 Intake & Output 11/05/21 11/06/21 11/06/21 18:59 06:59 18:59 Intake Total 2309.564 1332.427 23 Output Total 815 10 5 Balance 3160.473 3715.427 18 Weight 117 kg 121 kg Intake: IV 343.5 326 23 Cefepime 1 gm In Sodium 37.5 50 Chloride 0.9% 50 ml @ 12. 5 mls/hr IVPB Q12HR [facility] Rx#:[id number] Sodium Chloride 0.9% 1, 270 240 20 000 ml @ 20 mls/hr IV . Q24H [facility] Rx#:[id number] pressure bag 36 36 3 Intake, IV Titration 1212.064 972.427 Amount Amiodarone 360 mg In 552.774 200 Dextrose 5% in Water 200 ml @ 1 MG/MIN 33.333 mls/ hr IV .Q6H [facility] Rx#: [id number] Cisatracurium 200 mg In 176.393 Sodium Chloride 0.9% 180 ml @ 1 MCG/KG/MIN 6.78 mls/hr IV .Q24H [facility] Rx#: [id number] Norepinephrine 32 mg In 233.841 479.295 Sodium Chloride 0.9% 218 ml @ 0.05 MCG/KG/MIN 2. 634 mls/hr IV .Q24H [facility] Rx#:[id number] propofoL 1,000 mg In 249.056 293.132 Empty Bag 1 bag @ Titrate IV .Q0M [facility] Rx#: [id number] Tube Feeding 374 34 Hemodialysis 300 Other 80 Output: Urine 215 10 5 Hemodialysis 600 Other: Voiding Method Indwelling Catheter Indwelling Catheter ABP, PAP, CO, CI - Last Documented Arterial Blood Pressure 104/49 - Labs CBC & Chem 7: 11/05/21 07:00 11/06/21 06:00 Labs: Abnormal Lab Results - Last 24 Hours (Table) 11/05/21 11/05/21 11/05/21 Range/Units 07:00 07:00 13:21 Neutrophils # (Manual) 26.00 H (1.3-7.7) k/uL Sodium 135 L (137-145) mmol/L Potassium 5.3 H (3.5-5.1) mmol/L BUN 60 H (7-17) mg/dL Creatinine 2.53 H (0.52-1.04) mg/dL Glucose 284 H (74-99) mg/dL POC Glucose (mg/dL) 276 H (75-99) mg/dL Calcium (8.4-10.2) mg/dL Total Bilirubin 1.5 H (0.2-1.3) mg/dL AST 276 H (14-36) U/L ALT 180 H (4-34) U/L Alkaline Phosphatase 135 H (38-126) U/L Lactate Dehydrogenase 2922 H (313-618) U/L C-Reactive Protein 21.8 H (<1.0) mg/dL Total Protein 5.9 L (6.3-8.2) g/dL Albumin 2.5 L (3.5-5.0) g/dL 11/05/21 11/05/21 11/05/21 Range/Units 17:34 17:36 22:25 Neutrophils # (Manual) (1.3-7.7) k/uL Sodium (137-145) mmol/L Potassium 5.5 H (3.5-5.1) mmol/L BUN (7-17) mg/dL Creatinine (0.52-1.04) mg/dL Glucose (74-99) mg/dL POC Glucose (mg/dL) 329 H 315 H (75-99) mg/dL Calcium (8.4-10.2) mg/dL Total Bilirubin (0.2-1.3) mg/dL AST (14-36) U/L ALT (4-34) U/L Alkaline Phosphatase (38-126) U/L Lactate Dehydrogenase (313-618) U/L C-Reactive Protein (<1.0) mg/dL Total Protein (6.3-8.2) g/dL Albumin (3.5-5.0) g/dL 11/05/21 11/06/21 11/06/21 Range/Units 23:54 05:16 06:00 Neutrophils # (Manual) (1.3-7.7) k/uL Sodium 133 L (137-145) mmol/L Potassium 5.3 H (3.5-5.1) mmol/L BUN 82 H (7-17) mg/dL Creatinine 3.55 H (0.52-1.04) mg/dL Glucose 340 H (74-99) mg/dL POC Glucose (mg/dL) 376 H 355 H (75-99) mg/dL Calcium 8.0 L (8.4-10.2) mg/dL Total Bilirubin 1.6 H (0.2-1.3) mg/dL AST 543 H (14-36) U/L ALT 198 H (4-34) U/L Alkaline Phosphatase 155 H (38-126) U/L Lactate Dehydrogenase 4428 H (313-618) U/L C-Reactive Protein (<1.0) mg/dL Total Protein 5.2 L (6.3-8.2) g/dL Albumin 2.1 L (3.5-5.0) g/dL Microbiology - Last 24 Hours (Table) 11/03/21 13:01 Blood Culture - Preliminary Blood No Growth after 48 hours 11/03/21 12:00 Gram Stain - Final Sputum Sputum Culture - Final Aspergillus fumigatus 11/03/21 04:18 Gram Stain - Final Sputum Sputum Culture - Final Aspergillus fumigatus Assessment and Plan Plan: Assessment: 1. Acute kidney injury secondary to ATN secondary to septic shock. Creatinine peaked at 2.8 on this admission on 11/03/2021. Oliguric. Started on hemodialysis 11/03/2021. 2. Septic shock secondary to COVID-19 infection. On Levophed and vasopressin. 3. A. fib with RVR maintain on amiodarone drip. 4. Hyperkalemia secondary to acute kidney injury. No significant improvement with medical management. Improved postdialysis. 5. Chronic systolic CHF with ejection fraction of 20% with AICD placement. 6. Coagulopathy. Improved. Plan: Hemodialysis today - will do SLED due to hemodynamics. Continue to assess on a daily basis. Receiving tube feeds. Wean FiO2 and vasopressors. Phosphorus 5.0 dated 11/04/2021.
[2021-11-06 09:04] LABS: INR 4.6 (<1.2); Prothrombin Time 44.5 sec (9.0-12.0)
[2021-11-06] MEDS: ALBUTEROL HFA INHALER INHALATION SCH ×2 (09:08→12:17)
[2021-11-06] MEDS: SYMBICORT 160-4.5 MCG INHALER INHALATION SCH (09:08)
[2021-11-06 09:19] LABS: ABG Base Excess -3.3 mmol/L; ABG HCO3 26 mmol/L (21-25); ABG Oxygen Saturation 84.6 % (94-97); ABG TCO2 28 mmol/L (19-24); Allen Test Performed? Yes
[2021-11-06 09:23] LABS: ABG PH 7.13 (7.35-7.45)
[2021-11-06 09:24] LABS: ABG PCO2 79 mmHg (35-45); ABG PO2 57 mmHg (83-108)
[2021-11-06 09:25] VITALS: TEMP 103.2
[2021-11-06] MEDS ORDERED: DOBUTamine DRIP 500 MG in DEXTROSE/WATER 1 250ML.BAG IV SCH (10:30)
[2021-11-06] MEDS ORDERED: ITRACONAZOLE 100 MG CAP PO SCH (11:00)
--- NOTE | 2021-11-06 11:16 | P.PN ---
Subjective Progress Note Date: 11/06/21 Patient is a 66-year-old female who was admitted to the hospital with Covid pneumonia and is mechanically intubated we continue to follow the patient for atrial fibrillation, with known severe nonischemic cardiomyopathy and ejection fraction of 20%. Patient has converted to sinus rhythm, will discontinue IV amiodarone and start patient on amiodarone by mouth 200 mg twice a day. Agent has a pacemaker and can continues to flip between sinus rhythm and the paste. She continues to be hypotensive. She is on levo, patient has been started on vasopressin and is on maximum dosage of both. INR is elevated today at 4.6, Blood pressure is 73/29, heart rate 88, respirations 30, oxygen saturation 94% on mechanical ventilation. Hemoglobin is 11.7, INR 4.6 potassium 5.3, creatinine 2.5 to, AST 198, ALP 155. Objective - Vital Signs Vital signs: Vital Signs Temp 103.2 F H 11/06/21 09:15 Pulse 88 11/06/21 10:30 Resp 30 H 11/06/21 10:30 BP 73/29 11/06/21 10:30 Pulse Ox 94 L 11/06/21 10:30 Intake & Output 11/05/21 11/06/21 11/06/21 18:59 06:59 18:59 Intake Total 2309.564 1332.427 464.693 Output Total 815 10 5 Balance 9192.946 3797.427 459.693 Weight 117 kg 121 kg Intake: IV 343.5 326 92 Cefepime 1 gm In Sodium 37.5 50 Chloride 0.9% 50 ml @ 12. 5 mls/hr IVPB Q12HR [facility] Rx#:[id number] Sodium Chloride 0.9% 1, 270 240 80 000 ml @ 20 mls/hr IV . Q24H [facility] Rx#:[id number] pressure bag 36 36 12 Intake, IV Titration 1212.064 972.427 206.693 Amount Amiodarone 360 mg In 552.774 200 Dextrose 5% in Water 200 ml @ 1 MG/MIN 33.333 mls/ hr IV .Q6H [facility] Rx#: [id number] Cisatracurium 200 mg In 176.393 Sodium Chloride 0.9% 180 ml @ 1 MCG/KG/MIN 6.78 mls/hr IV .Q24H [facility] Rx#: [id number] Norepinephrine 32 mg In 233.841 479.295 106.693 Sodium Chloride 0.9% 218 ml @ 0.05 MCG/KG/MIN 2. 634 mls/hr IV .Q24H [facility] Rx#:[id number] propofoL 1,000 mg In 249.056 293.132 100 Empty Bag 1 bag @ Titrate IV .Q0M [facility] Rx#: [id number] Tube Feeding 374 34 136 Hemodialysis 300 Other 80 30 Output: Urine 215 10 5 Hemodialysis 600 Other: Voiding Method Indwelling Catheter Indwelling Catheter Indwelling Catheter ABP, PAP, CO, CI - Last Documented Arterial Blood Pressure 77/47 - Exam Limited physical exam due to Covid pneumonia PHYSICAL EXAM: VITAL SIGNS: Reviewed. GENERAL: Well-developed in no acute distress. RESPIRATORY: Mechanically ventilated - Labs CBC & Chem 7: 11/06/21 04:40 11/06/21 06:00 Labs: Abnormal Lab Results - Last 24 Hours (Table) 11/05/21 11/05/21 11/05/21 Range/Units 07:00 07:00 13:21 WBC (3.8-10.6) k/uL RBC (3.80-5.40) m/uL RDW (11.5-15.5) % Neutrophils # (Manual) 26.00 H (1.3-7.7) k/uL PT (9.0-12.0) sec INR (<1.2) ABG pH (7.35-7.45) ABG pCO2 (35-45) mmHg ABG pO2 (83-108) mmHg ABG HCO3 (21-25) mmol/L ABG Total CO2 (19-24) mmol/L ABG O2 Saturation (94-97) % Sodium 135 L (137-145) mmol/L Potassium 5.3 H (3.5-5.1) mmol/L BUN 60 H (7-17) mg/dL Creatinine 2.53 H (0.52-1.04) mg/dL Glucose 284 H (74-99) mg/dL POC Glucose (mg/dL) 276 H (75-99) mg/dL Calcium (8.4-10.2) mg/dL Total Bilirubin 1.5 H (0.2-1.3) mg/dL AST 276 H (14-36) U/L ALT 180 H (4-34) U/L Alkaline Phosphatase 135 H (38-126) U/L Lactate Dehydrogenase 2922 H (313-618) U/L C-Reactive Protein 21.8 H (<1.0) mg/dL Total Protein 5.9 L (6.3-8.2) g/dL Albumin 2.5 L (3.5-5.0) g/dL 11/05/21 11/05/21 11/05/21 Range/Units 17:34 17:36 22:25 WBC (3.8-10.6) k/uL RBC (3.80-5.40) m/uL RDW (11.5-15.5) % Neutrophils # (Manual) (1.3-7.7) k/uL PT (9.0-12.0) sec INR (<1.2) ABG pH (7.35-7.45) ABG pCO2 (35-45) mmHg ABG pO2 (83-108) mmHg ABG HCO3 (21-25) mmol/L ABG Total CO2 (19-24) mmol/L ABG O2 Saturation (94-97) % Sodium (137-145) mmol/L Potassium 5.5 H (3.5-5.1) mmol/L BUN (7-17) mg/dL Creatinine (0.52-1.04) mg/dL Glucose (74-99) mg/dL POC Glucose (mg/dL) 329 H 315 H (75-99) mg/dL Calcium (8.4-10.2) mg/dL Total Bilirubin (0.2-1.3) mg/dL AST (14-36) U/L ALT (4-34) U/L Alkaline Phosphatase (38-126) U/L Lactate Dehydrogenase (313-618) U/L C-Reactive Protein (<1.0) mg/dL Total Protein (6.3-8.2) g/dL Albumin (3.5-5.0) g/dL 11/05/21 11/06/21 11/06/21 Range/Units 23:54 04:40 04:56 WBC 21.9 H (3.8-10.6) k/uL RBC 3.48 L (3.80-5.40) m/uL RDW 15.8 H (11.5-15.5) % Neutrophils # (Manual) (1.3-7.7) k/uL PT (9.0-12.0) sec INR (<1.2) ABG pH 7.13 L* (7.35-7.45) ABG pCO2 79 H* (35-45) mmHg ABG pO2 57 L* (83-108) mmHg ABG HCO3 26 H (21-25) mmol/L ABG Total CO2 28 H (19-24) mmol/L ABG O2 Saturation 84.6 L (94-97) % Sodium (137-145) mmol/L Potassium (3.5-5.1) mmol/L BUN (7-17) mg/dL Creatinine (0.52-1.04) mg/dL Glucose (74-99) mg/dL POC Glucose (mg/dL) 376 H (75-99) mg/dL Calcium (8.4-10.2) mg/dL Total Bilirubin (0.2-1.3) mg/dL AST (14-36) U/L ALT (4-34) U/L Alkaline Phosphatase (38-126) U/L Lactate Dehydrogenase (313-618) U/L C-Reactive Protein (<1.0) mg/dL Total Protein (6.3-8.2) g/dL Albumin (3.5-5.0) g/dL 11/06/21 11/06/21 11/06/21 Range/Units 05:16 06:00 06:00 WBC (3.8-10.6) k/uL RBC (3.80-5.40) m/uL RDW (11.5-15.5) % Neutrophils # (Manual) (1.3-7.7) k/uL PT 44.5 H (9.0-12.0) sec INR 4.6 H (<1.2) ABG pH (7.35-7.45) ABG pCO2 (35-45) mmHg ABG pO2 (83-108) mmHg ABG HCO3 (21-25) mmol/L ABG Total CO2 (19-24) mmol/L ABG O2 Saturation (94-97) % Sodium 133 L (137-145) mmol/L Potassium 5.3 H (3.5-5.1) mmol/L BUN 82 H (7-17) mg/dL Creatinine 3.55 H (0.52-1.04) mg/dL Glucose 340 H (74-99) mg/dL POC Glucose (mg/dL) 355 H (75-99) mg/dL Calcium 8.0 L (8.4-10.2) mg/dL Total Bilirubin 1.6 H (0.2-1.3) mg/dL AST 543 H (14-36) U/L ALT 198 H (4-34) U/L Alkaline Phosphatase 155 H (38-126) U/L Lactate Dehydrogenase 4428 H (313-618) U/L C-Reactive Protein (<1.0) mg/dL Total Protein 5.2 L (6.3-8.2) g/dL Albumin 2.1 L (3.5-5.0) g/dL Microbiology - Last 24 Hours (Table) 11/03/21 13:01 Blood Culture - Preliminary Blood No Growth after 48 hours 11/03/21 12:00 Gram Stain - Final Sputum Sputum Culture - Final Aspergillus fumigatus 11/03/21 04:18 Gram Stain - Final Sputum Sputum Culture - Final Aspergillus fumigatus Assessment and Plan Assessment: Persistent atrial fibrillation currently in sinus rhythm Covid pneumonia with respiratory failure Hypotension Plan: Discontinue IV amiodarone and start amiodarone by mouth 200 mg twice a day Continue with levo and vasopressin, titrate as tolerated Continue with ELiquis for anticoagulation Continue with Lopressor as tolerated by blood pressure Continue with all other current cardiac medications as ordered Will continue to follow
[2021-11-06] MEDS ORDERED: SODIUM BICARB 8.4% 50 ML SYR (1 MEQ/ML) ONE (11:19)
[2021-11-06] MEDS ORDERED: EPINEPHrine 10 ML SYRINGE (0.1 MG/ML) ONE (11:19)
[2021-11-06 11:30] LABS: Glucose,Whole Blood 215 mg/dL (75-99)
[2021-11-06] MEDS ORDERED: DIGOXIN 250 MCG/ML 2 ML AMP IVP ONE (11:30)
[2021-11-06] MEDS ORDERED: DILTIAZEM 5 MG/ML 5 ML VIAL IVP STA (11:31)
[2021-11-06 11:37] LABS: C Reactive Protein 24.7 mg/dL (<1.0)
[2021-11-06 11:49] VITALS: BP 61/36
[2021-11-06 11:49] LABS: Band Neutrophils % 12 %; Eosinophils # (M) 0.21 k/uL (0-0.7); Lymphocytes # (M) 0.43 k/uL (1.0-4.8); Metamyelocytes # (M) 0.43 k/uL (0); Metamyelocytes % 2 %; Monocytes # (M) 0.21 k/uL (0-1.0); Neutrophils % (M) 83 %; Nucleated Red Blood Cells 3 /100 WBC (0-0); Total Cells Counted 200; WBC 21.3 k/uL (3.8-10.6)
[2021-11-06 11:50] LABS: Platelet Count 75 k/uL (150-450); Polychromasia Present
[2021-11-06 11:51] LABS: Toxic Vacuolation Present
[2021-11-06] MEDS ORDERED: MORPHINE SULFATE 4 MG/ML SYRINGE IVP STA (12:17)
[2021-11-06] MEDS ORDERED: MORPHINE SULFATE 4 MG/ML SYRINGE ONE (12:19)
[2021-11-06] MEDS: CISATRACURIUM 200 MG in SODIUM CHLORIDE 0.9% 180 ML IV SCH (12:30)
[2021-11-06 12:46] VITALS: BMI 45.8
[2021-11-06 12:53] VITALS: PULSE 80
--- NOTE | 2021-11-06 14:57 | P.PN ---
Subjective Progress Note Date: 11/06/21 Patient is doing quite poorly today, maxed out on vasopressin, levo fed, but pressures are still in the mid 60s systolic. Urine output is 0. Currently undergoing sled during my visit. Objective - Vital Signs Vital signs: Vital Signs Temp 103.2 F H 11/06/21 10:30 Pulse 80 11/06/21 12:15 Resp 30 H 11/06/21 12:15 BP 61/36 11/06/21 10:30 Pulse Ox 86 L 11/06/21 12:15 Intake & Output 11/05/21 11/06/21 11/06/21 18:59 06:59 18:59 Intake Total 2309.564 1332.427 487.693 Output Total 815 10 5 Balance 0406.362 8792.427 482.693 Weight 117 kg 121 kg 121 kg Intake: IV 343.5 326 115 Cefepime 1 gm In Sodium 37.5 50 Chloride 0.9% 50 ml @ 12. 5 mls/hr IVPB Q12HR [facility] Rx#:[id number] Sodium Chloride 0.9% 1, 270 240 100 000 ml @ 20 mls/hr IV . Q24H [facility] Rx#:[id number] pressure bag 36 36 15 Intake, IV Titration 1212.064 972.427 206.693 Amount Amiodarone 360 mg In 552.774 200 Dextrose 5% in Water 200 ml @ 1 MG/MIN 33.333 mls/ hr IV .Q6H [facility] Rx#: [id number] Cisatracurium 200 mg In 176.393 Sodium Chloride 0.9% 180 ml @ 1 MCG/KG/MIN 6.78 mls/hr IV .Q24H [facility] Rx#: [id number] Norepinephrine 32 mg In 233.841 479.295 106.693 Sodium Chloride 0.9% 218 ml @ 0.05 MCG/KG/MIN 2. 634 mls/hr IV .Q24H [facility] Rx#:[id number] propofoL 1,000 mg In 249.056 293.132 100 Empty Bag 1 bag @ Titrate IV .Q0M [facility] Rx#: [id number] Tube Feeding 374 34 136 Hemodialysis 300 Other 80 30 Output: Urine 215 10 5 Hemodialysis 600 0 Other: Voiding Method Indwelling Catheter Indwelling Catheter Indwelling Catheter ABP, PAP, CO, CI - Last Documented Arterial Blood Pressure 51/31 - Exam Gen: Intubated, sedated HEENT: normocephalic, atraumatic, moist mucous membranes Resp: Vent: Volume control 400, FiO2 60%, PEEP 11, respiratory rate 30 CVS: Diminished distal perfusion x 4, GI: soft, NTTP, ND : no SPT, no CVAT, espinosa catheter is present MSK: Bilateral pitting edema, no clubbing - Labs CBC & Chem 7: 11/06/21 04:40 11/06/21 06:00 Labs: Abnormal Lab Results - Last 24 Hours (Table) 11/05/21 11/05/21 11/05/21 Range/Units 17:34 17:36 22:25 WBC (3.8-10.6) k/uL RBC (3.80-5.40) m/uL RDW (11.5-15.5) % Plt Count (150-450) k/uL Neutrophils # (Manual) (1.3-7.7) k/uL Lymphocytes # (Manual) (1.0-4.8) k/uL Metamyelocytes # (Man) (0) k/uL Nucleated RBCs (0-0) /100 WBC PT (9.0-12.0) sec INR (<1.2) ABG pH (7.35-7.45) ABG pCO2 (35-45) mmHg ABG pO2 (83-108) mmHg ABG HCO3 (21-25) mmol/L ABG Total CO2 (19-24) mmol/L ABG O2 Saturation (94-97) % Sodium (137-145) mmol/L Potassium 5.5 H (3.5-5.1) mmol/L BUN (7-17) mg/dL Creatinine (0.52-1.04) mg/dL Glucose (74-99) mg/dL POC Glucose (mg/dL) 329 H 315 H (75-99) mg/dL Calcium (8.4-10.2) mg/dL Total Bilirubin (0.2-1.3) mg/dL AST (14-36) U/L ALT (4-34) U/L Alkaline Phosphatase (38-126) U/L Lactate Dehydrogenase (313-618) U/L C-Reactive Protein (<1.0) mg/dL Total Protein (6.3-8.2) g/dL Albumin (3.5-5.0) g/dL 11/05/21 11/06/21 11/06/21 Range/Units 23:54 04:40 04:56 WBC 21.3 H (3.8-10.6) k/uL RBC 3.48 L (3.80-5.40) m/uL RDW 15.8 H (11.5-15.5) % Plt Count 75 L (150-450) k/uL Neutrophils # (Manual) 20.20 H (1.3-7.7) k/uL Lymphocytes # (Manual) 0.43 L (1.0-4.8) k/uL Metamyelocytes # (Man) 0.43 H (0) k/uL Nucleated RBCs 3 H (0-0) /100 WBC PT (9.0-12.0) sec INR (<1.2) ABG pH 7.13 L* (7.35-7.45) ABG pCO2 79 H* (35-45) mmHg ABG pO2 57 L* (83-108) mmHg ABG HCO3 26 H (21-25) mmol/L ABG Total CO2 28 H (19-24) mmol/L ABG O2 Saturation 84.6 L (94-97) % Sodium (137-145) mmol/L Potassium (3.5-5.1) mmol/L BUN (7-17) mg/dL Creatinine (0.52-1.04) mg/dL Glucose (74-99) mg/dL POC Glucose (mg/dL) 376 H (75-99) mg/dL Calcium (8.4-10.2) mg/dL Total Bilirubin (0.2-1.3) mg/dL AST (14-36) U/L ALT (4-34) U/L Alkaline Phosphatase (38-126) U/L Lactate Dehydrogenase (313-618) U/L C-Reactive Protein (<1.0) mg/dL Total Protein (6.3-8.2) g/dL Albumin (3.5-5.0) g/dL 11/06/21 11/06/21 11/06/21 Range/Units 05:16 06:00 06:00 WBC (3.8-10.6) k/uL RBC (3.80-5.40) m/uL RDW (11.5-15.5) % Plt Count (150-450) k/uL Neutrophils # (Manual) (1.3-7.7) k/uL Lymphocytes # (Manual) (1.0-4.8) k/uL Metamyelocytes # (Man) (0) k/uL Nucleated RBCs (0-0) /100 WBC PT 44.5 H (9.0-12.0) sec INR 4.6 H (<1.2) ABG pH (7.35-7.45) ABG pCO2 (35-45) mmHg ABG pO2 (83-108) mmHg ABG HCO3 (21-25) mmol/L ABG Total CO2 (19-24) mmol/L ABG O2 Saturation (94-97) % Sodium 133 L (137-145) mmol/L Potassium 5.3 H (3.5-5.1) mmol/L BUN 82 H (7-17) mg/dL Creatinine 3.55 H (0.52-1.04) mg/dL Glucose 340 H (74-99) mg/dL POC Glucose (mg/dL) 355 H (75-99) mg/dL Calcium 8.0 L (8.4-10.2) mg/dL Total Bilirubin 1.6 H (0.2-1.3) mg/dL AST 543 H (14-36) U/L ALT 198 H (4-34) U/L Alkaline Phosphatase 155 H (38-126) U/L Lactate Dehydrogenase 4428 H (313-618) U/L C-Reactive Protein 24.7 H (<1.0) mg/dL Total Protein 5.2 L (6.3-8.2) g/dL Albumin 2.1 L (3.5-5.0) g/dL 11/06/ Range/Units 11:29 WBC (3.8-10.6) k/uL RBC (3.80-5.40) m/uL RDW (11.5-15.5) % Plt Count (150-450) k/uL Neutrophils # (Manual) (1.3-7.7) k/uL Lymphocytes # (Manual) (1.0-4.8) k/uL Metamyelocytes # (Man) (0) k/uL Nucleated RBCs (0-0) /100 WBC PT (9.0-12.0) sec INR (<1.2) ABG pH (7.35-7.45) ABG pCO2 (35-45) mmHg ABG pO2 (83-108) mmHg ABG HCO3 (21-25) mmol/L ABG Total CO2 (19-24) mmol/L ABG O2 Saturation (94-97) % Sodium (137-145) mmol/L Potassium (3.5-5.1) mmol/L BUN (7-17) mg/dL Creatinine (0.52-1.04) mg/dL Glucose (74-99) mg/dL POC Glucose (mg/dL) 215 H (75-99) mg/dL Calcium (8.4-10.2) mg/dL Total Bilirubin (0.2-1.3) mg/dL AST (14-36) U/L ALT (4-34) U/L Alkaline Phosphatase (38-126) U/L Lactate Dehydrogenase (313-618) U/L C-Reactive Protein (<1.0) mg/dL Total Protein (6.3-8.2) g/dL Albumin (3.5-5.0) g/dL Microbiology - Last 24 Hours (Table) 11/03/21 13:14 Blood Culture Gram Stain - Final Blood Blood Culture - Final Staphylococcus epidermidis 11/03/21 13:01 Blood Culture - Preliminary Blood No Growth after 48 hours 11/03/21 12:00 Gram Stain - Final Sputum Sputum Culture - Final Aspergillus fumigatus 11/03/21 04:18 Gram Stain - Final Sputum Sputum Culture - Final Aspergillus fumigatus Assessment and Plan Assessment: COVID-19 pneumonia with acute hypoxic respiratory failure Ventilator associated pneumonia Septic shock -Continue oxygen, Decadron, vitamin C/D, zinc -Pulmonary consult -Agree with cefepime, added itraconazole -Added dobutamine Acute on chronic kidney disease Hyperkalemia -Likely due to ongoing DKA and COVID Pneumonia -Dialysis per nephrology Supratherapeutic INR -S/p 5 mg PO Vit K -Monitor for now Chronic conditions: COPD, HTN, HLD -C/w home meds Patient is full code
--- NOTE | 2021-11-06 15:04 | P.EN ---
Called for STANLEY CARABALLO. Upon my arrival, patient did have a pulse again. She had received two doses of epinephrine. See separate note for critical care treatment. During critical care time, patient again coded and chest compressions resumed. She received an additional two pushes of epinephrine, and was started on an epi gtt with ROSC.
--- NOTE | 2021-11-06 15:20 | P.PN ---
Subjective Progress Note Date: 11/06/21 Pt had coded twice with ROSC. Both codes lasted approximately 5 minutes. After the first code, patients rhythm was noted to be in AFib with RVR. Patient was given a push of calcium chloride, and bolused amiodarone 300mg. Amio gtt was continued again. Dig and diltiazem were considered, but not given due to patient coding again. After an additional 5 min of compressions and 2 more pushes of epinephrine, patient again had ROSC and was started on epi gtt to keep BP up. After second code patients pressures were in the 90s systolic, but drifted down to 50s despite 3rd pressor. Heart rhythm reverted to V-paced. Family was called to bedside. I discussed at length with patient's daughters, son, and sister at bedside in light of the events as described. Family was in agreement to start comfort measures. Objective - Vital Signs Vital signs: Vital Signs Temp 103.2 F H 11/06/21 10:30 Pulse 80 11/06/21 12:15 Resp 30 H 11/06/21 12:15 BP 61/36 11/06/21 10:30 Pulse Ox 86 L 11/06/21 12:15 Intake & Output 11/05/21 11/06/21 11/06/21 18:59 06:59 18:59 Intake Total 2309.564 1332.427 487.693 Output Total 815 10 5 Balance 2131.381 4825.427 482.693 Weight 117 kg 121 kg 121 kg Intake: IV 343.5 326 115 Cefepime 1 gm In Sodium 37.5 50 Chloride 0.9% 50 ml @ 12. 5 mls/hr IVPB Q12HR [facility] Rx#:[id number] Sodium Chloride 0.9% 1, 270 240 100 000 ml @ 20 mls/hr IV . Q24H [facility] Rx#:[id number] pressure bag 36 36 15 Intake, IV Titration 1212.064 972.427 206.693 Amount Amiodarone 360 mg In 552.774 200 Dextrose 5% in Water 200 ml @ 1 MG/MIN 33.333 mls/ hr IV .Q6H [facility] Rx#: [id number] Cisatracurium 200 mg In 176.393 Sodium Chloride 0.9% 180 ml @ 1 MCG/KG/MIN 6.78 mls/hr IV .Q24H [facility] Rx#: [id number] Norepinephrine 32 mg In 233.841 479.295 106.693 Sodium Chloride 0.9% 218 ml @ 0.05 MCG/KG/MIN 2. 634 mls/hr IV .Q24H [facility] Rx#:[id number] propofoL 1,000 mg In 249.056 293.132 100 Empty Bag 1 bag @ Titrate IV .Q0M [facility] Rx#: [id number] Tube Feeding 374 34 136 Hemodialysis 300 Other 80 30 Output: Urine 215 10 5 Hemodialysis 600 0 Other: Voiding Method Indwelling Catheter Indwelling Catheter Indwelling Catheter ABP, PAP, CO, CI - Last Documented Arterial Blood Pressure 51/31 - Exam Gen: Intubated, sedated HEENT: normocephalic, atraumatic, moist mucous membranes Resp: Vent: Volume control 400, FiO2 60%, PEEP 11, respiratory rate 30 CVS: Diminished distal perfusion x 4, GI: soft, NTTP, ND : no SPT, no CVAT, espinosa catheter is present MSK: Bilateral pitting edema, no clubbing - Labs CBC & Chem 7: 11/06/21 04:40 11/06/21 06:00 Labs: Abnormal Lab Results - Last 24 Hours (Table) 11/05/21 11/05/21 11/05/21 Range/Units 17:34 17:36 22:25 WBC (3.8-10.6) k/uL RBC (3.80-5.40) m/uL RDW (11.5-15.5) % Plt Count (150-450) k/uL Neutrophils # (Manual) (1.3-7.7) k/uL Lymphocytes # (Manual) (1.0-4.8) k/uL Metamyelocytes # (Man) (0) k/uL Nucleated RBCs (0-0) /100 WBC PT (9.0-12.0) sec INR (<1.2) ABG pH (7.35-7.45) ABG pCO2 (35-45) mmHg ABG pO2 (83-108) mmHg ABG HCO3 (21-25) mmol/L ABG Total CO2 (19-24) mmol/L ABG O2 Saturation (94-97) % Sodium (137-145) mmol/L Potassium 5.5 H (3.5-5.1) mmol/L BUN (7-17) mg/dL Creatinine (0.52-1.04) mg/dL Glucose (74-99) mg/dL POC Glucose (mg/dL) 329 H 315 H (75-99) mg/dL Calcium (8.4-10.2) mg/dL Total Bilirubin (0.2-1.3) mg/dL AST (14-36) U/L ALT (4-34) U/L Alkaline Phosphatase (38-126) U/L Lactate Dehydrogenase (313-618) U/L C-Reactive Protein (<1.0) mg/dL Total Protein (6.3-8.2) g/dL Albumin (3.5-5.0) g/dL 11/05/21 11/06/21 11/06/21 Range/Units 23:54 04:40 04:56 WBC 21.3 H (3.8-10.6) k/uL RBC 3.48 L (3.80-5.40) m/uL RDW 15.8 H (11.5-15.5) % Plt Count 75 L (150-450) k/uL Neutrophils # (Manual) 20.20 H (1.3-7.7) k/uL Lymphocytes # (Manual) 0.43 L (1.0-4.8) k/uL Metamyelocytes # (Man) 0.43 H (0) k/uL Nucleated RBCs 3 H (0-0) /100 WBC PT (9.0-12.0) sec INR (<1.2) ABG pH 7.13 L* (7.35-7.45) ABG pCO2 79 H* (35-45) mmHg ABG pO2 57 L* (83-108) mmHg ABG HCO3 26 H (21-25) mmol/L ABG Total CO2 28 H (19-24) mmol/L ABG O2 Saturation 84.6 L (94-97) % Sodium (137-145) mmol/L Potassium (3.5-5.1) mmol/L BUN (7-17) mg/dL Creatinine (0.52-1.04) mg/dL Glucose (74-99) mg/dL POC Glucose (mg/dL) 376 H (75-99) mg/dL Calcium (8.4-10.2) mg/dL Total Bilirubin (0.2-1.3) mg/dL AST (14-36) U/L ALT (4-34) U/L Alkaline Phosphatase (38-126) U/L Lactate Dehydrogenase (313-618) U/L C-Reactive Protein (<1.0) mg/dL Total Protein (6.3-8.2) g/dL Albumin (3.5-5.0) g/dL 11/06/21 11/06/21 11/06/21 Range/Units 05:16 06:00 06:00 WBC (3.8-10.6) k/uL RBC (3.80-5.40) m/uL RDW (11.5-15.5) % Plt Count (150-450) k/uL Neutrophils # (Manual) (1.3-7.7) k/uL Lymphocytes # (Manual) (1.0-4.8) k/uL Metamyelocytes # (Man) (0) k/uL Nucleated RBCs (0-0) /100 WBC PT 44.5 H (9.0-12.0) sec INR 4.6 H (<1.2) ABG pH (7.35-7.45) ABG pCO2 (35-45) mmHg ABG pO2 (83-108) mmHg ABG HCO3 (21-25) mmol/L ABG Total CO2 (19-24) mmol/L ABG O2 Saturation (94-97) % Sodium 133 L (137-145) mmol/L Potassium 5.3 H (3.5-5.1) mmol/L BUN 82 H (7-17) mg/dL Creatinine 3.55 H (0.52-1.04) mg/dL Glucose 340 H (74-99) mg/dL POC Glucose (mg/dL) 355 H (75-99) mg/dL Calcium 8.0 L (8.4-10.2) mg/dL Total Bilirubin 1.6 H (0.2-1.3) mg/dL AST 543 H (14-36) U/L ALT 198 H (4-34) U/L Alkaline Phosphatase 155 H (38-126) U/L Lactate Dehydrogenase 4428 H (313-618) U/L C-Reactive Protein 24.7 H (<1.0) mg/dL Total Protein 5.2 L (6.3-8.2) g/dL Albumin 2.1 L (3.5-5.0) g/dL 11/06/21 Range/Units 11:29 WBC (3.8-10.6) k/uL RBC (3.80-5.40) m/uL RDW (11.5-15.5) % Plt Count (150-450) k/uL Neutrophils # (Manual) (1.3-7.7) k/uL Lymphocytes # (Manual) (1.0-4.8) k/uL Metamyelocytes # (Man) (0) k/uL Nucleated RBCs (0-0) /100 WBC PT (9.0-12.0) sec INR (<1.2) ABG pH (7.35-7.45) ABG pCO2 (35-45) mmHg ABG pO2 (83-108) mmHg ABG HCO3 (21-25) mmol/L ABG Total CO2 (19-24) mmol/L ABG O2 Saturation (94-97) % Sodium (137-145) mmol/L Potassium (3.5-5.1) mmol/L BUN (7-17) mg/dL Creatinine (0.52-1.04) mg/dL Glucose (74-99) mg/dL POC Glucose (mg/dL) 215 H (75-99) mg/dL Calcium (8.4-10.2) mg/dL Total Bilirubin (0.2-1.3) mg/dL AST (14-36) U/L ALT (4-34) U/L Alkaline Phosphatase (38-126) U/L Lactate Dehydrogenase (313-618) U/L C-Reactive Protein (<1.0) mg/dL Total Protein (6.3-8.2) g/dL Albumin (3.5-5.0) g/dL Microbiology - Last 24 Hours (Table) 11/03/21 13:14 Blood Culture Gram Stain - Final Blood Blood Culture - Final Staphylococcus epidermidis 11/03/21 13:01 Blood Culture - Preliminary Blood No Growth after 48 hours 11/03/21 12:00 Gram Stain - Final Sputum Sputum Culture - Final Aspergillus fumigatus 11/03/21 04:18 Gram Stain - Final Sputum Sputum Culture - Final Aspergillus fumigatus Assessment and Plan Assessment: COVID-19 pneumonia with acute hypoxic respiratory failure Ventilator associated pneumonia Septic shock - Patient was made comfort care in light of septic shock not responding to pressors. AICD was shut off with magnet. Morphine IV given for air hunger. Patient passed at 12:33 Critical Care time, not including Code Blue time or procedures, totaled 80 minutes.
--- NOTE | 2021-11-06 15:23 | P.DS ---
Providers Date of admission: 10/30/21 19:47 Expected date of discharge: 11/06/21 Attending physician: Eunice Craven MD Consults: 10/30/21 20:04 Consult Physician Stat Consulting Provider: Hakan Costa Consult Reason/Comments: acute hypoxic resp failure, covid infection Do you want consulting provider notified?: Already Contacted 11/03/21 09:17 Consult Physician Stat Consulting Provider: Darren Evans Consult Reason/Comments: a-fib RVR Do you want consulting provider notified?: Yes 11/03/21 13:49 Consult Physician Stat Consulting Provider: Maxime Henry Consult Reason/Comments: MAYA and CKD Do you want consulting provider notified?: Yes Primary care physician: Jennifer Mendez MD Hospital Course: See same day progress note for details - patient passed from septic shock secondary to COVID and superimposed bacterial pneumonia associated with ventilator. Smoking did contribute to . Contributing, but indirectly involved factors include DM, Chronic systolic heart failure, and CKD III. Plan - Discharge Summary Discharge Rx Participant: No New Discharge Prescriptions: No Action Aspirin EC [Ecotrin Low Dose] 81 mg PO HS Omeprazole [PriLOSEC] 40 mg PO HS Warfarin [Coumadin] 2.5 - 5 mg PO DIRECTED Montelukast [Singulair] 10 mg PO DAILY Insulin Degludec [Tresiba Flextouch U-100 Pen] 25 unit SQ DAILY Levothyroxine Sodium [Synthroid] 50 mcg PO DAILY Metoprolol Tartrate [Lopressor] 50 mg PO TID Cetirizine HCl [Zyrtec] 10 mg PO DAILY Amiodarone [Cordarone] 200 mg PO DAILY hydrALAZINE HCL [Apresoline] 25 mg PO TID PRN PRN Reason: HIGH BLOOD PRESSURE Vitamin B Complex 1 tab PO DAILY Ascorbic Acid [Vitamin C] 1,000 mg PO DAILY Vitamin E 400 unit PO DAILY Fluticasone Nasal [place] [Flonase Nasal [place]] 1 spr EA NOSTRIL DAILY PRN PRN Reason: Allergy Symptoms Albuterol Inhaler [Ventolin Hfa Inhaler] 1 - 2 puff INHALATION RT-QID PRN PRN Reason: Shortness Of Breath HYDROcodone/APAP 7.5-325MG [[place] 7.5-325] 1 tab PO Q6HR PRN PRN Reason: Pain Ferrous Sulfate [Slow Fe] 142 mg PO DAILY Insulin Aspart [NovoLOG Flexpen] See Protocol SQ AC-TID Fluticasone/Vilanterol [Breo Ellipta 200-25 Mcg Inhaler] 1 puff INHALATION RT-DAILY Potassium Chloride ER [K-Dur 10] 10 meq PO DAILY Furosemide [Lasix] 80 mg PO TID Levofloxacin [Levaquin] 750 mg PO DAILY Ipratropium-Albuterol Nebulize [Duoneb 0.5 mg-3 mg/3 ml Soln] 3 ml INHALATION RT-QID PRN PRN Reason: Shortness Of Breath Cholecalciferol (Vitamin D3) [Vitamin D3 (125 MCG = 5,000 IU)] 125 mcg PO DAILY Discharge Medication List Aspirin EC [Ecotrin Low Dose] 81 mg PO HS 05/15/15 [History] Omeprazole [PriLOSEC] 40 mg PO HS 05/15/15 [History] Montelukast [Singulair] 10 mg PO DAILY 06/05/16 [History] Warfarin [Coumadin] 2.5 - 5 mg PO DIRECTED 06/05/16 [History] Insulin Degludec [Tresiba Flextouch U-100 Pen] 25 unit SQ DAILY 06/11/18 [History] Albuterol Inhaler [Ventolin Hfa Inhaler] 1 - 2 puff INHALATION RT-QID PRN 06/25/21 [History] Amiodarone [Cordarone] 200 mg PO DAILY 06/25/21 [History] Cetirizine HCl [Zyrtec] 10 mg PO DAILY 06/25/21 [History] Ferrous Sulfate [Slow Fe] 142 mg PO DAILY 06/25/21 [History] Fluticasone Nasal [place] [Flonase Nasal [place]] 1 spr EA NOSTRIL DAILY PRN 06/25/21 [History] Fluticasone/Vilanterol [Breo Ellipta 200-25 Mcg Inhaler] 1 puff INHALATION RT- DAILY 06/25/21 [History] HYDROcodone/APAP 7.5-325MG [[place] 7.5-325] 1 tab PO Q6HR PRN 06/25/21 [History] Insulin Aspart [NovoLOG Flexpen] See Protocol SQ AC-TID 06/25/21 [History] Levothyroxine Sodium [Synthroid] 50 mcg PO DAILY 06/25/21 [History] Metoprolol Tartrate [Lopressor] 50 mg PO TID 06/25/21 [History] Ascorbic Acid [Vitamin C] 1,000 mg PO DAILY 10/30/21 [History] Cholecalciferol (Vitamin D3) [Vitamin D3 (125 MCG = 5,000 IU)] 125 mcg PO DAILY 10/30/21 [History] Furosemide [Lasix] 80 mg PO TID 10/30/21 [History] Ipratropium-Albuterol Nebulize [Duoneb 0.5 mg-3 mg/3 ml Soln] 3 ml INHALATION RT-QID PRN 10/30/21 [History] Levofloxacin [Levaquin] 750 mg PO DAILY 10/30/21 [History] Potassium Chloride ER [K-Dur 10] 10 meq PO DAILY 10/30/21 [History] Vitamin B Complex 1 tab PO DAILY 10/30/21 [History] Vitamin E 400 unit PO DAILY 10/30/21 [History] hydrALAZINE HCL [Apresoline] 25 mg PO TID PRN 10/30/21 [History] Follow up Appointment(s)/Referral(s): Jennifer Mendez MD [Primary Care Provider] - 1-2 days Activity/Diet/Wound Care/Special Instructions: PT REQUESTING INFLUENZA VACCINE PRIOR TO DISCHARGE. Discharge Disposition: - Preliminary Cause of Preliminary Cause of : COVID 19
[2021-11-07] MEDS ORDERED: VANCOMYCIN 2,000 MG in SODIUM CHLORIDE 0.9% 500 ML 500 ML IVPB ONE (06:00)
--- NOTE | 2021-11-13 18:58 | CDI ---
Documentation Clarification Form Date: 11/13/2021 06:08:38 PM From: Jackelyn Guerrero RN, CCDS Email: [email or web address] Admit Date: 10/30/2021 07:47:00 PM Patient Name: Evelia Noel Visit Number: [id number] Discharge Date: 11/06/2021 03:27:00 PM ATTENTION: The Clinical Documentation Specialists (CDI) and [facility] Coding Staff appreciate your assistance in clarifying documentation. Please respond to the clarification below the line at the bottom and electronically sign. The CDI & [facility] Coding staff will review the response and follow-up if needed. Please note: Queries are made part of the Legal Health Record. If you have any questions, please contact the author of this message via ITS. Dr. Luzmaria Lema Ventilator associated pneumonia is documented in the 11/06 progress note and discharge summary. Additional clarification is requested. History/Risk Factors: systolic CHF, A. fib on Coumadin, type II DM, hypertension, hyperlipidemia, COPD. Patient was admitted to the hospital on 10/30/2021 with a diagnosis of COVID-19 pneumonia and acute hypoxic respiratory failure. She failed BiPAP support and was emergently transferred to the intensive care unit and intubated on 11/03. Clinical Indicators: 11/03 progress note: Acute hypoxic respiratory failure related to COVID-19 pneumonia and a component of acute exacerbation of systolic CHF. Transfer to the intensive care unit on 11/03/2021 and intubated and placed on mechanical ventilator. 11/04 Pulmonary: Chest x-ray showing worsening in the bilateral pulmonary infiltrates. The patient developed some leukocytosis. The patient is currently on Decadron. The blood gas shows adequate oxygenation on the above-mentioned ventilator setting. 11/05: Ventilator is essentially the same. The chest x-ray findings are essentially unchanged compared to yesterday and the patient has some limited perihilar and lower lobe pulmonary infiltrates. The white cell count is slightly higher compared to yesterday. Hemodynamically, the patient was on pressors yesterday for hypotension. The patient is possibly septic shock. Urine cultures still pending. Sputum analysis showed Aspergillus species. The patient was covered with IV cefepime. 11/06 Pulmonary: IV cefepime and add vancomycin. 11/06 progress note: COVID-19 pneumonia with acute hypoxic respiratory failure. Ventilator associated pneumonia. Septic shock. 11/06 DS: patient passed from septic shock secondary to COVID and superimposed bacterial pneumonia associated with ventilator. Smoking did contribute to . 10/30 WBC: 5.7, 11/03 WBC: 25, 11/05 WBC: 27.7 11/03 Sputum: Aspergillus fumigatus 10/30 CXR: Diffuse airspace disease may represent edema with superimposed infiltrates. 11/01 CXR: Right greater than left bilateral multifocal opacities consistent with covid-19 infection are redemonstrated. No significant change from most recent x-ray. 11/03 CXR: Pulmonary edema that is not significantly different than exam 2 days ago. Tubing in good position. 11/05 CXR: Diffuse groundglass opacities, right greater than left without significant change 11/05 CXR: Bilateral multifocal and confluent opacities consistent with covid- 19 infection are redemonstrated. No significant change from one day earlier. 11/06 CXR: Stable diffuse bilateral infiltrates. Treatment: 3L IV bolus 11/03. IV Vasopressin, IV Levophed Antibiotics: IV Cefepime 1gm 11/04-11/06. IV Vancomycin 2gm 11/06 O2: mechanical ventilation Breathing Tx: Ventolin puffer 10/31-11/06 Please clarify the pneumonia: [ ] Pneumonia due to aspergillus fumigatus [ x] Ventilator Associated Pneumonia [ ] Pneumonia from both the ventilator and aspergillus fumigatus [ ] Pneumonia due to other bacteria, [ ] Other, please specify [ ] Unable to determine MTDD
--- NOTE | 2021-11-18 07:03 | CDI ---
Documentation Clarification Form Date: 11/18/21 From: Licha Clifford Admit Date: 10/30/2021 07:47:00 PM Patient Name: Evelia Noel Visit Number: [id number] Discharge Date: 11/06/2021 03:27:00 PM ATTENTION: The Clinical Documentation Specialists (CDI) and [facility] Coding Staff appreciate your assistance in clarifying documentation. Please respond to the clarification below the line at the bottom and electronically sign. The CDI & [facility] Coding staff will review the response and follow-up if needed. Please note: Queries are made part of the Legal Health Record. If you have any questions, please contact the author of this message via ITS. Dr. Luzmaria Lema, Patient went into cardiac arrest on 11/06 documented in your 11/06 procedure note and Code Blue note. Additional clarification is requested. Clinical Indicators: Patient presents with COVID-19 pneumonia (unvaccinated) with acute hypoxic respiratory failure, diabetic ketoacidosis, and ATN, INR greater than 10, BUN 81, Creatinine 2.37, glucose 540. On 11/06 went into cardiac arrest. Treatment: Placed on mechanical ventilation on 11/03. During code blue: received two doses of epinephrine. She was coded and chest compressions resumed. She received two pushes of epinephrine, and was started on an epi gtt with ROSC. Please clarify the cause of the cardiac arrest if known: [ ] Cardiac arrest due to cardiac condition, please specify [ x] Cardiac arrest due to respiratory condition, please specify: septic shock from pneumonia [ ] Cardiac arrest due to other condition, please specify [ ] Cardiac arrest due to unknown cause or condition [ ] Unable to determine MTDD
== END 2021-11-06 15:27 | disposition expired | DRG 208 ==
LOC: EC 17:51 → 2SICU 19:47
PROVIDERS: ADMIT Internal Medicine; ATTEND Internal Medicine
PROC: 5A1945Z Respiratory Ventilation, 24-96 Consecutive Hours (ICD-10-PCS; principal; 2021-11-03)
PROC: 03HY32Z Insertion of Monitoring Device into Upper Artery, Percutaneous Approach (ICD-10-PCS; 2021-11-03)
PROC: 4A133B1 Monitoring of Arterial Pressure, Peripheral, Percutaneous Approach (ICD-10-PCS; 2021-11-03)
PROC: 4A133J1 Monitoring of Arterial Pulse, Peripheral, Percutaneous Approach (ICD-10-PCS; 2021-11-03)
PROC: 02HV33Z Insertion of Infusion Device into Superior Vena Cava, Percutaneous Approach (ICD-10-PCS; 2021-11-03)
PROC: 3E043XZ Introduction of Vasopressor into Central Vein, Percutaneous Approach (ICD-10-PCS; 2021-11-03)
PROC: 06HY33Z Insertion of Infusion Device into Lower Vein, Percutaneous Approach (ICD-10-PCS; 2021-11-03)
PROC: 5A1D70Z Performance of Urinary Filtration, Intermittent, Less than 6 Hours Per Day (ICD-10-PCS; 2021-11-03)
PROC: 0BH17EZ Insertion of Endotracheal Airway into Trachea, Via Natural or Artificial Opening (ICD-10-PCS; 2021-11-03)
PROC: 0D9670Z Drainage of Stomach with Drainage Device, Via Natural or Artificial Opening (ICD-10-PCS; 2021-11-03)
PROC: 3E0G76Z Introduction of Nutritional Substance into Upper GI, Via Natural or Artificial Opening (ICD-10-PCS; 2021-11-04)
PROC: 5A12012 Performance of Cardiac Output, Single, Manual (ICD-10-PCS; 2021-11-06)
DX: U07.1 COVID-19 (principal); J96.01 Acute respiratory failure with hypoxia; N17.0 Acute kidney failure with tubular necrosis; R65.21 Severe sepsis with septic shock; J12.82 Pneumonia due to coronavirus disease 2019; I50.23 Acute on chronic systolic (congestive) heart failure; A41.9 Sepsis, unspecified organism; E11.10 Type 2 diabetes mellitus with ketoacidosis without coma; J15.9 Unspecified bacterial pneumonia; J95.851 Ventilator associated pneumonia; D68.9 Coagulation defect, unspecified; I13.0 Hypertensive heart and chronic kidney disease with heart failure and stage 1 through stage 4 chronic kidney disease, or unspecified chronic kidney disease; I42.8 Other cardiomyopathies; I24.8 Other forms of acute ischemic heart disease; I48.19 Other persistent atrial fibrillation; J44.0 Chronic obstructive pulmonary disease with (acute) lower respiratory infection; I47.2 Ventricular tachycardia; E11.41 Type 2 diabetes mellitus with diabetic mononeuropathy; D63.1 Anemia in chronic kidney disease; E11.22 Type 2 diabetes mellitus with diabetic chronic kidney disease; E11.51 Type 2 diabetes mellitus with diabetic peripheral angiopathy without gangrene; I46.8 Cardiac arrest due to other underlying condition; N18.30 Chronic kidney disease, stage 3 unspecified; Z79.4 Long term (current) use of insulin; Z99.2 Dependence on renal dialysis; Z51.5 Encounter for palliative care; E87.5 Hyperkalemia; E86.0 Dehydration; E03.9 Hypothyroidism, unspecified; E05.90 Thyrotoxicosis, unspecified without thyrotoxic crisis or storm; G57.93 Unspecified mononeuropathy of bilateral lower limbs; E78.5 Hyperlipidemia, unspecified; I45.4 Nonspecific intraventricular block; K21.9 Gastro-esophageal reflux disease without esophagitis; I83.90 Asymptomatic varicose veins of unspecified lower extremity; G89.29 Other chronic pain; M54.9 Dorsalgia, unspecified; M79.604 Pain in right leg; M79.605 Pain in left leg; T45.515A Adverse effect of anticoagulants, initial encounter; F17.200 Nicotine dependence, unspecified, uncomplicated; Z79.01 Long term (current) use of anticoagulants; Z79.82 Long term (current) use of aspirin; Z79.890 Hormone replacement therapy; Z79.51 Long term (current) use of inhaled steroids; Z79.899 Other long term (current) drug therapy; Z95.810 Presence of automatic (implantable) cardiac defibrillator; Z90.89 Acquired absence of other organs; Z86.59 Personal history of other mental and behavioral disorders; Z86.19 Personal history of other infectious and parasitic diseases; Z85.41 Personal history of malignant neoplasm of cervix uteri; Z87.440 Personal history of urinary (tract) infections; Z87.01 Personal history of pneumonia (recurrent); Z98.51 Tubal ligation status; Z98.890 Other specified postprocedural states; Y84.8 Other medical procedures as the cause of abnormal reaction of the patient, or of later complication, without mention of misadventure at the time of the procedure; Z88.0 Allergy status to penicillin; Z80.9 Family history of malignant neoplasm, unspecified; Z82.5 Family history of asthma and other chronic lower respiratory diseases
CPT/HCPCS: 36415; 36600; 71045; 71046; 80048; 80053; 81001; 82805; 83605; 83615; 83735; 83880; 84100; 84132; 84145; 84439; 84443; 84484; 85025; 85379; 85610; 85730; 86140; 86706; 87040; 87070; 87086; 87205; 87340; 87635; 90935; 92950; 93005; 93970; 94003; 94640; 94660; 99285